=== PATIENT | female | born 1975 | race Caucasian/White ===

== ENCOUNTER 2022-03-27 16:40 | Emergency (ER) | payer OTHER, SELFPAY ==
[2022-03-27 17:02] VITALS: BP 137/86; PULSE 75; RESP 18; TEMP 36.9; O2SAT 98; BMI 32.4
--- NOTE | 2022-03-27 17:23 | ED.GENADULT ---
HPI - General Adult General Time Seen by Provider: 17:23 Date Seen: 03/27/22 Chief complaint: Skin/Abscess/Foreign Body Stated complaint: blister and rash on LT leg Time Seen by Provider: 03/27/22 16:55 Source: patient Mode of arrival: ambulatory Limitations: no limitations History of Present Illness HPI narrative: Patient is a 47 year white female who presents with a rash on the back of her leg for few days started as a couple of dots, now it has been blistery and weepy little bit the distal 3rd of her leg posteriorly, she has been using some doc topical Benadryl ointment, initially was periodic now it does not itch much. No other rashes noted patient has been healthy Related Data Home Medications Medication Instructions Recorded Confirmed aspirin .ROUTE 03/27/22 levothyroxine .ROUTE 03/27/22 sertraline .ROUTE 03/27/22 Allergies Allergy/AdvReac Type Severity Reaction Status Date / Time iodine Allergy Verified 03/27/22 17:00 Review of Systems Narrative: Negative for prior skin rash, or skin condition PFSH PFSH Social History Smoking Status: Unknown if ever smoked Do you use any of these nicotine containing products: None Second hand tobacco smoke exposure: No How often do you have a drink containing alcohol: never AUDIT-C Alcohol total score: 0 Non-prescribed substance use: denies use service: No Exam Narrative: Exam Narrative: Objective: We would be blistering rash on the lower leg on the left posterior leg. A wound culture be obtained by nurses. Const: Vital Signs, click to edit/add: Vital Signs - 24 hr 03/27/22 17:02 Temperature 98.4 F Pulse Rate [Right Pulse Oximeter] 75 Respiratory Rate 18 Blood Pressure [Ri ght Upper Arm] 137/86 Pulse Oximetry 98 Oxygen Delivery Me thod Room Air Course Vital Signs Vital signs: Initial Vital Signs Temperature 98.4 F 03/27/22 17:02 Temperature Source Oral 03/27/22 17:02 Pulse Rate 75 03/27/22 17:02 Respiratory Rate 18 03/27/22 17:02 Blood Pressure 137/86 03/27/22 17:02 Blood Pressure Mean 103 03/27/22 17:02 Blood Pressure Position Sitting 03/27/22 17:02 Pulse Oximetry 98 03/27/22 17:02 Oxygen Delivery Method 03/27/22 17:02 Vital Signs Temperature 98.4 F 03/27/22 17:02 Pulse Rate 75 03/27/22 17:02 Respiratory Rate 18 03/27/22 17:02 Blood Pressure 137/86 03/27/22 17:02 Pulse Oximetry 98 03/27/22 17:02 Oxygen Delivery Method 03/27/22 17:02 Temperature 98.4 F 03/27/22 17:02 Pulse Rate 75 03/27/22 17:02 Respiratory Rate 18 03/27/22 17:02 Blood Pressure 137/86 03/27/22 17:02 Pulse Oximetry 98 03/27/22 17:02 Oxygen Delivery Method 03/27/22 17:02 Medical Decision Making MDM Narrative Medical decision making narrative: Patient has a blistering type rash in the back of her leg that is gotten worse. Peers a could be a contact dermatitis versus mild cellulitis or impetigo type infection. Wound culture obtained. Will have the patient take Benadryl orally, can take prednisone 50 mg now and then 20 b.i.d. for the next couple of days. May take oral Benadryl as well. Topical lotion as needed. Follow up wound culture as indicated. Recheck with Primary Care not improving in next several days Discharge Plan Discharge Clinical Impression: Rash and nonspecific skin eruption Patient Disposition: Home, Self-Care Condition: Stable Additional Instructions: The rash appears to be either mild infection or contact dermatitis, wound culture be obtained. Will call you with results of the wound culture if it is positive. Keflex 500 q.i.d., prednisone now and then prednisone 20-40 b.i.d. over the next 3 days. May use some topical lotion as needed. Oral Benadryl be useful as well for a couple of days. Follow up with primary care not improving in next few days. Medications will be dispensed through [facility] Activity Level: No Restrictions Discharge Diet: Regular Prescriptions: No Action sertraline [Zoloft] .ROUTE aspirin .ROUTE levothyroxine [Synthroid] .ROUTE Stand Alone Forms: Videostrip Info Instructions
--- OUTSIDE RECORDS SUMMARY | 2022-03-27 17:34 | XMS_ITS | Clinical Summary ---
:1975 Author Organization [email or web address] Address [address] [place] [address] Care Team Providers Name Role Phone Minda Barkley MD Primary Care Provider Unavailable Source Comments You are receiving this document as you are listed as the primary care provider,follow-up provider, or the patient has been referred to you for consultation.This is in compliance with the Medicare and Medicaid EHR Incentive Program,which states Providers who transition their patient to another setting of careor provider of care or refers their patient to another provider of care shouldprovide summarycare record for each transition of care or referral. [facility] Allergies Active Allergy Reactions Severity Noted Date Comments Other 04/21/2007 PN: LW Other1: -iodine Swelling Review Food Intolerance 09/12/2004 PN: LW FI1: shellfis Medications Medication Sig Dispensed Refills Start Date End Date Status levothyroxine (AKA Take 1 tablet by 90 tablet 3 09/22/2011 Active SYNTHROID) 50 MCG tablet mouth daily (every 24 hours). 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 Overview: LW Onset: [id number] ; Allergy Food Resolved Problems Problem Noted Date Resolved Date Sinusitis, chronic 09/12/2004 10/13/2004 Overview: LW Onset: [id number] ; Post Nasal Drip Immunizations Name Administration Dates Next Due Influenza IIV4 (Quadrivalent) 0.5mL 05/06/2019, 05/02/2019, 05/02/2017 (89263) Pfizer (Comirnaty) COVID-19, 12+ Yrs 05/31/2021, 08/12/2020, 07/22/2020 Purple Top Family History Medical History Relation Name Comments Heart Disease Father Diabetes Paternal Grandfather Relation Name Status Comments Father Mother Alive Maternal Grandfather Maternal Grandmother Alive Paternal Grandfather Paternal Grandmother Social History Tobacco Use Types Packs/Day Years Used Date Smoking Tobacco: Never Alcohol Use Standard Drinks/Week Comments Yes 0 (1 standard drink = 0.6 oz pure alcoho l) social Alcohol Habits Answer Date Recorded How often do you have a drink containing alcohol? Not asked How many drinks containing alcohol do you have on a typical Not asked day when you are drinking? How often do you have six or more drinks on one occasion? No t asked Comment: social 03/10/2016 Sex Assigned at Date Recorded Not on file Last Filed Vital Signs Vital Sign Reading Time Taken Comments Blood Pressure 114/70 09/22/2011 8:47 AM INSULATION BOARD CALENDER OPERATOR Pulse 76 09/22/2011 8:47 AM INSULATION BOARD CALENDER OPERATOR Temperature 36.7 ??C (98.1 ??F) 02/20/2008 10:08 AM CDT C: 3 6.7 C Respiratory Rate 14 02/20/2008 10:08 AM CDT Oxygen Saturation 99% 04/21/2007 8:39 AM CDT Inhaled Oxygen Concentration - - Weight 75.3 kg (166 lb) 09/22/2011 8:47 AM INSULATION BOARD CALENDER OPERATOR Height - - Body Mass Index - - Plan of Treatment Health Maintenance Due Date Last Done Comments Cervical Cancer Screening 1975 Due Colon Cancer Screening Plan 1975 Due Hep C Screening (Preventive 1975 Services) HepB (1) 1975 HIV Screening (Preventive 1992 Services) Adult Preventive Visit 02/14/1994 Cholesterol 02/14/2021 DTaP/Tdap/Td (3 - Tdap) 02/14/2021 02/14/2011, 07/23/2003 Influenza (#1) 2022 04/12/2021, 04/22/2020, 04/07/2020, Additional history exists Zoster/Shingles (1 of 2) 02/14/2026 COVID-19 Vaccine Completed 05/31/2021, 08/12/2020, 07/22/2020 HepA Aged Out No longer eligib le based on patient 's age to complete this topic Hib Aged Out No longer eligib le based on patient 's age to complete this topic IPV (Polio) Aged Out No longer eligib le based on patient 's age to complete this topic MCV4 Aged Out No longer eligib le based on patient 's age to complete this topic Pneumococcal Aged Out No longer eligib le based on patient 's age to complete this topic Insurance Payer Benefit Plan / Subscriber ID Effective Dates Phone Addre ss Type Group CHRIS PEREZ CROSSNORE [id number] 2017-Present [facility]ALTH [facility] Government [employer] [address] [place] [address] [phone] (Home) [address] [phone] Micahel WELSH [address] 0 (Work) [phone] [address] Manuel Personal/Family Self 1975 [phone] (Home) [facility] [phone] Michael WELSH N 0 (Work) [phone] Sara Manuel Personal/Family Self 1975 [phone] (Home) [place] [address] [employer] 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
--- OUTSIDE RECORDS SUMMARY | 2022-03-27 17:34 | XMS_ITS | Encounter Summary ---
:1975 [facility] Organization [facility] Address [address] [place] [address] Care Team Providers Name Role Phone Minda Barkley MD Primary Care Provider Unavailable Encounter Details Date Type Department Care Team Description 07/22/2020 Immunization [place] [facility]ter for Clinic administration of vaccine Varies by location (Primary Dx) [place] [phone] Social History Tobacco Use Types Packs/Day Years [...] Assigned at Date Recorded Not on file documented as of this encounter Plan of Treatment Not on filedocumented as of this encounter Visit Diagnoses Diagnosis Encounter for administration of vaccine - Primary documented in this encounter Care Teams Test Worker Relationship Specialty Start Date End Date Minda Barkley MD PCP - General 10/24/10 documented as of this encounter
--- OUTSIDE RECORDS SUMMARY | 2022-03-27 17:34 | XMS_ITS | Encounter Summary ---
:1975 Author Organization [facility] Address [address] [place] [address] Care Team Providers Name Role Phone Minda Barkley MD Primary Care Provider Unavailable Encounter Details Date Type Department Care Team Description 06/21/[address] [address] [facility], Drive-Up Encounter [facility] [address] [place] [address] diseases [phone] Social History Tobacco Use Types Packs/Day Years [...] Not on filedocumented as of this encounter Procedures Procedure Name Priority Date/Time Associated Comments Diagnosis 2019 NOVEL Routine 06/21/2020 9:55 AM Encounter for Results for this CORONAVIRUS CREDIT OFFICER screening for other procedur e are in viral diseases the results section. documented in this encounter Results Symptomatic - 2019 Novel Coronavirus (COVID-19) (06/21/2020 9:55 AM CREDIT OFFICER) [facility] Method Time Signature COVID-19 Not Not 06/21/2020 [facility] Interpretation Detected Detected 10:56 PM CENTRAL LAB CREDIT OFFICER Specimen Anatomical Collection Method Collection Time Receive d Time (Source) Location / / Volume Laterality Swab (Source Non-blood 06/21/2020 9:55 AM 0 Required) Collection / CREDIT OFFICER 11:59 AM CREDIT OFFICER Unknown Narrative [facility] CENTRAL LAB - 06/21/2020 10:56 PM CREDIT OFFICER Test performed by Electronic Installer Mediated Amplification. TMA has been shown to be equivalent to commercial real-time PCR t ests. This test has been authorized by the FDA under an Emergency Use Authorization (EUA) for use by authorized laboratories. Minda Barkley MD LAB_1 Performing Organization Address City/State/[facility] Code Phon e Number [facility] [address] [phone] documented in this encounter Visit Diagnoses Diagnosis Encounter for screening for other viral diseases documented in this encounter Additional Health Concerns Infection Onset Date Last Indicated Resolved Time R/O COVID19 06/21/2020 06/21/2020 06/21/2020 10:56 PM CREDIT OFFICER documented as of this encounter Care Teams Continuous Linter Drier Operator Relationship Specialty Start Date End Date Minda Barkley MD PCP - General 10/24/10 documented as of this encounter
--- OUTSIDE RECORDS SUMMARY | 2022-03-27 17:34 | XMS_ITS | Encounter Summary ---
:1975 Author Organization [facility] Address [address] [place] [address] Care Team Providers Name Role Phone Minda Barkley MD Primary Care Provider Unavailable Encounter Details Date Type Department Care Team Description 02/08/2017 Notes/Orders [facility] [address] Benedict [place]rade, [place] reening examination Employee Health MD for pulmonary Clinic [address] [facility] tuberculosis (Primary [address] Dx) [place] [address] [phone] Social History Tobacco Use Types Packs/Day Years [...] Not on filedocumented as of this encounter Results TB Gold, Quantiferon (02/08/2017 3:21 PM CDT) [facility] Method Time Signature Tuberculosis Negative Negative PN SOFT Qualitative Inhouse Comment: The test result is Negative M.tuberculosis infection is unlikely, bu t cannot be excluded, especially when illness is consistent wi th TB. Qiagen QuantiFERON-TB Gold is an indirec t test utilizing Interferon-gamma (IFN-y) DANA for M.tub erculosis infection (including disease) and is intended for use in conjunction with risk assessment, radiography and ot her medical and diagnostic evaluations. ??The performanc of the [facility] format of the test has not been extensively betsy luated with specimens from the followin.Individua ls who have impaired or altered immune function such as those who have HIV infection or AIDS, those who have transp lantation managed with immunosuppressive treatment or othe rs who receive immunosuppressive drugs, and those who h ave other clinical conditions:diabetes, silicosis, chronic renal failure, hematological disorders(e.g.leukemia & l ymphomas), and other specific malignancies (e.g.carcinoma of the head, neck, or lung). 2. Individuals younger than 17 ye ars. Specimen Anatomical Collection Method Collection Time Receive d Time (Source) Location / / Volume Laterality 02/08/2017 3:21 PM 7 3:59 CDT PM CDT Narrative PN SOFT - 02/12/2017 2:57 PM CDT Performed at [facility], [facility] [place] [address] CLIA number [id number] Benedict Andrade MD LAB_1 Performing Organization Address City/State/ZIP Code Phon e Number [address] [address] documented in this encounter Visit Diagnoses Diagnosis Screening examination for pulmonary tube rculosis - Primary Screening examination for pulmonary tube rculosis documented in this encounter Care Teams Metal Tile Lather Relationship Specialty Start Date End Date Minda Barkley MD PCP - General 10/24/10 documented as of this encounter
--- OUTSIDE RECORDS SUMMARY | 2022-03-27 17:34 | XMS_ITS | Encounter Summary ---
:1975 Author Organization [email or web address] Address [address] [place] [address] Care Team Providers Name Role Phone Minda Barkley MD Primary Care Provider Unavailable Encounter Details Date Type Department Care Team Description 02/08/2017 Lab Visit Specialty [facility] 3931 Screen ing examination for Outpatient Laborator y pulmonary tuberculosis [address] [place] [address] Social History Tobacco Use Types Packs/Day Years [...] encounter Procedures Procedure Name Priority Date/Time Associated Diagnosis Comme nts TB GOLD, QUANTIFERON Routine 02/08/2017 3:21 PM Screening exam ination Results for this CDT for pulmonary procedure are in tuberculosis the results section. documented in this encounter Results TB Gold, Quantiferon (02/08/2017 3:21 PM CDT) [facility] Method Time Signature Tuberculosis Negative Negative PN [...] and diagnostic evaluations. ??The performanc of the [facility] format of the test has not been [...] - 02/12/2017 2:57 PM CDT Performed at [facility], [facility] [place] [address] CLIA number [id number] Benedict Andrade MD LAB_1 Performing Organization Address City/State/ZIP Code Phon e Number SOFT [address] [place] [address] [phone] documented in this encounter Visit Diagnoses Diagnosis Screening examination for pulmonary tube rculosis documented in this encounter Care Teams Manager Government Relationship Specialty Start Date End Date Minda Barkley MD PCP - General 10/24/10 documented as of this encounter
--- OUTSIDE RECORDS SUMMARY | 2022-03-27 17:34 | XMS_ITS | Encounter Summary ---
:1975 Author Organization [facility] Address [address] [place] [address] Care Team Providers Name Role Phone Minda Barkley MD Primary Care Provider Unavailable Encounter Details Date Type Department Care Team Description 08/05/2021 Lab Visit [facility] Conta [facility] with and Laboratory (suspected) exposure to [address] covid-19 (Primary Dx) [place] [address] Social History Tobacco Use Types Packs/Day Years [...] Date/Time Associated Comments Diagnosis 2019 NOVEL Routine 08/05/2021 9:52 PM Contact with and Resul ts for this CORONAVIRUS HUMAN RESOURCES VICE PRESIDENT (suspected) procedure are i n exposure to the results covid-19 section. documented in this encounter Results (ABNORMAL) COVID-19 (ROUTINE)-choose patient type (08/05/2021 9:52 PM HUMAN RESOURCES VICE PRESIDENT) [facility] Method Time Signature COVID-19 Detected Not 08/05/2021 [facility] Interpretation (A) Detected 11:54 PM HOSPITAL HUMAN RESOURCES VICE PRESIDENT Source Nares, left 08/05/2021 [facility] and right 11:54 PM HOSPITAL HUMAN RESOURCES VICE PRESIDENT Specimen Anatomical Collection Method Collection Time Receive d Time (Source) Location / / Volume Laterality Swab (Source ENTIRE ANTERIOR Non-blood 08/05/2021 9:52 PM 2021 9:57 Required) NARIS / Unknown Collection / HUMAN RESOURCES VICE PRESIDENT PM HUMAN RESOURCES VICE PRESIDENT Unknown Narrative [facility] - 08/05/2021 11:[address] Test performed by real-time PCR. This test has been authorized by the FDA under an Emergency Use Authorization (EUA) for use by authorized laboratories. Minda Barkley MD LAB_1 Performing Organization Address City/State/ZIP Code Phon e Number [address] [address] documented in this encounter Visit Diagnoses Diagnosis Contact with and (suspected) exposure to covid-19 - Primary documented in this encounter Care Teams Wireless Sales Associate Relationship Specialty Start Date End Date Minda Barkley MD PCP - General 10/24/10 documented as of this encounter
--- OUTSIDE RECORDS SUMMARY | 2022-03-27 17:34 | XMS_ITS | Encounter Summary ---
:1975 [facility] Address [address] [place] [address] Care Team Providers Name Role Phone Minda Barkley MD Primary Care Provider Unavailable Encounter Details Date Type Department Care Team Description 05/31/2021 Immunization [facility] Encounter f or Department administration of vaccine [address] [place] [address] (Primary Dx) [place] [address] Social History Tobacco Use Types Packs/Day Years [...] Primary documented in this encounter Care Teams Chief Customer Officer Relationship Specialty Start Date End Date Minda Barkley MD PCP - General 10/24/10 documented as of this encounter
--- OUTSIDE RECORDS SUMMARY | 2022-03-27 17:34 | XMS_ITS | Encounter Summary ---
:1975 Author Organization [facility] Address [address] [place] [address] Care Team Providers Name Role Phone Minda Barkley MD Primary Care Provider Unavailable Encounter Details Date Type Department Care Team Description [facility] administration of vaccine [address] [facility] (Primary Dx) [place] [address] Social History Tobacco Use Types Packs/Day Years [...] Primary documented in this encounter Care Teams Medical Oncology Physician Relationship Specialty Start Date End Date Minda Barkley MD PCP - General 10/24/10 documented as of this encounter
--- OUTSIDE RECORDS SUMMARY | 2022-03-27 17:34 | XMS_ITS | Encounter Summary ---
:1975 Author Organization [facility] Address [address] [place] [address] Care Team Providers Name Role Phone Minda Barkley MD Primary Care Provider Unavailable Encounter Details Date Type Department Care Team Description 06/08/2017 Immunization [facility] Need f or prophylactic [facility] vaccination [facility] . inoculation against [place], [place] [address] Social History Tobacco Use Types Packs/Day Years [...] as of this encounter Visit Diagnoses Diagnosis Need for prophylactic vaccination and in oculation against influenza documented in this encounter Care Teams Budget Controller Relationship Specialty Start Date End Date Minda Barkley MD PCP - General 10/24/10 documented as of this encounter
--- OUTSIDE RECORDS SUMMARY | 2022-03-27 17:34 | XMS_ITS | Clinical Summary ---
:1975 Author Organization [facility] [place] [address] Care Team Providers Name Role Phone Neil Lomeli RN, Aide Unavailable Xiomara Lawrence MD Primary Care Provider Allergies Active Allergy Reactions Severity Noted Date Comments Iodine Edema High 04/26/2006 Shellfish Containing Products Throat Swelling/Closing High 08/07/2006 Medications Medication Sig Dispensed Refills Start Date End Date Status aspirin (ECOTRIN) 81 mg Take 1 tablet by 30 tablet 0 9 Active enteric coated mouth once daily tabletIndications: with a meal. Acute CVA (cerebrovascular accident) (HC) valACYclovir (VALTREX) Take 2 tablets by 10 tablet 0 0 Active 1 gram mouth 2 times tabletIndications: H/O daily. Start at cold sores onset of symptoms for one day. levothyroxine Take 50 mcg by 0 A ctive (SYNTHROID) 25 mcg mouth once daily. tablet (per patient recall) busPIRone (BUSPAR) 10 TAKE ONE TABLET 0 02/14/2021 Active mg tablet BY MOUTH TWICE A DAY FOR ANXIETY escitalopram oxalate TAKE TWO TABLETS 0 01/06/2021 Active (LEXAPRO) 5 mg tablet BY MOUTH EVERY DAY ondansetron (ZOFRAN 0 03/05/2021 Active ODT) 4 mg disintegrating tablet tiZANidine (ZANAFLEX) 2 0 12/29/2019 Active mg tablet LORazepam (ATIVAN) 1 mg 0 07/05/2020 Active tablet Active Problems Problem Noted Date Depression 03/07/2021 CVA (cerebral vascular accident) 10/10/2020 Vertebral artery dissection 10/10/2020 Right sided weakness 10/10/2020 Headache 01/23/2019 Right hemiplegia 01/23/2019 S/P admn tPA in diff fac w/n last 24 hr bef adm to crn t fac 01/23/2019 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 11/07/19 19 ASCUS of cervix with negative high risk HPV 11/06/2018 Overview: 11/06/2018 ASCUS/HPV negative 03/07/2021 NIL/HPV negative Plan: Routine screening Pap/HPV due 02/21 026 Macromastia 12/03/2017 Overview: Added automatically from request for maritza rodriguez [id number] Abdominal panniculus, symptomatic 12/03/2017 Overview: Added automatically from request for maritza rodriguez [id number] Resolved Problems Problem Noted Date Resolved Date Vulvar lesion 07/25/2012 02/17/2014 Supervision of other normal 05/23/2006 Twin , antepartum 05/23/2006 02/17/2014 Immunizations Name Administration Dates Next Due COVID-19 vaccine ([employer] [place] 08/12/2020, 07/22/2020 30mcg/0.3mL) PF, MDV Hepatitis B (Adult) 04/01/2015 Influenza Virus, Unspecified 04/22/2020, 05/20/2018, 013 Influenza, IIV3 (Age 6-35 mos) 04/07/2020, 04/12/2015 Influenza, IIV3 (Age >=3 years) 03/23/2015, 05/23/2006, 05/23 Influenza, IIV4 05/06/2019, 05/02/2019, 05/02/2017, 04/25/2016, 06/03/2014 Tdap 02/14/2011, 07/23/2003 Tuberculin (PPD) 02/17/2014 Family History Medical History Relation Name Comments Hyperlipidemia Father Hypertension Father Premature CHD (under age 60) Father d [place] [facility] Thyroid Disease Mother Goiter Diabetes Paternal Grandfather Type II Cancer-breast No Family History Cancer-ovarian No Family History Stroke No Family History Relation Name Status Comments Brother 1 Alive Brother 2 Alive Father from [place] Mother Alive Paternal Grandfather Sister Alive Social History Tobacco Use Types Packs/Day Years Used Date Never Smoker Smokeless Tobacco: Never Used Tobacco Cessation: Counseling Given: Yes Alcohol Use Standard Drinks/Week Comments Yes 0 (1 standard drink = 0.6 oz pure Twice a month or less, 1 drinks per alcohol) 24h period at most Alcohol Habits Answer Date Recorded How often do you have a drink 2-4 times a month 11/06/2018 containing alcohol? How many drinks containing alcohol do 1 or 2 you have on a typical day when you are drinking? How often do you have six or more Never 2018 drinks on one occasion? Comment: Twice a month or less, 1 drinks 10/26/19 16 per 24h period at most Sex Assigned at Date Recorded Female 03/04/2021 8:27 AM CDT Obstetrics History Para Term AB IAB SAB Ectopic Multiple Living Live Births 3 3 2 1 0 0 0 0 1 4 4 Date Outcome GA Total Labor/2nd/3rd Weight Sex Delivery Anes PTL Tanisha A 1 A5 Name Clin Labor 11/18 Term 38w 3.29 kg M Vag Meghna Austi S. /1992 0d (7 lb 4 ng n D itma oz) nson Delivery Location: [place], [place] 01/09/2001 Term 38w0d 3.12 kg (6 lb 14 oz) F Vag Li ving Anterra Delivery Location: [place] 08/20/2006 36w0d 2.81 kg (6 lb 3 oz) F Vag [facility] Comments: Baby A 08/20/2006 36w0d 2.41 kg (5 lb 5 oz) F Vag Living [facility] Comments: Baby B Last Filed Vital Signs Vital Sign Reading Time Taken Comments Blood Pressure 130/84 03/07/2021 10:24 AM CDT Pulse 74 10/11/2020 8:30 AM CDT Temperature 36.8 ??C (98.3 ??F) 10/11/2020 12:26 AM CDT Respiratory Rate 16 10/11/2020 8:30 AM CDT Oxygen Saturation 100% 10/11/2020 8:30 AM CDT Inhaled Oxygen Concentration - - Weight 88.1 kg (194 lb 4.8 oz) 03/07/2021 10:24 AM CDT Height 166 cm (5' 5.35) 03/07/2021 10:24 AM CDT Body Mass Index 31.98 03/07/2021 10:24 AM CDT Plan of Treatment Health Maintenance Due Date Last Done Comments Colonoscopy through age 75 02/14/2021 Tetanus booster 02/14/2021 02/14/2011, 02/14/2011 ([facility] 07/23/2003 BMI (ht and wt on same day) for 03/07/2022 03/07/2021, 1211/2018, age 18+ 04/30/2019, Additional history exists Depression screening for age 12+ 03/07/2022 03/07/2021, 06/2020, 08/13/2019, Additional history exists Influenza for age 9-49 03/23/2022 04/22/2020, 05/06/2019, 05/02/2019, Additional history exists Mammogram for age 45-75 12/07/2022 12/07/2021, 10/29/2020, 10/01/2019, Additional history exists Lipids for age 45-75 10/10/2025 10/10/2020, 01/24/2019, 04/18/2017, Additional history exists Pap test for age 21-65 03/07/2026 03/07/2021, 03/07/2021, 11/06/2018, Additional history exists Tdap Completed 02/14/2011, 07/23/2003 Hepatitis C screening for age Completed 03/29/2018 18-79 COVID-19 vaccine series Completed 05/31/2021, 08/12/2020, 07/22/2020 Results Not on filefrom Last 3 Months Insurance Payer Benefit Plan Subscriber ID Effective Dates Phone Address Type / Group [employer] [facility] [id number] 2021-Prese [facility] [employer] nt [address] [place] [address] [place] [id number] 2013-Presen [employer]/ [address] [place] [phone] Advance Directives Latest Code Status on File Code Status Date Activated Date Inactivated Comments Full Code 10/10/2020 2:17 AM 10/11/2020 4:45 PM Code Status Discussion: Discussed Full Code 01/23/2019 11:13 AM 01/25/2019 2:07 PM Full Code 03/29/2018 6:09 AM 03/30/2018 1:14 PM Care Teams Copier Technician Relationship Specialty Start Date End Date Xiomara Lawrence MD PCP - General Internal Medicine 11/28/21 [place] [address] Aide Trejo V, RN Pet Supplies Salesperson Registered Nurse 02/04/19
--- OUTSIDE RECORDS SUMMARY | 2022-03-27 17:34 | XMS_ITS | Encounter Summary ---
:1975 Author Organization [facility] Address [address] [place] [address] Care Team Providers Name Role Phone Minda Barkley MD Primary Care Provider Unavailable Encounter Details Date Type Department Care Team Description 06/21/2020 Notes/Orders [facility] Minda Barkleyuntyaima for Practice MD Kimberly screening for other [facility] [address] viral diseases [place], [place] [address] [address] [place], [place] [phone] Social History Tobacco Use Types Packs/Day Years [...] on filedocumented as of this encounter Results Symptomatic - 2019 Novel Coronavirus (COVID-19) (06/21/2020 9:55 AM HELP DESK MANAGER) [facility] gist Method Time Signature COVID-19 Not Not 06/21/2020 [facility] Interpretation Detected Detected 10:56 PM CENTRAL LAB HELP DESK MANAGER Specimen Anatomical Collection Method Collection Time Receive d Time (Source) Location / / Volume Laterality Swab (Source Non-blood 06/21/2020 9:55 AM 0 Required) Collection / HELP DESK MANAGER 11:59 AM HELP DESK MANAGER Unknown Narrative [facility] CENTRAL LAB - 06/21/2020 10:56 PM HELP DESK MANAGER Test performed by Air Traffic Coordinator Mediated Amplification. TMA has been shown to be equivalent to commercial real-time PCR t ests. This test has been authorized by the FDA under an Emergency Use Authorization (EUA) for use by authorized laboratories. Minda Barkley MD LAB_1 Performing Organization Address City/State/ZIP Code Phon e Number [facility] [address] [address] documented in this encounter Visit Diagnoses Diagnosis Encounter for screening for other viral diseases documented in this encounter Care Teams Fuel Cell Systems Engineer Relationship Specialty Start Date End Date Minda Barkley MD PCP - General 10/24/10 documented as of this encounter
[2022-03-27] MEDS: predniSONE 10 MG TABLET 50 MG PO (17:35)
[2022-03-27] MEDS: cephALEXin 500 MG CAPSULE PO (17:35)
--- OUTSIDE RECORDS SUMMARY | 2022-03-27 17:35 | XMS_ITS | Encounter Summary ---
:1975 Author Organization [facility] Address [address] [place] [address] Care Team Providers Name Role Phone Minda Barkley MD Primary Care Provider Unavailable Encounter Details Date Type Department Care Team Description 02/20/2008 Office Visit [facility] [place] [address] [place] [address] [place], [place] [address] (Wo rk) Social History Tobacco Use Types Packs/Day Years Used Date Smoking Tobacco: Never Assessed Sex Assigned at Date Recorded Not on file documented as of this encounter Progress Notes Alivia Keating MD - 02/20/2008 12:01 AM CDT Progress Notes signed by Alivia Keating MD at 04/02/08 0904 Author: Alivia Keating MD Service: (none) Author Type: Physician Filed: 11/12/10611 Note Time: 02/20/08 0001 Status: Signed Grader Operator: Alivia Keating MD (Physician) NAME: SARA MANUEL MR#: [id number] ACCT: [id number] VISIT: [id number] DICTATING CLINICIAN: ALIVIA KEATING MD CONFIRM #: [id number] LOC: 520 CLINIC PROGRESS NOTE DATE OF VISIT: 02/20/2008 SUBJECTIVE: CHIEF COMPLAINT: Dizziness. HPI: This pleasant 33-year-old comes in today complaining of dizziness. It has been going off and on for the past week. Patient says that she just feels like she has drank a lot. Just does not feel like herself. Denies any fever or chills. Denies any ear pain. Denies any ringing in the ears or hearing loss. Denies any chest pain or shortness of breath. Denies a headache. Denies any abdominal pain, nausea, vomiting, or diarrhea. Does not feel like she has been sick. No joint aches. One thing that she does say is that she was on Zoloft for the past month, and 2 weeks ago, she just stopped it cold turkey. She says that for the first week, she was doing week, but no all of a sudden, she just does not feel quite right. She feels like if she turns her head one way or another, she feels like it takes a while for her brain to catch up. There is not a specific movement that she uses that would make this worse. If she lies down or sits up, it does not seem to matter. If she looks to the right or the left, it does not matter, it is just the fact that whenever she makes any type of head movement. The room is not spinning, but she just feels like she is a little off center. This has never happened to her before. She feels like she is sleeping relatively well. She gave to twins a year ago, so she says that her sleeping schedule is not back to normal, but feels like she is doing well. Does not feel like she is under quite a bit of stress. Does not feel like her depression is bothering her at all. PAST SURGICAL HISTORY: Hernia surgery, 7 years ago. LASIK eye surgery 2003. Tubal ligation. MEDICATIONS: Zoloft 100 mg a day which she stopped completely 2 weeks ago. She did not wean herself off. ADR/ALLERGIES: IODINE. SOCIAL HISTORY: Denies any drug use or alcohol use. FAMILY HISTORY: Significant for diabetes mellitus, hypertension. Her father of a HI at the age of 48. OBJECTIVE: VS: BP: 155/78. T: 98. P: 65. R: 14. GENERAL: Alert and oriented. No apparent distress. Tympanic membranes reveal no sign of infection or fluid. Extraocular muscles are intact. Pupils equal, round, and reactive to light and accommodation. There is no nystagmus. Sinuses are nontender. Oropharynx is pink and moist, no pharyngitis or tonsillar enlargement. HEAD: Normocephalic, atraumatic. NECK: Reveals no thyromegaly, lymphadenopathy, or bruits. LUNGS: Clear to auscultation bilaterally. HEART: Regular without murmurs, rubs, or gallops. ABDOMEN: Soft, nontender. EXTREMITIES: No rashes or cyanosis. NEUROLOGICALLY: Intact. Cranial nerves 2-12 intact. No focal deficits are appreciated. Gdenyj-of-msbd is intact. DIAGNOSTIC STUDIES.: Sodium 138, potassium 4.6, chloride 103, CO2 33. Urinalysis is negative. White blood cell count is 6.1, hemoglobin 13.7, hematocrit 39.9, platelets 322, glucose is 93. EKG is within normal limits. CT scan of the head is also within normal limits. ASSESSMENT: Dizziness, off balance. Certainly she has had a lot of changes within the last year, giving to those twins. My other big concern is her Zoloft. She was on that and then she stopped it cold turkey. I did tell her that we usually like to wean people off and it usually takes a month to build up in their system, so I usually like to take a month to wean people off of that. She says that could certainly be something that is causing this, but she feels like there is something else going on. She is very reassured that these tests that we have done so far are within normal limits. She was quite concerned about several things. PLAN: I did give her some Meclozine 25 mg one p.o. q.4-6 hours as needed, #20 no refills. I did tell her that we could certainly have her go back on the Zoloft to see if her symptoms stopped, although, she is really wanting to get off of the Zoloft and would like to not go back on that. So at this point after speaking with her, we decided to keep her off of it. I did tell her to get adequate rest, adequate hydration. We are going to have her follow up with internal medicine next week for the rest of the laboratory studies. Certainly, if things worsen in the meantime, she needs to follow up and she understands. GEOVANNA:[id number] C: 02/20/08 14:45 CONFIRM #: [id number] documented in this encounter Plan of Treatment Not on filedocumented as of this encounter Procedures Procedure Name Priority Date/Time Associated Diagnosis Comme nts CT HEAD WO IV CONT Routine 02/20/2008 11:06 AM Re sults for this CDT procedure are i n the results section. documented in this encounter Results CT Head WO IV Cont (02/20/2008 11:06 AM CDT) Anatomical Region Laterality Modality Head Other Specimen (Source) Anatomical Location Collection Method / Collectio n Time Received Time / Laterality Volume Narrative 02/20/2008 11:06 AM CDT Findings: ??No evidence of mass, acute hemorrhage, or other abnormality is seen. ??Brain parenchyma, ventricles, sulci, and cisternal areas appear normal. ??Cranium and visualized sinuses appear intact. Impression: Negative. Dictating RADHA SINGH Radiologist Procedure Note Radha Lee MD - 09/21/2016Formattin g of this note might be different from the original. Findings: No evidence of mass, acute hem orrhage, or other abnormality is seen. Brain parenchyma, v entricles, sulci, and cisternal areas appear normal. Cranium a nd visualized sinuses appear intact. Impression: Negative. Dictating RADHA SINGH Radiologist Alivia Keating MD RAD CT documented in this encounter Visit Diagnoses Not on filedocumented in this encounter Care Teams Music Teacher Relationship Specialty Start Date End Date Minda Barkley MD PCP - General 10/24/10 documented as of this encounter
--- OUTSIDE RECORDS SUMMARY | 2022-03-27 17:35 | XMS_ITS | Encounter Summary ---
:1975 Author Organization [facility] Address [address], [place] [address] Care Team Providers Name Role Phone Minda Barkley MD Primary Care Provider Unavailable Encounter Details Date Type Department Care Team Description 11/20/2010 PN Conversion Only CONVERSION CONVERSION Lauren Jimenez MD [facility] [place], [place] [id number] (Wo rk) Social History Tobacco Use Types Packs/Day Years Used Date Smoking Tobacco: Never Assessed Sex Assigned at Date Recorded Not on file documented as of this encounter Plan of Treatment Not on filedocumented as of this encounter Visit Diagnoses Not on filedocumented in this encounter Care Teams Supervisor Education Relationship Specialty Start Date End Date Minda Barkley MD PCP - General 10/24/10 documented as of this encounter
--- OUTSIDE RECORDS SUMMARY | 2022-03-27 17:35 | XMS_ITS | Encounter Summary ---
:1975 Author Organization [facility] [address] [address] Care Team Providers Name Role Phone Unavailable Primary Care Provider Unavailable Encounter Details Date Type Department Care Team Description 05/18/2000 Office Visit [facility] Oumou Gunter MD SUPERVIS OTHER NORMAL Obstetrics and [address] [place] [address] [address] [place] [address] [phone] Social History Tobacco Use Types Packs/Day Years Used Date Smoking Tobacco: Never Assessed Sex Assigned at Date Recorded Not on file documented as of this encounter Plan of Treatment Not on filedocumented as of this encounter Visit Diagnoses Diagnosis Supervision of other normal documented in this encounter
--- OUTSIDE RECORDS SUMMARY | 2022-03-27 17:35 | XMS_ITS | Encounter Summary ---
:1975 Author Organization [employer]Formerly [facility] Address [address] [place] [address] Care Team Providers Name Role Phone Minda Barkley MD Primary Care Provider Unavailable Encounter Details Date Type Department Care Team Description 11/17/2011 Lab Visit [facility] Hypothyroidism [address] [place] [address] Social History Tobacco Use Types Packs/Day Years Used Date Smoking Tobacco: Never Assessed Sex Assigned at Date Recorded Not on file documented as of this encounter Plan of Treatment Not on filedocumented as of this encounter Procedures Procedure Name Priority Date/Time Associated Diagnosis Comme nts GLUCOSE Routine 11/17/2011 9:15 Hypothyroidism Results fo r this AM CDT procedure are i n the results section. THYROID STIMULATING Routine 11/17/2011 9:15 Hypothyroidism Res ults for this HORMONE AM CDT procedure are i n the results section. VITAMIN D 25-HYDROXY, Routine 11/17/2011 9:15 Hypothyroidism R esults for this TOTAL AM CDT procedure are i n the results section. CREATININE / GFR Routine 11/17/2011 9:15 Hypothyroidism Result s for this AM CDT procedure are i n the results section. COMPLETE BLOOD Routine 11/17/2011 9:15 Hypothyroidism Results for this COUNT-W/DIFF AM CDT procedure are i n the results section. DIFFERENTIAL Routine 11/17/2011 9:15 Results for this AM CDT procedure are i n the results section. ELECTROLYTE PANEL Routine 11/17/2011 9:15 Hypothyroidism Resul ts for this AM CDT procedure are i n the results section. FREE T4 Routine 11/17/2011 9:15 Hypothyroidism Results fo r this AM CDT procedure are i n the results section. ALT (SGPT) Routine 11/17/2011 9:15 Hypothyroidism Results fo r this AM CDT procedure are i n the results section. BUN Routine 11/17/2011 9:15 Hypothyroidism Results fo r this AM CDT procedure are i n the results section. documented in this encounter Results Differential (11/17/2011 9:15 AM CDT) athologist Signature Absolute 2.7 1.8 - 8.0 HP CONVERSION Neutrophils k/cmm Absolute 1.6 1.1 - 4.0 HP CONVERSION Lymphocytes k/cmm Absolute 0.5 0.2 - 0.8 HP CONVERSION Monocytes k/cmm Absolute 0.3 0.0 - 0.5 HP CONVERSION Eosinophils k/cmm Absolute 0.0 0.0 - 0.2 HP CONVERSION Basophils k/cmm Specimen Anatomical Collection Method Collection Time Receive d Time (Source) Location / / Volume Laterality 11/17/2011 9:15 AM 2 9:15 CDT AM CDT Narrative HP CONVERSION - 11/17/2011 9:26 AM CDT Performed at [facility], [place], [address] [place] [address] Shefali Almaguer MD LAB_1 Performing Organization Address City/[facility] Code Phon e Number HP CONVERSION Free T4 (11/17/2011 9:15 AM CDT) athologist Signature Thyroxine, Free 1.0 0.8 - 1.8 HP CONVERSION ng/dL Specimen Anatomical Collection Method Collection Time Receive d Time (Source) Location / / Volume Laterality 11/17/2011 9:15 AM 2 1:52 CDT PM CDT Shefali Almaguer MD LAB_1 Performing Organization Address City/[facility] Code Phon e Number HP CONVERSION Vitamin D 25-Hydroxy, Total (11/17/2011 9:15 AM CDT) athologist Signature Vitamin D 25 Oh 37 20 - 80 HP CONVERSION ng/mL Comment: Deficiency = <20 Adequate ??= 20-29 Preferred = 30-50 Uncertain safety = 51-80 High = >80 Specimen Anatomical Collection Method Collection Time Receive d Time (Source) Location / / Volume Laterality 11/17/2011 9:15 AM 2 1:52 CDT PM CDT Shefali Almaguer MD LAB_1 Performing Organization Address City/State/ZIP Code Phon e Number HP CONVERSION ALT (SGPT) (11/17/2011 9:15 AM CDT) [facility] gist Method Time Signature Alanine 14 4 - 55 HP CONVERSION Aminotransferase U/L Specimen Anatomical Collection Method Collection Time Receive d Time (Source) Location / / Volume Laterality 11/17/2011 9:15 AM 2 9:15 CDT AM CDT Narrative HP CONVERSION - 11/17/2011 9:43 AM CDT Performed at [facility], [place], [address] [place] [address] Shefali Almaguer MD LAB_1 Performing Organization Address City/[facility] Code Phon e Number HP CONVERSION THYROID STIMULATING HORMONE (11/17/2011 9:15 AM CDT) athologist Signature Thyroid 3.94 0.20 - HP CONVERSION Stimulating 4.50 mIU/L Hormone Specimen Anatomical Collection Method Collection Time Receive d Time (Source) Location / / Volume Laterality 11/17/2011 9:15 AM 2 1:52 CDT PM CDT Shefali Almaguer MD LAB_1 Performing Organization Address City/[facility] Code Phon e Number HP CONVERSION GLUCOSE (11/17/2011 9:15 AM CDT) athologist Signature Lab Glucose 92 60 - 100 HP CONVERSION mg/dL Specimen Anatomical Collection Method Collection Time Receive d Time (Source) Location / / Volume Laterality 11/17/2011 9:15 AM 2 9:15 CDT AM CDT Narrative HP CONVERSION - 11/17/2011 9:43 AM CDT Performed at [facility], [place], [address] [place] [address] Shefali Almaguer MD LAB_1 Performing Organization Address City/[facility] Code Phon e Number HP CONVERSION Electrolyte Panel (11/17/2011 9:15 AM CDT) athologist Signature Sodium 138 137 - 147 HP CONVERSION mEq/L Potassium 4.2 3.5 - 5.2 HP CONVERSION mEq/L Chloride 103 98 - 110 HP CONVERSION mEq/L Bicarbonate 33 23 - 33 HP CONVERSION mmol/L Specimen Anatomical Collection Method Collection Time Receive d Time (Source) Location / / Volume Laterality 11/17/2011 9:15 AM 2 9:15 CDT AM CDT Narrative HP CONVERSION - 11/17/2011 9:43 AM CDT Performed at [facility], [place], [address] [place] [address] Shefali Almaguer MD LAB_1 Performing Organization Address [facility] Phon e Number HP CONVERSION Creatinine / GFR (11/17/2011 9:15 AM CDT) athologist Signature Creatinine 0.9 0.4 - 1.3 HP CONVERSION Serum mg/dL Est GFR >60 >60 HP CONVERSION Am mL/min/1.7 3m2 Est GFR Non-Afr >60 >60 HP CONVERSION Am mL/min/1.7 3m2 Comment: Normal>60, moderate decrease 30 - 59, se frank decrease 15 - 29, renal failure <15 mL/min/1.73 m2 NOTE: ??Choose the eGFR result above natalie ropriate for the race of the patient. Specimen Anatomical Collection Method Collection Time Receive d Time (Source) Location / / Volume Laterality 11/17/2011 9:15 AM 2 9:15 CDT AM CDT Narrative HP CONVERSION - 11/17/2011 9:43 AM CDT Performed at [facility], [place], [address] [place] [address] Shefali Almaguer MD LAB_1 Performing Organization Address [facility] Phon e Number HP CONVERSION BUN (11/17/2011 9:15 AM CDT) athologist Signature Blood Urea 13 5 - 26 HP CONVERSION Nitrogen mg/dL Specimen Anatomical Collection Method Collection Time Receive d Time (Source) Location / / Volume Laterality 11/17/2011 9:15 AM 2 9:15 CDT AM CDT Narrative HP CONVERSION - 11/17/2011 9:43 AM CDT Performed at [facility], [place], [address] [place] [address] Shefali Almaguer MD LAB_1 Performing Organization Address [facility] Phon e Number HP CONVERSION Hemogram/Plts/Diff (11/17/2011 9:15 AM CDT) P athologist Signature White Blood Cell 5.1 3.8 - 11.0 HP CONVERSIO N Count k/cmm Red Blood Cell 4.24 3.70 - HP CONVERSION Count 5.20 m/cmm Hemoglobin 13.8 11.8 - HP CONVERSION 15.5 g/dL Hematocrit 39.6 35.0 - HP CONVERSION 46.0 % Mean Corpuscular 93.4 80.0 - HP CONVERSION Volume 100.0 fL RDW 12.9 11.0 - HP CONVERSION 15.0 % Platelet Count 250 140 - 450 HP CONVERSION k/cmm Specimen Anatomical Collection Method Collection Time Receive d Time (Source) Location / / Volume Laterality 11/17/2011 9:15 AM 201 2 9:15 CDT AM CDT Narrative HP CONVERSION - 11/17/2011 9:26 AM CDT Performed at [facility], [place], [address] [place] [address] Shefali Almaguer MD LAB_1 Performing Organization Address City/State/ZIP Code Phon e Number HP CONVERSION documented in this encounter Visit Diagnoses Diagnosis Hypothyroidism (HRC) Unspecified hypothyroidism documented in this encounter Care Teams Contract Analyst Relationship Specialty Start Date End Date Minda Barkley MD PCP - General 10/24/10 documented as of this encounter
--- OUTSIDE RECORDS SUMMARY | 2022-03-27 17:35 | XMS_ITS | Encounter Summary ---
:1975 Author Organization [employer] Address [address] [place] [address] Care Team Providers Name Role Phone Minda Barkley MD Primary Care Provider Unavailable Reason for Visit Reason Comments Other Encounter Details Date Type Department Care Team Description 02/21/2008 Telephone [facility] Shefali Almaguer MD Other [address] [place] [address] [facility] [address] [facility] [id number] (Wo rk) Social History Tobacco Use Types Packs/Day Years Used Date Smoking Tobacco: Never Assessed Sex Assigned at Date Recorded Not on file documented as of this encounter Progress Notes Shefali Almaguer MD - 02/21/2008 12:41 PM CDT Phone Note filed by Duarte Almaguer MD at 11/10/10156 Author: Duarte Almaguer MD Service: (none) Author Type: Physician Filed: 11/10/10156 Note Time: 02/21/08 1241 Status: Signed Boiler Welder: Duarte Almaguer MD (Physician) Lisa, could you reschedule for this pt? The persone shoulod not book this apt into my scheudle ; it was only 10min, and was supposed to be blocked for dominick Anderson ( pre-op), They should not use this 10min. oterwise everyone just have 10min apt. Thanks for taking care of this. Created on 21Feb2008 12:41pm by DUARTE ALMAGUER On 21Feb2008 1:54pm LISA ROJO wrote: Pt was notified and rescheduled, Oanh must have booked by accident. Acknowledged by LISA ROJO on 1:54pm Acknowledged by DUARTE ALMAGUER X on 2:01pm T CASHIER documented in this encounter Plan of Treatment Not on filedocumented as of this encounter Visit Diagnoses Not on filedocumented in this encounter Care Teams Warp Starter Relationship Specialty Start Date End Date Minda Barkley MD PCP - General 10/24/10 documented as of this encounter
--- OUTSIDE RECORDS SUMMARY | 2022-03-27 17:35 | XMS_ITS | Encounter Summary ---
:1975 Author Organization [facility] Address [address], [place] [address] Care Team Providers Name Role Phone Minda Barkley MD Primary Care Provider Unavailable Encounter Details Date Type Department Care Team Description 03/17/2010 PN Conversion Only [place] [address] [address] [place] [address] Social History Tobacco Use Types Packs/Day Years Used Date Smoking Tobacco: Never Assessed Sex Assigned at Date Recorded Not on file documented as of this encounter Plan of Treatment Not on filedocumented as of this encounter Visit Diagnoses Not on filedocumented in this encounter Care Teams Farmworker Livestock Relationship Specialty Start Date End Date Minda Barkley MD PCP - General 10/24/10 documented as of this encounter
--- OUTSIDE RECORDS SUMMARY | 2022-03-27 17:35 | XMS_ITS | Encounter Summary ---
:1975 Author Organization [facility] Address [address] [address] Care Team Providers Name Role Phone Minda Barkley MD Primary Care Provider Unavailable Reason for Visit Reason Comments MEDICATION CHECK Encounter Details Date Type Department Care Team Description 09/22/2011 Office Visit [facility] Shefali Almaguer Hypot hyroidism (Primary Dx); Medicine Fatigue [address] [phone] [place] [address] Social History Tobacco Use Types Packs/Day Years Used Date Smoking Tobacco: Never Assessed Sex Assigned at Date Recorded Not on file documented as of this encounter Last Filed Vital Signs Vital Sign Reading Time Taken Comments Blood Pressure 114/70 09/22/2011 8:47 AM LIVE STUDY MANAGER Pulse 76 09/22/2011 8:47 AM LIVE STUDY MANAGER Temperature - - Respiratory Rate - - Oxygen Saturation - - Inhaled Oxygen Concentration - - Weight 75.3 kg (166 lb) 09/22/2011 8:47 AM LIVE STUDY MANAGER Height - - Body Mass Index - - documented in this encounter Patient Instructions Patient InstructionsShefali Almaguer MD - 09/22/2011 9:16 AM CST blood test around 11/02/2011 STUDY MANAGER documented in this encounter Progress Notes Shefali Almaguer MD - 09/23/2011 9:08 PM CST Progress Notes signed by Shefali Almaguer MD at [id number] Author: Shefali Almaguer MD Service: (none) Author Type: Physician Filed: 09/24/11 142 Note Time: 09/23/112107 Status: Signed Financial Data Analyst: Shefali Almaguer MD (Physician) NAME: SARA MANUEL MR#: [id number] CSN: [id number] AUTHENTICATING CLINICIAN: Qamar Almaguer MD CONFIRM #: [id number] LOC: 506 CLINIC PROGRESS NOTE DATE OF VISIT: 09/22/2011 : 1975 The patient is a 36-year-old female who came to the clinic to follow up thyroid medications. The patient has been doing better after started with the thyroid medication, but she said recently she is feeling very tired. she has not been on medication for several weeks. she thinks that her fatigue coulld be related to that. 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 She does not eat right. She admits she eats very unhealth food, and she has no exercising at all. she has twin and keeps her very busy. one is sick lately and she has not been sleeping well through the night, and she has been quite tired, and also she is running out of her medications. She has not been taking her pills at least for one month. She feels some of the fatigue coming back again. Her weight has been stable. She denies any constipation and losing hair. Subject Patient Active Problem List Diagnoses Code ??? Allergy Food 693.1 ??? Hypothyroidism 244.9AP History reviewed. No pertinent past surgical history. Current outpatient prescriptions ordered prior to encounter Medication Sig Dispense Refill ??? levothyroxine (SYNTHROID) 50 mcg tablet Take 1 tablet by mouth daily (every 24 hours). 90 tablet3 History Social History ??? Marital Status: Spouse Name: N/A Number of Children: N/A ??? Years of Education: N/A Occupational History ??? Social History Main Topics ??? Smoking status: Never Smoker ??? Smokeless tobacco: Not on file ??? Alcohol Use: Yes social ??? Drug Use: ??? Sexually Active: Other Topics Concern ??? Not on file Social History Narrative ??? No narrative on file Allergies Allergen Reactions ??? No Known Drug Allergies ??? Food Intolerance LW FI1: shellfis ??? Other LW Other1: -iodine Swelling Family History Problem Relation Age of Onset ??? Heart Disease Father ??? Diabetes Paternal Grandfather ROS All of the systems reviewed, unremarkable, except that mentioned in HPI Physical exam Blood pressure 114/70, pulse 76, weight 75.297 kg (166 lb). Vital signs Head: Normocephalic. Eyes: PERRLA, full EOM. External exams normal. Ears: Normal pinnae, canals, andTM's. Nose: Patent, without deformity. Throat: Moist mucous membranes without lesions, erythema, or exudate. Heart: RR without murmurs, rubs, or gallops. Respiratory: Normal respiratory effort. Lungs are clear with good breath sounds. Abdomen: The abdomen was flat, soft and nontender without guarding rebound or masses. Extremities: Full ROM without limitation, deformity or edema. Neuro: CN 2-12 intact. Strength and sensation intact in all extremities. Motor function intact. Skin: No rash. No lesions. Joint: No abnormalities Muscular: No abnormalities ASSESSMENT: 1. Hypothyroidism. 2. Fatigue. PLAN: The patient recently started on her Levothyroxine. she had question on brand vs generic. I discussedwith her regarding Synthroid versus the Levothyroxine. She feels comfortable continuing with the Levothyroxine right now. I suggest to be on it for 6 weeks. The patient needs a free T4, and TSH recheck in 6 weeks to make sure current dose is adequate for her level. I also discussed with the patient regarding some of the healthy lifestyle, some of the stress release, things she needs to do, and also balanced nutrition, regular exercising to see if she still has profound fatigue. Otherwise, if after the changes the patient still is quite tired then she should return for a further work up. Total time spent with the patient 25 minutes, 20 minutes in counseling regarding patient's lifestyle change, discussed on the thyroid medications, and proper nutrition. ZXL:MEDQ C: CONFIRM #: [id number] STUDY MANAGER documented in this encounter Plan of Treatment Not on filedocumented as of this encounter Visit Diagnoses Diagnosis Hypothyroidism (HRC) - Primary Unspecified hypothyroidism Fatigue Other malaise and fatigue documented in this encounter Care Teams Signal And Communications Maintainer Relationship Specialty Start Date End Date Minda Barkley MD PCP - General 10/24/10 documented as of this encounter
--- OUTSIDE RECORDS SUMMARY | 2022-03-27 17:35 | XMS_ITS | Encounter Summary ---
:1975 Author Organization [facility] Address [address] [address] Care Team Providers Name Role Phone Minda Barkley MD Primary Care Provider Unavailable Encounter Details Date Type Department Care Team Description 04/21/2007 Office Visit [facility] [place] [address] [place] [address] Social History Tobacco Use Types Packs/Day Years Used Date Smoking Tobacco: Never Assessed Sex Assigned at Date Recorded Not on file documented as of this encounter Last Filed Vital Signs Vital Sign Reading Time Taken Comments Blood Pressure 111/69 04/21/2007 8:39 AM CDT Pulse 78 04/21/2007 8:39 AM CDT Temperature 37.2 ??C (99 ??F) 04/21/2007 8:39 AM CDT C: 37.2 C Respiratory Rate 20 04/21/2007 8:39 AM CDT Oxygen Saturation 99% 04/21/2007 8:39 AM CDT Inhaled Oxygen Concentration - - Weight - - Height - - Body Mass Index - - documented in this encounter Progress Notes Carly Ramos MD - 04/21/2007 12:01 AM CDT Progress Notes signed by Carly Ramos MD at 05/02/07 1143 Author: Carly Ramos MD Service: (none) Author Type: Physician Filed: 11/11/10 2219 Note Time: 04/21/07 0001 Status: Signed Hand I Blocker: Carly Ramos MD (Physician) NAME: SARA MANUEL MR#: [id number] ACCT: [id number] VISIT: [id number] DICTATING CLINICIAN: CARLY RAMOS MD JOB: [id number] LOC: 520 CLINIC PROGRESS NOTE DATE OF VISIT: 04/21/2007 SUBJECTIVE: This 32-year-old female comes in with concern for cough which has been going on for the past 3 weeks. She tells me she has cough only when she lies down at night. Also in the morning after getting up, she brings up some phlegm. At noon today, apparently she barely has any cough. Has not had any fevers. No wheezing. No history of asthma. Denies having a runny nose or symptoms of allergies. She feels that there could be some postnasal drainage. Apparently, her has had similar symptoms. Actually, her young child is being seen for a cough that is much shorter duration in urgent care today. She does not smoke. No other related symptoms. No obvious exposure. PAST MEDICAL HISTORY: Healthy. MEDICATIONS: None. ADR/ALLERGIES: NONE TO MEDICATION. OBJECTIVE: VS: BP: 111/69. T: Afebrile. P: 78. R: 20. Oxygen Saturation: 99% on room air. Exam shows patient looking great. Throat looks normal. Ears are normal. NECK: Supple. No lymph nodes palpable. LUNGS: Clear. CARDIOVASCULAR: Regular rhythm and rate. Normal S1, S2. ASSESSMENT: Cough. PLAN: The possibility of postnasal drainage causing this cough is most probable. Symptomatic treatment advised. Will treat empirically with course of Z-Carmine also. Recheck if any acute worsening or fevers. Otherwise follow up primary MD if continues with this problem. [id number] C: 04/22/07 19:04 DOCUMENT: [id number] documented in this encounter Plan of Treatment Not on filedocumented as of this encounter Visit Diagnoses Not on filedocumented in this encounter Care Teams Automation And Controls Manager Relationship Specialty Start Date End Date Minda Barkley MD PCP - General 10/24/10 documented as of this encounter
--- OUTSIDE RECORDS SUMMARY | 2022-03-27 17:35 | XMS_ITS | Encounter Summary ---
:1975 Author Organization [facility] Address [address], [place] [address] Care Team Providers Name Role Phone Minda Barkley MD Primary Care Provider Unavailable Encounter Details Date Type Department Care Team Description 08/25/2004 Office Visit [facility] Jadny Crooks, AUNathaniel [address] [address] [place] [address] [place] [address] [phone] (Wo rk) Social History Tobacco Use Types Packs/Day Years Used Date Smoking Tobacco: Never Assessed Sex Assigned at Date Recorded Not on file documented as of this encounter Plan of Treatment Not on filedocumented as of this encounter Visit Diagnoses Not on filedocumented in this encounter Care Teams Network Support Relationship Specialty Start Date End Date Minda Barkley MD PCP - General 10/24/10 documented as of this encounter
--- OUTSIDE RECORDS SUMMARY | 2022-03-27 17:35 | XMS_ITS | Encounter Summary ---
:1975 Author Organization [facility] Address [address] [place] [address] Care Team Providers Name Role Phone Minda Barkley MD Primary Care Provider Unavailable Encounter Details Date Type Department Care Team Description 03/06/2008 Office Visit [facility] [place] [address] [place] [address] [place] [address] [phone] (Wo rk) Social History Tobacco Use Types Packs/Day Years Used Date Smoking Tobacco: Never Assessed Sex Assigned at Date Recorded Not on file documented as of this encounter Progress Notes Yaneth Miranda PT - 03/06/2008 12:01 AM CDT Progress Notes signed by Yaneth Miranda PT at 04/28/08 0940 Author: Yaneth Miranda PT Service: (none) Author Type: Physical Therapist Filed: 11/12/10 0635 Note Time: 03/06/08 0001 Status: Signed Certified Nurse Practitioner: Yaneth Miranda PT (Physical Therapist) Physical Therapy Discharge Summary Referring Physician: Dr. Almaguer Diagnosis: Vertigo/dizziness Onset Date: 02/04/2008 Date of First Visit: 03/06/2008 Date of Last Visit: 03/06/2008 Total Visits: Total Cancels/Fails: 0/0 Examination/Evaluation: See evaluation in Electronic Medical Record completed on the first visit date (listed above). Treatment and education Received: Refer to progress notes in Electronic Medical Records. Initial Compared to Final Outcomes: Patient did not return after initial visit. Assume symptoms are resolved. Discharge Recommendation: Recommend return to physician as needed. Reason for Discharge: Satisfactory goal achievement. Outcome Measures: Program Group: Balance/Vestibular. Home Program Provided: No. Electronically signed by: Alem Miranda PT, 5375 , 04/28/2008 *SH~REHAB~DISCHARGE~ Shorthand Note completed on: 04/28/2008 9:40 AM Yaneth Miranda PT - 03/06/2008 12:01 AM CDT Progress Notes signed by Yaneth Miranda PT at 03/06/08 1846 Author: Yaneth Miranda PT Service: (none) Author Type: Physical Therapist Filed: 11/12/10 0634 Note Time: 03/06/08 0001 Status: Signed Certified Nurse Practitioner: Yaneth Miranda PT (Physical Therapist) Physical Therapy Positional Vertigo Evaluation Referring Physician: Dr. Almaguer Referring Diagnosis: Vertigo/dizziness. Orders: Evaluate and treat. Vestibular program Onset: Onset of symptoms mid January with no mechanism of injury. SUBJECTIVE: --- Right ear pain and neck tension. Symptoms: Disequilibrium (unsteady). Light-headed. Nausea. Rocking. Spinning. Aggravators: walking and turning especially to the right, laying/positioning in bed, working at her desk like answering phone, looking at computer and during conversation, looking up and over her right shoulder, coming up from bending over. Relievers: Pause until symptoms pass. Past Medical History: Refer to Electronic Medical Records. Medications: Reviewed in Electronic Medical Records. Drug Allergies: Reviewed in Electronic Medical Records. Patient's Therapy Goal: Eliminate dizziness. 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 OBJECTIVE: General: Mood, orientation, and behavior were appropriate. Patient was alert and oriented. Cervical Screen: Adequate range of motion for positional testing. Vertebral artery negative seated active testing bilaterally. Balance Screen: Rhomberg negative eyes open and closed. Sharpened rhomberg eyes open negative but eyes closed caused loss of balance. Visuovestibular Screen: Negative for spontaneous nystagmus, gaze holding nystagmus, eye ROM and vergence normal, smooth pursuit and saccadic eye movements normal, negative VOR cancellation. Special tests: Negative head thrust and head shaking nystagmus Positional Tolerance Test: -Sitting Cervical Extension: Dizziness positive. Nystagmus negative. -Sitting Cervical Flexion: Dizziness positive. Nystagmus negative. -Left Hallpike: With goggles. Dizziness negative. Nystagmus negative. -Right Hallpike: With goggles. Dizziness positive. Nystagmus positive - upbeat right tortional. ASSESSMENT: Therapist Impression: Benign Paroxysmal Positional Vertigo (BPPV): Right Posterior Canal. Practice Pattern: Primary prevention/risk reduction for loss of balance and falling (5A). Barriers to Goal Achievement: None apparent. Rehab Prognosis: Excellent. PLAN Planned Intervention/Education: Education. Manual therapy. Therapeutic exercise. Frequency/Duration: Once a week for 3 weeks Discharge Plan: Satisfactory goals are achieved. Consent: Risks, benefits and alternatives to treatment have been explained. Patient and/or family in agreement with care plan. Functional Limitation: Difficulty with resuming previous activities due to vertigo. -Remove debris from semicircular canals so as to alleviate symptoms of vertigo with laying in bed, looking over right shoulder, walking and turning and work at desk. TREATMENT TODAY -Evaluation. -Manual therapy: -Canalith repositioning maneuver right: [employer] right posterior canalx 1 -Education/Handouts: Educated in positional vertigo. Response to treatment: tolerated session well Plan for next treatment: Reassess canals and treat as appropriate. Procedures: Physical Therapy Evaluation (CPT 80833) Manual Therapy, 1 or more regions (CPT 15543) 10 minutes TOTAL TREATMENT TIME: 55 minutes minutes. Electronically signed by: Alem Miranda PT, 5375 , 03/06/2008 *SH~REHAB~PTVERTIGO~ Shorthand Note Completed on: 03/06/2008 5:22 PM Shefali Almaguer MD - 03/06/2008 12:01 AM CDT Progress Notes signed by Shefali Almaguer MD at 04/05/08 0946 Author: Qamar Almaguer MD Service: (none) Author Type: Physician Filed: 11/12/10 0634 Note Time: 03/06/08 0001 Status: Signed Certified Nurse Practitioner: Qamar Almaguer MD (Physician) Physical Therapy Plan of Care: Certification/[facility] 700. Initial Certification Period: , 03/06/2008 to 06/02/08 Initial Status: Referring Physician: Dr. Almaguer Referring Diagnosis: Vertigo/dizziness. Orders: Evaluate and treat. Vestibular program Onset: Onset of symptoms mid January with no mechanism of injury. ASSESSMENT: Therapist Impression: Benign Paroxysmal Positional Vertigo (BPPV): Right Posterior Canal. Practice Pattern: Primary prevention/risk reduction for loss of balance and falling (5A). Barriers to Goal Achievement: None apparent. Rehab Prognosis: Excellent. PLAN Planned Intervention/Education: Education. Manual therapy. Therapeutic exercise. Frequency/Duration: Once a week for 3 weeks Discharge Plan: Satisfactory goals are achieved. Consent: Risks, benefits and alternatives to treatment have been explained. Patient and/or family in agreement with care plan. Functional Limitation: Difficulty with resuming previous activities due to vertigo. -Remove debris from semicircular canals so as to alleviate symptoms of vertigo with laying in bed, looking over right shoulder, walking and turning and work at desk. . The physician electronic signature certifies the medical necessity for this plan of care while under his/her care. Therapist Signature: Alem Miranda, PT, 5386 , 03/06/2008 *SH~REHAB~POC ~ Shorthand Note completed on: 03/06/2008 5:27 PM documented in this encounter Plan of Treatment Not on filedocumented as of this encounter Visit Diagnoses Not on filedocumented in this encounter Care Teams National Account Manager Relationship Specialty Start Date End Date Minda Barkley MD PCP - General 10/24/10 documented as of this encounter
--- OUTSIDE RECORDS SUMMARY | 2022-03-27 17:35 | XMS_ITS | Encounter Summary ---
:1975 Author Organization [facility] [address], [place] [address] Care Team Providers Name Role Phone Unavailable Primary Care Provider Unavailable Encounter Details Date Type Department Care Team Description 05/24/2000 Office Visit [facility] OTHER NORMAL Obstetrics and Ric Schofield MD [facility]necology [address] [place] [address] Social History Tobacco Use Types Packs/Day Years Used Date Smoking Tobacco: Never Assessed Sex Assigned at Date Recorded Not on file documented as of this encounter Plan of Treatment Not on filedocumented as of this encounter Visit Diagnoses Diagnosis Supervision of other normal documented in this encounter
--- OUTSIDE RECORDS SUMMARY | 2022-03-27 17:35 | XMS_ITS | Encounter Summary ---
:1975 Author Organization [facility] Address [address] [address] Care Team Providers Name Role Phone Minda Barkley MD Primary Care Provider Unavailable Encounter Details Date Type Department Care Team Description 08/25/2004 PN Conversion Only [facility] [address] [address] [place] [address] Social History Tobacco Use Types Packs/Day Years Used Date Smoking Tobacco: Never Assessed Sex Assigned at Date Recorded Not on file documented as of this encounter Plan of Treatment Not on filedocumented as of this encounter Visit Diagnoses Not on filedocumented in this encounter Care Teams Gill Net Stringer Relationship Specialty Start Date End Date Minda Barkley MD PCP - General 10/24/10 documented as of this encounter
--- OUTSIDE RECORDS SUMMARY | 2022-03-27 17:35 | XMS_ITS | Encounter Summary ---
:1975 Author Organization [facility] Address [address] [address] Care Team Providers Name Role Phone Minda Barkley MD Primary Care Provider Unavailable Reason for Visit Reason Comments Other Encounter Details Date Type Department Care Team Description 03/18/2010 Telephone [facility], Message Other [address] [place] [address] Social History Tobacco Use Types Packs/Day Years Used Date Smoking Tobacco: Never Assessed Sex Assigned at Date Recorded Not on file documented as of this encounter Progress Notes Center, Message - 03/18/2010 2:56 PM CDT Phone Note filed by Clifton at 11/12/10 7483 Author: Clifton Service: (none) Author Type: (none) Filed: 11/12/101545 Note Time: 03/18/101455 Status: Signed Agriculture Inspector: Clifton (Resource) PSC Medication Issue/Refill Caller Name/Relationship:- Sara pt Primary Credentialing Manager:- Tripp Patient to contacted pharmacy Yes or No:- yes Comment:- is at the pharmacy, is supposed to go to [facility] Pharmacy Name & Phone #:- [facility] Street or City:[facility] Drug Name:- Levothyroxine Strength:- Dose/Route/Freq:- Supervisor [employer]:Amy Ruiz Best call back number:- [phone] Is it OK to leave a confidential message on this voicemail? y *ECODE~PNRX Created on 18Mar2010 2:56pm by SOY CHERY On 18Mar2010 3:32pm HARIS STRICKLAND wrote: Pt is calling back and she was seen today, she needs to get this today and she can kisha each at [phone]. On 18Mar2010 3:43pm ANIA PETERSON wrote: Called pt. back. Wanted RX to go to [facility] in [place], not [facility]. Re-faxed RX. N SOCIOLOGIST documented in this encounter Plan of Treatment Not on filedocumented as of this encounter Visit Diagnoses Not on filedocumented in this encounter Care Teams General Agent Relationship Specialty Start Date End Date Minda Barkley MD PCP - General 10/24/10 documented as of this encounter
--- OUTSIDE RECORDS SUMMARY | 2022-03-27 17:35 | XMS_ITS | Encounter Summary ---
:1975 Author Organization [facility] Address [address], [place] [address] Care Team Providers Name Role Phone Minda Barkley MD Primary Care Provider Unavailable Encounter Details Date Type Department Care Team Description 02/20/2008 PN Conversion Only [facility] Sheets, [address] [place], [place] [address] [address] [phone] [place] [address] (Wo rk) Social History Tobacco Use Types Packs/Day Years Used Date Smoking Tobacco: Never Assessed Sex Assigned at Date Recorded Not on file documented as of this encounter Last Filed Vital Signs Vital Sign Reading Time Taken Comments Blood Pressure 155/78 02/20/2008 10:08 AM CDT Pulse 65 02/20/2008 10:08 AM CDT Temperature 36.7 ??C (98.1 ??F) 02/20/2008 10:08 AM CDT C: 3 6.7 C Respiratory Rate 14 02/20/2008 10:08 AM CDT Oxygen Saturation - - Inhaled Oxygen Concentration - - Weight - - Height - - Body Mass Index - - documented in this encounter Plan of Treatment Not on filedocumented as of this encounter Procedures Procedure Name Priority Date/Time Associated Diagnosis Comme nts ECG 12 [facility] Routine 02/20/2008 10:48 AM Re sults for this CDT procedure are i n the results section. documented in this encounter Results ECG 12 lead clinic (02/20/2008 10:48 AM CDT) Specimen (Source) Anatomical Collection Method Collection Time Re ceived Time Location / / Volume Laterality 02/20/2008 10:48 AM CDT Narrative HP CONVERSION - 02/20/2008 10:48 AM CDT Normal sinus rhythm Normal ECG No previous ECGs available Imr Conversion PN ECG ORDERABLES Performing Organization Address City/State/ZIP Code Phon e Number HP CONVERSION documented in this encounter Visit Diagnoses Not on filedocumented in this encounter Care Teams Office Secretary Relationship Specialty Start Date End Date Minda Barkley MD PCP - General 10/24/10 documented as of this encounter
--- OUTSIDE RECORDS SUMMARY | 2022-03-27 17:35 | XMS_ITS | Encounter Summary ---
:1975 Author Organization [facility] Address [address], [place] [address] Care Team Providers Name Role Phone Minda Barkley MD Primary Care Provider Unavailable Encounter Details Date Type Department Care Team Description 02/27/2008 Office Visit [facility] Scot Almaguer MD Medicine [address] [facility] [address] [facility] [place] [address] [place] [address] [place], [place] [phone] (Wo rk) Social History Tobacco Use Types Packs/Day Years Used Date Smoking Tobacco: Never Assessed Sex Assigned at Date Recorded Not on file documented as of this encounter Last Filed Vital Signs Vital Sign Reading Time Taken Comments Blood Pressure 102/66 02/27/2008 8:57 AM CDT Pulse 60 02/27/2008 8:57 AM CDT Temperature - - Respiratory Rate - - Oxygen Saturation - - Inhaled Oxygen Concentration - - Weight 79.4 kg (174 lb 15.7 oz) 02/27/2008 8:57 AM CDT C: 79.4kg Height - - Body Mass Index - - documented in this encounter Progress Notes Nabeel Almaguer MD - 02/27/2008 12:01 AM CDT Progress Notes signed by Nabeel Almaguer MD at 03/20/08 0742 Author: Qamar Almaguer MD Service: (none) Author Type: Physician Filed: 11/12/10 0622 Note Time: 02/27/08 0001 Status: Signed Legal Cashier: Qamar Almaguer MD (Physician) NAME: SARA MANUEL MR#: [id number] ACCT: [id number] VISIT: [id number] DICTATING CLINICIAN: NABEEL ALMAGUER MD CONFIRM #: [id number] LOC: 506 CLINIC PROGRESS NOTE DATE OF VISIT: 02/27/2008 SUBJECTIVE: Patient is a 33-year-old female who presents to clinic for followup from Urgent Care. Patient apparently started having dizzy spells on 02/12 and went to Urgent Care. CT scan showed normal limits. She apparently does have some motion imbalance when patient moves her head, more towards the right side, and comparing to 02/19 the symptoms have been getting much better but still not resolved. No other symptoms such as cold, allergies, or sinusitis. She tried some mvmv-foy-kaelygd Claritin as well. She does not have any fever, chills, nausea, no lightheadedness, no fainting spells. She says the room really was not spinning at all. Because of that she also had her thyroid checked, which was borderline high, she is here for followup. Her mother was recently treated for Haritha's thyroiditis. She delivered twins about 18 months ago, she is 45 lb above her weight before she got . She is not feeling tired, she is busy, but she has been losing some hair and her skin dry. No constipation. Denies any depression at all. She is also concerned about swelling of the hands and feet after she delivered her babies. She used some of a friend's water pills and this seemed to help a little bit, but then it came back. She denies any high-salt diet at all. She has no other chest pain, shortness of breath, no nausea, no vomiting. Eating has been fine. She has been exercising regularly. No other symptoms. She denies any joint or muscle aches or pains. No other rash. No anxiety/depression. No problems with urination or bowel movements at all. PAST MEDICAL HISTORY: Allergies. MEDICATIONS: Nasonex. ADR/ALLERGIES: NO DRUG ALLERGIES. SOCIAL HISTORY: Nonsmoker. Denies any alcohol. FAMILY HISTORY: Mother thyroid disease. OBJECTIVE: VS: BP: 102/66. P: 60. Wt: 175. She is very pleasant, in no acute distress appearance. HEENT: Pupils equal, reactive to light. Ears appear to be normal. NECK: Supple. No JVD. Her thyroid is not palpable. LUNGS: Clear. CARDIOVASCULAR: S1, S2. No murmur, no gallops or rubs. ABDOMEN: Soft and nontender. FOUR EXTREMITIES: No tenderness x4. Good pulsations x4. She does have some slight trace edema. NEURO: Pretty grossly intact. ASSESSMENT: 1. Vertigo, dizziness, most likely due to vestibular neuritis. Continue with meclizine and physical therapy for vestibular training. 2. Elevation of the TSH, borderline 5.06. Repeat TSH, free T4, total T3, TPO. 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 She will repeat and if free T4 is on the low side will probably give her a dose of thyroid medication and recheck in 6 weeks to see if it resolves her symptoms. Due to edema, we will check random glucose, sed rate, electrolytes, POORNIMA, CBC. I will be informing patient with above reports. PLAN: See assessment. [id number] C: 02/27/08 15:12 CONFIRM #: [id number] documented in this encounter Plan of Treatment Not on filedocumented as of this encounter Visit Diagnoses Not on filedocumented in this encounter Care Teams Applications Sales Representative Relationship Specialty Start Date End Date Minda Barkley MD PCP - General 10/24/10 documented as of this encounter
--- OUTSIDE RECORDS SUMMARY | 2022-03-27 17:35 | XMS_ITS | Encounter Summary ---
:1975 Author Organization [employer] Address [address], [place] [address] Care Team Providers Name Role Phone Minda Barkley MD Primary Care Provider Unavailable Encounter Details Date Type Department Care Team Description 02/27/2008 PN Conversion Only [facility] [place] [address] [place] [address] [address] [place] [address] (Wo rk) Social History Tobacco Use Types Packs/Day Years Used Date Smoking Tobacco: Never Assessed Sex Assigned at Date Recorded Not on file documented as of this encounter Plan of Treatment Not on filedocumented as of this encounter Procedures Procedure Name Priority Date/Time Associated Comments Diagnosis ELECTROLYTES (NA, K, Routine 02/27/2008 10:05 Res ults for this CL, BICARB) AM CDT procedure are i n the results section. GLUCOSE Routine 02/27/2008 10:05 Results for this AM CDT procedure are i n the results section. THYROID STIMULATING Routine 02/27/2008 10:05 Resu lts for this HORMONE AM CDT procedure are i n the results section. T3, FREE Routine 02/27/2008 10:05 Results for this AM CDT procedure are i n the results section. CREATININE / GFR Routine 02/27/2008 10:05 Results for this AM CDT procedure are i n the results section. COMPLETE BLOOD Routine 02/27/2008 10:05 Results f or this COUNT-W/DIFF AM CDT procedure are i n the results section. FREE T4 Routine 02/27/2008 10:05 Results for this AM CDT procedure are i n the results section. ANTITHYROID Routine 02/27/2008 10:05 Results for this PEROXIDASE AM CDT procedure are i n the results section. POORNIMA SCREEN Routine 02/27/2008 10:05 Results for this AM CDT procedure are i n the results section. ALT (SGPT) Routine 02/27/2008 10:05 Results for this AM CDT procedure are i n the results section. AST Routine 02/27/2008 10:05 Results for this AM CDT procedure are i n the results section. BUN Routine 02/27/2008 10:05 Results for this AM CDT procedure are i n the results section. ESR Routine 02/27/2008 10:05 Results for this AM CDT procedure are i n the results section. documented in this encounter Results Complete Blood Count-W/Diff (02/27/2008 10:05 AM CDT) [facility] Method Time Signature White Blood Cell 5.8 3.8 - 11.0 [facility] CONVERSIO N Count K/cmm Red Blood Cell 4.34 3.70 - HP CONVERSION Count 5.20 m/cmm Hemoglobin 13.6 11.8 - HP CONVERSION 15.5 gm/dL Hematocrit 40.3 35.0 - HP CONVERSION 46.0 % Mean Corpuscular 92.8 80.0 - HP CONVERSION Volume 100.0 fl Mean Corpuscular 31.3 27.0 - HP CONVERSION Hemoglobin 34.0 pg Mean Corpuscular 33.7 32.0 - HP CONVERSION Hemoglobin Conc 36.5 gm/dL [place] RDW 13.4 11.0 - HP CONVERSION 15.0 % Platelet Count 271 140 - 450 HP CONVERSION k/cmm Differential Auto-Dif No normal HP CONVERSION Verify range Neutrophils 3.2 2.0 - 7.5 HP CONVERSION Absolute Count K/cmm Neutrophil 56.3 50.0 - HP CONVERSION 75.0 % Lymphocyte % 28.9 20.0 - HP CONVERSION 40.0 % Monocyte 8.4 5.0 - 14.0 HP CONVERSION % Eosinophil 5.4 0.0 - 6.0 HP CONVERSION % Basophil % 1.0 0.0 - 2.0 HP CONVERSION % Specimen (Source) Anatomical Collection Method Collection Time Re ceived Time Location / / Volume Laterality 02/27/2008 10:05 AM CDT Shefali Almaguer MD LAB_1 Performing Organization Address City/State/ZIP Code Phon e Number HP CONVERSION ALT (SGPT) (02/27/2008 10:05 AM CDT) [facility] gist Method Time Signature Alanine 16 4 - 55 HP CONVERSION Aminotransferase U/L Specimen (Source) Anatomical Collection Method Collection Time Re ceived Time Location / / Volume Laterality 02/27/2008 10:05 AM CDT Shefali Almaguer MD LAB_1 Performing Organization Address City/State/ZIP Code Phon e Number HP CONVERSION AST (02/27/2008 10:05 AM CDT) [facility] gist Method Time Signature Aspartate 28 0 - 45 HP CONVERSION Aminotransferase U/L Specimen (Source) Anatomical Collection Method Collection Time Re ceived Time Location / / Volume Laterality 02/27/2008 10:05 AM CDT Shefali Almaguer MD LAB_1 Performing Organization Address City/State/ZIP Code Phon e Number HP CONVERSION BUN (02/27/2008 10:05 AM CDT) athologist Signature Blood Urea 12 5 - 26 HP CONVERSION Nitrogen mg/dL Specimen (Source) Anatomical Collection Method Collection Time Re ceived Time Location / / Volume Laterality 02/27/2008 10:05 AM CDT Shefali Almaguer MD LAB_1 Performing Organization Address City/State/ZIP Code Phon e Number HP CONVERSION Creatinine / GFR (02/27/2008 10:05 AM CDT) athologist Signature Creatinine 0.9 0.4 - 1.3 HP CONVERSION Serum mg/dL Est GFR >60 >60 HP CONVERSION Am Comment: -Libyan and Qqv-Zcbtwih-Osgmirp n reference range units: mL/min/1.73m2 Normal>60, moderate decrease 30 - 59, se frank decrease 15 - 29, renal failure <15 mL/min/1.73 m2 Est GFR Non-Afr Am >60 >60 HP CONVERSI ON Specimen (Source) Anatomical Collection Method Collection Time Re ceived Time Location / / Volume Laterality 02/27/2008 10:05 AM CDT Shefali Almaguer MD LAB_1 Performing Organization Address City/State/ZIP Code Phon e Number HP CONVERSION Glucose (02/27/2008 10:05 AM CDT) athologist Signature Length Of Fast 12.0 Hours HP CONVERSION Lab Glucose 79 60 - 100 HP CONVERSION mg/dL Specimen (Source) Anatomical Collection Method Collection Time Re ceived Time Location / / Volume Laterality 02/27/2008 10:05 AM CDT Shefali Almaguer MD LAB_1 Performing Organization Address [facility] Code Phon e Number HP CONVERSION Electrolytes (NA, K, CL, Bicarb) (02/27/2008 10:05 AM CDT) athologist Signature Sodium 137 137 - 147 HP CONVERSION mEq/L Potassium 4.2 3.5 - 5.2 HP CONVERSION mEq/L Chloride 98 98 - 110 HP CONVERSION mEq/L Bicarbonate 31 23 - 33 HP CONVERSION mmol/L Specimen (Source) Anatomical Collection Method Collection Time Re ceived Time Location / / Volume Laterality 02/27/2008 10:05 AM CDT Shefali Almaguer MD LAB_1 Performing Organization Address [facility] Code Phon e Number HP CONVERSION ESR (02/27/2008 10:05 AM CDT) [facility] gist Method Time Signature Sedimentation Rate 2 0 - 20 HP CONVERSI ON mm/Hr Specimen (Source) Anatomical Collection Method Collection Time Re ceived Time Location / / Volume Laterality 02/27/2008 10:05 AM CDT Shefali Almaguer MD LAB_1 Performing Organization Address [facility] Code Phon e Number HP CONVERSION T3, Free, Serum (02/27/2008 10:05 AM CDT) athologist Signature Triiodothyronin 2.4 2.3 - 4.2 HP CONVERSION e, Free (Ft3) pg/mL Specimen (Source) Anatomical Collection Method Collection Time Re ceived Time Location / / Volume Laterality 02/27/2008 10:05 AM CDT Shefali Almaguer MD LAB_1 Performing Organization Address [facility] Code Phon e Number HP CONVERSION Free T4 (02/27/2008 10:05 AM CDT) athologist Signature Thyroxine, Free 0.8 0.8 - 1.8 HP CONVERSION ng/dL Specimen (Source) Anatomical Collection Method Collection Time Re ceived Time Location / / Volume Laterality 02/27/2008 10:05 AM CDT Shefali Almaguer MD LAB_1 Performing Organization Address City/[facility]/ZIP Code Phon e Number HP CONVERSION (ABNORMAL) Thyroid Stimulating Hormone (02/27/2008 10:05 AM CDT) [facility] gist Method Time Signature Thyroid 8.98 (H) 0.20 - HP CONVERSION Stimulating 4.50 Hormone uIU/mL Specimen (Source) Anatomical Collection Method Collection Time Re ceived Time Location / / Volume Laterality 02/27/2008 10:05 AM CDT Shefali Almaguer MD LAB_1 Performing Organization Address City/[facility] Phon e Number HP CONVERSION (ABNORMAL) Antithyroid Peroxidase (02/27/2008 10:05 AM CDT) [facility] gist Method Time Signature Thyroid 114.9 (H) 0.0 - 3.9 HP CONVERSION Peroxidase IU/mL (TPO) Antibodies Comment: Performed at [facility] [address] [address] Specimen (Source) Anatomical Collection Method Collection Time Re ceived Time Location / / Volume Laterality 02/27/2008 10:05 AM CDT Shefali Almaguer MD LAB_1 Performing Organization Address City/[facility] Phon e Number HP CONVERSION POORNIMA Screen (02/27/2008 10:05 AM CDT) [facility] Time Signature Anti-Nuclear Negative Negative HP CONVERSION Ab Specimen (Source) Anatomical Collection Method Collection Time Re ceived Time Location / / Volume Laterality 02/27/2008 10:05 AM CDT Shefali Almaguer MD LAB_1 Performing Organization Address City/[facility] Code Phon e Number HP CONVERSION documented in this encounter Visit Diagnoses Not on filedocumented in this encounter Care Teams Animal Nurse Relationship Specialty Start Date End Date Minda Barkley MD PCP - General 10/24/10 documented as of this encounter
--- OUTSIDE RECORDS SUMMARY | 2022-03-27 17:35 | XMS_ITS | Encounter Summary ---
:1975 Author Organization [employer] Address [address] [place] [address] Care Team Providers Name Role Phone Minda Barkley MD Primary Care Provider Unavailable Reason for Visit Reason Comments Other Encounter Details Date Type Department Care Team Description 11/28/2004 Telephone [facility] [address] Ear, Nose, and Efren Rocha RN Other Throat [address] [facility] [place], [place] [address] Social History Tobacco Use Types Packs/Day Years Used Date Smoking Tobacco: Never Assessed Sex Assigned at Date Recorded Not on file documented as of this encounter Progress Notes Efren Rocha RN - 11/28/2004 10:22 AM CDT Phone Note filed by Efren Rocha RN at 11/07/101810 Author: Efren Rocha RN Service: (none) Author Type: (none) Filed: 11/07/101810 Note Time: 11/28/04 1022 Status: Signed Physical Therapy Director: Zane Darlene Patient last seen in [place] 09-22-04. Says she was told if she gets another sinus infection to call and get prescription over the phone. States she had cold symptoms for a week and now sinus pain and pressure and green nasal drainage. NKDA. Uses pharmacy at [facility]. Home phone number is [phone]. Please advise. Created on 28Nov2004 10:22am by EFREN ROCHA On [id number] 2:13pm RHONDA HICKMAN wrote: Augmentin 875 mg BID for 10 days. Call back for f/u appt. if symptoms have not improved in 7-10 days. Acknowledged by RHONDA HICKMAN on 2:13pm On 28Nov2004 2:55pm EFREN ROCHA wrote: Rx as above faxed to Serina oliveira [facility] at [facility]. Patient notified. Acknowledged by EFREN ROCHA on 2:55pm [facility] [employer] documented in this encounter Plan of Treatment Not on filedocumented as of this encounter Visit Diagnoses Not on filedocumented in this encounter Care Teams Retort Or Condenser Press Operator Relationship Specialty Start Date End Date Minda Barkley MD PCP - General 10/24/10 documented as of this encounter
--- OUTSIDE RECORDS SUMMARY | 2022-03-27 17:35 | XMS_ITS | Encounter Summary ---
:1975 Author Organization [facility] Address [address], [place] [address] Care Team Providers Name Role Phone Minda Barkley MD Primary Care Provider Unavailable Encounter Details Date Type Department Care Team Description 03/18/2010 Office Visit [facility] Scot Almaguer MD Medicine [address] [facility] [address] [facility] [address] [place] [address] [place], [place] [phone] (Wo rk) Social History Tobacco Use Types Packs/Day Years Used Date Smoking Tobacco: Never Assessed Sex Assigned at Date Recorded Not on file documented as of this encounter Last Filed Vital Signs Vital Sign Reading Time Taken Comments Blood Pressure 120/72 03/18/2010 1:50 PM CDT Pulse 56 03/18/2010 1:50 PM CDT Temperature - - Respiratory Rate - - Oxygen Saturation - - Inhaled Oxygen Concentration - - Weight 72.6 kg (159 lb 15.8 oz) 03/18/2010 1:50 PM CDT C: 72.6kg Height - - Body Mass Index - - documented in this encounter Progress Notes Shefali Almaguer MD - 03/18/2010 12:01 AM CDT Progress Notes signed by Qamar Almaguer MD at 04/11/10 1314 Author: Qamar Almaguer MD Service: (none) Author Type: Physician Filed: 11/13/10 0054 Note Time: 03/18/10 0001 Status: Signed Engineer [employer]: Qamar Almaguer MD (Physician) NAME: SARA MANUEL MR#: [id number] ACCT: [id number] VISIT: [id number] DICTATING CLINICIAN: Qamar Almaguer MD CONFIRM #: [id number] LOC: 506 CLINIC PROGRESS NOTE DATE OF VISIT: 03/18/2010 : 1975 Patient is a 75-year-old female who presents to clinic complaining about abnormal thyroid testing. Patient had abnormal thyroid testing about 2 years ago. She was given 0.05 mg of levothyroxine, she was taking for some time. She said she did not realize any difference in symptoms at all. She did not think medication made any difference. She eventually stopped the medication. She was seen by order booker for her abnormal menstruating, and she said from November to February there was no period, and she was given some control pills. Her labs came back as abnormal thyroid test. Her order booker thinks her symptoms probably are related to her thyroid. She stopped the control pills, but she said that she was not really feeling well after stopping the control pills. She denies any fever or chills, but she is always feeling freezing cold. She has no energy, and her neck is hurting. She said she has gained about 8 pounds within about a month and a half. She feels puffiness, and her skin just does not feel right. Her order booker recommended for her to restart her thyroid medication. PAST MEDICAL HISTORY: 1. Hypothyroidism. 2. Nasal polyps. MEDICATIONS: None. ALLERGIES: NONE. SOCIAL HISTORY: Nonsmoker. Denies any alcohol. FAMILY HISTORY: Mother, thyroid disease. PHYSICAL EXAM: She is very pleasant, in no acute distress in appearance. Blood pressure: 120/72. Pulse: 56. Weight: 168. HEENT: Pupils equal, reactive to light. Oropharyngeal exam intact. NECK: Supple. No JVP, no bruits, and no thyroid movement. LUNGS: Clear to auscultation. No wheezing, no crackles. CARDIOVASCULAR: S1, S2, no murmur. No gallops or rubs. ABDOMEN: Soft and nontender. EXTREMITIES: No edema. No tenderness x4. Good pulsations x4. She did have delayed reflex of both knees, and her skin pretty much appeared to be normal. NEURO: Exam grossly intact. Her TSH was reviewed 5.72 and free T3 2.6, and a free thyroxin 0.8. ASSESSMENT AND PLAN: 1. Dysmenorrhea. 2. Fatigue. 3. Abnormal thyroid testing. Due to patient's history, symptoms, and family history, I suggest she will go back on 0.05 mg of levothyroxine. She should take with empty stomach. She will continue to watch her symptoms, will repeat a free T4, TSH in 6 weeks. I will see her and discuss with her in about 6 weeks. ZXL:MEDQ C: CONFIRM #: [id number] documented in this encounter Plan of Treatment Not on filedocumented as of this encounter Visit Diagnoses Not on filedocumented in this encounter Care Teams Aircraft Electrician Relationship Specialty Start Date End Date Minda Barkley MD PCP - General 10/24/10 documented as of this encounter
--- OUTSIDE RECORDS SUMMARY | 2022-03-27 17:35 | XMS_ITS | Encounter Summary ---
:1975 Author Organization [facility] Address [address], [place] [address] Care Team Providers Name Role Phone Minda Barkley MD Primary Care Provider Unavailable Encounter Details Date Type Department Care Team Description 11/15/2004 PN Conversion Only [place] [address] [address] [place] [address] Social History Tobacco Use Types Packs/Day Years Used Date Smoking Tobacco: Never Assessed Sex Assigned at Date Recorded Not on file documented as of this encounter Plan of Treatment Not on filedocumented as of this encounter Visit Diagnoses Not on filedocumented in this encounter Care Teams Aerospace Physiological Technician Relationship Specialty Start Date End Date Minda Barkley MD PCP - General 10/24/10 documented as of this encounter
--- OUTSIDE RECORDS SUMMARY | 2022-03-27 17:35 | XMS_ITS | Encounter Summary ---
:1975 Author Organization [facility] Address [address], [place] [address] Care Team Providers Name Role Phone Minda Barkley MD Primary Care Provider Unavailable Encounter Details Date Type Department Care Team Description 08/25/2004 Office Visit [facility] and Radha [place] [address] [place] [address] [place], [place] [address] (Wo rk) Social History Tobacco Use Types Packs/Day Years Used Date Smoking Tobacco: Never Assessed Sex Assigned at Date Recorded Not on file documented as of this encounter Progress Notes Eryn Perry MD - 08/25/2004 12:01 AM CST Progress Notes signed by Eryn Zheng MD at 10/01/04 1035 Author: Eryn Zheng MD Service: (none) Author Type: Physician Filed: 11/11/10 0313 Note Time: 08/25/04 0001 Status: Signed Supervisor Public Health Nursing: Eryn Zheng MD (Physician) NAME: SARA MANUEL MR: [id number] ACCT: [id number] VISIT: [id number] DICTATING CLINICIAN: ERYN HICKMAN MD JOB: [id number] CLINIC PROGRESS NOTE DATE OF VISIT: 08/25/2004 SUBJECTIVE: Chief Complaint: Follow up sinus and ear problems. HISTORY OF PRESENT ILLNESS: The patient is a 29-year-old woman whom I have not seen for sometime regarding sinus and ear problems. I have seen her in the past for chronic rhinitis and recurrent sinusitis. 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 She has ongoing issues with thick postnasal drainage. This has been worse over the last 6 weeks, following an upper respiratory infection. She has also noticed since her duty in [place], a decreased sense of acuity of her smell. She denies any hemoptysis. She also had, over the last year, noticed some swelling anterior to the right ear. When she was seen earlier this summer, this was diagnosed as possible lymph node. This has not resolved, however, since that time. It is somewhat uncomfortable depending if she is lying on the ear or putting pressure in that area. She has also had recent sense of decreased hearing in the right ear more than the left. ADR/ALLERGIES: IODINE. MEDICATIONS: Oral contraceptives. OBJECTIVE: On physical examination, patient alert, healthy-appearing woman. Skin of the head and face normal to visual inspection. Palpation of the right preauricular area does reveal a subcutaneous nodular mass approximately 2 to 3 mm in diameter. It is nontender and nonfluctuate. Overlying skin is normal, with no pit, erythema, or other thickening. Canals are patent. Tympanic membranes have minimal tympanosclerosis, but no middle ear fluid or erythema. Nasal exam shows anterior congestion bilaterally, but no purulence. Oral cavity and oropharynx are normal. Examination of the oropharynx reveals thick mucoid drainage on the posterior wall. Mirror examination of the hypopharynx and larynx is normal. NECK: No palpable lymphadenopathy, thyromegaly, or other masses. Audiogram testing was performed, which shows essentially normal hearing bilaterally. ASSESSMENT: 1. Chronic rhinitis with possible recent chronic sinusitis. 2. Somewhat decreased sense of smell, possibly related to #1. 3. 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 PLAN: 1. Given refill of Nasonex 2 sprays in each nostril daily. 2. Started on amoxicillin 500 mg 3 times a day for 2 weeks. 3. Patient given information and bulb syringe for nasal saline irrigations. 4. Allergy evaluation and follow up with me in 1 month. MMB:[id number] C: 08/25/04 17:40 DOCUMENT: [id number] RVISOR REACTOR FUELING documented in this encounter Plan of Treatment Not on filedocumented as of this encounter Visit Diagnoses Not on filedocumented in this encounter Care Teams Director Organizational Relationship Specialty Start Date End Date Minda Barkley MD PCP - General 10/24/10 documented as of this encounter
--- OUTSIDE RECORDS SUMMARY | 2022-03-27 17:35 | XMS_ITS | Encounter Summary ---
:1975 Author Organization [facility] Address [address] [place] [address] Care Team Providers Name Role Phone Minda Barkley MD Primary Care Provider Unavailable Encounter Details Date Type Department Care Team Description 02/20/2008 PN Conversion Only [place] [address] [employer] [address] [place] [address] [place] [address] (Wo rk) Social History Tobacco Use Types Packs/Day Years Used Date Smoking Tobacco: Never Assessed Sex Assigned at Date Recorded Not on file documented as of this encounter Plan of Treatment Not on filedocumented as of this encounter Procedures Procedure Name Priority Date/Time Associated Comments Diagnosis ELECTROLYTES (NA, K, Routine 02/20/2008 10:42 Res ults for this CL, BICARB) AM CDT procedure are i n the results section. GLUCOSE, WHOLE BLOOD Routine 02/20/2008 10:42 Res ults for this POCT AM CDT procedure are i n the results section. THYROID STIMULATING Routine 02/20/2008 10:42 Resu lts for this HORMONE AM CDT procedure are i n the results section. URINALYSIS Routine 02/20/2008 10:42 Results for this ROUTINE(MICRO IF POS) AM CDT proced ure are in the results section. URINALYSIS Routine 02/20/2008 10:42 Results for this MICROSCOPIC AM CDT procedure are i n the results section. COMPLETE BLOOD Routine 02/20/2008 10:42 Results f or this COUNT-W/DIFF AM CDT procedure are i n the results section. documented in this encounter Results Complete Blood Count-W/Diff (02/20/2008 10:42 AM CDT) Patholo gist Method Time Signature White Blood Cell 6.1 3.8 - 11.0 [facility] CONVERSIO N Count K/cmm Red Blood Cell 4.36 3.70 - HP CONVERSION Count 5.20 m/cmm Hemoglobin 13.7 11.8 - HP CONVERSION 15.5 gm/dL Hematocrit 39.9 35.0 - HP CONVERSION 46.0 % Mean Corpuscular 91.5 80.0 - HP CONVERSION Volume 100.0 fl Mean Corpuscular 31.4 27.0 - HP CONVERSION Hemoglobin 34.0 pg Mean Corpuscular 34.4 32.0 - HP CONVERSION Hemoglobin Conc 36.5 gm/dL [place] RDW 13.3 11.0 - HP CONVERSION 15.0 % Platelet Count 322 140 - 450 HP CONVERSION k/cmm Differential Auto-Dif No normal HP CONVERSION Verify range Neutrophils 3.4 2.0 - 7.5 HP CONVERSION Absolute Count K/cmm Neutrophil 55.3 50.0 - HP CONVERSION 75.0 % Lymphocyte % 30.0 20.0 - HP CONVERSION 40.0 % Monocyte 8.6 5.0 - 14.0 HP CONVERSION % Eosinophil 4.9 0.0 - 6.0 HP CONVERSION % Basophil % 1.2 0.0 - 2.0 HP CONVERSION % Specimen (Source) Anatomical Collection Method Collection Time Re ceived Time Location / / Volume Laterality 02/20/2008 10:42 AM CDT Lauren Jimenez MD LAB_1 Performing Organization Address City/State/ZIP Code Phon e Number HP CONVERSION Electrolytes (NA, K, CL, Bicarb) (02/20/2008 10:42 AM CDT) athologist Signature Sodium 138 137 - 147 HP CONVERSION mEq/L Potassium 4.6 3.5 - 5.2 HP CONVERSION mEq/L Chloride 103 98 - 110 HP CONVERSION mEq/L Bicarbonate 33 23 - 33 HP CONVERSION mmol/L Specimen (Source) Anatomical Collection Method Collection Time Re ceived Time Location / / Volume Laterality 02/20/2008 10:42 AM CDT Lauren Jimenez MD LAB_1 Performing Organization Address City/State/ZIP Code Phon e Number HP CONVERSION [facility] (02/20/2008 10:42 AM CDT) P athologist Signature Bedside Blood 93 mg/dL HP CONVERSION Glucose Test Specimen (Source) Anatomical Collection Method Collection Time Re ceived Time Location / / Volume Laterality 02/20/2008 10:42 AM CDT Lauren Jimenez MD LAB_1 Performing Organization Address City/[facility] Phon e Number HP CONVERSION Urinalysis Microscopic (02/20/2008 10:42 AM CDT) Analysis Performed At Patho logist Time Signature White Blood 0-2/HPF 0 - 3 HP CONVERSION Cells Urine Red Blood Cells 0-2/HPF 0 - 2 HP CONVERSION Urine Epithelial Few Few /HPF HP CONVERSION Cells Crystals Amorph None HP CONVERSION Specimen (Source) Anatomical Collection Method Collection Time Re ceived Time Location / / Volume Laterality 02/20/2008 10:42 AM CDT Lauren Jmienez MD LAB_1 Performing Organization Address [facility] Phon e Number HP CONVERSION Urinalysis Routine(Micro If Pos) (02/20/2008 10:42 AM CDT) Patholo gist Method Time Signature Turbidity Clear No normal HP CONVERSION range pH Urine 6.5 4.5 - 7.5 HP CONVERSION Protein Urine Negative Neg-Trac HP CONVERSION Glucose, Negative Neg-Trac HP CONVERSION Qualitative U Ketones Negative Negative HP CONVERSION U BILI Negative Negative HP CONVERSION Blood Urine Negative Negative HP CONVERSION Nitrite Urine Negative Negative HP CONVERSION Leukocyte Negative Negative HP CONVERSION Esterase Urine Urobilinogen Negative 0.2 - 1.0 HP CONVERSION Urine U Specific 1.020 1.005 - 25 HP CONVERSION Anita Specimen (Source) Anatomical Collection Method Collection Time Re ceived Time Location / / Volume Laterality 02/20/2008 10:42 AM CDT Lauren Jimenez MD LAB_1 Performing Organization Address City/[facility] Phon e Number HP CONVERSION (ABNORMAL) Thyroid Stimulating Hormone (02/20/2008 10:42 AM CDT) Patholo gist Method Time Signature Thyroid 5.02 (H) 0.20 - HP CONVERSION Stimulating 4.50 Hormone uIU/mL Specimen (Source) Anatomical Collection Method Collection Time Re ceived Time Location / / Volume Laterality 02/20/2008 10:42 AM CDT Lauren Jimenez MD LAB_1 Performing Organization Address City/[facility]/ZIP Code Phon e Number HP CONVERSION documented in this encounter Visit Diagnoses Not on filedocumented in this encounter Care Teams [employer] Executive Director Relationship Specialty Start Date End Date Minda Barkley MD PCP - General 10/24/10 documented as of this encounter
--- OUTSIDE RECORDS SUMMARY | 2022-03-27 17:35 | XMS_ITS | Encounter Summary ---
:1975 Author Organization [employer] Address [address] [place] [address] Care Team Providers Name Role Phone Minda Barkley MD Primary Care Provider Unavailable Reason for Visit Reason Comments Refill Patient Calling Back Encounter Details Date Type Department Care Team Description 08/29/2011 Refill [place] Scot Almaguer MD Refill; Patient Calling Medicine [address] [place] [address] [place], [place] [phone] (Wo rk) Social History Tobacco Use Types Packs/Day Years Used Date Smoking Tobacco: Never Assessed Sex Assigned at Date Recorded Not on file documented as of this encounter Nursing Notes Clarisse Iraheta RN - 08/30/2011 9:46 AM CST LM that pt is due for an appoint and labs on answering machine ; Last visit and labs were 06/01 willforward to to address refill ; Fátima Garcia - 08/29/2011 9:55 AM CST Non -Symptom Message from [facility] Primary Care Provider: Minda Barkley MD Message: Pt wanted to know if she has to have an order at the lab for this refill ? She is not having any other different sxs. She if doesn't answer the phone, she would like a detail message letting know if has to come in for a lab appt or not. BURNER documented in this encounter Plan of Treatment Not on filedocumented as of this encounter Visit Diagnoses Not on filedocumented in this encounter Care Teams Bi Data Modeler Relationship Specialty Start Date End Date Minda Barkley MD PCP - General 10/24/10 documented as of this encounter
--- OUTSIDE RECORDS SUMMARY | 2022-03-27 17:35 | XMS_ITS | Encounter Summary ---
:1975 Author Organization [facility] Address [address] [address] Care Team Providers Name Role Phone Minda Barkley MD Primary Care Provider Unavailable Encounter Details Date Type Department Care Team Description 06/07/2010 PN Conversion Only [place] [address] [place] [address] [address] [place] [address] (Wo rk) Social History Tobacco Use Types Packs/Day Years Used Date Smoking Tobacco: Never Assessed Sex Assigned at Date Recorded Not on file documented as of this encounter Plan of Treatment Not on filedocumented as of this encounter Procedures Procedure Name Priority Date/Time Associated Comments Diagnosis THYROID STIMULATING Routine 06/07/2010 10:15 Resu lts for this HORMONE AM CONTRACTING SPECIALIST procedure are i n the results section. T3, FREE Routine 06/07/2010 10:15 Results for this AM CONTRACTING SPECIALIST procedure are i n the results section. FREE T4 Routine 06/07/2010 10:15 Results for this AM CONTRACTING SPECIALIST procedure are i n the results section. documented in this encounter Results T3, Free, Serum (06/07/2010 10:15 AM CONTRACTING SPECIALIST) P athologist Signature Triiodothyronin 2.7 2.3 - 4.2 HP CONVERSION e, Free pg/mL Specimen (Source) Anatomical Collection Method Collection Time Re ceived Time Location / / Volume Laterality 06/07/2010 10:15 AM CONTRACTING SPECIALIST Shefali Almaguer MD LAB_1 Performing Organization Address City/State/ZIP Code Phon e Number HP CONVERSION THYROID STIMULATING HORMONE (06/07/2010 10:15 AM CONTRACTING SPECIALIST) athologist Signature Thyroid 2.93 0.20 - HP CONVERSION Stimulating 4.50 mIU/L Hormone Specimen (Source) Anatomical Collection Method Collection Time Re ceived Time Location / / Volume Laterality 06/07/2010 10:15 AM CONTRACTING SPECIALIST Shefali Almaguer MD LAB_1 Performing Organization Address City/[facility] Code Phon e Number HP CONVERSION Free T4 (06/07/2010 10:15 AM CONTRACTING SPECIALIST) athologist Signature Thyroxine, Free 0.9 0.8 - 1.8 HP CONVERSION ng/dL Specimen (Source) Anatomical Collection Method Collection Time Re ceived Time Location / / Volume Laterality 06/07/2010 10:15 AM CONTRACTING SPECIALIST Shefali Almaguer MD LAB_1 Performing Organization Address City/[facility]/ZIP Code Phon e Number HP CONVERSION documented in this encounter Visit Diagnoses Not on filedocumented in this encounter Care Teams Playground Aide Relationship Specialty Start Date End Date Minda Barkley MD PCP - General 10/24/10 documented as of this encounter
--- OUTSIDE RECORDS SUMMARY | 2022-03-27 17:35 | XMS_ITS | Encounter Summary ---
:1975 Author Organization [facility] Address [address] [place] [address] Care Team Providers Name Role Phone Unavailable Primary Care Provider Unavailable Encounter Details Date Type Department Care Team Description 05/16/2000 Other Services HP OFF-SITE - TOOL DESIGNER APPRENTICE Yolis Taylor MD [address] [place] [address] [place] [address] (Wo rk) Social History Tobacco Use Types Packs/Day Years Used Date Smoking Tobacco: Never Assessed Sex Assigned at Date Recorded Not on file documented as of this encounter Plan of Treatment Not on filedocumented as of this encounter Visit Diagnoses Diagnosis Tubal Tubal without intrauterine pre gnancy Dizziness and giddiness Nausea alone Ectopic Unspecified ectopic documented in this encounter
--- OUTSIDE RECORDS SUMMARY | 2022-03-27 17:35 | XMS_ITS | Encounter Summary ---
:1975 Author Organization [facility] Address [address] [place] [address] Care Team Providers Name Role Phone Minda Barkley MD Primary Care Provider Unavailable Encounter Details Date Type Department Care Team Description 09/12/2004 Office Visit [facility] [place] [address] [place] [address] [place], [place] [phone] [phone] (Wo rk) Social History Tobacco Use Types Packs/Day Years Used Date Smoking Tobacco: Never Assessed Sex Assigned at Date Recorded Not on file documented as of this encounter Progress Notes Angelita Santana MD - 09/12/2004 12:01 AM CST Progress Notes signed by Angelita Santana MD at 09/14/04 1714 Author: Angelita Santana MD Service: (none) Author Type: Physician Filed: 11/11/10 0334 Note Time: 09/12/04 0001 Status: Signed Ticket Attendant: Angelita Santana MD (Physician) NAME: SARA MANUEL MR: [id number] ACCT: [id number] VISIT: [id number] DICTATING CLINICIAN: ANGELITA SANTANA MD JOB: [id number] CLINIC PROGRESS NOTE DATE OF VISIT: 09/12/2004 SUBJECTIVE: CHIEF COMPLAINT: Rhinosinusitis. HISTORY OF PRESENT ILLNESS: A 29-year-old seen at the request of Eryn Hickman presents for evaluation of lifelong history of sinus congestion, postnasal drip, mouth breathing. Symptoms are present everyday, year-round without seasonal flare. Her brother's cat causes itchy, watery eyes, but does not change her sinus congestion. Sudafed helps some. Nasonex for the past couple of years does not seem to help. She is treated for infectious sinusitis about four times each year, and finished 14 days of amoxicillin four days ago. It did not help. She has tried nasal rinse in the past, but found it uncomfortable. No sinus surgeries. Sinus CT scan in 2001 showed some mild mucosal thickening. She has possible shellfish allergy at age 12. Recalls lip and face swelling requiring ER treatment with an injection after her family was cooking some fresh shrimp from [place] in her kitchen. She did not eat any. Crab and lobster have made her lips tingle and she generally avoids all shellfish. Fin fish are well tolerated. Milk seems to increase her mucus, but no other systemic symptoms accompany. No other food allergies. REVIEW OF SYSTEMS: No episodes of coughing, wheezing or dyspnea. No eczema. No bee sting reaction. No acid reflux. Good sense of smell. No snoring. ADR/ALLERGIES: NO DRUG ALLERGIES. CURRENT MEDICATIONS: Oral control. Nasonex, two squirts per nostril daily. Sudafed p.r.n. PAST MEDICAL HISTORY: Chronic rhinitis. OBJECTIVE: VS: BP: 98/78. Ht: 65 in. Wt: 147 lb. Pleasant, interactive, appearing her stated age. SKIN: Free of rashes or dermatographism. Conjunctivae are clear. Tympanic membranes are normal. Nasal mucosa shows a bit of inferior turbinate edema. Otherwise, unremarkable. Oropharynx has visible postnasal drainage. Thyroid is smooth. No nodules or enlargement. LUNGS: Clear and equal. No rales, rhonchi or wheeze. HEART: Regular without murmurs, clicks, or rubs. FAMILY MEDICAL HISTORY: Negative for hay fever, asthma or eczema. SOCIAL AND EXPOSURE HISTORY: She is a former social smoker. 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 She has two children, ages 3 and 11. A cat for the last four years. Allergy skin prick testing shows positive reaction to mold, grass and ragweed. No reaction to dust mite, animal dander, or tree. She has positive reactions to crab and lobster. ASSESSMENT: 1. Mixed allergic and non-allergic rhinosinusitis. 2. Shellfish allergy. PLAN: Allergen avoidance recommended in detail. Possible sources of accidental shellfish exposure were discussed. Recommended EpiPen, its use and indication were reviewed. Recommended liquid or chewable Benadryl 50 mg available at all times. A trial of adding Astelin to her Nasonex. Follow up as needed. CC: ERYN HICKMAN MD BJG:[id number] C: 09/13/04 10:09 DOCUMENT: [id number] E COMMERCE SOLUTION ARCHITECT documented in this encounter Plan of Treatment Not on filedocumented as of this encounter Visit Diagnoses Not on filedocumented in this encounter Care Teams Hand Roller Engraver Relationship Specialty Start Date End Date Minda Barkley MD PCP - General 10/24/10 documented as of this encounter
--- OUTSIDE RECORDS SUMMARY | 2022-03-27 17:35 | XMS_ITS | Encounter Summary ---
:1975 Author Organization [facility] Address [address] [place] [address] Care Team Providers Name Role Phone Minda Barkley MD Primary Care Provider Unavailable Encounter Details Date Type Department Care Team Description 02/08/2004 Office Visit [facility] [place] [address] [place] [address] [place] [address] [phone] Social History Tobacco Use Types Packs/Day Years Used Date Smoking Tobacco: Never Assessed Sex Assigned at Date Recorded Not on file documented as of this encounter Progress Notes Rosina Phillips MD - 02/08/2004 12:01 AM CDT Progress Notes signed by Rosina Phillips MD at 04/02/04 0848 Author: Rosina Phillips MD Service: (none) Author Type: Physician Filed: 11/10/10 2344 Note Time: 02/08/04 0001 Status: Signed Stumper Feller: Rosina Phillips MD (Physician) NAME: SARA MANUEL MR: [id number] ACCT: [id number] VISIT: [id number] DICTATING CLINICIAN: ROSINA PHILLIPS MD JOB: [id number] CLINIC PROGRESS NOTE DATE OF VISIT: 02/08/2004 SUBJECTIVE: : 1975. this 28-year-old woman noticed a painful lump in front of the right ear. She is just back from [place] and is concerned that she has something unusual. She notices increased pressure in the right ear with decreased hearing. She has chronic postnasal drip and uses a cortisone nasal spray three times a week. MEDICATIONS: control, cortisone nasal spray. ADR/ALLERGIES: IODINE. OBJECTIVE: VS: BP: 108/78. T: 98.5. P: 80. R: 12. FACE: There is a 0.5 cm diameter lymph node just anterior to the right tragus which is freely mobile and slightly tender. No redness or swelling. No evident pimple or other skin blemish around the ear or face. There is perhaps a tiny pimple above the lip at the philtrum. TMs are normal in appearance. No pain with traction of the auricle. Hearing to finger friction is 50% less in the right ear than it is the left ear. NECK: No nodes are palpable anywhere in the neck or supraclavicular area. ASSESSMENT: Lymphadenopathy, face; decreased hearing, A.D. PLAN: An appointment is set up for audiometry for hearing loss. She requests that this be done soon to track down whether it is related to her duty. She will apply heat to the lymph node and is reassured about that. She is encouraged to continue with her cortisone nasal spray and to use Sudafed to decrease the postnasal drip and open the eustachian tubes so any fluid in the middle ear can drain. CAM:[id number] C: 02/08/04 19:55 DOCUMENT: [id number] documented in this encounter Plan of Treatment Not on filedocumented as of this encounter Visit Diagnoses Not on filedocumented in this encounter Care Teams Commercial Pest Control Technician Relationship Specialty Start Date End Date Minda Barkley MD PCP - General 10/24/10 documented as of this encounter
--- OUTSIDE RECORDS SUMMARY | 2022-03-27 17:35 | XMS_ITS | Encounter Summary ---
:1975 Author Organization [facility] Address [address] [address] Care Team Providers Name Role Phone Minda Barkley MD Primary Care Provider Unavailable Encounter Details Date Type Department Care Team Description 05/01/2008 PN Conversion Only [place] [address] [place] [address] [address] [place] [address] (Wo rk) Social History Tobacco Use Types Packs/Day Years Used Date Smoking Tobacco: Never Assessed Sex Assigned at Date Recorded Not on file documented as of this encounter Plan of Treatment Not on filedocumented as of this encounter Procedures Procedure Name Priority Date/Time Associated Comments Diagnosis THYROID STIMULATING Routine 05/01/2008 12:20 Resu lts for this HORMONE PM CDT procedure are i n the results section. FREE T4 Routine 05/01/2008 12:20 Results for this PM CDT procedure are i n the results section. documented in this encounter Results Free T4 (05/01/2008 12:20 PM CDT) athologist Signature Thyroxine, Free 1.1 0.8 - 1.8 HP CONVERSION ng/dL Specimen (Source) Anatomical Collection Method Collection Time Re ceived Time Location / / Volume Laterality 05/01/2008 12:20 PM CDT Shefali Almaguer MD LAB_1 Performing Organization Address City/State/ZIP Code Phon e Number HP CONVERSION Thyroid Stimulating Hormone (05/01/2008 12:20 PM CDT) athologist Signature Thyroid 3.57 0.20 - HP CONVERSION Stimulating 4.50 Hormone uIU/mL Specimen (Source) Anatomical Collection Method Collection Time Re ceived Time Location / / Volume Laterality 05/01/2008 12:20 PM CDT Shefali Almaguer MD LAB_1 Performing Organization Address City/State/ZIP Code Phon e Number HP CONVERSION documented in this encounter Visit Diagnoses Not on filedocumented in this encounter Care Teams Shuttle Final Inspector Relationship Specialty Start Date End Date Minda Barkley MD PCP - General 10/24/10 documented as of this encounter
--- OUTSIDE RECORDS SUMMARY | 2022-03-27 17:35 | XMS_ITS | Encounter Summary ---
:1975 Author Organization [facility] Address [address], [place] [address] Care Team Providers Name Role Phone Minda Barkley MD Primary Care Provider Unavailable Encounter Details Date Type Department Care Team Description 12/20/2004 PN Conversion Only CONV [id number] Social History Tobacco Use Types Packs/Day Years Used Date Smoking Tobacco: Never Assessed Sex Assigned at Date Recorded Not on file documented as of this encounter Plan of Treatment Not on filedocumented as of this encounter Visit Diagnoses Not on filedocumented in this encounter Care Teams Ship Runner Relationship Specialty Start Date End Date Minda Barkley MD PCP - General 10/24/10 documented as of this encounter
--- OUTSIDE RECORDS SUMMARY | 2022-03-27 17:35 | XMS_ITS | Encounter Summary ---
:1975 Author Organization [employer] Address [address] [address] Care Team Providers Name Role Phone Minda Barkley MD Primary Care Provider Unavailable Encounter Details Date Type Department Care Team Description 03/18/2010 PN Conversion Only [place] [address] [place] [address] [address] [place] [address] (Wo rk) Social History Tobacco Use Types Packs/Day Years Used Date Smoking Tobacco: Never Assessed Sex Assigned at Date Recorded Not on file documented as of this encounter Plan of Treatment Not on filedocumented as of this encounter Procedures Procedure Name Priority Date/Time Associated Comments Diagnosis THYROID STIMULATING Routine 03/18/2010 2:29 PM Re sults for this HORMONE CDT procedure are i n the results section. T3, FREE Routine 03/18/2010 2:29 PM Results f or this CDT procedure are i n the results section. COMPLETE BLOOD Routine 03/18/2010 2:29 PM Results for this COUNT-W/DIFF CDT procedure are i n the results section. DIFFERENTIAL Routine 03/18/2010 2:29 PM Results f or this CDT procedure are i n the results section. FREE T4 Routine 03/18/2010 2:29 PM Results f or this CDT procedure are i n the results section. documented in this encounter Results Differential (03/18/2010 2:29 PM CDT) P athologist Signature Absolute 3.2 2.0 - 6.8 HP CONVERSION Neutrophils k/cmm Absolute 1.8 1.0 - 4.0 HP CONVERSION Lymphocytes k/cmm Absolute 0.5 0.2 - 1.0 HP CONVERSION Monocytes k/cmm Absolute 0.3 0.0 - 0.5 HP CONVERSION Eosinophils k/cmm Absolute 0.1 0.0 - 0.2 HP CONVERSION Basophils k/cmm Specimen (Source) Anatomical Collection Method Collection Time Re ceived Time Location / / Volume Laterality 03/18/2010 2:29 PM CDT Shefali Almaguer MD LAB_1 Performing Organization Address [facility] Phon e Number HP CONVERSION Hemogram/Plts/Diff (03/18/2010 2:29 PM CDT) P athologist Signature White Blood Cell 5.9 3.8 - 11.0 HP CONVERSIO N Count k/cmm Red Blood Cell 3.99 3.70 - HP CONVERSION Count 5.20 m/cmm Hemoglobin 12.9 11.8 - HP CONVERSION 15.5 g/dL Hematocrit 37.7 35.0 - HP CONVERSION 46.0 % Mean Corpuscular 94.6 80.0 - HP CONVERSION Volume 100.0 fL RDW 13.4 11.0 - HP CONVERSION 15.0 % Platelet Count 235 140 - 450 HP CONVERSION k/cmm Specimen (Source) Anatomical Collection Method Collection Time Re ceived Time Location / / Volume Laterality 03/18/2010 2:29 PM CDT Shefali Almaguer MD LAB_1 Performing Organization Address [facility] Phon e Number HP CONVERSION (ABNORMAL) THYROID STIMULATING HORMONE (03/18/2010 2:29 PM CDT) Patholo gist Method Time Signature Thyroid 5.72 (H) 0.20 - HP CONVERSION Stimulating 4.50 Hormone mIU/L Specimen (Source) Anatomical Collection Method Collection Time Re ceived Time Location / / Volume Laterality 03/18/2010 2:29 PM CDT Shefali Almaguer MD LAB_1 Performing Organization Address [facility] Phon e Number HP CONVERSION T3, Free, Serum (03/18/2010 2:29 PM CDT) P athologist Signature Triiodothyronin 2.6 2.3 - 4.2 HP CONVERSION e, Free pg/mL Specimen (Source) Anatomical Collection Method Collection Time Re ceived Time Location / / Volume Laterality 03/18/2010 2:29 PM CDT Shefali Almaguer MD LAB_1 Performing Organization Address City/State/ZIP Code Phon e Number HP CONVERSION Free T4 (03/18/2010 2:29 PM CDT) P athologist Signature Thyroxine, Free 0.8 0.8 - 1.8 HP CONVERSION ng/dL Specimen (Source) Anatomical Collection Method Collection Time Re ceived Time Location / / Volume Laterality 03/18/2010 2:29 PM CDT Shefali Almaguer MD LAB_1 Performing Organization Address [facility] Phon e Number HP CONVERSION documented in this encounter Visit Diagnoses Not on filedocumented in this encounter Care Teams Manager Msw Relationship Specialty Start Date End Date Minda Barkley MD PCP - General 10/24/10 documented as of this encounter
--- OUTSIDE RECORDS SUMMARY | 2022-03-27 17:35 | XMS_ITS | Encounter Summary ---
:1975 Author Organization [facility] Address [address] [place] [address] Care Team Providers Name Role Phone Minda Barkley MD Primary Care Provider Unavailable Encounter Details Date Type Department Care Team Description 06/01/2015 Hospital Encounter Security Contact - None Nataliia Salazar MD Social History Tobacco Use Types Packs/Day Years Used Date Smoking Tobacco: Never Assessed Sex Assigned at Date Recorded Not on file documented as of this encounter Medications at Time of Discharge Medication Sig Dispensed Refills Start Date End Date levothyroxine (AKA Take 1 tablet by 90 tablet 3 09/22/2011 SYNTHROID) 50 MCG tablet mouth daily (every 24 hours). documented as of this encounter Plan of Treatment Not on filedocumented as of this encounter Procedures Procedure Name Priority Date/Time Associated Diagnosis Comme nts HEPATITIS B SURFACE Routine 06/01/2015 2:00 PM Re sults for this ANTIBODY POWDER COATER procedure are i n the results section. documented in this encounter Results Hepatitis B Surface Antibody (06/01/2015 2:00 PM POWDER COATER) [facility] Method Time Signature Hep B Surf AB 950.0 >11.9 [facility] Result mIU/ml HOSPITAL Hep B Surf AB Positive (Reactive) [facility] Interp Anti-HBs detected. Patient is considered to be immune to the HBV virus HOSPITAL in response to prior exposure or vaccination. Specimen Anatomical Collection Method Collection Time Receive d Time (Source) Location / / Volume Laterality 06/01/2015 2:00 PM 5 2:07 POWDER COATER PM POWDER COATER [facility] - 06/03/2015 10:[address] Performed at [facility], [address] [place] [address] ??[id number] Yamilet Salazar MD LAB_1 Performing Organization Address City/State/ZIP Code Phon e Number [address] [address] documented in this encounter Visit Diagnoses Not on filedocumented in this encounter Care Teams Program Scheduler Relationship Specialty Start Date End Date Minda Barkley MD PCP - General 10/24/10 documented as of this encounter
--- OUTSIDE RECORDS SUMMARY | 2022-03-27 17:35 | XMS_ITS | Encounter Summary ---
:1975 Author Organization [facility] Address [address], [place] [address] Care Team Providers Name Role Phone Minda Barkley MD Primary Care Provider Unavailable Reason for Visit Reason Comments Other Encounter Details Date Type Department Care Team Description 06/09/2010 Telephone [facility] Shefali Almaguer MD Other [address] [place] [address] [facility] [address] [facility] [address] (Wo rk) Social History Tobacco Use Types Packs/Day Years Used Date Smoking Tobacco: Never Assessed Sex Assigned at Date Recorded Not on file documented as of this encounter Progress Notes Minda Rivas - 06/09/2010 8:51 AM CST Phone Note filed by Minda Rivas at 11/12/102234 Author: Minda Rivas Service: (none) Author Type: (none) Filed: 11/12/102234 Note Time: 06/09/10850 Status: Signed Regional Production Manager: Zane Conversion (Physician) Lab/Radiology Results Caller Name/Relationship:pt Primary Adult Education Professional:Tripp What test result is needed? labs When and where was test done? [facility], 06/07 Who ordered the test? Tripp Piano Regulator Inspector:Sara Echeverria call back number:[phone] Is it OK to leave a confidential message on this voicemail? yes *[id number] Created on 09Jun2010 8:51am by MINDA RIVAS On 09Jun2010 9:08am RA FELIPE wrote: Left message that her labs are all normal-call back if more questions. On 09Jun2010 9:11am SHMUEL TELLEZ wrote: pt rtc On 09Jun2010 9:21am SABAS CHOPRA wrote: Pt calling back. Her labs WNL. She will RTC next year for re-check. Call back ONLY if she needs RTC before then. Acknowledged by DUARTE ALMAGUER on 9:27am TERER TENDER documented in this encounter Plan of Treatment Not on filedocumented as of this encounter Visit Diagnoses Not on filedocumented in this encounter Care Teams Workforce Planner Relationship Specialty Start Date End Date Minda Barkley MD PCP - General 10/24/10 documented as of this encounter
--- OUTSIDE RECORDS SUMMARY | 2022-03-27 17:35 | XMS_ITS | Encounter Summary ---
:1975 Author Organization [facility] Address [address], [place] [address] Care Team Providers Name Role Phone Minda Barkley MD Primary Care Provider Unavailable Encounter Details Date Type Department Care Team Description 09/22/2004 Office Visit [facility] [place] [address] [employer] [address] [place] [address] [place], [place] [address] (Wo rk) Social History Tobacco Use Types Packs/Day Years Used Date Smoking Tobacco: Never Assessed Sex Assigned at Date Recorded Not on file documented as of this encounter Progress Notes Eryn Perry MD - 09/22/2004 12:01 AM CST Progress Notes signed by Eryn Zheng MD at 10/01/04 1108 Author: Eryn Zheng MD Service: (none) Author Type: Physician Filed: 11/11/10 0347 Note Time: 09/22/04 0001 Status: Signed Contractor Broomcorn Threshing: Eryn Zheng MD (Physician) NAME: SARA MANUEL MR: [id number] ACCT: [id number] VISIT: [id number] DICTATING CLINICIAN: EYRN HICKMAN MD JOB: [id number] CLINIC PROGRESS NOTE DATE OF VISIT: 09/22/2004 SUBJECTIVE: CHIEF COMPLAINT: Follow up chronic rhinitis, sinusitis and allergy evaluation. HISTORY OF PRESENT ILLNESS: 29-year-old woman here for follow up of chronic rhinitis and possible sinusitis. She has been seen through the allergy clinic. Found to have allergies to grasses, ragweed and mold. Also confirmed shellfish allergy. She was started on Astelin in addition to her Nasonex as well as saline irrigations. She completed a course of Amoxicillin. She feels that the nasal spray and irrigations have been the most helpful in improving her nasal congestion and drainage symptoms. She does not feel that the antibiotics made much of a difference in her symptoms. OBJECTIVE: Nasal cavity shows fairly normal appearing mucosa. ASSESSMENT: Chronic mixed rhinitis. Improved on nasal sprays and irrigations. PLAN: Would continue the current regimen and recheck with me in two months. Should she have worsening of symptoms or return of more infection type symptoms can reconsider further treatment for that. MMB:[id number] C: 09/23/04 15:23 DOCUMENT: [id number] TRUCK DRIVER documented in this encounter Plan of Treatment Not on filedocumented as of this encounter Visit Diagnoses Not on filedocumented in this encounter Care Teams Pouncer Machine Relationship Specialty Start Date End Date Minda Barkley MD PCP - General 10/24/10 documented as of this encounter
--- OUTSIDE RECORDS SUMMARY | 2022-03-27 17:35 | XMS_ITS | Encounter Summary ---
:1975 Author Organization [facility] Address [address] [place] [address] Care Team Providers Name Role Phone Minda Barkley MD Primary Care Provider Unavailable Reason for Visit Reason Comments Other Encounter Details Date Type Department Care Team Description [address] [facility] [address] Ear, Nose, and Efren Rocha RN Other Throat [address] [facility] [place] [address] Social History Tobacco Use Types Packs/Day Years Used Date Smoking Tobacco: Never Assessed Sex Assigned at Date Recorded Not on file documented as of this encounter Progress Notes Efren Rocha RN - 2005 10:04 AM CDT Phone Note filed by Efren Rocha RN at 11/07/101932 Author: Efren Rocha RN Service: (none) Author Type: (none) Filed: 11/07/101932 Note Time: 02/15/05 100 Status: Signed Sas Administrator: Zane Colon Patient usually seen at [facility]. Last appt with you was 09-22-04. States she has had green mucus from nose x 2 weeks that is not going away and sore throat. States you usually call antibiotic,i.e., Augmentin, in for her. Daughter just diagnosed with strep throat. Uses [facility] in [facility] at [phone]. Patient's phone number is at [phone]. Please advise. Created on [id number] 10:04am by EFREN ROCHA On 15Feb2005 11:05am RHONDA PULIDO wrote: Will prescribe Amoxicillin 500 mg TID for 14 days, no refills. Make f/u appt. or hilaria if not resolving. Acknowledged by RHONDA PULIDO on 11:05am On 15Feb2005 11:16am EFREN ROCHA wrote: Faxed Rx for amoxicillin as above to [facility] in [place]. Patient notified. Acknowledged by EFERN ROCHA on 11:16am IER APPRENTICE documented in this encounter Plan of Treatment Not on filedocumented as of this encounter Visit Diagnoses Not on filedocumented in this encounter Care Teams Accounts Officer Relationship Specialty Start Date End Date Minda Barkley MD PCP - General 10/24/10 documented as of this encounter
--- OUTSIDE RECORDS SUMMARY | 2022-03-27 17:35 | XMS_ITS | Encounter Summary ---
:1975 Author Organization [facility] Address [address], [place] [address] Care Team Providers Name Role Phone Minda Barkley MD Primary Care Provider Unavailable Encounter Details Date Type Department Care Team Description 02/26/2015 Hospital Encounter Security Contact - None Nataliia [...] Procedure Name Priority Date/Time Associated Comments Diagnosis HEPATITIS B SURFACE Routine 02/26/2015 10:15 Resu lts for this ANTIBODY AM CDT procedure are i n the results section. TB GOLD, QUANTIFERON Routine 02/26/2015 10:15 Res ults for this AM CDT procedure are i n the results section. MUMPS IMMUNE STATUS, Routine 02/26/2015 10:15 Res ults for this IGG AM CDT procedure are i n the results section. documented in this encounter Results Mumps Immune Status (02/26/2015 10:15 AM CDT) [facility] Method Time Signature Mumps Immune 0.78 Immune >0.49 [facility] Specimen Anatomical Collection Method Collection Time Receive d Time (Source) Location / / Volume Laterality 02/26/2015 10:15 02/26/2015 AM CDT 10:19 AM CDT [facility] - 03/01/2015 10:42 AM C DT Performed at [facility], [address] [place] [address] [place] ??[address] Yamilet Salazar MD LAB_1 Performing Organization Address [facility]/ZIP [facility] Phon e Number [address] [address] (ABNORMAL) Hepatitis B Surface Antibody (02/26/2015 10:15 AM CDT) [facility] gist Method Time Signature Hep B Surf AB 11.1 (L) >11.9 [facility] Result mIU/ml [facility]OSPITAL Hep B Surf AB Indeterminate [facility] Interp Unable to determine if anti-HBs is present at levels consi stent with HOSPITAL immunity. Consider further assessment or retest another spe cimen in 2-4 weeks. Specimen Anatomical Collection Method Collection Time Receive d Time (Source) Location / / Volume Laterality 02/26/2015 10:15 02/26/2015 AM CDT 10:19 AM CDT [facility] - 02/27/2015 11:18 AM C DT Performed at [facility], [address] ??[address] Yamilet Salazar MD LAB_1 Performing Organization Address [facility] Phon e Number [address] [address] TB Gold, Quantiferon (02/26/2015 10:15 AM CDT) Component Value Ref Test Analysis Performed At [facility] [employer] Method Time Signature TB Gold, Negative NEG [facility] Quantiferon [facility] TB NIL Value 0.02 IU/mL [facility] TB Ag-NIL 0.01 IU/mL [facility] Value [facility] Mitogen-NIL 8.03 IU/mL [facility] Value [facility] TB Gold (NOTE) [facility] Interpreta. Nil ? TB-Nil ? Abdirizak-N il ?? Quantiferon-TB ? Interpretation HOSPITAL _ _ _ _ _ _ _ _ _ _ _ _ _ _ _ _ _ _ _ _ _ _ _ _ _ _ _ _ _ _ _ _ _ ?? <=8.0 ?? >=0.35 & ?Any ?Positive ? M .tuberculosis ? >=25% Nil ? infection likely _ _ _ _ _ _ _ _ _ _ _ _ _ _ _ _ _ _ _ _ _ _ _ _ _ _ _ _ _ _ _ _ _ <=8.0 ?? <0.35 ?>=0.5 ?Negative ? M. tuberculosis ? infection NOT likely _ _ _ _ _ _ _ _ _ _ _ _ _ _ _ _ _ _ _ _ _ _ _ _ _ _ _ _ _ _ _ _ _ _ <=8.0 ??>=0.35 & ? >=0.5 ?Negative ? M. tuberculosis ?<25% Nil ?infection NOT likely _ _ _ _ _ _ _ _ _ _ _ _ _ _ _ _ _ _ _ _ _ _ _ _ _ _ _ _ _ _ _ _ _ ?? <=8.0 ?? <0.35 ? <0.5 ? Indeterminate ?Res ults are ? indeterminate ? for antigen ? responsiveness _ _ _ _ _ _ _ _ _ _ _ _ _ _ _ _ _ _ _ _ _ _ _ _ _ _ _ _ _ _ _ _ _ <=8.0 ?? >0.35 & ? <0.5 ? Indeterminate ?Resu lts are ? <25% Nil ?indeterminate ? for antigen ? responsiveness _ _ _ _ _ _ _ _ _ _ _ _ _ _ _ _ _ _ _ _ _ _ _ _ _ _ _ _ _ _ _ _ _ _ ?? >8.0 ?Any ? Any ?Indeterminate ? Results are ? indeterminate ? for antigen ? responsiveness Note: Diagnosis or excluding tuberculosis disease, and asses sing the probability of Latent Tuberculosis Infection (LTBI), req uires a combination of epidemiological, historical, medical, and ? ? diagnostic findings should be taken into account when interpreting QuantiFERON-TB Gold results. ??See general on t he ?? diagnosis and treatment of TB disease and ?? LBTI:(http://www.cdc.gov/nchstp/tb/). The magnitude of the measured IFN-gamma level cannot be avtar elated to stage or degree of infection, level of immune responsiven ess or likelihood for progression to active disease. A positive TB response in persons who are negative to mitoge n is rare, but has been seen in patients with TB disease. This indicates the IFN-g response to TB Antigen is greater t canales that to mitogen, which is possible as the level of mitogen d oes not maximally stimulate IFN-gamma production by lymphocytes. Specimen Anatomical Collection Method Collection Time Receive d Time (Source) Location / / Volume Laterality 02/26/2015 10:15 02/26/2015 AM CDT 10:19 AM CDT Narrative [facility] - 03/01/2015 1:50 PM CD T Performed at [facility] , [address] [place] [address] Yamilet Salazar MD LAB_1 Performing Organization Address City/State/ZIP Code Phon e Number [address] [address] documented in this encounter Visit Diagnoses Not on filedocumented in this encounter Care Teams Metal Door Assembler Relationship Specialty Start Date End Date Minda Barkley MD PCP - General 10/24/10 documented as of this encounter
--- OUTSIDE RECORDS SUMMARY | 2022-03-27 17:36 | XMS_ITS | Encounter Summary ---
:1975 Author Organization Department of [facility] rs Address [address] [place] [id number] Support Name Relationship Address Phone JERRI IRWIN Unavailable [place]IO [place] [address] JERRI IRWIN Unavailable FABRIZIO VANCE [place], [place] Selected Encounter This section includes the information on record at [place] for the Encounter. Date/Time Encounter Type Encounter Description Reason Provider Source Sep 22, 2021 11:00 Outpatient Encounter [facility] Encounter Template Text not used by [place] Plan of Treatment: Future Appointments (+ 6 months) and Future Tests (+/- 45 days) The Plan of Treatment section includes future care activities for the patient from all [place] treatmentfacilities. This section includes future appointments and future orders which are active, pending orscheduled.Future Appointments This section includes appointments that were scheduled to occur 6 months from the date of the Encounter, up to a maximum of 20 appointments. The data comes from all [place] treatment facilities. Appointment Date/Time Appointment Type Appointment Facili ty Name Oct 11, 2021 04:00 PM AMBULATORY - MEDICINE [facility] Oct 14, 2021 09:00 AM AMBULATORY - MEDICINE [facility] Oct 14, 2021 11:00 AM AMBULATORY - MEDICINE [facility] Oct 24, 2021 09:30 AM AMBULATORY - MEDICINE [facility] Oct 24, 2021 10:45 AM AMBULATORY - NONE [facility] Oct 27, 2021 08:20 AM AMBULATORY - NONE [facility] Oct 28, 2021 06:00 PM AMBULATORY - REHAB MEDICINE [facility] Oct 31, 2021 09:00 AM AMBULATORY - MEDICINE [facility] Nov 09, 2021 03:30 PM AMBULATORY - NONE [facility] November 21, 2021 10:30 AM AMBULATORY - MEDICINE [facility] November 28, 2021 10:00 AM AMBULATORY - MEDICINE [facility] December 13, 2021 03:30 PM AMBULATORY - NONE [facility] December 13, 2021 05:00 PM AMBULATORY - REHAB MEDICINE [facility] Dec 23, 2021 09:30 AM AMBULATORY - NONE [facility] Dec 29, 2021 03:00 PM AMBULATORY - MEDICINE [facility] Feb 03, 2022 09:00 AM AMBULATORY - MEDICINE [facility] Feb 07, 2022 12:30 PM AMBULATORY - NONE [facility] Feb 07, 2022 03:30 PM AMBULATORY - NONE [facility] Mar 07, 2022 03:00 PM AMBULATORY - MEDICINE [facility] Mar 22, 2022 05:00 PM AMBULATORY - REHAB [facility] Lab Results: +/- 30 days of the encounter This section includes the Chemistry and Hematology Lab Results on record with [place] for the patient. Radiology Reports and Pathology Reports are provided separately, in subsequent sections.Lab Results This section contains the Chemistry/Hematology Results that were resulted 30 days before or 30 daysafter the date of the Encounter. Date/Time Source Result Type Result - Unit Interpretation Reference Range Comment Aug 26, 2021 02:41 [facility] OCCULT BLOOD FIT X1 Speci men Type: FECES PM SCREEN No comment enter ed. Ordering Provid er: SWATHI MCFARLANE Report Released Date/Time: Aug 19, 2021 11:39 AM Reporting Lab: [facility] [id number] Performing Lab: [facility] [id number] OCCULT BLOOD (FIT) #1 OF 1 Negative Neg ative Social History: Smoking Status (Most current) and Tobacco Use (All prior to encounter date) This section includes the most current, and the historical, smoking and tobacco-related health factors from the [place] facility where the Encounter took place.Current Smoking Status This section includes the most current smoking, or tobacco-related health factor, from the [facility] where the Encounter took place. Date/Time Current Smoking Status Comment Facility Aug 19, 2021 10:30 AM [place]-TOBACCO FORMER USER [facility] Tobacco Use History This section includes a history of the smoking, or tobacco- related health factors, that were collected on or before the date of the Encounter. The data comes from the [place] facility where the Encounter took place. Date/Time Smoking Status/Tobacco Use Comment Mona richardson Aug 19, 2021 10:30 AM VA-TOBACCO QUIT 1 TO < 5 YRS [facility] Apr 15, 2021 01:00 PM LIFETIME NON-SMOKER [facility] Aug 06, 2020 09:00 AM VA-TOBACCO FORMER USER PAULINA SILVERIO [facility] Aug 06, 2020 09:00 AM VA-TOBACCO QUIT 15 YRS OR MORE [facility] Encounter Notes: All associated encounter notes This section contains the clinical notes associated to the Encounter. Date/Time Encounter Note(s) Provider Source Sep 22, 2021 11:00 AM PRIMARY CARE SECURE MESSAGING: ANGELIA SAL [facility] LOCAL TITLE: PRIMARY CARE SECURE MESSAGING STANDARD TITLE: PRIMARY CARE SECURE MESSAGING DATE OF NOTE: SEP 22, 2021@11:00 ENTRY DATE: SEP 22, 2021@10:00 AUTHOR: ARLEEN SAL EXP COSIGNER: URGENCY: STATUS: COMPLETED ------Original Message Sent: 09/21/2021 08:44 PM From: KRISSY IRWIN To: [facility] Mental Health Team Z % Subject: Wellbutrin Please forward to a Tessa my pharmacist. I don't feel like this medication is the right choice. I am havin g a pulsing feeling in my head, heart, and abdomen, sweating a lot and not sleeping as good as I was . Is there a way to wean off all the meds to get it out of my system and try again in a few months with a different approach. I feel so medicated and not myself. /kaylene/ ARLEEN SAL ADV CHANNEL ROUGHER Signed: 09/22/2021 10:00 Receipt Acknowledged By: * AWAITING SIGNATURE * TESSA TALBERT
--- OUTSIDE RECORDS SUMMARY | 2022-03-27 17:36 | XMS_ITS | Encounter Summary ---
:1975 Author Organization Department [facility] Address [address] [place] [id number] Support Name Relationship Address Phone JERRI IRWIN Unavailable [place] [address] JERRI IRWIN Unavailable FABRIZIO VANCE [place], [place] Selected Encounter This section includes the information on record at [place] for the Encounter. Date/Time Encounter Type Encounter Reason Provider Source Description Sep 05, 2021 02:03 Outpatient PRIMARY AGUS STRICKLAND Encounter CARE/MEDICINE [facility] Encounter Template Text not used by [place] Plan of Treatment: Future Appointments (+ 6 months) and Future Tests (+/- 45 days) The Plan of Treatment section includes future care activities for the patient from all [place] treatmentfacilities. This section includes future appointments and future orders which are active, pending orscheduled.Future Appointments This section includes appointments that were scheduled to occur 6 months from the date of the Encounter, up to a maximum of 20 appointments. The data comes from all [place] treatment facilities. Appointment Date/Time Appointment Type Appointment Facili ty Name Sep 14, 2021 03:00 PM AMBULATORY - NONE [facility] Sep 21, 2021 03:00 PM AMBULATORY - MEDICINE [facility] Oct 11, 2021 04:00 PM AMBULATORY - MEDICINE [facility] Oct 14, 2021 09:00 AM AMBULATORY - MEDICINE [facility] Oct 14, 2021 11:00 AM AMBULATORY - MEDICINE [facility] Oct 24, 2021 09:30 AM AMBULATORY - MEDICINE [facility] Oct 24, 2021 10:45 AM AMBULATORY - NONE [facility] Oct 27, 2021 08:20 AM AMBULATORY - NONE [facility] Oct 28, 2021 06:00 PM AMBULATORY - RE[facility]AB [facility]ICINE [facility] Oct 31, 2021 09:00 AM AMBULATORY - MEDICINE [facility] Nov 09, 2021 03:30 PM AMBULATORY - NONE [facility] November 21, 2021 10:30 AM AMBULATORY - MEDICINE [facility] November 28, 2021 10:00 AM AMBULATORY - MEDICINE [facility] December 13, 2021 03:30 PM AMBULATORY - NONE [facility] December 13, 2021 05:00 PM AMBULATORY - REHAB MEDICINE [facility] Dec 23, 2021 09:30 AM AMBULATORY - NONE [facility] Dec 29, 2021 03:00 PM AMBULATORY - MEDICINE [facility] Feb 03, 2022 09:00 AM AMBULATORY - MEDICINE [facility] Feb 07, 2022 12:30 PM AMBULATORY - NONE [facility] Feb 07, 2022 03:30 PM AMBULATORY - NONE [facility] Lab Results: +/- 30 days of the encounter This section includes the Chemistry and Hematology Lab Results on record with [place] for the patient. Radiology Reports and Pathology Reports are provided separately, in subsequent sections.Lab Results This section contains the Chemistry/Hematology Results that were resulted 30 days before or 30 daysafter the date of the Encounter. Date/Time Source Result Type Result - Unit Interpretation Reference Range Comment Aug 26, 2021 02:41 [facility] OCCULT BLOOD FIT X1 Speci men Type: FECES PM SCREEN No comment enter ed. Ordering Provid er: XIOMARA MCFARLANE Report Released Date/Time: Aug 19, 2021 11:39 AM Reporting Lab: [facility] [address] [facility] [id number] Performing Lab: [facility] [id number] OCCULT BLOOD (FIT) #1 OF 1 Negative Neg ative Aug 19, 2021 12:26 [facility] TSH W/REFLEX TO FREE Spec imen Type: PLASMA PM T4 No comment enter ed. Ordering Provid er: XIOMARA MCFARLANE Report Released Date/Time: Aug 19, 2021 11:39 AM Reporting Lab: [facility] [address] [facility] [id number] Performing Lab: [facility] [id number] TSH 2.97 0.35-4.94 Social History: Smoking Status (Most current) and Tobacco Use (All prior to encounter date) This section includes the most current, and the historical, smoking and tobacco-related health factors from the [facility] facility where [facility] took place.Current Smoking Status This section includes the most current smoking, or tobacco-related health factor, from the [facility] where the Encounter took place. Date/Time Current Smoking Status Comment Facility Aug 19, 2021 10:30 AM VA-TOBACCO FORMER USER [facility] Tobacco Use History This section includes a history of the smoking, or tobacco- related health factors, that were collected on or before the date of the Encounter. The data comes from the [facility] where the Encounter took place. Date/Time Smoking Status/Tobacco Use Comment [facility] it Aug 19, 2021 10:30 AM VA-TOBACCO QUIT 1 TO < 5 YRS [facility] Apr 15, 2021 01:00 PM LIFETIME NON-SMOKER [facility] Aug 06, 2020 09:00 AM VA-TOBACCO FORMER USER [facility] Aug 06, 2020 09:00 AM [place]-TO[place]AC[place] QUIT 15 YRS OR MORE [facility] Radiology Reports: +/- 30 days of the encounter Radiology Reports For cases when an order for radiology services may have been completed prior to the date of the Encounter, the report list includes the Radiology Reports that were completed up to 30 days before date of the Encounter. For cases when an order for radiology services may have been completed after the date of the Encounter, the report list also includes the Radiology Reports that were completed up to 30days after date of the Encounter. The data comes from all [place] treatment facilities. Date/Time Radiology Report Provider Source Aug 19, 2021 12:07 PM FOOT LEFT 3 VIEWS OR MORE: RAYRAY LAWRENCE [facility] SARA IRWIN [phone] -[birth year] F Exm Date: AUG 19, 2021@12:07 Req Phys: XIOMARA MCFARLANE Pat Loc: [facility] PACT MELISSA N 4F (Req'g Loc) Img Loc: MAIN X-RAY Service: Unknown Screen: Patient answered no (Case [id number] COMPLETE) FOOT LEFT 3 VIEWS OR MORE ( RAD Detailed) CPT:22543 Proc Modifiers : LEFT Reason for Study: bony lump, left fifth metaras al, painful Clinical History: [place] IS NOT under investigation for COVID-19 or is COVID-19 negative bony lump, left fifth metarasal, painful Respon sible provider name and phone number to notify for critical fi ndings if other than user placing the order and pager listed be low: User placing orders pager: [phone] LAST CREATININE____ Report Status: Verified Date Reported: AUG 19, 2021 Date Verified: AUG 19, 2021 Plan Examiner E-Sig:/ES/RAYRAY LAWRENCE MD Report: 3 views left foot August 19, 2021 Comparisons: None available. Impression: 1. No acute fracture or dislocation. 2. No features of erosive or inflammatory arthr opathy. No significant degenerative joint spurring. The la teral margin of the distal fifth metatarsal head may be palpabl e superficially. 3. Joint spaces and bone mineralization well-pr eserved. 4. Calcaneal pitch 20. Primary Interpreting Staff: RAYRAY LAWRENCE MD, RADIOLOGIST (Plan Examiner) /[facility] Encounter Notes: All associated encounter notes This section contains the clinical notes associated to the Encounter. Date/Time Encounter Note(s) Provider Source Sep 05, 2021 02:03 PM PRIMARY CARE SECURE MESSAGING: TYRONE STRICKLAND [facility] LOCAL TITLE: PRIMARY CARE SECURE MESSAGING STANDARD TITLE: PRIMARY CARE SECURE MESSAGING DATE OF NOTE: SEP 05, 2021@14:03:30 ENTRY DATE: SEP 05, 2021@13:03:32 AUTHOR: AGUS STRICKLAND EXP COSIGNER: URGENCY: STATUS: COMPLETED PRIMARY CARE SECURE MESSAGING Has ADDENDA * ------Original Message Sent: 09/02/2021 05:26 PM From: SARA IRWIN To: [facility] Primary CareHoward S. 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 This satellite PT clinic is located in my gym near my house and easy to driv e to and from. ------Original Message Sent: 09/05/2021 02:03 PM From: AGUS STRICKLAND To: SARA IRWIN Subject: Referral will forward this message to your provider Agus Strickland LPN /es/ AGUS STRICKLAND LPN LICENSED PRACTICAL NURSE Signed: 09/05/2021 13:03 Receipt Acknowledged By: 09/05/2021 15:08 /es/ Xiomara Mcfarlane MD Physician 09/05/2021 ADDENDUM STATUS: COMPLETED As far as I can tell, does not qualify or community care. Sara may self-refer to our physical therapy for an assess ment Please let Sara know. Thank you. /es/ Xiomara Mcfarlane MD Physician Signed: 09/05/2021 15:10 Receipt Acknowledged By: 09/05/2021 16:19 /es/ ANNY HARRY RN RN 09/05/2021 ADDENDUM STATUS: COMPLETED pt informed via secure messaging, PT# given. /kaylene/ ANNY HARRY RN RN Signed: 09/05/2021 16:24
--- OUTSIDE RECORDS SUMMARY | 2022-03-27 17:36 | XMS_ITS | Encounter Summary ---
:[address] [facility] Address [address] [place] [id number] Support Name Relationship Address Phone JERRI IRWIN Unavailable [employer] [place] [address] JERRI IRWIN Unavailable [employer] [place], [place] Selected Encounter This section includes the information on record at [place] for the Encounter. Date/Time Encounter Type Encounter Reason Provider Source Description Sep 14, 2021 PRO PHONE TELEPHONE PRIMARY ICD-10-CM F33.9 AKIKO JIMENEZ 03:00 PM CALL 11-20 MIN CARE Major depressive IN R disorder, recurrent, unspecified with Provider Comments: Depression ([facility] [id number]) IHE Encounter Template Text not used by [place] Assessments - Encounter Diagnoses This section includes the primary and secondary diagnoses documented for the Encounter. Date/Time Primary/Secondary Diagnosis Name Provider Source Diagnosis Sep 14, 2021 PRIMARY Major depressive AKIKO TALBERT [place] 03:[place] PM disorder, IN R HCS recurrent, unspecified Plan of Treatment: Future Appointments (+ 6 months) and Future Tests (+/- 45 days) The Plan of Treatment section includes future care activities for the patient from all [place] treatmentfacilities. This section includes future appointments and future orders which are active, pending orscheduled.Future Appointments This section includes appointments that were scheduled to occur 6 months from the date of the Encounter, up to a maximum of 20 appointments. The data comes from all [place] treatment facilities. Appointment Date/Time Appointment Type Appointment Facili ty Name Sep 21, 2021 03:00 PM AMBULATORY - MEDICINE [facility] Oct 11, 2021 04:00 PM AMBULATORY - MEDICINE [facility] Oct 14, 2021 09:00 AM AMBULATORY - MEDICINE [facility] Oct 14, 2021 11:00 AM [facility]ORY - [facility]INE [facility] Oct 24, 2021 09:30 AM [facility]ORY [facility] MEDICINE [facility] Oct 24, 2021 10:45 AM AMBULATORY - NONE [facility] Oct 27, 2021 08:20 AM AMBULATORY - NONE [facility] Oct 28, 2021 06:00 PM AMBULATORY - REHAB [facility]IC[facility] Oct 31, 2021 09:00 AM AM[facility]ORY [facility] MEDICINE [facility] Nov 09, 2021 03:30 PM AMBULATORY - NONE [facility] November 21, 2021 10:30 AM [facility]UL[facility]ORY - MEDICINE [facility] November 28, 2021 10:00 AM AM[facility]ORY - MEDICINE [facility] December 13, 2021 03:30 PM AMBULATORY - NONE [facility] December 13, 2021 05:00 PM AMBULATORY - REHAB MEDICINE [facility] Dec 23, 2021 09:30 AM AMBULATORY - NONE [facility] Dec 29, 2021 03:00 PM AMBUL[facility]ORY - MEDICINE [facility] Feb 03, 2022 09:00 AM AMBULATORY - MEDICINE [facility] Feb 07, 2022 12:30 PM AMBULATORY - NONE [facility] Feb 07, 2022 03:30 PM AMBULATORY - NONE [facility] Mar 07, 2022 03:00 PM AMBULATORY - MEDICINE [facility] Lab Results: +/- 30 days of the encounter This section includes the Chemistry and Hematology Lab Results on record with [place] for the patient. Radiology Reports and Pathology Reports are provided separately, in subsequent sections.Lab Results This section contains the Chemistry/Hematology Results that were resulted 30 days before or 30 daysafter the date of the Encounter. Date/Time Source Result Type Result - Unit Interpretation Reference Range Comment Aug 26, 2021 02:41 [facility] OCCULT BLOOD FIT X1 Speci men Type: FECES PM SCREEN No comment enter ed. Ordering Provid er: SWATHI MCFARLANE Report Released Date/Time: Aug 19, 2021 11:39 AM Reporting Lab: [facility] [address] [facility] [id number] Performing Lab: [facility] [address] [facility] [address] OCCULT BLOOD (FIT) #1 OF 1 Negative Neg ative Aug 19, 2021 12:26 [facility] TSH W/REFLEX TO FREE Spec imen Type: PLASMA PM T4 No comment enter ed. Ordering Provid er: SWATHI MCFARLANE Report Released Date/Time: Aug 19, 2021 11:39 AM Reporting Lab: [facility] [address] [facility] [address] Performing Lab: [facility] [address] [facility] [id number] TSH 2.97 0.35-4.94 Social History: Smoking Status (Most current) and Tobacco Use (All prior to encounter date) This section includes the most current, and the historical, smoking and tobacco-related health factors from the [place] facility where the Encounter took place.Current Smoking Status This section includes the most current smoking, or tobacco-related health factor, from the [facility] where the Encounter took place. Date/Time Current Smoking Status Comment Facility Aug 19, 2021 10:30 AM [place]-TOBAC[place] FORMER USER [facility] Tobacco Use History This section includes a history of the smoking, or tobacco- related health factors, that were collected on or before the date of the Encounter. The data comes from the [facility] where the Encounter took place. Date/Time Smoking Status/Tobacco Use Comment [facility] it Aug 19, 2021 10:30 AM [place]-TOBACCO QUIT 1 TO < 5 YRS [facility] Apr 15, 2021 01:00 PM [facility] Aug 06, 2020 09:00 AM [place]TO[place]AC[place] FORMER USER [facility] Aug 06, 2020 09:00 AM [place]-TOBACCO QUIT 15 YRS OR MORE [facility] Radiology Reports: +/- 30 days of the [...] the Encounter. The data comes from all [place] treatment facilities. Date/Time Radiology Report Provider Source Aug 19, 2021 12:07 PM FOOT LEFT 3 VIEWS OR MORE: RAYRAY LAWRENCE [facility] SARA IRWIN [id number] -[birth year]B [birth year] F Exm Date: AUG 19, 2021@12:07 Req Phys: SWATHI MCFARLANE Loc: [facility] PACT MELISSA N 4F (Req'g Loc) Img Loc: MAIN X-RAY Service: Unknown Screen: Patient answered no (Case [id number] COMPLETE) FOOT LEFT 3 VIEWS OR MORE ( RAD Detailed) CPT:58134 Proc Modifiers : LEFT Reason for Study: bony lump, left fifth metaras al, painful Clinical History: Warren IS NOT under investigation for COVID-19 or is COVID-19 negative bony lump, left fifth metarasal, painful Respon sible provider name and phone number to notify for critical fi ndings if other than user placing the order and pager listed be low: User placing orders pager: [phone] LAST CREATININE____ Report Status: Verified Date Reported: AUG 19, 2021 Date Verified: AUG 19, 2021 Crating And Moving Estimator E-Sig:/ES/RAYRAY LAWRENCE MD Report: 3 views left [...] Primary Interpreting Staff: RAYRAY LAWRENCE MD, RADIOLOGIST (Crating And Moving Estimator) /[facility] Encounter Notes: All associated encounter notes This section contains the clinical notes associated to the Encounter. Date/Time Encounter Note(s) Provider Source Sep 14, 2021 03:02 PHARMACY NOTE: TESSA TALBERT [facility] PM LOCAL TITLE: PHARMACOTHERAPY-CLINICAL PHARMACY NOTE STANDARD TITLE: PHARMACY NOTE DATE OF NOTE: SEP 14, 2021@15:02 ENTRY DATE: SEP 14, 2021@15:02:45 AUTHOR: TESSA TALBERT EXP COSIGNER: URGENCY: STATUS: COMPLETED visit Type: Phone SARA IRWIN is a 46 year-old se en today for pharmacy case management regarding depression. 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 Has non-VA neurology care. Dis cussed cross-titration to bupropion at last visit. DSM-5 Diagnostic Assessment: (per [facility] notes) - Adjustment Disorder with mixed Anxiety and de pressed mood Current Medications for Depression: - Buspirone 20mg BID - Bupropion XL 300mg Qday Previous Medication Trials: - Sertraline (took for a brief period and stopp ed) SUBJECTIVE: Sara states she is feeling alright this after noon. Was able to transition from escitalopram to bupropi on with no issues. Has lost about 5 lbs in the last month since stopping escitalopram (had t hought antidepressant was contributing to weight gain). Work has be en stressful with short staffing. Hasn't noticed any significant change in muscle clenching or teeth grinding symptoms since last visit. States mood and anxiety symptoms are abou t the same as when she was taking escitalopram (still s ignificantly improved from baseline). Reviewed labs from PCP visit, notably asaf al TSH. Asked about getting valacyclovir Rx renewed with more than 1 course supply (takes too long t o arrive after a breakout occurs). 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) - Housing: [place] OBJECTIVE: ALLERGIES/ADR: Patient has answered NKA MEDICATION RECONCILIATION: Active and Recently Outpatient Medicatio ns (excluding Supplies): Active Outpatient Medications Status 1) BUPROPION HCL 150MG 24HR SA TAB TAKE ONE TABL ET BY ACTIVE MOUTH EVERY DAY FOR 7 DAYS, THEN TAKE TWO TABLE TS EVERY DAY 2) BUSPIRONE HCL 10MG TAB TAKE TWO TABLETS BY MO UTH ACTIVE TWICE A DAY FOR ANXIETY 3) LEVOTHYROXINE NA (SYNTHROID) 75MCG TAB TAKE O NE ACTIVE TABLET BY MOUTH EVERY DAY Inactive Outpatient Medications Status 1) VALACYCLOVIR HCL 1GM TAB TAKE TWO TABLETS BY MOUTH TWICE A DAY --> Requests refill Active Non-VA Medications Status 1) Non-VA ASPIRIN 81MG EC TAB 81MG MOUTH EVERY D AY ACTIVE Vitals: Temperature: 97.6 F [36.4 C] (08/19/2021 10:34) Blood Pressure: 134/82 (08/19/2021 10:41) Pulse: 70 (08/19/2021 10:34) Respiration: 16 (08/19/2021 10:34) Pain: 3 (08/19/2021 10:34) Height: 65 in [165.1 cm] (08/19/2021 10:34) Weight: 204 lb [92.7 kg] (08/19/2021 10:34) BMI: 34.0 LABS: Collection DT Specimen Test Name Result Units Re f Range 08/06/2020 11:00 PLASMA CREATININE 0.8 mg/dL 0.5 - 1.0 08/06/2020 11:00 PLASMA ESTIMATED GFR(eGF >60 Re f: >=60 Mental Status Exam: (adapted for phone) - Attitude toward interviewer: Cooperative, fri endly - Speech: Normal rate, rhythm, and tone; conver ses spontaneously - Thought process: Linear, logical - Thought content: No SI/HI or psychotic conten t verbalized or suspected; provides interim updates - Mood: Alright - Insight/Judgement: good/good; intact for safe ty ASSESSMENT: #Mood/Anxiety Symptoms: Warren responded well to escitalopram though ex perienced adverse effects prompting change to bupropio n (primarily weight gain). States mood symptoms are about the same following antidepressant change. Has lost some weight following antidepressant change sugges ting SSRI may have been contributing to weight gain. No change in muscle tension/bruxism symp toms (anticipate may not be related to antidepressant therapy). Will plan to continue c urrent bupropion dosing as prescribed, may see additional benefit over the next month or so given relatively new start. No safety concerns noted t burke and anticipate risk of self-harm/suicide is low based on risk/protectiv e factors. PLAN: ----- - Continue bupropion XL 300mg QAM - Continue buspirone 20mg BID for anxiety - Renewing valacyclovir course Rx PRN for cold sore breakouts #Disease-Specific Med Rec: Completed today #Labs: None needed at this time - Educated vet on indication/risks/benefits of n ew/changed medication. - Education provided on therapeutic nonpharmacol ogic management to achieve goals. - Vet advised of recent labs. - Warren verbalized underst anding to all plans discussed today. Questions were answered to vet's satisfaction. Time Spent: 15 minutes RTC: 8 weeks in phone clinic /kaylene/ TESSA TALBERT PharmD, [facility] Clinical Merchandise Stocker Signed: 09/15/2021 08:47
--- OUTSIDE RECORDS SUMMARY | 2022-03-27 17:36 | XMS_ITS | Encounter Summary ---
:1975 Author Organization [facility] rs Address [address] [place] [id number] Support Name Relationship Address Phone JERRI IRWIN Unavailable FABRIZIO VANCE [phone] [place] [address] JERRI IRWIN Unavailable F[employer]RIZIO [employer]ANCE [phone] [place] [address] Selected Encounter This section includes the information on record at [place] for the Encounter. Date/Time Encounter Type Encounter Description Reason Provider Source Oct 04, 2021 03:01 Outpatient Encounter WEIGHT MGMT & MOVE! PM PROG - GRP IHE Encounter Template Text not used by [place] Plan of Treatment: Future Appointments (+ 6 months) and Future Tests (+/- 45 days) The Plan of Treatment section includes future care activities for the patient from all [place] treatmentfacilities. This section includes future appointments and future orders which are active, pending orscheduled.Future Appointments This section includes appointments that were scheduled to occur 6 months from the date of the Encounter, up to a maximum of 20 appointments. The data comes from all [place] treatment facilities. Appointment Date/Time Appointment Type Appointment Facili ty Name Oct 11, 2021 04:00 PM AMBULATORY - MEDICINE [facility] Oct 14, 2021 09:00 AM AMBULATORY - MEDICINE [facility] Oct 14, 2021 11:00 AM AMBULATORY - MEDICINE [facility] Oct 24, 2021 09:30 AM AMBULATORY - MEDICINE [facility] Oct 24, 2021 10:45 AM AMBULATORY - NONE [facility] Oct 27, 2021 08:20 AM AMBULATORY - NONE [facility] Oct 28, 2021 06:00 PM AMBULATORY - REHAB MEDICINE [facility] Oct 31, 2021 09:00 AM AMBULATORY - MEDICINE [facility] Nov 09, 2021 03:30 PM AMBULATORY - NONE [facility] November 21, 2021 10:30 AM AMBULATORY - MEDICINE [facility] November 28, 2021 10:00 AM AMBULATORY - MEDICINE [facility] December 13, 2021 03:30 PM AMBULATORY - NONE [facility] December 13, 2021 05:00 PM AMBULATORY - REHAB MEDICINE [facility] Dec 23, 2021 09:30 AM AMBULATORY - NONE [facility] Dec 29, 2021 03:00 PM AMBULATORY - MEDICINE [facility] Feb 03, 2022 09:00 AM AMBULATORY - MEDICINE [facility] Feb 07, 2022 12:30 PM AMBULATORY - NONE [facility] Feb 07, 2022 03:30 PM AMBULATORY - NONE [facility] Mar 07, 2022 03:00 PM AMBULATORY - MEDICINE [facility] Mar 22, 2022 05:00 PM AMBULATORY - REHAB [facility]IC[facility] Lab Results: +/- 30 days of the encounter This section includes the Chemistry and Hematology Lab Results on record with [place] for the patient. Radiology Reports and Pathology Reports are provided separately, in subsequent sections.Lab Results This section contains the Chemistry/Hematology Results that were resulted 30 days before or 30 daysafter the date of the Encounter. Date/Time Source Result Type Result - Unit Interpretation Reference Range Comment Oct 24, 2021 10:35 AM [facility] CBC Specim en Type: BLOOD No comment enter ed. Ordering Provid er: SWATHI MCFARLANE Report Released Date/Time: Oct 24, 2021 10:10 AM Reporting Lab: [facility] [address] [facility] [address] Performing Lab: [facility] [address] WBC 7.66 4.0-11.0 RBC 4.45 4.0-5.4 HGB 13.5 11.5-16 HCT 40.9 34.5-48 MCV 91.9 80-100 MCH 30.3 27-33 MCHC 33.0 32.0-37.5 PLT 280 150-400 MPV 9.8 7.4-10.4 RDW 14.6 H 11.5-14.5 Oct 24, 2021 10:35 [facility] BASIC METABOLIC Specimen Type: PLASMA AM PANEL+MG No comment enter ed. Ordering Provid er: SWATHI MCFARLANE Report Released Date/Time: Oct 24, 2021 10:10 AM Reporting Lab: [facility] [address] [facility] [address] Performing Lab: [facility] [address] CREATININE 0.8 0.5-1.0 UREA NITROGEN 14 7-20 GLUCOSE 97 74-100 SODIUM 136 136-145 POTASSIUM 4.3 3.5-5.1 CHLORIDE 105 98-107 CO2 25 22-29 CALCIUM 8.9 8.4-10.2 MAGNESIUM 2.0 1.6-2.6 ANION GAP 6 5-15 CREAT EGFR(CKD-EPI) >90 >60 Oct 24, 2021 10:35 [facility] TSH W/REFLEX TO FREE Spec imen Type: PLASMA AM T4 No comment enter ed. Ordering Provid er: SWATHI MCFARLANE Report Released Date/Time: Oct 24, 2021 10:10 AM Reporting Lab: [facility] [address] Performing Lab: [facility] [address] TSH 4.12 0.35-4.94 Oct 24, 2021 10:35 AM [facility] MAGNESIUM Specim en Type: PLASMA No comment enter ed. Ordering Provid er: SWATHI CMFARLANE Report Released Date/Time: Oct 24, 2021 10:10 AM Reporting Lab: [facility] [address] Performing Lab: [facility] [address] MAGNESIUM 2.0 1.6-2.6 Social History: Smoking Status (Most current) and Tobacco Use (All prior to encounter date) This section includes the most current, and the historical, smoking and tobacco-related health factors from the [facility] where the Encounter took place.Current Smoking Status This section includes the most current smoking, or tobacco-related health factor, from the [place] facility where the Encounter took place. Date/Time Current Smoking Status Comment Facility Aug 19, 2021 10:30 AM [place]AC[place] FORMER USER [facility] Tobacco Use History This section includes a history of the smoking, or tobacco- related health factors, that were collected on or before the date of the Encounter. The data comes from the [place] facility where the Encounter took place. Date/Time Smoking Status/Tobacco Use Comment Mona gaxiola Aug 19, 2021 10:30 AM [place]-TOBACCO QUIT 1 TO < 5 YRS [facility] Apr 15, 2021 01:00 PM LIFETIME NON-SMOKER [facility] Aug 06, 2020 09:00 AM [place]-TOBACCO FORMER USER PAULINA SILVERIO [facility] Aug 06, 2020 09:00 AM [place]-TOBACCO QUIT 15 YRS OR MORE [facility] Radiology Reports: +/- 30 days of the [...] the Encounter. The data comes from all [place] treatment facilities. Date/Time Radiology Report Provider Source Oct 24, 2021 10:49 AM CHEST 2 VIEWS PA AND LAT: TONY KERNS [facility] KRISSY IRWIN [id number] -[birth year]B [birth year] F Exm Date: OCT 24, 2021@10:49 Req Phys: SWATHI MCFARLANE Pat Loc: [facility] PACT MELISSA N 4F (Req'g Loc) Img Loc: MAIN X-RAY Service: Unknown Screen: Patient answered no (Case [id number] COMPLETE) CHEST 2 VIEWS PA AND LAT (RA D Detailed) CPT:52120 Reason for Study: shortness of breath Clinical History: Mccaulley IS NOT under investigation for COVID-19 or is COVID-19 negative shortness of breath Responsible provider name a nd phone number to notify for critical findings if other than u ser placing the order and pager listed below: User placing orde rs pager: [phone] LAST CREATININE____ Report Status: Verified Date Reported: OCT 24, 2021 Date Verified: OCT 24, 2021 Samples And Repairs Preparer E-Sig:/ES/TONY KERNS MD Report: EXAMINATION: CHEST 2 VIEWS PA AND LAT 10/24/2021 10:49 AM INDICATION: shortness of breath Impression: Negative chest. No pulmonary infiltrate or pleu ral effusion. Heart size and pulmonary vascularity within nor mal limits. No comparison chest x-ray. Primary Interpreting Staff: TONY KERNS MD, RADIOLOGIST (Samples And Repairs Preparer) /RTS Encounter Notes: All associated encounter notes This section contains the clinical notes associated to the Encounter. Date/Time Encounter Note(s) Provider Source Oct 04, 2021 03:01 PM REPORT OF CONTACT: [facility]ANDOVAL [place] [facility] LOCAL TITLE: PATIENT CONTACT NOTE H STANDARD TITLE: REPORT OF CONTACT DATE OF NOTE: OCT 04, 2021@15:01 ENTRY DATE: OCT 04, 2021@15:01:42 AUTHOR: VERA SANDOVAL COSIGNER: URGENCY: STATUS: COMPLETED SUBJECT: MOVE Patient contact Name of Mccaulley: KRISSY IRWIN Name/Relationship of Contact if other than Veter an: Date & Time of Contact: Sep@15:01 Type of Contact: Telephone Reason for Contact: Received [facility] request from anthony wu for the MOVE Weight Management Program. Attempted to call patient, n o answer, left voice mail and sent letter asking her to call freelance copywriter at [phone]. To enroll in MOVE, patient will need to attend a Start SMART class. /kaylene/ NIKOLAS SANDOVAL MOVE! Oyster Harvester Signed: 10/04/2021 15:03
--- OUTSIDE RECORDS SUMMARY | 2022-03-27 17:36 | XMS_ITS | Encounter Summary ---
:1975 Author Organization [facility] Address [address] [place] [address] Support Name Relationship Address Phone JERRI IRWIN Unavailable FABRIZIO VANCE [phone] [place] [address] JERRI IRWIN Unavailable FABRIZIO [employer] [phone] [place] [address] Selected Encounter This section includes the information on record at [place] for the Encounter. Date/Time Encounter Type Encounter Reason Provider Source Description Oct 14, 2021 PSYTX W PT 45 PM&RS PHYSICIAN ICD-10-CM F33.9 [facility] SE 09:00 AM MINUTES Major depressive disorder, recurrent, unspecified with Provider Comments: Depression ([facility] [id number]) IHE Encounter Template Text not used by [facility] Assessments - Encounter Diagnoses This section includes the primary and secondary diagnoses documented for the Encounter. Date/Time Primary/Secondary Diagnosis Name Provider Source Diagnosis Oct 17, 2021 PRIMARY Major depressive JEREMY POWER [facility] 11:07 PM disorder, HCS recurrent, unspecified Oct 17, 2021 SECONDARY Cerebral JEREMY POWER V A 11:07 PM infarction, HCS unspecified Plan of Treatment: Future Appointments (+ 6 months) and Future Tests (+/- 45 days) The Plan of Treatment section includes future care activities for the patient from all [place] treatmentfacilities. This section includes future appointments and future orders which are active, pending orscheduled.Future Appointments This section includes appointments that were scheduled to occur 6 months from the date of the Encounter, up to a maximum of 20 appointments. The data comes from all [place] treatment facilities. Appointment Date/Time Appointment Type Appointment Facili ty Name Oct 24, 2021 09:30 AM AMBULATORY - MEDICINE [facility] Oct 24, 2021 10:45 AM AMBULATORY - NONE [facility] Oct 27, 2021 08:20 AM AMBULATORY - NONE [facility] Oct 28, 2021 06:00 PM AMBULATORY - REHAB MEDICINE [facility] Oct 31, 2021 09:00 AM AMBULATORY - MEDICINE [facility] Nov 09, 2021 03:30 PM AMBULATORY - NONE [facility] November 21, 2021 10:30 AM AMBULATORY - MEDICINE [facility] November 28, 2021 10:00 AM AMBULATORY - MEDICINE [facility] December 13, 2021 03:30 PM AMBULATORY - NONE [facility] December 13, 2021 05:00 PM AMBULATORY - REHAB MEDICINE [facility] Dec 23, 2021 09:30 AM AMBULATORY - NONE [facility] Dec 29, 2021 03:00 PM AMBULATORY - MEDICINE [facility] Feb 03, 2022 09:00 AM AMBULATORY - MEDICINE [facility] Feb 07, 2022 12:30 PM AMBULATORY - NONE [facility] Feb 07, 2022 03:30 PM AMBULATORY - NONE [facility] Mar 07, 2022 03:00 PM AMBULATORY - MEDICINE [facility] Mar 22, 2022 05:00 PM AMBULATORY - REHAB MEDICINE [facility] Apr 12, 2022 03:00 PM AMBULATORY - MEDICINE [facility] Lab Results: +/- 30 days of the encounter This section includes the Chemistry and Hematology Lab Results on record with [place] for the patient. Radiology Reports and Pathology Reports are provided separately, in subsequent sections.Lab Results This section contains the Chemistry/Hematology Results that were resulted 30 days before or 30 daysafter the date of the Encounter. Date/Time Source Result Type Result - Unit Interpretation Reference Range Comment Oct 24, 2021 10:35 [facility] BASIC METABOLIC Specimen Type: PLASMA AM PANEL+MG No comment enter ed. Ordering Provid er: SWATHI MCFARLANE Report Released Date/Time: Oct 24, 2021 10:10 AM Reporting Lab: [facility] [address] [facility] [address] [facility] [address] Performing Lab: [facility] [address] [facility] [address] CREATININE 0.8 0.5-1.0 UREA NITROGEN 14 7-20 GLUCOSE 97 74-100 SODIUM 136 136-145 POTASSIUM 4.3 3.5-5.1 CHLORIDE 105 98-107 CO2 25 22-29 CALCIUM 8.9 8.4-10.2 MAGNESIUM 2.0 1.6-2.6 ANION GAP 6 5-15 CREAT EGFR(CKD-EPI) >90 >60 Oct 24, 2021 10:35 [facility] TSH W/REFLEX TO FREE Spec imen Type: PLASMA AM T4 No comment enter ed. Ordering Provid er: SWATHI MCFARLANE Report Released Date/Time: Oct 24, 2021 10:10 AM Reporting Lab: [facility] [address] [facility] [address] Performing Lab: [facility] [address] [facility] [address] TSH 4.12 0.35-4.94 Oct 24, 2021 10:35 AM [facility] CBC Specim en Type: BLOOD No comment enter ed. Ordering Provid er: SWATHI MCFARLANE Report Released Date/Time: Oct 24, 2021 10:10 AM Reporting Lab: [facility] [address] [facility] [address] Performing Lab: [facility] [address] [facility] [address] WBC 7.66 4.0-11.0 RBC 4.45 4.0-5.4 HGB 13.5 11.5-16 HCT 40.9 34.5-48 MCV 91.9 80-100 MCH 30.3 27-33 MCHC 33.0 32.0-37.5 PLT 280 150-400 MPV 9.8 7.4-10.4 RDW 14.6 H 11.5-14.5 Oct 24, 2021 10:35 AM [facility] MAGNESIUM Specim en Type: PLASMA No comment enter ed. Ordering Provid er: SWATHI MCFARLANE Report Released Date/Time: Oct 24, 2021 10:10 AM Reporting Lab: [facility] [address] [facility] [address] Performing Lab: [facility] [address] [facility] [address] MAGNESIUM 2.0 1.6-2.6 Vital Signs: All taken on the encounter date This section contains inpatient and outpatient Vital Signs collected on the date of the Encounter. Date/Time Temperature Pulse Blood Respiratory SP02 Pain Height Weight Blayne dy Source Pressure Rate Mass Index Sep 25, 200 lb 33 [place] 2021 11:00 [facility] Social History: Smoking Status (Most current) and Tobacco Use (All prior to encounter date) This section includes the most current, and the historical, smoking and tobacco-related health factors from the [facility] facility where the Encounter took place.Current Smoking Status This section includes the most current smoking, or tobacco-related health factor, from the [facility] where the Encounter took place. Date/Time Current Smoking Status Comment Facility Aug 19, 2021 10:30 AM VA-TOBACCO FORMER USER [place] [facility] Tobacco Use History This section includes a history of the smoking, or tobacco- related health factors, that were collected on or before the date of the Encounter. The data comes from the [facility] where the Encounter took place. Date/Time Smoking Status/Tobacco Use Comment Mona it Aug 19, 2021 10:30 AM VA-TOBACCO QUIT 1 TO < 5 YRS [facility] Apr 15, 2021 01:00 PM LIFETIME NON-SMOKER [facility] Aug 06, 2020 09:00 AM VA-TOBACCO FORMER USER [place] [facility] Aug 06, 2020 09:00 AM [place]-TO[place] QU[place] 15 YRS OR MORE [facility] Radiology Reports: +/- 30 days of the [...] the Encounter. The data comes from all [place] treatment facilities. Date/Time Radiology Report Provider Source Oct 24, 2021 10:49 AM CHEST 2 VIEWS PA AND LAT: TONY KERNS [facility] KRISSY IRWIN [id number] -[birth year] F Exm Date: OCT 24, 2021@10:49 Req Phys: SWATHI MCFARLANE Pat Loc: [facility] PACT MELISSA N 4F (Req'g Loc) Img Loc: MAIN X-RAY Service: Unknown Screen: Patient answered no (Case [id number] COMPLETE) CHEST 2 VIEWS PA AND LAT (RA Farideh Detailed) CPT:22165 Reason for Study: shortness of breath Clinical History: IS NOT under investigation for COVID-19 or is COVID-19 negative shortness of breath Responsible provider name a nd phone number to notify for critical findings if other than u ser placing the order and pager listed below: User placing orde rs pager: [phone] LAST CREATININE____ Report Status: Verified Date Reported: OCT 24, 2021 Date Verified: OCT 24, 2021 Reimbursement Counselor E-Sig:/ES/TONY KERNS MD Report: EXAMINATION: CHEST 2 VIEWS PA AND LAT 10/24/2021 10:49 AM INDICATION: shortness of breath Impression: Negative chest. No pulmonary infiltrate or pleu ral effusion. Heart size and pulmonary vascularity within nor mal limits. No comparison chest x-ray. Primary Interpreting Staff: TONY KERNS MD, RADIOLOGIST (Reimbursement Counselor) /RTS Encounter Notes: All associated encounter notes This section contains the clinical notes associated to the Encounter. Date/Time Encounter Note(s) Provider Source Oct 18, 2021 02:46 PM REPORT OF CONTACT: PEPE CORRALES [facility] LOCAL TITLE: APPOINTMENT SCHEDULING NOTE STANDARD TITLE: REPORT OF CONTACT DATE OF NOTE: OCT 18, 2021@14:46 ENTRY DATE: OCT 18, 2021@14:46:05 AUTHOR: PEPE CORRALES EXP COSIGNER: URGENCY: STATUS: COMPLETED APPOINTMENT SCHEDULING NOTE Has ADDENDA Attempt to schedule return to clinic 1st Contact: Called [place] at: m wants to call back to schedule. 2nd Contact: Sent letter by regular [place] mail [place] address on [address], [place] [address] Contact: Called [place] at: Sep If [place] calls back, schedule appointment for : Return to [facility] on or arou nd ( Nov 14, 2021 ) for a total of 1 appointment(s) Prerequisites: Notify ordering provider if minim um scheduling efforts fail 60 min Is the RTC marked as no later than? No /kaylene/ PEPE CORRALES [employer] ONLINE ADVERTISING DIRECTOR Signed: 10/18/2021 14:48 10/19/2021 ADDENDUM STATUS: COMPLETED Attempt to schedule return to clinic 2nd Contact: Contact: Called at: Sep Left message on voice mail. Phone number left for to call back: [phone] If [place] calls back, schedule appointment for : Return to [facility] on or arou nd ( Nov 14, 2021 ) for a total of 1 appointment(s) Prerequisites: Notify ordering provider if minim um scheduling efforts fail 60 min Is the RTC marked as no later than? No /kaylene/ NICOLAS SAHNI ADVANCED ONLINE ADVERTISING DIRECTOR Signed: 10/19/2021 13:21 11/03/2021 ADDENDUM STATUS: COMPLETED Attempt to schedule return to clinic Additional information/contact attempts: Patient has not responded to scheduling contact attempts for below RTC Order - has failed mandated scheduling effort ( no response to attempts to schedule). RTC Order has been dispositioned. Or dering provider notified via additional signer to this note. [facility] on or keyla und ( Nov 14, 2021 ) for a total of 1 appointment(s) Prerequisites: Notify ordering provider if mini mum scheduling efforts fail 60 min /kaylene/ MANJINDER CALZADA MSA Structural Biologist Signed: 11/03/2021 09:12 Receipt Acknowledged By: * AWAITING SIGNATURE * JEREMY POWER Oct 14, 2021 09:00 AM PHYSICAL MEDICINE REHAB NOTE: JEREMY POWER [facility] LOCAL TITLE: REHAB PSYCHOLOGY PROGRESS NOTE STANDARD TITLE: PHYSICAL MEDICINE REHAB NOTE DATE OF NOTE: OCT 14, 2021@09:00 ENTRY DATE: OCT 17, 2021@22:06:24 AUTHOR: JEREMY POWER EXP COSIGNER: URGENCY: STATUS: COMPLETED [place] seen 55 min indiv psychotherapy via [facility]. C: has provided informed consent for video A: [id number] [place] [address] P: [phone] S: at home in private room; no one else [facility] [place] [facility] Reports that she is now off of all meds for mood . States that physically she feels the same--dizzy episodes, pulsing feeling, puffy/fluid retention, intermittent difficulty swallowing with some cho mili episodes, lots of pain (shoulder, neck and recent o rthodontic work) and just overall doesn't feel well physically. In terms of mood she is feeling more irritable, more emotionally reactive, and more impatient , with lower frustration tolerance. States she feels like her comments are mean at times. When she first started taking escitalopram her mood was po sitive, calmer and less reactive, but she also felt she had a laissez-faire atti tude or was perhaps too passive. Buspirone was added in January 2021 for jaw clenchi ng/anxiety. In May, buspirone dose was increased. In Jul 2021 she began taper of escitalopram and initiated bupropion due to concerns about weight gain/difficulty losing weight. In early September, in consultation with pharmacist, she weaned off a ll psych meds because of physical symptoms (pulsing sensation in head, heart, abdomen; sweating, poo r sleep, tension/agitation). She is scheduled 10/24 with her PCP. Encouraged he r to discuss her physical sx with her MD. She notes that she plans to report her sx and to let MD address as she notes that given her medical training she tr ies to figure it out and also that providers sometimes loo k to her to dev tx plan. She is very frustrated with her ongoing sx and very frustrated with her weig ht gain. This decreases her mood, her self-efficacy (eating healthy, exercising but not losing weight) and has consumed my being. States she is feeling d efeated and starting to feel that she's done. She is clear that she is not suicidal (denies SI, plan and intent) but feels defeated. She yadi by staying busy. She has a very stressful job but states that despite the stress, work is one place where she feels good and has a sense of mastery. She and family are g oing on vacation next week. Discussed strategies for coping and self-care. Objective: ready for video call. Good eye contac t, engaged. Mood has been depressed, irritable and reactive. Affec t is frustrated, anxious and restless. Thought process is linear/organized. Tho ught content is appropriate to therapy context and without indicati on of hallucinations or delusions. Future oriented. Risk Assessment Risk Factors: status, depression, agitat ion, decreased self-efficacy, feels defeated. Potential Protective Factors: expressly denies c urrent SI, plan and intent, positive social support, mar ried, responsibility to children/family, engaged in mental health care, help seeking, intact reality testing, presence of positive coping skills, expressed wally jennifer to live, no weapons at home (her weapons are at her grandfather's house), future oriented, stabl e housing, stable employment Acute risk: low Chronic risk: low A: MDD unspecified; hx cva P: rtc 4 weeks. She is aware she can call sooner as needed. Co-signing 's PCP for informational purposes. /kaylene/ Jeremy Power, PhD, LP Psychologist Signed: 10/17/2021 23:07 Receipt Acknowledged By: * AWAITING SIGNATURE * SWATHI MCFARLANE
--- OUTSIDE RECORDS SUMMARY | 2022-03-27 17:36 | XMS_ITS | Continuity of Care Document ---
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 Outpatient [id number] 10/10 [place] Encounter [id number] /2020 [facility] Outpatient 39970-461 10/11 [place] Encounter [id number] /2020 [facility] Outpatient 00675-610/12 [place] Encounter [id number] /2020 [facility] Outpatient 71751-3 CHRISTLE,T 10/12 [place] En[place] [id number] ERRY /2020 [facility] Outpatient 26689-210/13 [place] Encounter [id number] /2020 [facility] Outpatient Diagnos SANDRA, 10/15 [place] Encounter [id number] is: [facility] ICD-10- [facility] CM I63.9 Cerebra l infarct ion, unspeci fied
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 ICD-10- [facility] CM I63.9 Cerebra l infarct ion, unspeci fied
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 (SCT [id number] [id number] 4) Outpatient 11938-361 12/07 [place] Encounter [id number] /2020 [facility] Outpatient 66467-961 12/07 [place] Encounter [id number] /2020 [facility] OFFICE O/P 67435-3 Diagnos ANNA SIN 12/22 [place] [id number] is: YASMEEN R /2020 [facility] 60-74 MIN ICD-10- HCS CM I77.74 Dissect ion of vertebr al artery< br/>wit h Provide r Comment s: Dissect ion of vertebr al artery Outpatient 25786-4.61 01/07 [place] En[place] [id number] [facility] [address]-161 Diagnos KERRY FRIED 01/17 [place] 30 MINUTES [id number] is: M /2020 [facility] ICD-10- H[facility] CM F43.23 Adjustm ent disorde r with mixed anxiety and depress ed mood
with Provide r Comment s: Adjustm ent Disorde r with mixed Anxiety and depress ed mood Outpatient 43082-961 01/20 [place] En[place] [id number] [facility] ALVA POWER 01/20 [place] En[place] [id number] [place] [address]-461 Diagnos POWER,RO 02/07 [place] 45 MINUTES [id number] is: SE [facility] ICD-10- [facility] CM F33.9 Major depress ricardo disorde r, recurre nt, unspeci fied
with Provide r Comment s: Depress ion ([facility] [id number] 7) Outpatient 25643-3.61 02/08 [place] Encounter [id number] [facility] HC PRO 03245-3 Diagnos RONALDOK 02/14 [place] PHONE CALL [id number] is: ,TESSA R /2020 [facility] 21-30 MIN ICD-10- HCS CM F33.9 Major depress ricardo disorde r, recurre nt, unspeci fied
with Provide r Comment s: Depress ion (SCT [id number] 7) PSYCL/NRPS 52847-5.61 Diagnos KYM,G 02/15 [place] YC TST [id number] is: REGORY J /2020 [facility] PHY/QHP EA ICD-10- HCS CM R41.89 Oth symptom s and signs w cogniti ve functio ns and awarene ss
with Provide r Comment s: Other Symptom s and Signs involvi ng Cogniti ve Functio [place] [address]-8 Diagnos ALVA POWER 02/24 [place] 45 MINUTES [id number] is: SE C /2020 [place] ICD-10- H[facility] CM F43.23 Adjustm ent disorde r with mixed anxiety and depress ed mood
with Provide r Comment s: Adjustm ent disorde r with mixed anxiety and depress ed mood PSYTX W PT Diagnos KYMG 03/03 [place] 30 MINUTES [id number] is: NENITA J [place] ICD-10- HCS CM F33.9 Major depress ricardo disorde r, recurre nt, unspeci fied
with Provide r Comment s: Depress ion (SCT [id number] 7) Outpatient Diagnos SANDRA, 03/04 [place] Encounter [id number] is: NIKOLAS [place] ICD-10- [facility] CM I63.9 Cerebra l infarct ion, unspeci fied
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
with Provide r Comment s: Depress ion (SCT [id number] 7) Outpatient 03/14 [place] En[place] [id number] [facility] Outpatient 27089-403/23 [place] En[place] [id number] [facility] PSY[facility] PT Diagnos ALVA POWER 03/30 [place] 45 MINUTES [id number] is: SE C [facility] ICD-10- [facility] CM F33.9 Major depress ricardo disorde r, recurre nt, unspeci fied
with Provide r Comment s: Depress ion (SCT [id number] 7) ORAL 61994-4.61 Diagnos ONEAL KABA 04/01 [place] FUNCTION [id number] is: N P [facility] ICD-10- HCS CM Z71.1 Person w feared hlth complai nt in whom no diagnos is is made
with Provide r Comment s: Person with Feared Health Complai nt in whom no Diagnos is is Made Outpatient Diagnos RADAMES MUNOZ 04/15 [place] Encounter [id number] is: E J [facility] ICD-10- [facility] CM Z77.110 Contact with and (suspec lamberto) exposur e to air polluti on
with Provide r Comment s: Contact with and (Suspec lamberto) Exposur e to Air Polluti on HC PRO Diagnos GALI 04/18 [place] PHONE CALL [phone] is: TESSA R [facility] 21-30 [facility] ICD-10- HCS CM F33.9 Major depress ricardo disorde r, recurre nt, unspeci fied
with Provide r Comment s: Depress ion (SCT [id number] 7) [place] [address]-2.61 Diagnos ALVA POWER 04/28 [place] 45 MINUTES [id number] is: SE [facility] ICD-10- [facility] CM F33.9 Major depress ricardo disorde r, recurre nt, unspeci fied
with Provide r Comment s: Depress ion (SCT [id number] 7) [place] [address]-1 Diagnos TONO,RO 05/25 [place] 45 MINUTES [id number] is: SE [facility] ICD-10- [facility] CM F33.9 Major depress ricardo disorde r, recurre nt, unspeci fied
with Provide r Comment s: Depress ion (SCT [id number] 7) Outpatient 82812-005/26 [place] En[place] [id number] [facility] 90411-105/31 [place] En[place] [id number] [facility] HC PRO Diagnos [facility] 06/13 [place] PHONE CALL [id number] is: ,TESSA R [facility] 11-20 MIN ICD-10- HCS CM F33.9 Major depress ricardo disorde r, recurre nt, unspeci fied
with Provide r Comment s: Depress ion (SCT [id number] 7) [place] [address]-4.61 Diagnos POWERALVA 06/24 [place] 45 MINUTES [id number] is: [facility] C [facility] ICD-10- [facility] CM F33.9 Major depress ricardo disorde r, recurre nt, unspeci fied
with Provide r Comment s: Depress ion (SCT [id number] 7) PRO Diagnos [facility] 07/11 [place] PHONE CALL [id number] is: ,TESSA R [facility] 11-20 [facility] ICD-10- HCS CM F33.9 Major depress ricardo disorde r, recurre nt, unspeci fied
with Provide r Comment s: Depress ion (SCT [id number] 7) [place] [address]-5.61 Diagnos ALVA POWER 08/02 [place] 45 MINUTES [id number] is: SE C [facility] ICD-10- H[facility] CM F33.9 Major depress ricardo disorde r, recurre nt, unspeci fied
with Provide r Comment s: Depress ion (SCT [id number] 7) Outpatient 40028-808/03 [place] Encounter [id number] [facility] HC PRO Diagnos [facility] 08/15 [place] PHONE CALL [id number] is: ,TESSA R [facility] 21-30 MIN ICD-10- HCS CM F33.9 Major depress ricardo disorde r, recurre nt, unspeci fied
with Provide r Comment s: Depress ion (SCT [id number] 7) OFFICE O/P 94177-0 Diagnos Citlaly MCFARLANE 08/19 [place] EST MOD [id number] is: TANA [facility] 30-39 MIN ICD-10- HCS CM M79.672 Pain in left foot
with Provide r Comment s: Pain in left Foot OFFICE 05018-4 Diagnos RAMPETSREI 08/25 [place] CONSULTATI [id number] is: LÁZARO YOUNG [facility] ICD-10- W C HCS CM M76.72 Peronea l tendini tis, left leg<br/ >with Provide r Comment s: Peronea l tendini [place]is, [place] [address]-8 Diagnos ALVA POWER 08/30 [place] 45 MINUTES [id number] is: [facility] ICD-10- [facility] CM F33.9 Major depress ricardo disorde r, recurre nt, unspeci fied
with Provide r Comment s: Depress ion (SCT [id number] 7) Outpatient 86108-3.61 YRN STRICKLAND 09/05 [place] Encounter [id number] [facility] 97773-5 Diagnos GALI 09/14 M [facility] PHONE CALL [id number] is: ,TESSA R [facility] 11-20 MIN ICD-10- HCS CM F33.9 Major depress ricardo disorde r, recurre nt, unspeci fied
with Provide r Comment s: Depress ion (SCT [id number] 7) [place] [address]-0 Diagnos ALVA POWER 09/21 [place] 45 MINUTES [id number] is: [facility] ICD-10- [facility] CM F33.9 Major depress ricardo disorde r, recurre nt, unspeci fied
with Provide r Comment s: Depress ion (SCT [id number] 7) Outpatient 33030-461 09/22 [place] En[facility] [id number] [facility] 29843-0.61 10/04 [place] En[place] [id number] /[facility] 86214-6.61 10/10 [place] En[place] [id number] /20[facility] Out[facility] 10379-7.61 Diagnos DENYS,S 10/11 [place] Encounter [id number] is: [facility] ICD-10- HCS CM M54.2 Cervica lgia
with Provide r Comment s: Cervica lgia Outpatient 11590-9.61 DENYS,S 10/11 [place] Encounter [id number] [facility] Outpatient 61971-9.61 DENYS,S 10/11 [place] Encounter [id number] [facility] [place] [address]-2.61 Diagnos TONORO 10/14 [place] 45 MINUTES [id number] is: SE C [facility] ICD-10- HCS CM F33.9 Major depress ricardo disorde r, recurre nt, unspeci fied
with Provide r Comment s: Depress ion (SCT [id number] 7) Outpatient 97366-9.61 10/14 [place] Encounter [id number] [facility] HCS Outpatient 63854-3.61 DENYS,S 10/24 [place] Encounter [id number] [facility] HCS OFFICE O/P 14396-7.61 Diagnos DENYS,S 10/24 [place] [id number] is: ALL [facility] 40-54 MIN ICD-10- HCS CM I49.9 Cardiac arrhyth fletcher, unspeci fied
with Provide r Comment s: Cardiac Arrhyth fletcher, unspeci fied Outpatient 12765-9.61 10/27 [place] Encounter [id number] [facility] HCS REMOTE 30 05423-0.61 Diagnos TABBY CASTILLO 10/31 [place] DAY ECG [id number] is: REL [facility] REV/REPORT ICD-10- HCS CM Z13.6 Encount er for screeni ng for cardiov ascular disorde rs
with Provide r Comment s: Encount er for Screeni ng for Cardiov ascular Disorde rs Outpatient 16734-0 04/18 [place] Encounter [id number] /2022 [facility] 12340-911/07 [place] En[place] [id number] /2022 [facility] HC PRO 22710-1.61 Diagnos RAUWERDANETTEK 11/09 [place] PHONE CALL [id number] is: ,TESSA R /2021 [facility] 21-30 [facility] ICD-10- HCS CM F33.9 Major depress ricardo disorde r, recurre nt, unspeci fied
with Provide r Comment s: Depress ion ([facility] [id number] 7) Outpatient 11/16 [place] [id number] [facility] 82201-4.61 Diagnos DENYS,Citlaly 11/21 [place] [id number] is: ALLY H [facility] 40-54 MIN ICD-10- HCS CM R06.02 Shortne ss of breath< br/>wit h Provide r Comment s: Shortne ss of Breath Outpatient 73698-8 Citlaly MCFARLANE 11/21 [place] Encounter [id number] [facility] [place] [place] [address]-5 Diagnos ALVA POWER 11/28 [place] 45 MINUTES [id number] is: SE C /2021 [place] ICD-10- HCS CM F33.9 Major depress ricardo disorde r, recurre nt, unspeci fied
with Provide r Comment s: Depress ion ([facility] [id number] 7) Outpatient 05/ [place] En[place] [id number] [facility] PRO Diagnos RAUWGLENDY 12/13 [place] PHONE CALL [id number] is: ,TESSA R /2021 [facility] 11-20 [facility] ICD-10- HCS CM F33.9 Major depress ricardo disorde r, recurre nt, unspeci fied
with Provide r Comment s: Depress ion ([facility] [id number] 7) [place] [address]-6 Diagnos POWER,RO 12/29 [place] 45 MINUTES [id number] is: SE C [facility] ICD-10- [facility] CM F33.9 Major depress ricardo disorde r, recurre nt, unspeci fied
with Provide r Comment s: Depress ion ([facility] [id number] 7) [place] [address]-2 Diagnos POWER,RO 02/03 [place] 45 MINUTES [id number] is: [facility] ICD-10- [facility] CM F33.9 Major depress ricardo disorde r, recurre nt, unspeci fied
with Provide r Comment s: Depress ion ([facility] [id number] 7) HC PRO 28531-2.61 Diagnos GALI 02/07 [place] PHONE CALL [id number] is: ,TESSA R /2021 [facility] 11-20 MIN ICD-10- HCS CM F33.9 Major depress ricardo disorde r, recurre nt, unspeci fied
with Provide r Comment s: Depress ion ([facility] [id number] 7) Outpatient 81789-461 02/14 [place] En[place] [id number] [facility] Outpatient 91447-403/06 [place] En[place] [id number] [facility] [place] [address]-3 Diagnos POWER,RO 03/07 [place] 45 MINUTES [id number] is: SE C [facility] ICD-10- [facility] CM F33.9 Major depress ricardo disorde r, recurre nt, unspeci fied
with Provide r Comment s: Depress ion ([facility] [id number] 7) Outpatient 75793-861 03/08 [place] Encounter [id number] [facility] 14090-903/23 [place] Encounter [id number] [facility] Procedures Combined list of: 1) Procedures from Department of Veterans Affairs facilities going back up to the last 18 months, not all [place] non-surgical procedures are included; 2) All procedures from the Department of Defense facilities. Procedure Procedure Type Code Date Perfomer Comments Sourc e UNLISTED VACCINE/TOXOID 03/11/2003 [facility] SKIN TEST; 03/11/2003 [facility] TUBERCULOSIS, INTRADERMAL SKIN TEST; 03/09/2003 [facility] TUBERCULOSIS, INTRADERMAL COLONOSCOPY, FLEXIBLE; 03/04/2003 [facility] DIAGNOSTIC, INCLUDING COLLECTION OF SPECIMEN(S) BY BRUSHING OR WASHING, WHEN PERFORMED (SEPARATE PROCEDURE) COLLECTION OF VENOUS 03/02/2003 [facility] BLOOD BY VENIPUNCTURE Social History Combined list of available smoking, tobacco, and other social history [facility]. Social History Type Response Date Comment Source Tobacco smoking status VA-TOBACCO FORMER USER 08/19/2021 [facility] History of tobacco use NH-TOBACCO QUIT 1 TO < 08/19/2021 [facility] 5 YRS History of tobacco use LIFETIME NON-SMOKER 04/15/2021 [facility] History of tobacco use NH-TOBACCO FORMER USER 08/06/2020 [facility] This section is an [facility] empty social history section. Plan of Care List of future care activities from Department of Veterans Affairs facilities. Additional future care activities may be listed in the Assessment and Plan section. Date/Time Care Activity Care Activity Detail Facility 04/12/2022 [facility] - MEDICINE [facility] - [facility]ICINE [facility]
--- OUTSIDE RECORDS SUMMARY | 2022-03-27 17:36 | XMS_ITS | Encounter Summary ---
:1975 Author Organization Department of [facility] rs Address [address] [place] [address] Support Name Relationship Address Phone JERRI IRWIN Unavailable FABRIZIO VANCE [phone] [place] [place] [address] JERRI IRWIN Unavailable FABRIZIO VANCE [phone] [place] [address] Selected Encounter This section includes the information on record at [place] for the Encounter. Date/Time Encounter Type Encounter Reason Provider Source Description Oct 24, 2021 OFFICE O/P EST PRIMARY ICD-10-CM I49.9 XIOMARA MCFARLANE 09:30 AM HI 40-54 MIN CARE/MEDICINE Cardiac H arrhythmia, unspecified with Provider Comments: Cardiac Arrhythmia, unspecified IHE Encounter Template Text not used by AL Assessments - Encounter Diagnoses This section includes the primary and secondary diagnoses documented for the Encounter. Date/Time Primary/Secondary Diagnosis Name Provider Source Diagnosis Oct 24, 2021 PRIMARY Cardiac XIOMARA MCFARLANE V A 12:54 PM arrhythmia, H HCS unspecified Oct 24, 2021 SECONDARY Shortness of XIOMARA MCFARLANE V A 12:54 PM breath H [facility] Plan of Treatment: Future Appointments (+ 6 months) and Future Tests (+/- 45 days) The Plan of Treatment section includes future care activities for the patient from all [place] treatmentfacilities. This section includes future appointments and future orders which are active, pending orscheduled.Future Appointments This section includes appointments that were scheduled to occur 6 months from the date of the Encounter, up to a maximum of 20 appointments. The data comes from all [place] treatment facilities. Appointment Date/Time Appointment Type Appointment Facili ty Name Oct 27, 2021 08:20 AM AMBULATORY - NONE [facility] Oct 28, 2021 06:00 PM AMBULATORY - REHAB [facility] Oct 31, 2021 09:00 AM AMBULATORY - MEDICINE [facility] Nov 09, 2021 03:30 PM AMBULATORY - NONE [facility] November 21, 2021 10:30 AM AMBULATORY - MEDICINE [facility] November 28, 2021 10:00 AM AMBULATORY - MEDICINE [facility] December 13, 2021 03:30 PM AMBULATORY - NONE [facility] December 13, 2021 05:00 PM AMBULATORY - REHAB MEDICINE [facility] Dec 23, 2021 09:30 AM AMBULATORY - NONE [facility] Dec 29, 2021 03:00 PM AMBULATORY - MEDICINE [facility] Feb 03, 2022 09:00 AM AMBULATORY - MEDICINE [facility] Feb 07, 2022 12:30 PM AMBULATORY - NONE [facility] Feb 07, 2022 03:30 PM AMBULATORY - NONE [facility] Mar 07, 2022 03:00 PM AMBULATORY - MEDICINE [facility] Mar 22, 2022 05:00 PM AMBULATORY - REHAB MEDICINE [facility] Apr 12, 2022 03:00 PM AMBULATORY - MEDICINE [facility] Apr 18, 2022 12:30 PM AMBULATORY - MEDICINE [facility] Lab Results: +/- 30 days of the encounter This section includes the Chemistry and Hematology Lab Results on record with AL for the patient. Radiology Reports and Pathology Reports are provided separately, in subsequent sections.Lab Results This section contains the Chemistry/Hematology Results that were resulted 30 days before or 30 daysafter the date of the Encounter. Date/Time Source Result Type Result - Unit Interpretation Reference Range Comment Oct 24, 2021 10:[address] [facility] CBC Specim en Type: BLOOD No comment enter ed. Ordering Provid er: XIOMARA MCFARLANE Report Released Date/Time: Oct 24, 2021 10:10 AM Reporting Lab: [facility] [address] [facility] [id number] Performing Lab: [facility] [id number] WBC 7.66 4.0-11.0 RBC 4.45 4.0-5.4 HGB 13.5 11.5-16 HCT 40.9 34.5-48 MCV 91.9 80-100 MCH 30.3 27-33 MCHC 33.0 32.0-37.5 PLT 280 150-400 MPV 9.8 7.4-10.4 RDW 14.6 H 11.5-14.5 Oct 24, 2021 10:35 [facility] BASIC METABOLIC Specimen Type: PLASMA AM PANEL+MG No comment enter ed. Ordering Provid er: XIOMARA MCFARLANE Report Released Date/Time: Oct 24, 2021 10:10 AM Reporting Lab: [facility] [address] [facility] [address] Performing Lab: [facility] [address] [facility] [address] CREATININE 0.8 0.5-1.0 UREA NITROGEN 14 7-20 GLUCOSE 97 74-100 SODIUM 136 136-145 POTASSIUM 4.3 3.5-5.1 CHLORIDE 105 98-107 CO2 25 22-29 CALCIUM 8.9 8.4-10.2 MAGNESIUM 2.0 1.6-2.6 ANION GAP 6 5-15 CREAT EGFR(CKD-EPI) >90 >60 Oct 24, 2021 10:35 [facility] TSH W/REFLEX TO FREE Spec imen Type: PLASMA AM T4 No comment enter ed. Ordering Provid er: XIOMARA MCFARLANE Report Released Date/Time: Oct 24, 2021 10:10 AM Reporting Lab: [facility] [address] [facility] [address] Performing Lab: [facility] [address] [facility] [address] TSH 4.12 0.35-4.94 Oct 24, 2021 10:[address] [facility] MAGNESIUM Specim en Type: PLASMA No comment enter ed. Ordering Provid er: XIOMARA MCFARLANE Report Released Date/Time: Oct 24, 2021 10:10 AM Reporting Lab: [facility] [address] [facility] [address] Performing Lab: [facility] [address] MAGNESIUM 2.0 1.6-2.6 Vital Signs: All taken on the encounter date This section contains inpatient and outpatient Vital Signs collected on the date of the Encounter. Date/Time Temperature Pulse Blood Respiratory SP02 Pain Height Weight Blayne dy Source Pressure Rate Mass Index Oct 24 F 82 117/79 18 /min 99 % 7 65 in 204.2 34 [place] 2021 09:25 /min mm[Hg] lb OLIS [place] AM [facility] Social History: Smoking Status (Most current) and Tobacco Use (All prior to encounter date) This section includes the most current, and the historical, smoking and tobacco-related health factors from the [facility] where the Encounter took place.Current Smoking Status This section includes the most current smoking, or tobacco-related health factor, from the [facility] where the Encounter took place. Date/Time Current Smoking Status Comment Facility Aug 19, 2021 10:30 AM VA-TOBACCO FORMER USER [facility] Tobacco Use History This section includes a history of the smoking, or tobacco- related health factors, that were collected on or before the date of the Encounter. The data comes from the [facility] where the Encounter took place. Date/Time Smoking Status/Tobacco Use Comment [facility] Aug 19, 2021 10:30 AM AL-TOBACCO QUIT 1 TO < [address] [facility] Apr 15, 2021 01:00 PM LIFETIME NON-SMOKER [facility] Aug 06, 2020 09:00 AM VA-TOBACCO FORMER USER [facility] Aug 06, 2020 09:00 AM AL-TOBACCO QUIT [address] [facility] Radiology Reports: +/- 30 days [...] the Encounter. The data comes from all [place] treatment facilities. Date/Time Radiology Report Provider Source Oct 24, 2021 10:49 AM CHEST 2 VIEWS PA AND LAT: TONY KERNS [facility] KRISSY IRWIN [id number] -[birth year] F Exm Date: OCT 24, 2021@10:49 Req Phys: XIOMARA MCFARLANE Pat Loc: [facility] PACT MELISSA N 4F (Req'g Loc) Img Loc: MAIN X-RAY Service: Unknown Screen: Patient answered no (Case [id number] COMPLETE) CHEST 2 VIEWS PA AND LAT (RA D Detailed) CPT:78868 Reason for Study: shortness of breath Clinical History: Harrison IS NOT under investigation for COVID-19 or is COVID-19 negative shortness of breath Responsible provider name a nd phone number to notify for critical findings if other than u ser placing the order and pager listed below: User placing orde rs pager: [phone] LAST CREATININE____ Report Status: Verified Date Reported: OCT 24, 2021 Date Verified: OCT 24, 2021 Deputy Fire Marshal E-Sig:/ES/TONY KERNS MD Report: EXAMINATION: CHEST 2 VIEWS PA AND LAT 10/24/2021 10:49 AM INDICATION: shortness of breath Impression: Negative chest. No pulmonary infiltrate or pleu ral effusion. Heart size and pulmonary vascularity within nor mal limits. No comparison chest x-ray. Primary Interpreting Staff: TONY KERNS MD, RADIOLOGIST (Deputy Fire Marshal) /RTS Encounter Notes: All associated encounter notes This section contains the clinical notes associated to the Encounter. Date/Time Encounter Note(s) Provider Source Oct 24, 2021 01:23 LETTERS: XIOMARA MCFARLANE [facility] PM LOCAL TITLE: FOLLOW UP RESULTS LETTER STANDARD TITLE: LETTERS DATE OF NOTE: OCT 24, 2021@13:23 ENTRY DATE: OCT 24, 2021@13:23:55 AUTHOR: XIOMARA MCFARLANE EXP COSIGNER: URGENCY: STATUS: COMPLETED [facility] [address] [place] [address] Oct KRISSY IRWIN [id number] [address] [facility] [address] Dear Harrison: I am writing to inform you of the results of sergio milesg that you had done recently at the [facility]. Your blood work and chest x ray results are norm al/negative. Collection time: Oct 24, 2021@10:35 Test Name Result Units Range --------- ------ ----- ----- TSH 4.12 uIU/mL 0.35 - 4.94 SODIUM 136 mmol/L 136 - 145 POTASSIUM 4.3 mmol/L 3.5 - 5.1 CHLORIDE 105 mmol/L 98 - 107 CO2 25 mmol/L 22 - 29 ANION GAP 6 mmol/L 5 - 15 GLUCOSE 97 mg/dL 74 - 100 UREA NITROGEN 14 mg/dL 7 - 20 CREATININE 0.8 mg/dL 0.5 - 1.0 CALCIUM 8.9 mg/dL 8.4 - 10.2 MAGNESIUM 2.0 mg/dL 1.6 - 2.6 CREAT EGFR(CKD-EPI) >90 Ref: >=60 WBC 7.66 K/cmm 4.0 - 11.0 RBC 4.45 M/cmm 4.0 - 5.4 HGB 13.5 g/dL 11.5 - 16 HCT 40.9 % 34.5 - 48 MCV 91.9 fL 80 - 100 MCH 30.3 pg 27 - 33 MCHC 33.0 g/dL 32.0 - 37.5 RDW 14.6H % 11.5 - 14.5 PLT 280 K/cmm 150 - 400 CHEST 2 VIEWS PA AND LAT Exm Date: OCT 24, 2021@10:49 Impression: Negative chest. No pulmonary infiltrate or pleu ral effusion. Heart size and pulmonary vascularity within nor mal limits. No comparison chest x-ray. If you have any further questions or problems, anthony santana contact our nursing staff or provider at the following number: . Sincerely, Xiomara Mcfarlane MD Physician Oct 24, 2021 09:27 INTERNAL MEDICINE OUTPATIENT NOTE: YRN STRICKLAND [facility] LOCAL TITLE: MEDICINE CLINIC NURSING NOTE STANDARD TITLE: INTERNAL MEDICINE OUTPATIENT NOT E DATE OF NOTE: OCT 24, 2021@09:27 ENTRY DATE: OCT 24, 2021@09:28:02 AUTHOR: AGUS STRICKLAND EXP COSIGNER: URGENCY: STATUS: COMPLETED TYPE OF VISIT: Appointment Check In Type of appointment: In-person appointment REASON FOR VISIT: annual check up ALLERGIES: Patient has answered NKA VITAL SIGNS: Blood Pressure: 117/79 (10/24/2021 09:25) Pulse: 82 (10/24/2021 09:25) Respiration: 18 (10/24/2021 09:25) Temperature: 98 F [36.7 C] (10/24/2021 09:25) Weight: 204.2 lb [92.62 kg] (10/24/2021 09:25) Height: 65 in [165.1 cm] (10/24/2021 09:25) BMI: 34.1 O2 Sat: 99% (10/24/2021 09:25) Pain: 7 (10/24/2021 09:25) PAIN SCREEN: Patient is not having significant pain that the y wish to discuss with their provider today. MEDICATION Over the Counter/Herbal Medications: The patient states that they take some outside medications and/or herbals. FEMALE Last menstrual period (LMP): Sep Contraception: tubal : 4 Para: 4,2,0,4 Last Pap Smear: 10/2020 [facility] Last Mamogram: 09/2020 Where: [place] PTSD Screening: PC-PTSD-5 A PTSD screening test (PC-PTSD-5) was positive (score=4). Have you ever had any experience that was so fr ightening, horrible or upsetting that, IN THE PAST MONTH, you: Have you ever experienced this kind of event? YES 1. Had nightmares about the event(s) or thought about the event(s) when you did not want to? YES 2. Tried hard not to think about the event(s) o r went out of your way to avoid situations that reminded you of the ev ent(s)? YES 3. Been constantly on guard, watchful, or easil y startled? YES 4. [place] numb or detached from people, activitie s, or your surroundings? YES 5. [place] guilty or unable to stop blaming yourse lf or others for the event(s) or any problems the event(s) may have caused? NO Licensed Independent Provider notified of posit lilliana screen and need for follow-up. Name of provider notified: Dr. Mcfarlane EKG completed and give to pcp for review. /kaylene/ AGUS STRICKLAND LPN LICENSED PRACTICAL NURSE Signed: 10/24/2021 10:22 Oct 24, 2021 08:54 INTERNAL MEDICINE NOTE: XIOMARA MCFARLANE [facility] TITLE: MEDICINE CLINIC NOTE STANDARD TITLE: INTERNAL MEDICINE NOTE DATE OF NOTE: OCT 24, 2021@08:54 ENTRY DATE: OCT 24, 2021@08:54:55 AUTHOR: XIOMARA MCFARLANE EXP COSIGNER: URGENCY: STATUS: COMPLETED SUBJECT: CLINIC VISIT GENERAL INTERNAL MEDICINE CLINIC PROGRESS NOTE KRISSY IRWIN is a 46 year old FEMALE wit h the following CHIEF COMPLAINT: PHYSICAL THIS AN ESTABLISHED PATIENT IN THE PRIMARY CARE CLINIC HPI: Krissy has a medical history notable for 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 Today, Krissy reports fluctuations in blood press ure, heat aching, heart fluttering w/walking, SOB wi th walking short distances and bending over e.g. to tie her shoes, escalating ov er the last approx. 3 weeks. Heart fluttering lasts seconds, intermittent.Whole body swelling includ ing face/hands/feet x months, worse in last 3 weeks. State s originally thought to be related to SSRI, swiched to bupropion which was discontinued after she fe lt a wooshing sound if she turned her head. States if s he gets up, she feels dizzy, and her hands and feet go numb when she moves. Worried that she may have an esophageal hernia because if she drinks coffee, she'll cough and spew her coffee all over. Has gained about 9 pounds since december/2020 per our records. Wt same as Jul of this year. ROS is otherwise negative. HCM: Immunizations up to date BMI 33 lipids normal 07/2021 Pap 03/07/21 negative Mammogram 10/29/20 negative Fit 08/2021 NEGATIVE Today's nurse's notes were reviewed. Active problems - Computerized Problem List is t he source for the followin. History of ischaemic cerebrovascular acciden t with residual deficit 2. Depression 3. OIF EXPOSURE TO BURN PIT/OIL WELL FIRE SMOKE 4. OIF EXPOSURE SAND/DUST STORMS 5. OIF EXPOSURE TO EXHAUST FUMES SURGICAL HISTORY: Bilateral tubal ligation 2006 Varicocele of right round ligament removal/repai r 2000 Bilateral breast reduction 2018 FAMILY HISTORY Mother: goiter Father: HLD, HTN, at 48 from [place]. 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 smoker Alcohol 2x/mo or less, 1 per 24hr Illicits: no Active and Recently Outpatient Medicatio ns (including Supplies): Active Outpatient Medications Status 1) BUPROPION HCL 150MG 24HR SA TAB TAKE ONE TABL ET BY ACTIVE MOUTH EVERY DAY FOR 7 DAYS, THEN TAKE TWO TABLE TS EVERY DAY 2) BUSPIRONE HCL 10MG TAB TAKE TWO TABLETS BY MO UTH ACTIVE TWICE A DAY FOR ANXIETY 3) LEVOTHYROXINE NA (SYNTHROID) 75MCG TAB TAKE O NE ACTIVE TABLET BY MOUTH EVERY DAY 4) VALACYCLOVIR HCL 1GM TAB TAKE TWO TABLETS BY MOUTH ACTIVE TWICE A DAY MEDICATION RECONCILIATION: completed ALLERGIES: Patient has answered NKA EXAM: VITAL SIGNS: Blood Pressure: 117/79 (10/24/2021 09:25) Pulse: 82 (10/24/2021 09:25) Respiration: 18 (10/24/2021 09:25) Temperature: 98 F [36.7 C] (10/24/2021 09:25) Weight: 204.2 lb [92.62 kg] (10/24/2021 09:25) Height: 65 in [165.1 cm] (10/24/2021 09:25) BMI: 34.1 O2 Sat: 99% (10/24/2021 09:25) Pain: 7 (10/24/2021 09:25) Wt 195 /09/12 Wt 204 07/2021 GEN: Alert, no acute distress EENT: Pupils equal, round, r eactive to light. No icterus. Ear canals patent w/o significant cerumen, TM's normal,nasal passages clear w/normal appearing turbinates, oral mucosa moist,pharynx without erythema or exudate Neck: Full active ROM, no significant ce rvical lymphadenopathy,thyroid smooth, symmetric, no nodules Lungs: Clear to auscultation throughout Cardiac: Regular rate and rhythm, no murmurs, ru bs or gallops, no carotid bruits, JVP normal/not elevated Abdomen: Normal bowel sounds , soft, non tender, no hepatosplenomegaly or masses, no CVA tenderness or masses Extremities: No peripheral edema, DP pulses 2+, no cyanosis Skin: No jaundice, rashes or suspicious lesions on exposed surfaces MSK: No significant joint deformities noted on h ands, no kyphosis Neuro: CN's 2-12 intact, able to get on/off exam table without assistance. Strength grossly intact. Psych: anxious appearing, actively engaged in co nversation, full range of affect, no psychomotor slowing, no signs of agit ation TEST RESULTS: EKG today: SR w/sinus arrhythmia rate rock griffith--one pause, o/w upper 60's-85 , normal axis, normal UT, QRS, QT intervals. No ST-T changes, no Q waves. Normal p wave morphology. Comparison:none Collection time: Oct 24, 2021@10:35 Test Name Result Units Range --------- ------ ----- ----- TSH 4.12 uIU/mL 0.35 - 4.94 SODIUM 136 mmol/L 136 - 145 POTASSIUM 4.3 mmol/L 3.5 - 5.1 CHLORIDE 105 mmol/L 98 - 107 CO2 25 mmol/L 22 - 29 ANION GAP 6 mmol/L 5 - 15 GLUCOSE 97 mg/dL 74 - 100 UREA NITROGEN 14 mg/dL 7 - 20 CREATININE 0.8 mg/dL 0.5 - 1.0 CALCIUM 8.9 mg/dL 8.4 - 10.2 MAGNESIUM 2.0 mg/dL 1.6 - 2.6 WBC 7.66 K/cmm 4.0 - 11.0 RBC 4.45 M/cmm 4.0 - 5.4 HGB 13.5 g/dL 11.5 - 16 HCT 40.9 % 34.5 - 48 MCV 91.9 fL 80 - 100 MCH 30.3 pg 27 - 33 MCHC 33.0 g/dL 32.0 - 37.5 RDW 14.6H % 11.5 - 14.5 PLT 280 K/cmm 150 - 400 CHEST 2 VIEWS PA AND LAT Exm Date: OCT 24, 2021@10:49 Impression: Negative chest. No pulmonary infiltrate or pleu ral effusion. Heart size and pulmonary vascularity within nor mal limits. No comparison chest x-ray. Patient was informed of available lab, imaging, and other study results associated with today's visit. ASSESSMENT AND PLAN: Diagnoses: Cardiac Arrhythmia, unspecified (ICD-10-CM I49.9 ) (Primary) Shortness of Breath (ICD-10-CM R06.02) Plan: EKG (done, SR w/sinus arrhythmia) CXR (done, negative) Labs (unremarkable) Ziopatch Consider stress testing, echo RTC one month Patient/Surrogate indicates readiness to learn, verbalizes understanding,agreement and satisfaction with th e treatment plan. Time spent today, including reviewing prior note s, prior test results, and separately obtained history, performining a medi steve appropriate exam and/or evaluation, conselling a nd education of patient/surrogate, documentation of clinical inf ormation in the EHR, independently interpreting results, communicatin g results to patient/surrogate and care coordination: 50 min Xiomara Mcfarlane MD General Internal Medicine [facility] PACT KIRA 4F /es/ Xiomara Mcfarlane MD Physician Signed: 10/24/2021 12:57 Oct 21, 2021 03:53 [facility]INE CLINIC NOTE STANDARD TITLE: INTERNAL MEDICINE NOTE DATE OF NOTE: OCT 21, 2021@15:53 ENTRY DATE: OCT 21, 2021@15:53:25 AUTHOR: XIOMARA MCFARLANE EXP COSIGNER: URGENCY: STATUS: COMPLETED SUBJECT: CHART REVIEW/PRECHARTING GENERAL INTERNAL MEDICINE CLINIC PROGRESS NOTE KRISSY IRWIN is a 46 year old FEMALE wit h the following CHIEF COMPLAINT: PHYSICAL THIS AN ESTABLISHED PATIENT IN THE PRIMARY CARE CLINIC HPI: Krissy has a medical history notable for 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 HCM: Immunizations up to date BMI 33 LDL 69, also normal CMP and A1C 08/06/20 Pap 03/07/21 negative Mammogram 10/29/20 negative FIT due this year. Today's nurse's notes were reviewed. Active problems - Computerized Problem List is t he source for the followin. History of ischaemic cerebrovascular acciden t with residual deficit 2. Depression 3. OIF EXPOSURE TO BURN PIT/OIL WELL FIRE SMOKE 4. OIF EXPOSURE SAND/DUST STORMS 5. OIF EXPOSURE TO EXHAUST FUMES SURGICAL HISTORY: Bilateral tubal ligation 2007 Varicocele of right round ligament removal/repai r 2001 Bilateral breast reduction 2018 FAMILY HISTORY Mother: luciusiter Father: HLD, HTNDied at 48 from [place]. 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 smoker Alcohol 2x/mo or less, 1 per 24hr Illicits: no Active and Recently Outpatient Medicatio ns (including Supplies): Active Outpatient Medications Status 1) BUPROPION HCL 150MG 24HR SA TAB TAKE ONE TABL ET BY ACTIVE MOUTH EVERY DAY FOR 7 DAYS, THEN TAKE TWO TABLE TS EVERY DAY 2) BUSPIRONE HCL 10MG TAB TAKE TWO TABLETS BY MO UTH ACTIVE TWICE A DAY FOR ANXIETY 3) LEVOTHYROXINE NA (SYNTHROID) 75MCG TAB TAKE O NE ACTIVE TABLET BY MOUTH EVERY DAY 4) VALACYCLOVIR HCL 1GM TAB TAKE TWO TABLETS BY MOUTH ACTIVE TWICE A DAY MEDICATION RECONCILIATION: completed ALLERGIES: Patient has answered NKA EXAM: TEST RESULTS: Collection time: Aug 26, 2021@14:41 Test Name Result Units Range --------- ------ ----- ----- FIT1/1 Negative Ref: Negative Collection time: Aug 19, 2021@12:26 Test Name Result Units Range --------- ------ ----- ----- TSH 2.97 uIU/mL 0.35 - 4.94 CHOLESTEROL 139 mg/dL Ref: <=199 TRIGLYCERIDE 51 mg/dL Ref: <=149 .HDL 60 mg/dL Ref: >=50 LDL CALCULATION 69 mg/dL Ref: <=99 Patient was informed of available lab, imaging, and other study results associated with today's visit. ASSESSMENT AND PLAN: Patient/Surrogate indicates readiness to learn, verbalizes understanding,agreement and satisfaction with th e treatment plan. Time spent today, including reviewing prior note s, prior test results, and separately obtained history, performining a medi steve appropriate exam and/or evaluation, conselling a nd education of patient/surrogate, documentation of clinical inf ormation in the EHR, independently interpreting results, communicatin g results to patient/surrogate and care coordination: Xiomara Mcfarlane MD General Internal Medicine [facility] PACT KIRA 4F /es/ Xiomara Mcfarlane MD Physician Signed: 10/21/2021 15:57
--- OUTSIDE RECORDS SUMMARY | 2022-03-27 17:36 | XMS_ITS | Encounter Summary ---
:1975 Author Organization Department of [facility] Address [address] [place] [address] Support Name Relationship Address Phone JERRI IRWIN Unavailable FABRIZIO VANCE [phone] [address] JERRI IRWIN [place]available [place] [address] Selected Encounter This section includes the information on record at [place] for the Encounter. Date/Time Encounter Type Encounter Reason Provider Source Description Aug 25, 2021 OFFICE PODIATRY ICD-10-CM RAMPETSREITER, 11:00 AM CONSULTATION M76.72 GHANSHYAM C Peroneal tendinitis, left leg with Provider Comments: Peroneal tendinitis, left leg IHE Encounter Template Text not used by [place] Assessments - Encounter Diagnoses This section includes the primary and secondary diagnoses documented for the Encounter. Date/Time Primary/Secondary Diagnosis Name Provider Source Diagnosis Aug 25, 2021 PRIMARY Peroneal [facility], [facility] 12:56 PM tendinitis, left GHANSHYAM C [facility] leg Aug 25, 2021 SECONDARY Cerebral [facility], [facility] [facility] 12:56 PM infarction, GHANSHYAM C [facility] unspecified Aug 25, 2021 SECONDARY Ganglion, right [facility], [place] [facility] 12:56 PM ankle and foot GHANSHYAM C [facility] Aug 25, 2021 SECONDARY Metatarsalgia, RAMPETSREITER, [facility] 12:56 PM left foot GHANSHYAM C [facility] Aug 25, 2021 SECONDARY Short Achilles RAMPETSREITER, [facility]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 This section includes future appointments and future orders which are active, pending orscheduled.Future Appointments This section includes appointments that were scheduled to occur 6 months from the date of the Encounter, up to a maximum of 20 appointments. The data comes from all [place] treatment facilities. Appointment Date/Time Appointment Type Appointment Facili ty Name Aug 30, 2021 03:00 PM AMBULATORY - MEDICINE [facility] H CS Sep 14, 2021 03:00 PM AMBULATORY - NONE [facility] Sep 21, 2021 03:00 PM [facility] Oct 11, 2021 04:00 PM [facility] Oct 14, 2021 09:00 AM AMBULATORY - MEDICINE [facility] H CS Oct 14, 2021 11:00 AM AMBULATORY - MEDICINE [facility] H CS Oct 24, 2021 09:30 AM AMBULATORY - MEDICINE [facility] H CS Oct 24, 2021 10:45 AM AMBULATORY - NONE [facility] Oct 27, 2021 08:20 AM AMBULATORY - NONE [facility] Oct 28, 2021 06:00 PM AMBULATORY - REHAB MEDICINE [facility] Oct 31, 2021 09:00 AM AMBULATORY - MEDICINE [facility] CS Nov 09, 2021 03:30 PM AMBULATORY - NONE [facility] November 21, 2021 10:30 AM AMBULATORY - MEDICINE [facility] H CS November 28, 2021 10:00 AM AMBULATORY - MEDICINE [facility] H CS December 13, 2021 03:30 PM AMBULATORY - NONE [facility] December 13, 2021 05:00 PM AMBULATORY - REHAB MEDICINE [facility] Dec 23, 2021 09:30 AM AMBULATORY - NONE [facility] Dec 29, 2021 03:00 PM AMBULATORY - MEDICINE [facility] H CS Feb 03, 2022 09:00 AM AMBULATORY - MEDICINE [facility] H CS Feb 07, 2022 12:30 PM AMBULATORY - NONE [facility] Lab Results: +/- 30 days of the encounter This section includes the Chemistry and Hematology Lab Results on record with [place] for the patient. Radiology Reports and Pathology Reports are provided separately, in subsequent sections.Lab Results This section contains the Chemistry/Hematology Results that were resulted 30 days before or 30 daysafter the date of the Encounter. Date/Time Source Result Type Result - Unit Interpretation Reference Range Comment Aug 26, 2021 02:41 [facility] OCCULT BLOOD FIT X1 Speci men Type: FECES PM SCREEN No comment enter ed. Ordering Provid er: XIOMARA MCFARLANE Report Released Date/Time: Aug 19, 2021 11:39 AM Reporting Lab: [facility] [address] [facility] [id number] Performing Lab: [facility] [address] [facility] [address] OCCULT BLOOD (FIT) #1 OF 1 Negative Neg ative Aug 19, 2021 12:26 [facility] TSH W/REFLEX TO FREE Spec imen Type: PLASMA PM T4 No comment enter ed. Ordering Provid er: XIOMARA MCFARLANE Report Released Date/Time: Aug 19, 2021 11:39 AM Reporting Lab: [facility] [address] [facility] [address] Performing Lab: [facility] [address] [facility] [address] TSH 2.97 0.35-4.94 Social History: Smoking Status (Most current) and Tobacco Use (All prior to encounter date) This section includes the most current, and the historical, smoking and tobacco-related health factors from the PR facility where the Encounter took place.Current Smoking Status This section includes the most current smoking, or tobacco-related health factor, from the PR facility where the Encounter took place. Date/Time Current Smoking Status Comment Facility Aug 19, 2021 10:30 AM PR-TOBACCO FORMER USER MIN [facility] Tobacco Use History This section includes a history of the smoking, or tobacco- related health factors, that were collected on or before the date of the Encounter. The data comes from the PR facility where the Encounter took place. Date/Time Smoking Status/Tobacco Use Comment Mona richardson Aug 19, 2021 10:30 AM PR-TOBACCO QUIT 1 TO < 5 YRS [facility] Apr 15, 2021 01:00 PM LIFETIME NON-SMOKER NAVIN [facility] Aug 06, 2020 09:00 AM PR-TOBACCO FORMER USER MIN [facility] Aug 06, 2020 09:00 AM PR-TOBACCO QUIT 15 YRS OR MORE [facility] Radiology Reports: +/- 30 days [...] the Encounter. The data comes from all [place] treatment facilities. Date/Time Radiology Report Provider Source Aug 19, 2021 12:07 PM FOOT LEFT 3 VIEWS OR MORE: RAYRAY LAWRENCE [facility] KRISSY IRWIN [id number] -[birth year] 7 F Exm Date: AUG 19, 2021@12:07 Req Phys: XIOMARA MCFARLANE Pat Loc: [facility]SP PACT MELISSA N 4F (Req'g Loc) Img Loc: MAIN X-RAY Service: Unknown Screen: Patient answered no (Case [id number] COMPLETE) FOOT LEFT 3 VIEWS OR MORE ( RAD Detailed) CPT:59566 Proc Modifiers : LEFT Reason for Study: bony lump, left fifth metaras al, painful Clinical History: [place] IS NOT under investigation for COVID-19 or is COVID-19 negative bony lump, left fifth metarasal, painful Respon sible provider name and phone number to notify for critical fi ndings if other than user placing the order and pager listed be low: User placing orders pager: [phone] LAST CREATININE____ Report Status: Verified Date Reported: AUG 19, 2021 Date Verified: AUG 19, 2021 Egg Setter E-Sig:/ES/RAYRAY LAWRENCE MD Report: 3 views left [...] Primary Interpreting Staff: RAYRAY LAWRENCE MD, RADIOLOGIST (Egg Setter) /[facility] Encounter Notes: All associated encounter notes This section contains the clinical notes associated to the Encounter. Date/Time Encounter Note(s) Provider Source Aug 29, 2021 11:49 AM LETTERS: XIOMARA MCFARLANE IS [facility] LOCAL TITLE: FOLLOW UP RESULTS LETTER STANDARD TITLE: LETTERS DATE OF NOTE: AUG 29, 2021@11:49 ENTRY DATE: AUG 29, 2021@11:49:36 AUTHOR: XIOMARA MCFARLANE EXP COSIGNER: URGENCY: STATUS: COMPLETED [facility] [address] [place] [address] Aug KRISSY IRWIN [address] [facility] [address] Dear : I am writing to inform you o f the results of testing that you had done recently at the [facility]. Your stool test to screen for colon cancer is ne damaris. Collection time: Aug 26, 2021@14:41 Test Name Result Units Range --------- ------ ----- ----- FIT1/1 Negative Ref: Negative If you have any further ques tions or problems, please contact our nursing staff or provider at the following number: [phone]. Sincerely, Xiomara Mcfarlane MD Physician Aug 25, 2021 12:46 PM PODIATRY CONSULT: [facility] LOCAL TITLE: PODIATRY CONSULT [facility] STANDARD TITLE: PODIATRY CONSULT DATE OF NOTE: AUG 25, 2021@12:46 ENTRY DATE: AUG 25, 2021@12:46:25 AUTHOR: LÁZARO EDMONDS EXP COSIGNER: URGENCY: STATUS: COMPLETED ASSESSMENT: Insertional peroneal brevis tendinitis, left librado t; digital mucoid cyst right second toe, history of cerebrovascular accident, equinus PLAN: 1. Chart reviewed. Reviewed the patient's x-rays which were unremarkable with no significant findings. 2. Examined the patient. 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 She still has some minor discomfort. Discussed the possibility of some in sertional peroneal brevis tendinitis. She has a tight heel cord with limit ed ankle dorsiflexion contributing to the problem. Additionally the st roke did cause right-sided weakness and she does overload the left foot. I discussed the possibility of custom molded orthotics however she declined. Si nce there is no lump or mass today, we decided to defer t he MRI. However she was instructed to contact us in the future if she feels this needs to be done. I did recommend more vigorous stretching. Additionally we discussed her digita l mucoid cyst on the dorsal lateral right second toe, di stal interphalangeal joint but it is deflated today. We discussed options in the future such as aspir ation, gel silicone padding, excision, arthroplasty of th e distal interphalangeal joint. I gave her some gel silicone toe sleeves. No further plans with podiatry at this point. CHIEF COMPLAINT: Lump on the dorsal lateral left foot. HISTORY OF PRESENT ILLNESS: KRISSY IRWIN is a 46 year old FEMALE pre sents to the [facility]. Odin chalo has no history of any foot surgery, foot trauma, ulcers or infections. 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 Patient had a stroke in the past which did leave her with some residual right leg weakness. Uses her left leg more. She began to notice a lump on the outside of her left foot about 2 months ago for the first time. However she has been off of work for the past 7 days and it has slowly gone away. She still has some residual tenderness. Past Medical History: History of ischaemic cerebrovascular accDepressi on (SCT [id number]) OIF EXPOSURE TO BURN PIT/OIL WELL FIRE SOIF EXPO SURE SAND/DUST STORMS (ICD-10-CM R69.) OIF EXPOSURE TO EXHAUST FUMES (ICD-10-CM Allergies: Patient has answered NKA Current Medications: Active Outpatient Medicatio ns (including Supplies): BUPROPION HCL 150MG 24HR SA TAB TAKE ONE TABLET BY MOUTH ACTIVE EVERY DAY FOR 7 DAYS, THEN TAKE TWO TABLETS MONISHA DAY BUSPIRONE HCL 10MG TAB TAKE TWO TABLETS BY MOUTH TWICE A ACTIVE DAY FOR ANXIETY LEVOTHYROXINE NA (SYNTHROID) 75MCG TAB TAKE ONE TABLET BY ACTIVE MOUTH EVERY DAY VALACYCLOVIR HCL 1GM TAB TAKE TWO TABLETS BY SHAW TH TWICE A ACTIVE DAY Non-VA ASPIRIN 81MG EC TAB 81MG MOUTH EVERY DAY ACTIVE Patient states he is taking all the above medic ations except Herbals/Over the Counter Medications: OBJECTIVE: VITALS: BP: 134/82 (08/19/2021 10:41) P: 70 (08/19/2021 10:34) R: 16 (08/19/2021 10:34) T: 97.6 F [36.4 C] (08/19/2021 10:34) WT: 204 lb [92.7 kg] (08/19/2021 10:34) BMI: 34.0 Pain: 3 (08/19/2021 10:34) O2 Sat: 98% (08/19/2021 10:34) CREATININE____ INR____ HGB A1C: LAB TESTS SELECTED Collection DT Specimen Test Name Result Units Re f Range 08/06/2020 11:00 BLOOD HEMOGLOBIN A1C 5.5 % 4.0 - 6.0 LFTs: SGOT____ SGPT____ ALLERGIES: Patient has answered NKA ROS:Unremarkable except for HPI EXAMINATION: Neurovascular status is inta ct with no signs of any acute ischemia, cyanosis or gangrene. There are palpable pulses with no lyric a, no bruising, normal temperature and color. Sensation is intact with no signs of rigidity, spasticity, tremors, paralys is. 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 She has normal sensation on the left foot. There is no sign of Paige's neuroma nor any tar payton tunnel syndrome. Skin is intact with no rashes, blisters, lacerations, ul cers or corns or calluses. Musculoskeletal exam reveals no ganglion cysts, masses, bone spurs or lumps in the area where she was tender which is a t the fifth metatarsal tuberosity. She has normal muscle strength but did have some fat igue and pain with eversion testing. There is no signs of any peroneal tendo n rupture or tear. No tendinosis. Did not have any arthritis a t the fourth and fifth tarsometatarsal joint or any irregularities on the x-ray in that area. Has a noninfected deflated digital mucoid cyst o n the dorsal lateral right second toe, distal interphalangeal joint. /kaylene/ GHANSHYAM EDMONDS DPM FOREIGN BANKNOTE TELLER TRADER Signed: 08/25/2021 12:56
--- OUTSIDE RECORDS SUMMARY | 2022-03-27 17:36 | XMS_ITS | Encounter Summary ---
:1975 Author Organization Department of [facility] rs Address [address] [place] [address] Support Name Relationship Address Phone JERRI IRWIN Unavailable FABRIZIO VANCE [place] [address] JERRI IRWIN [place] [address] Selected Encounter This section includes the information on record at [place] for the Encounter. Date/Time Encounter Type Encounter Reason Provider Source Description Oct 11, 2021 04:24 Outpatient EVENT (HISTORICAL) SWATHI MCFARLANE H PM Encounter IHE Encounter Template Text not used by [facility] Plan of Treatment: Future Appointments (+ 6 months) and Future Tests (+/- 45 days) The Plan of Treatment section includes future care activities for the patient from all [place] treatmentfacilities. This section includes future appointments and future orders which are active, pending orscheduled.Future Appointments This section includes appointments that were scheduled to occur 6 months from the date of the Encounter, up to a maximum of 20 appointments. The data comes from all [place] treatment facilities. Appointment Date/Time Appointment Type Appointment Facili ty Name Oct 14, 2021 09:00 AM AMBULATORY - MEDICINE [facility] Oct 14, 2021 11:00 AM AMBULATORY - MEDICINE [facility] Oct 24, 2021 09:30 AM AMBULATORY - MEDICINE [facility] Oct 24, 2021 10:45 AM AMBULATORY - NONE [facility] Oct 27, 2021 08:20 AM AMBULATORY - NONE [facility] Oct 28, 2021 06:00 PM AMBULATORY - REHAB MEDICINE [facility] Oct 31, 2021 09:00 AM AMBULATORY - MEDICINE [facility] Nov 09, 2021 03:30 PM AMBULATORY - NONE [facility] November 21, 2021 10:30 AM AMBULATORY - MEDICINE [facility] November 28, 2021 10:00 AM AMBULATORY - MEDICINE [facility] CS December 13, 2021 03:30 PM AMBULATORY - NONE [facility] December 13, 2021 05:00 PM AMBULATORY - REHAB MEDICINE [facility] Dec 23, 2021 09:30 AM AMBULATORY - NONE [facility] Dec 29, 2021 03:00 PM AMBULATORY - MEDICINE [facility] CS Feb 03, 2022 09:00 AM AMBULATORY - MEDICINE [facility] CS Feb 07, 2022 12:30 PM AMBULATORY - NONE [facility] Feb 07, 2022 03:30 PM AMBULATORY - NONE [facility] Mar 07, 2022 03:00 PM AMBULATORY - MEDICINE [facility] CS Mar 22, 2022 05:00 PM AMBULATORY - REHAB MEDICINE [facility] Apr 12, 2022 03:00 PM AMBULATORY - MEDICINE [facility] CS Lab Results: +/- 30 days of [...] Range Comment Oct 24, 2021 10:35 AM [facility] CBC Specim en Type: BLOOD No comment enter ed. Ordering Provid er: SWATHI MCFARLANE Report Released Date/Time: Oct 24, 2021 10:10 AM Reporting Lab: [facility] [address] [facility] [address] Performing Lab: [facility] [address] WBC 7.66 4.0-11.0 RBC 4.45 4.0-5.4 HGB 13.5 11.5-16 HCT 40.9 34.5-48 MCV 91.9 80-100 MCH 30.3 27-33 MCHC 33.0 32.0-37.5 PLT 280 150-400 MPV 9.8 7.4-10.4 RDW 14.6 H 11.5-14.5 Oct 24, 2021 10:35 [facility] BASIC METABOLIC Specimen Type: PLASMA AM PANEL+MG No comment enter ed. Ordering Provid er: SWATHI MCFARLANE Report Released Date/Time: Oct 24, 2021 10:10 AM Reporting Lab: [facility] [address] [facility] [address] Performing Lab: [facility] [address] CREATININE 0.8 0.5-1.0 UREA NITROGEN 14 7-20 GLUCOSE 97 74-100 SODIUM 136 136-145 POTASSIUM 4.3 3.5-5.1 CHLORIDE 105 98-107 CO2 25 22-29 CALCIUM 8.9 8.4-10.2 MAGNESIUM 2.0 1.6-2.6 ANION GAP 6 5-15 CREAT EGFR(CKD-EPI) >90 >60 Oct 24, 2021 10:35 [facility] TSH W/REFLEX TO FREE Spec imen Type: PLASMA AM T4 No comment enter ed. Ordering Provid er: SWATHI MCFARLANE Report Released Date/Time: Oct 24, 2021 10:10 AM Reporting Lab: [facility] [address] Performing Lab: [facility] [address] TSH 4.12 0.35-4.94 Oct 24, 2021 10:35 AM [facility] MAGNESIUM Specim en Type: PLASMA No comment enter ed. Ordering Provid er: SWATHI MCFARLANE Report Released Date/Time: Oct 24, 2021 10:10 AM Reporting Lab: [facility] [address] Performing Lab: [facility] [address] MAGNESIUM 2.0 1.6-2.6 Social History: Smoking Status (Most current) and Tobacco Use (All prior to encounter date) This section includes the most current, and the historical, smoking and tobacco-related health factors from the [facility] where the Encounter took place.Current Smoking Status This section includes the most current smoking, or tobacco-related health factor, from the [place] facility where the Encounter took place. Date/Time Current Smoking Status Comment Facility Aug 19, 2021 10:30 AM [place]-TOBACCO [facility]ER [facility] Tobacco Use History This section includes a history of the smoking, or tobacco- related health factors, that were collected on or before the date of the Encounter. The data comes from the [place] facility where the Encounter took place. Date/Time Smoking Status/Tobacco Use Comment Mona gaxiola Aug 19, 2021 10:30 AM [place]-TOBACCO QUIT 1 TO < 5 YRS [facility] Apr 15, 2021 01:00 PM LIFETIME NON-SMOKER NAVIN [facility] Aug 06, 2020 09:00 AM VA-TOBACCO FORMER USER [facility] Aug 06, 2020 09:00 AM [place]-TOBACCO QUIT 15 YRS OR MORE [facility] Radiology Reports: +/- 30 days of [...] the Encounter. The data comes from all [place] treatment facilities. Date/Time Radiology Report Provider Source Oct 24, 2021 10:49 AM CHEST 2 VIEWS PA AND LAT: TONY KERNS [facility] KRISSY IRWIN [id number] -[birth year]B [birth year] F Exm Date: OCT 24, 2021@10:49 Req Phys: SWATHI MCFARLANE Pat Loc: [facility]SP PACT MELISSA N 4F (Req'g Loc) Img Loc: MAIN X-RAY Service: Unknown Screen: Patient answered no (Case [id number] COMPLETE) CHEST 2 VIEWS PA AND LAT (RA D Detailed) CPT:83994 Reason for Study: shortness of breath Clinical History: [place] IS NOT under investigation for COVID-19 or is COVID-19 negative shortness of breath Responsible provider name a nd phone number to notify for critical findings if other than u ser placing the order and pager listed below: User placing orde rs pager: [phone] LAST CREATININE____ Report Status: Verified Date Reported: OCT 24, 2021 Date Verified: OCT 24, 2021 Regulatory Affairs Assistant E-Sig:/ES/TONY KERNS MD Report: EXAMINATION: CHEST 2 VIEWS PA AND LAT 10/24/2021 10:49 AM INDICATION: shortness of breath Impression: Negative chest. No pulmonary infiltrate or pleu ral effusion. Heart size and pulmonary vascularity within nor mal limits. No comparison chest x-ray. Primary Interpreting Staff: TONY KERNS MD, RADIOLOGIST (Regulatory Affairs Assistant) /[facility]
--- OUTSIDE RECORDS SUMMARY | 2022-03-27 17:36 | XMS_ITS | Encounter Summary ---
:1975 Author Organization [facility] rs Address [address] [place] [address] Support Name Relationship Address Phone JERRI IRWIN Unavailable FABRIZIO VANCE [phone] [address] JERRI IRWIN Unavailable [place] [address] Selected Encounter This section includes the information on record at [place] for the Encounter. Date/Time Encounter Type Encounter Reason Provider Source Description Aug 19, 2021 OFFICE O/P EST PRIMARY ICD-10-CM XIOMARA MCFARLANE 10:30 AM MOD 30-39 MIN CARE/MEDICINE M79.672 Pain H in left foot with Provider Comments: Pain in left Foot IHE Encounter Template Text not used by CO Assessments - Encounter Diagnoses This section includes the primary and secondary diagnoses documented for the Encounter. Date/Time Primary/Secondary Diagnosis Name Provider Source Diagnosis Aug 19, 2021 PRIMARY Pain in left foot BENEDICT MCFARLANE [facility] 01:50 PM Y [facility] Aug 19, 2021 SECONDARY Encounter for NICK RIVERO [place] [facility] 01:50 PM immunization A M [facility] Aug 19, 2021 SECONDARY Hypothyroidism, BENEDICT MCFARLANE [facility] 01:50 PM unspecified Y H [facility] Plan of Treatment: Future Appointments (+ 6 months) and Future Tests (+/- 45 days) The Plan of Treatment section includes future care activities for the patient from all CO treatmentfacilities. This section includes future appointments and future orders which are active, pending orscheduled.Future Appointments This section includes appointments that were scheduled to occur 6 months from the date of the Encounter, up to a maximum of 20 appointments. The data comes from all [place] treatment facilities. Appointment Date/Time Appointment Type Appointment Facili ty Name Aug 25, 2021 11:00 AM AMBULATORY - SURGERY [facility] Aug 30, 2021 03:00 PM AMBULATORY - MEDICINE [facility] Sep 14, 2021 03:00 PM AMBULATORY - NONE [facility] Sep 21, 2021 03:00 PM AMBULATORY - MEDICINE [facility] Oct 11, 2021 04:00 PM AMBULATORY - MEDICINE [facility] Oct 14, 2021 09:00 AM AMBULATORY - MEDICINE [facility] Oct 14, 2021 11:00 AM AMBULATORY - MEDICINE [facility] Oct 24, 2021 09:30 AM AMBULATORY - MEDICINE [facility] Oct 24, 2021 10:45 AM AMBULATORY - NONE [facility] Oct 27, 2021 08:20 AM AMBULATORY - NONE [facility] Oct 28, 2021 06:00 PM AMBULATORY - REHAB MEDICINE [facility] Oct 31, 2021 09:00 AM AMBULATORY - MEDICINE [facility] Nov 09, 2021 03:30 PM AMBULATORY - NONE [facility] November 21, 2021 10:30 AM AMBULATORY - MEDICINE [facility] November 28, 2021 10:00 AM AMBULATORY - MEDICINE [facility] December 13, 2021 03:30 PM AMBULATORY - NONE [facility] December 13, 2021 05:00 PM AMBULATORY - REHAB MEDICINE [facility] Dec 23, 2021 09:30 AM AMBULATORY - NONE [facility] Dec 29, 2021 03:00 PM AMBULATORY - MEDICINE [facility] Feb 03, 2022 09:00 AM AMBULATORY - MEDICINE [facility] Lab Results: +/- 30 days of the encounter This section includes the Chemistry and Hematology Lab Results on record with CO for the patient. Radiology Reports and Pathology Reports are provided separately, in subsequent sections.Lab Results This section contains the Chemistry/Hematology Results that were resulted 30 days before or 30 daysafter the date of the Encounter. Date/Time Source Result Type Result - Unit Interpretation Reference Range Comment Aug 26, 2021 02:41 [facility] OCCULT BLOOD FIT X1 Speci men Type: FECES PM SCREEN No comment enter ed. Ordering Provid er: XIOMARA MCFARLANE Report Released Date/Time: Aug 19, 2021 11:39 AM Reporting Lab: [facility] [facility] [id number] Performing Lab: [facility] [address] [facility] [id number] OCCULT BLOOD (FIT) #1 OF 1 Negative Neg ative Aug 19, 2021 12:26 [facility] TSH W/REFLEX TO FREE Spec imen Type: PLASMA PM T4 No comment enter ed. Ordering Provid er: XIOMARA MCFARLANE Report Released Date/Time: Aug 19, 2021 11:39 AM Reporting Lab: [facility] [address] [facility] [id number] Performing Lab: [facility] [address] [facility] [id number] TSH 2.97 0.35-4.94 Vital Signs: All taken on the encounter date This section contains inpatient and outpatient Vital Signs collected on the date of the Encounter. Date/Time Temperature Pulse Blood Respiratory SP02 Pain Height Weight Blayne dy Source Pressure Rate Mass Index Aug 19, 134/82 [facility] 2021 10:41 mm[Hg] [facility] Aug 19, 97.6 F 70 143/86 16 /min 98 % 3 65 in 204 lb 34 [facility] 2021 10:34 /min mm[Hg] [facility] Immunizations: All administered on the encounter date This section contains immunizations associated to the Encounter. Immunization Series Date Issued Reaction Comments TDAP Aug 19, 2021 Social History: Smoking Status (Most current) and Tobacco Use (All prior to encounter date) This section includes the most current, and the historical, smoking and tobacco-related health factors from the CO facility where the Encounter took place.Current Smoking Status This section includes the most current smoking, or tobacco-related health factor, from the CO facility where the Encounter took place. Date/Time Current Smoking Status Comment Facility Aug 19, 2021 10:30 AM CO-TOBACCO FORMER USER [facility] Tobacco Use History This section includes a history of the smoking, or tobacco- related health factors, that were collected on or before the date of the Encounter. The data comes from the CO facility where the Encounter took place. Date/Time Smoking Status/Tobacco Use Comment Facil ity Aug 19, 2021 10:30 AM CO-TOBACCO QUIT 1 TO < 5 YRS [facility] Apr 15, 2021 01:00 PM [facility] Aug 06, 2020 09:00 AM CO-TOBACCO FORMER USER [facility] Aug 06, 2020 09:00 AM CO-TOBACCO QUIT 15 YRS OR MORE [facility] Radiology Reports: +/- 30 days of the [...] the Encounter. The data comes from all [place] treatment facilities. Date/Time Radiology Report Provider Source Aug 19, 2021 12:07 PM FOOT LEFT 3 VIEWS OR MORE: RAYRAY LAWRENCE [facility] KRISSY IRWIN [id number] -[birth year] F Exm Date: AUG 19, 2021@12:07 Req Phys: XIOMARA MCFARLANE Pat Loc: [facility] PACT MELISSA N 4F (Req'g Loc) Img Loc: MAIN X-RAY Service: Unknown Screen: Patient answered no (Case [id number] COMPLETE) FOOT LEFT 3 VIEWS OR MORE ( RAD Detailed) CPT:30802 Proc Modifiers : LEFT Reason for Study: bony lump, left fifth metaras al, painful Clinical History: [facility] IS NOT under investigation for COVID-19 or is COVID-19 negative bony lump, left fifth metarasal, painful Respon sible provider name and phone number to notify for critical fi ndings if other than user placing the order and pager listed be low: User placing orders pager: [phone] LAST CREATININE____ Report Status: Verified Date Reported: AUG 19, 2021 Date Verified: AUG 19, 2021 Manager Scientific E-Sig:/ES/RAYRAY LAWRENCE MD Report: 3 views left [...] Primary Interpreting Staff: RAYRAY LAWRENCE MD, RADIOLOGIST (Manager Scientific) /[facility] Encounter Notes: All associated encounter notes This section contains the clinical notes associated to the Encounter. Date/Time Encounter Note(s) Provider Source Aug 19, 2021 02:25 PM LETTERS: XIOMARA MCFARLANE IS [facility] LOCAL TITLE: FOLLOW UP RESULTS LETTER STANDARD TITLE: LETTERS DATE OF NOTE: AUG 19, 2021@14:25 ENTRY DATE: AUG 19, 2021@14:25:56 AUTHOR: XIOMARA MCFARLANE EXP COSIGNER: URGENCY: STATUS: [place] [address] Jul KRISSY IRWIN [address] [facility] [address] Dear : I am writing to inform you o f the results of testing that you had done recently at the [facility]. Your thyroid test result is in the normal range now. Collection time: Aug 19, 2021@12:26 Test Name Result Units Range --------- ------ ----- ----- TSH 2.97 uIU/mL 0.35 - 4.94 If you have any further ques tions or problems, please contact our nursing staff or provider at the following number: [phone]. Sincerely, Xiomara Mcfarlane MD Physician Aug 19, 2021 02:21 PM LETTERS: XIOMARA MCFARLANEELPIDIO IS [facility] LOCAL TITLE: FOLLOW UP RESULTS LETTER STANDARD TITLE: LETTERS DATE OF NOTE: AUG 19, 2021@14:21 ENTRY DATE: AUG 19, 2021@14:21:12 AUTHOR: XIOMARA MCFARLANE EXP COSIGNER: URGENCY: STATUS: [place] [address] Jul KRISSY IRWIN [id number] [facility] [id number] Dear : I am writing to inform you of the results of sergio ting that you had done recently at the [facility]. Here is a copy of your x ray report. Perhaps the lump is soft tissue (e.g. a cyst), as opposed to bony in nature??? Please re view x ray with podiatry for additional interpretation. Impression: 1. No acute fracture or dislocation. 2. No features of erosive or inflammatory arthr opathy. No significant degenerative joint spurring. The la teral margin of the distal fifth metatarsal head may be palpabl e superficially. 3. Joint spaces and bone mineralization well-pr eserved. 4. Calcaneal pitch 20. If you have any further questions or problems, anthony santana contact our nursing staff or provider at the following number: . Sincerely, Xiomara Mcfarlane MD Physician Aug 19, 2021 01:01 PM INTERNAL MEDICINE NOTE: XIOMARA MCFARLANE [facility] LOCAL TITLE: MEDICINE CLINIC NOTE STANDARD TITLE: INTERNAL MEDICINE NOTE DATE OF NOTE: AUG 19, 2021@13:01 ENTRY DATE: AUG 19, 2021@13:01:24 AUTHOR: XIOMARA MCFARLANE EXP COSIGNER: URGENCY: STATUS: COMPLETED SUBJECT: CLINIC VISIT GENERAL INTERNAL MEDICINE CLINIC PROGRESS NOTE KRISYS IRWIN is a 46 year old FEMALE wit h the following CHIEF COMPLAINT: establish care with a new physi pablo, left foot pain/lump THIS AN ESTABLISHED PATIENT IN THE PRIMARY CARE CLINIC HPI: Krissy has a medical history notable for 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 Today Krissy reports that she has spontaneously developed a painful bony lump on her lateral left foot. No in jury/trauma, no open wound, redness, drainage, etc. Hurts to walk, shoes irritat ing, etc. 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 No paresthesias or swelli ng around the lump. No other acute concerns. Due for TSH. We reviewed her HCM . HCM: Due for tetanus vacc, thinks likely grea ter than 10 years since her last shot, which was likely given to her in the [employer] BMI 33 LDL 69, also normal CMP [...] 2018 FAMILY HISTORY Mother: goiter Father: HLD, HTNDied at 48 from [place]. 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 TEST RESULTS: see HPI Patient was informed of available lab, imaging, and other study results associated with today's visit. ASSESSMENT AND PLAN: Foot lump, foot pain Hypothyroidism need for vaccination colon ca screening Plan: Xray foot, podiatry referral TSH Tdap FIT Due for routine physical in September Patient/Surrogate indicates readiness to learn, verbalizes understanding,agreement and satisfaction with th e treatment plan. Time spent today, including reviewing prior note s, prior test results, and separately obtained history, performining a medi steve appropriate exam and/or evaluation, conselling a nd education of patient/surrogate, documentation of clinical inf ormation in the EHR, independently interpreting results, comm unicating results to patient/surrogate and care coordination: Total Time: 30 min Xiomara Mcfarlane MD General Internal Medicine [facility] PACT KIRA 4F /es/ Xiomara Mcfarlane MD Physician Signed: 08/19/2021 13:50 Aug 19, 2021 10:35 AM INTERNAL MEDICINE OUTPATIENT NOTE: EFREN MARADIAGA [facility] LOCAL TITLE: MEDICINE CLINIC NURSING NOTE STANDARD TITLE: INTERNAL MEDICINE OUTPATIENT NOT E DATE OF NOTE: AUG 19, 2021@10:35 ENTRY DATE: AUG 19, 2021@10:35:45 AUTHOR: EFREN MARADIAGA EXP COSIGNER: URGENCY: STATUS: COMPLETED MEDICINE CLINIC NURSING NOTE Has ADDENDA * TYPE OF VISIT: Appointment Check In Type of appointment: In-person appointment REASON FOR VISIT: left foot lump ALLERGIES: Patient has answered NKA VITAL SIGNS: Blood Pressure: 143/86 (08/19/2021 10:34) reche cked 134/82 Pulse: 70 (08/19/2021 10:34) Respiration: 16 (08/19/2021 10:34) Temperature: 97.6 F [36.4 C] (08/19/2021 10:34) Weight: 204 lb [92.7 kg] (08/19/2021 10:34) Height: 65 in [165.1 cm] (08/19/2021 10:34) BMI: 34.0 O2 Sat: 98% (08/19/2021 10:34) Pain: 3 (08/19/2021 10:34) PAIN SCREEN: Patient is having significant pain that they wo uld like to talk to their provider about today. Old (Chronic) (began more than 6 months ago) Patient states their average pain this past wee k is 3 Patient states the average number on how the ch ronic pain affects their enjoyment of life the past week is 2 Patient states during the past week the average number on how the pain has interfered with their general activity is 2 MEDICATION Over the Counter/Herbal Medications: The patient denies taking any outside medicatio ns or herbals. Tobacco Use Screening: The patient is a former tobacco user. The patient quit one to less than 5 years ago. Alcohol Use Screen (AUDIT-C): Alcohol Screen: SCREEN FOR ALCOHOL (AUDIT-C) An alcohol screening test (AUDIT-C) was negativ e (score=1). 1. How often did you have a drink containing al cohol in the past year? Monthly or less 2. How many drinks containing alcohol did you h ave on a typical day when you were drinking in the past year? One or two drinks 3. How often did you have 4 or more drinks on o ne occasion in the past year? Never PTSD Screening: PC-PTSD-5 A PTSD screening test (PC-PTSD-5) was positive (score=5). Have you ever had any experience that [...] watchful, or easil y startled? YES 4. [place] numb or detached from people, activitie s, or your surroundings? YES 5. [place] guilty or unable to stop blaming yourse lf or others for the event(s) or any problems the event(s) may have caused? YES Influenza Immunization: The patient has received the seasonal influenza vaccine for the current season at another location. Date: March, Exact date is unknown Location: [place] Homelessness/Food Insecurity Screen: In the past 2 months, have you been living in s table housing that you own, rent, or stay in as part of a household? Y es - Living in stable housing. Are you worried or concerned that in the next 2 months you may NOT have stable housing that you own, rent, or stay in a s part of a household? No - Not worried about housing near future The [facility] reports the following: Within the past 12 months, you worried whether your food would run out before you got money to buy more. Never true Within the past 12 months, the food you bought just didn't last and you didn't have money to get more. Never true Suicide Screen: C-SSRS Screening [place] Suicide Severity Rating Scale (C-SSRS) screener 1. Over the past month, have you wished you wer e or wished you could go to sleep and not wake up? No 2. Over the past month, have you had any actual thoughts of killing yourself? No 3. Over the past month, have you been thinking about how you might do this? Response not required due to responses to other questions. 4. Over the past month, have you had these thou ghts and had some intention of acting on them? Response not required due to responses to other questions. 5. Over the past month, have you started to wor k out or worked out the details of how to kill yourself? Response not required due to responses to other questions. 6. If yes, at any time in the past month did yo u intend to carry out this plan? Response not required due to responses to other questions. 7. In your lifetime, have you ever done anythin g, started to do anything, or prepared to do anything to end you r life (for example, collected pills, obtained a gun, gave away valu vielka, went to the roof but didn't jump)? No 8. If YES, was this within the past 3 months? Response not required due to responses to other questions. Pneumococcal PPSV23 (Pneumovax): The patient declines to receive the recommended dose of pneumococcal polysaccharide vaccine PPSV23 (Pneumovax). Tdap Immunization: The patient declines to receive the recommended dose of Tetanus, Diphtheria, Pertussis vaccine (Tdap). COVID-19 Immunization: Pfizer COVID-19 Vaccine given previously Patient received a prior dose of the Pfizer COV ID-19 Vaccine. Date: May 31, 2021 Series: Series 3 Location: [facility] Annual Screening: Fall History Screen During the past 12 months, have you had any fal ls? Patient does not report any falls in the past 1 2 months. MEDICATIONS: Patient is on one of the following medication c lasses: Antihypertensives, Antidepressants, Antipsychot ics, Diuretics, or Controlled substance medication used for pain. FALL RISK ADVICE: Fall Risk Advice provided. Handout entitled Fa ll Prevention At Home reviewed and given to patient and/or janellean reece other. Script Talk Screen Are you able to read your prescription bottles with your glasses, magnifiers or other aids? Yes or patient not taking any prescriptions. Skin Screen Patient reports any current pressure ulcers, a history of pressure ulcers, or a wound from a senior medical transcriptionist or Patient is bed-confined or a wheelchair-user or Patient requires assistance to transfer/change position No, Skin Screen is Negative Home Abuse/Violence Screen Is your home free of abuse and violence? Yes Outpatient Nutrition Screen Body Mass Index (BMI)= 34.0 [place]: Collection DT Specimen Test Name Result Units R ef Range 08/06/2020 11:00 BLOOD HEMOGLOBIN A1C 5.5 % 4.0 - 6.0 [place] Hgb A1C: No data available [place] Hgb A1C: No data available Point of Care Hgb A1C: POC HGB A1C____ [employer] brochure given to Veter an and discussed. The counseling includes discussion of the health ef fects of being overweight/obese, description of the [facility] Nicki ht Management treatment program and contact number for [facility] ag[facility] Program. No Is patient's BMI less than 18.5? No Does patient have swallowing, coughing, or chew ing problems affecting oral intake? No Has patient experienced unplanned weight loss o r gain greater than 10 pounds over the last 2 months? No Is patient's Hgb A1C (Glycosylated Hemoglobin) greater than 9.5? No Is patient receiving Total Parenteral Nutrition (TPN) or Tube Feedings? No Patient Health Education Screen BARRIERS/SPECIAL NEEDS: Visual limitations PREFERRED STYLE OF LEARNING: Listening Client Assistive Service (YOU) Screen Does the patient require assistance with outpat ient visit? No /kaylene/ EFREN MARADIAGA LPN Signed: 08/19/2021 10:40 08/19/2021 ADDENDUM STATUS: COMPLETED EDUCATION: PARTICIPANT(s): Patient Hemoccult card provided Printed instructions provided and patient/famil y able to repeat these instructions accurately. Tdap Immunization: The patient received Tetanus/Diphtheria/Pertuss is (Tdap) 0.5ml IM today in Left Deltoid. Ship Self [employer] System Mk1 Operator: Make Meaning Lot # and Expiration Date: [id number], 03/10/22 Administered by protocol/policy Complications: None The Tetanus, Diphtheria/Pertussis Vaccine (Tdap ) Immunization Sheet (VIS) was given to the patient today. VIS version date Feb. /kaylene/ MARICRUZ RIVERO LPN LICENSED PRACTICAL NURSE Signed: 08/19/2021 12:24 Aug 17, 2021 02:51 PM INTERNAL MEDICINE NOTE: XIOMARA MCFARLANE [facility] LOCAL TITLE: MEDICINE CLINIC NOTE STANDARD TITLE: INTERNAL MEDICINE NOTE DATE OF NOTE: AUG 17, 2021@14:51 ENTRY DATE: AUG 17, 2021@14:51:11 AUTHOR: XIOMARA MCFARLANE EXP COSIGNER: URGENCY: STATUS: COMPLETED SUBJECT: CHART REVIEW/PRECHARTING GENERAL INTERNAL MEDICINE CLINIC PROGRESS NOTE KRISSY IRWIN is a 46 year old FEMALE wit the following CHIEF COMPLAINT: establish care with a new physi pablo THIS AN ESTABLISHED PATIENT IN THE PRIMARY CARE CLINIC HPI: Krissy has a medical history notable for 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 HCM: Due for COVID #3, flu, Tdap or Td? BMI 33 LDL 69, also normal CMP [...] 2018 FAMILY HISTORY Mother: goiter Father: HLD, HTNDied at 48 from [place]. 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 Ear canals patent w/o significant cerumen, TM's normal,nasal passages clear w/norm al appearing turbinates, oral mucosa moist,pharynx without erythema or exudate Neck: Full active ROM, no ce rvical lymphadenopathy,thyroid smooth, symmetric, no nodules Lungs: Clear to auscultation throughout Cardiac: Regular rate and rh ythm, no murmurs, rubs or gallops,no carotid bruits JVP: normal/not elevated Abdomen: Not distended, normal bowel neida nds, soft, non tender,no hepatospegaly or masses, no CVA tenderness or masses Extremities: No peripheral edema, DP/PT pulses 2 +, no cyanosis Skin: No rashes or suspicious lesions on exposed surfaces MSK: No joint deformities noted on hands, no kyp hosis Neuro: CN's 2-12 intact, able to get on/off exam table without assistance. Strength grossly intact. TEST RESULTS: see HPI Patient was informed of available lab, imaging, and other study results associated with today's visit. ASSESSMENT AND PLAN: Patient/Surrogate indicates readiness to learn, verbalizes understanding,agreement and satisfaction with e treatment plan. Time spent today, including reviewing prior note s, prior test results, and separately obtained history, performining a medi steve appropriate exam and/or evaluation, conselling a nd education of patient/surrogate, documentation of clinical inf ormation in the EHR, independently interpreting results, comm unicating results to patient/surrogate and care coordination: Precharting: Encounter: Post Encounter: Total Time: Xiomara Mcfarlane MD General Internal Medicine Primary Care [facility]IRA 4F /es/ Xiomara Mcfarlane MD Physician Signed: 08/17/2021 15:32
--- OUTSIDE RECORDS SUMMARY | 2022-03-27 17:36 | XMS_ITS | Encounter Summary ---
:1975 Author Organization Department [facility] Address [address] [place] [address] Support Name Relationship Address Phone JERRI IRWIN Unavailable FABRIZIO VANCE [phone] [place] [id number] JERRI IRWIN Unavailable FABRIZIO [employer] [phone] [place] [address] Selected Encounter This section includes the information on record at [place] for the Encounter. Date/Time Encounter Type Encounter Description Reason Provider Source Oct 10, 2021 02:00 Outpatient Encounter TELEPHONE PRIMARY CARE IHE Encounter Template Text not used by [place] Plan of Treatment: Future Appointments (+ 6 months) and Future Tests (+/- 45 days) The Plan of Treatment section includes future care activities for the patient from all [place] treatmentfacilities. This section includes future appointments and future orders which are active, pending orscheduled.Future Appointments This section includes appointments that were scheduled to occur 6 months from the date of the Encounter, up to a maximum of 20 appointments. The data comes from all [place] treatment facilities. Appointment Date/Time Appointment Type Appointment Facili ty Name Oct 11, 2021 04:00 PM AMBULATORY - MEDICINE [facility] Oct 14, 2021 09:00 AM AMBULATORY - MEDICINE [facility] Oct 14, 2021 11:00 AM AMBULATORY - MEDICINE [facility] Oct 24, 2021 09:30 AM AMBULATORY - MEDICINE [facility] Oct 24, 2021 10:45 AM AMBULATORY - NONE [facility] Oct 27, 2021 08:20 AM AMBULATORY - NONE [facility] Oct 28, 2021 06:00 PM AMBULATORY - REHAB MEDICINE [facility] Oct 31, 2021 09:00 AM AMBULATORY - MEDICINE [facility] Nov 09, 2021 03:30 PM AMBULATORY - NONE [facility] November 21, 2021 10:30 AM AMBULATORY - MEDICINE [facility] November 28, 2021 10:00 AM AMBULATORY - MEDICINE [facility] December 13, 2021 03:30 PM AMBULATORY - NONE [facility] December 13, 2021 05:00 PM AMBULATORY - REHAB MEDICINE [facility] Dec 23, 2021 09:30 AM AMBULATORY - NONE [facility] Dec 29, 2021 03:00 PM AMBULATORY - MEDICINE [facility] Feb 03, 2022 09:00 AM AMBULATORY - MEDICINE [facility] Feb 07, 2022 12:30 PM AMBULATORY - NONE [facility] Feb 07, 2022 03:30 PM AMBULATORY - NONE [facility] Mar 07, 2022 03:00 PM AMBULATORY - MEDICINE [facility] Mar 22, 2022 05:00 PM AMBULATORY - REHAB MEDICINE [facility] Lab Results: +/- 30 days [...] Reference Range Comment Oct 24, 2021 10:35 [facility] BASIC METABOLIC Specimen Type: PLASMA AM PANEL+MG No comment enter ed. Ordering Provid er: SWATHI MCFARLANE Report Released Date/Time: Oct 24, 2021 10:10 AM Reporting Lab: [facility] [address] [facility] [address] Performing Lab: [facility] [address] CREATININE 0.8 0.5-1.0 UREA NITROGEN 14 7-20 GLUCOSE 97 74-100 SODIUM 136 136-145 POTASSIUM 4.3 3.5-5.1 CHLORIDE 105 98-107 CO2 25 22-29 CALCIUM 8.9 8.4-10.2 MAGNESIUM 2.0 1.6-2.6 ANION GAP 6 5-15 CREAT EGFR(CKD-EPI) >90 >60 Oct 24, 2021 10:35 AM [facility] CBC Specim en Type: BLOOD No comment enter ed. Ordering Provid er: SWATHI MCFARLANE Report Released Date/Time: Oct 24, 2021 10:10 AM Reporting Lab: [facility] [address] [facility] [address] Performing Lab: [facility] [address] [address] WBC 7.66 4.0-11.0 RBC 4.45 4.0-5.4 HGB 13.5 11.5-16 HCT 40.9 34.5-48 MCV 91.9 80-100 MCH 30.3 27-33 MCHC 33.0 32.0-37.5 PLT 280 150-400 MPV 9.8 7.4-10.4 RDW 14.6 H 11.5-14.5 Oct 24, 2021 10:35 [facility] TSH W/REFLEX TO FREE Spec imen Type: PLASMA AM T4 No comment enter ed. Ordering Provid er: SWATHI MCFARLANE Report Released Date/Time: Oct 24, 2021 10:10 AM Reporting Lab: [facility] [address] Performing Lab: [facility] [address] TSH 4.12 0.35-4.94 Oct 24, 2021 10:35 AM [facility] MAGNESIUM Specim en Type: PLASMA No comment enter ed. Ordering Provid er: SWATHI MCFARLANE Report Released Date/Time: Oct 24, 2021 10:10 AM Reporting Lab: [facility] [address] Performing Lab: [facility] [address] MAGNESIUM 2.0 1.6-2.6 Social History: Smoking Status (Most current) and Tobacco Use (All prior to encounter date) This section includes the most current, and the historical, smoking and tobacco-related health factors from the [place] facility where the Encounter took place.Current Smoking Status This section includes the most current smoking, or tobacco-related health factor, from the [place] facility where the Encounter took place. Date/Time Current Smoking Status Comment Facility Aug 19, 2021 10:30 AM [place]-TOBACCO FORMER USER [place] [facility] [facility] Tobacco Use History This section includes a history of the smoking, or tobacco- related health factors, that were collected on or before the date of the Encounter. The data comes from the [place] facility where the Encounter took place. Date/Time Smoking Status/Tobacco Use Comment [facility] khalida Aug 19, 2021 10:30 AM [place]-TOBACCO QUIT 1 TO < 5 YRS [facility] Apr 15, 2021 01:00 PM LIFETIME NON-SMOKER [facility] [facility] Aug 06, 2020 09:00 AM [place]-TOBACCO FORMER USER PAULINA SILVERIO [facility] Aug 06, 2020 09:00 AM [place]-TOBACCO QUIT 15 YRS OR MORE [facility] Radiology Reports: +/- 30 days of [...] the Encounter. The data comes from all [place] treatment facilities. Date/Time Radiology Report Provider Source Oct 24, 2021 10:49 AM CHEST 2 VIEWS PA AND LAT: TONY KERNS [facility] KRISSY IRWIN [id number] -[birth year]B [birth year] 7 F Exm Date: OCT 24, 2021@10:49 Req Phys: SWATHI MCFARLANE Pat Loc: [facility] PACT MELISSA N 4F (Req'g Loc) Img Loc: MAIN X-RAY Service: Unknown Screen: Patient answered no (Case [id number] COMPLETE) CHEST 2 VIEWS PA AND LAT (RA D Detailed) CPT:40645 Reason for Study: shortness of breath Clinical History: IS NOT under investigation for COVID-19 or is COVID-19 negative shortness of breath Responsible provider name a nd phone number to notify for critical findings if other than u ser placing the order and pager listed below: User placing orde rs pager: [phone] LAST CREATININE____ Report Status: Verified Date Reported: OCT 24, 2021 Date Verified: OCT 24, 2021 Ep Specialist E-Sig:/ES/TONY KERNS MD Report: EXAMINATION: CHEST 2 VIEWS PA AND LAT 10/24/2021 10:49 AM INDICATION: shortness of breath Impression: Negative chest. No pulmonary infiltrate or pleu ral effusion. Heart size and pulmonary vascularity within nor mal limits. No comparison chest x-ray. Primary Interpreting Staff: TONY KERNS MD, RADIOLOGIST (Ep Specialist) /RTS Encounter Notes: All associated encounter notes This section contains the clinical notes associated to the Encounter. Date/Time Encounter Note(s) Provider Source Oct 10, 2021 02:00 PM REPORT OF CONTACT: KRISTY GALE [facility] LOCAL TITLE: APPOINTMENT SCHEDULING NOTE STANDARD TITLE: REPORT OF CONTACT DATE OF NOTE: OCT 10, 2021@14:00 ENTRY DATE: OCT 10, 2021@14:00:08 AUTHOR: KRISTY GALE EXP COSIGNER: URGENCY: STATUS: COMPLETED Attempt to schedule return to clinic 1st Contact: Called at: m sd Left message Voicemail Phone number left for to call back: 2nd Contact: Sent letter by regular [place] mail [place] [address] [address] [place], [place] [address] Additional information/contact attempts: [facility] Request: I was asked to schedule a visit to discuss the referral I need. Telephone is fine. If [place] calls back, schedule appointment for : has appointment with PCP on 10/24, if ve carl would like to discuss referral sooner than that please schedule phone appointment as well Is the RTC marked as no later than? No /es/ KRISTY GALE ADVANCED MSA Signed: 10/10/2021 14:01
--- OUTSIDE RECORDS SUMMARY | 2022-03-27 17:36 | XMS_ITS | Encounter Summary ---
:1975 Author Organization Department [facility] Address [address] [place] [address] Support Name Relationship Address Phone JERRI IRWIN Unavailable FABRIZIO VANCE [place] [address] JERRI IRWIN Unavailable FABRIZIO VANCE [phone] [place], [place] Selected Encounter This section includes the information on record at [place] for the Encounter. Date/Time Encounter Type Encounter Reason Provider Source Description Oct 24, 2021 09:22 Outpatient PRIMARY SWATHI MCFARLANE AM Encounter CARE/MEDICINE IHE Encounter Template Text not used by [place] Plan of Treatment: Future Appointments (+ 6 months) and Future Tests (+/- 45 days) The Plan of Treatment section includes future care activities for the patient from all [place] treatmentfacilities. This section includes future appointments and future orders which are active, pending orscheduled.Future Appointments This section includes appointments that were scheduled to occur 6 months from the date of the Encounter, up to a maximum of 20 appointments. The data comes from all [place] treatment facilities. Appointment Date/Time Appointment Type Appointment Facili ty Name Oct 27, 2021 08:20 AM AMBULATORY - NONE [facility] Oct 28, 2021 06:00 PM AMBULATORY - REHAB MEDICINE [facility] Oct 31, 2021 09:00 AM AMBULATORY - MEDICINE [facility] Nov 09, 2021 03:30 PM AMBULATORY - NONE [facility] November 21, 2021 10:30 AM AMBULATORY - MEDICINE [facility] November 28, 2021 10:00 AM AMBULATORY - MEDICINE [facility] December 13, 2021 03:30 PM AMBULATORY - NONE [facility] December 13, 2021 05:00 PM AMBULATORY - REHAB MEDICINE [facility] Dec 23, 2021 09:30 AM AMBULATORY - NONE [facility] Dec 29, 2021 03:00 PM AMBULATORY - MEDICINE [facility] Feb 03, 2022 09:00 AM AMBULATORY - MEDICINE [facility] Feb 07, 2022 12:30 PM AMBULATORY - NONE [facility] Feb 07, 2022 03:30 PM AMBULATORY - NONE [facility] Mar 07, 2022 03:00 PM AMBULATORY - MEDICINE [facility] Mar 22, 2022 05:00 PM AMBULATORY - REHAB MEDICINE [facility] Apr 12, 2022 03:00 PM AMBULATORY - MEDICINE [facility] Apr 18, 2022 12:30 PM AMBULATORY - MEDICINE [facility] Lab Results: +/- 30 days of the encounter This section includes the Chemistry and Hematology Lab Results on record with [place] for the patient. Radiology Reports and Pathology Reports are provided separately, in subsequent sections.Lab Results This section contains the Chemistry/Hematology Results that were resulted 30 days before or 30 daysafter the date of the Encounter. Date/Time Source Result Type Result - Unit Interpretation Reference Range Comment Oct 24, 2021 10:35 [facility] BASIC METABOLIC Specimen Type: PLASMA AM PANEL+MG No comment enter ed. Ordering Provid er: SWATHI MCFARLANE Report Released Date/Time: Oct 24, 2021 10:10 AM Reporting Lab: [facility] [address] Performing Lab: [facility] [address] CREATININE 0.8 0.5-1.0 UREA NITROGEN 14 7-20 GLUCOSE 97 74-100 SODIUM 136 136-145 POTASSIUM 4.3 3.5-5.1 CHLORIDE 105 98-107 CO2 25 22-29 CALCIUM 8.9 8.4-10.2 MAGNESIUM 2.0 1.6-2.6 ANION GAP 6 5-15 CREAT EGFR(CKD-EPI) >90 >60 Oct 24, 2021 10:35 AM [facility] CBC Specim en Type: BLOOD No comment enter ed. Ordering Provid er: WSATHI MCFARLANE Report Released Date/Time: Oct 24, 2021 10:10 AM Reporting Lab: [facility] [address] [facility] [address] Performing Lab: [facility] [address] WBC 7.66 4.0-11.0 RBC 4.45 4.0-5.4 HGB 13.5 11.5-16 HCT 40.9 34.5-48 MCV 91.9 80-100 MCH 30.3 27-33 MCHC 33.0 32.0-37.5 PLT 280 150-400 MPV 9.8 7.4-10.4 RDW 14.6 H 11.5-14.5 Oct 24, 2021 10:35 [facility] TSH W/REFLEX TO FREE Spec imen Type: PLASMA AM T4 No comment enter ed. Ordering Provid er: SWATHI MCFARLANE Report Released Date/Time: Oct 24, 2021 10:10 AM Reporting Lab: [facility] [address] [facility] [address] Performing Lab: [facility] [address] [facility] [address] TSH 4.12 0.35-4.94 Oct 24, 2021 10:35 AM [facility] MAGNESIUM Specim en Type: PLASMA No comment enter ed. Ordering Provid er: SWATHI MCFARLANE Report Released Date/Time: Oct 24, 2021 10:10 AM Reporting Lab: [facility] [address] [facility] [address] Performing Lab: [facility] [address] [facility] [address] MAGNESIUM 2.0 1.6-2.6 Vital Signs: All taken on the encounter date This section contains inpatient and outpatient Vital Signs collected on the date of the Encounter. Date/Time Temperature Pulse Blood Respiratory SP02 Pain Height Weight Blayne dy Source Pressure Rate Mass Index Oct 24 F 82 117/79 18 /min 99 % 7 65 in 204.2 34 [place] 2021 09:25 /min mm[Hg] lb [facility] Social History: Smoking Status (Most current) and Tobacco Use (All prior to encounter date) This section includes the most current, and the historical, smoking and tobacco-related health factors from the [facility] where the Encounter took place.Current Smoking Status This section includes the most current smoking, or tobacco-related health factor, from the [place] facility where the Encounter took place. Date/Time Current Smoking Status Comment Facility Aug 19, 2021 10:30 AM [place]-TOBACCO QUIT 1 TO < 5 YRS [facility] Tobacco Use History This section includes a history of the smoking, or tobacco- related health factors, that were collected on or before the date of the Encounter. The data comes from the [place] facility where the Encounter took place. Date/Time Smoking Status/Tobacco Use Comment Mona richardson Aug 19, 2021 10:30 AM [place]-TOBACCO QUIT 1 TO < 5 YRS [facility] Apr 15, 2021 01:00 PM LIFETIME NON-SMOKER NAVIN [facility] Aug 06, 2020 09:00 AM VA-TOBACCO FORMER USER PAULINA SILVERIO [facility] Aug 06, 2020 09:00 AM VA-TOBACCO QUIT 15 YRS OR MORE [facility] Radiology Reports: +/- 30 days of [...] the Encounter. The data comes from all [place] treatment facilities. Date/Time Radiology Report Provider Source Oct 24, 2021 10:49 AM CHEST 2 VIEWS PA AND LAT: TONY KERNS [facility] KRISSY IRWIN [id number] -[birth year]B [birth year] 6 F Exm Date: OCT 24, 2021@10:49 Req Phys: SWATHI MCFARLANE Pat Loc: [facility] PACT MELISSA N 4F (Req'g Loc) Img Loc: MAIN X-RAY Service: Unknown Screen: Patient answered no (Case [id number] COMPLETE) CHEST 2 VIEWS PA AND LAT (RA D Detailed) CPT:23499 Reason for Study: shortness of breath Clinical History: [place] IS NOT under investigation for COVID-19 or is COVID-19 negative shortness of breath Responsible provider name a nd phone number to notify for critical findings if other than u ser placing the order and pager listed below: User placing orde rs pager: [phone] LAST CREATININE____ Report Status: Verified Date Reported: OCT 24, 2021 Date Verified: OCT 24, 2021 Environmental Analyst E-Sig:/ES/TONY KERNS MD Report: EXAMINATION: CHEST 2 VIEWS PA AND LAT 10/24/2021 10:49 AM INDICATION: shortness of breath Impression: Negative chest. No pulmonary infiltrate or pleu ral effusion. Heart size and pulmonary vascularity within nor mal limits. No comparison chest x-ray. Primary Interpreting Staff: TONY KERNS MD, RADIOLOGIST (Environmental Analyst) /RTS Encounter Notes: All associated encounter notes This section contains the clinical notes associated to the Encounter. Date/Time Encounter Note(s) Provider Source Oct 24, 2021 09:22 AM [facility]: AD NOTIFICATION AND SCREENING STANDARD TITLE: ADVANCE DIRECTIVE DATE OF NOTE: OCT 24, 2021@09:22 ENTRY DATE: OCT 24, 2021@09:22:29 AUTHOR: JAVAD AMANDA EXP COSIGNER: URGENCY: STATUS: COMPLETED ADVANCE DIRECTIVE NOTIFICATION: Patient was given written notification of the f [facility] rights: 1. Accept or refuse any medical treatment. 2. Complete a durable power of concrete pointer for [facility] care. 3. Complete a living will. ADVANCE DIRECTIVE SCREENING: Does patient have an Advance Directive? The patient does not have an Advance Directive. The patient does not wish to create an Advance Directive for health care. Comment: REFUSED /es/ JAVAD AMANDA Advance Data Mining Analyst Signed: 10/24/2021 09:22
--- OUTSIDE RECORDS SUMMARY | 2022-03-27 17:36 | XMS_ITS | Encounter Summary ---
:1975 Author Organization Department of [facility] rs Address [address] [place] [id number] Support Name Relationship Address Phone JERRI IRWIN Unavailable FABRIZIO VANCE [place] [address] JERRI IRWIN Unavailable FABRIZIO VANCE [phone] [place], [place] Selected Encounter This section includes the information on record at [place] for the Encounter. Date/Time Encounter Type Encounter Reason Provider Source Description Sep 21, 2021 PSYTX W PT 45 PM&RS PHYSICIAN ICD-10-CM F33.9 [facility] POWER SE 03:00 PM MINUTES Major depressive disorder, recurrent, unspecified with Provider Comments: Depression ([facility] [id number]) IHE Encounter Template Text not used by [place] Assessments - Encounter Diagnoses This section includes the primary and secondary diagnoses documented for the Encounter. Date/Time Primary/Secondary Diagnosis Name Provider Source Diagnosis Sep 24, 2021 PRIMARY Major depressive [facility] 07:56 PM disorder, HCS recurrent, unspecified Sep 24, 2021 SECONDARY Cerebral JEREMY POWER V A 07:56 PM infarction, HCS unspecified Plan of Treatment: Future Appointments (+ 6 months) and Future Tests (+/- 45 days) The Plan of Treatment section includes future care activities for the patient from all [place] treatmentfacilities. This section includes future appointments and future orders which are active, pending orscheduled.Future Appointments This section includes appointments that were scheduled to occur 6 months from the date of the Encounter, up to a maximum of 20 appointments. The data comes from all [place] treatment facilities. Appointment Date/Time Appointment Type Appointment Facili ty Name Oct 11, 2021 04:00 PM AMBULATORY - MEDICINE [facility] Oct 14, 2021 09:00 AM AMBULATORY - MEDICINE [facility] Oct 14, 2021 11:00 AM AMBULATORY - MEDICINE [facility] Oct 24, 2021 09:30 AM AMBULATORY - MEDICINE [facility] Oct 24, 2021 10:45 AM AMBULATORY - NONE [facility] Oct 27, 2021 08:20 AM AMBULATORY - NONE [facility] Oct 28, 2021 06:00 PM AMBULATORY - REHAB MEDICINE [facility] Oct 31, 2021 09:00 AM AMBULATORY - MEDICINE [facility] Nov 09, 2021 03:30 PM AMBULATORY - NONE [facility] November 21, 2021 10:30 AM AMBULATORY - MEDICINE [facility] November 28, 2021 10:00 AM AMBULATORY - MEDICINE [facility] December 13, 2021 03:30 PM AMBULATORY - NONE [facility] December 13, 2021 05:00 PM AMBULATORY - REHAB [facility] Dec 23, 2021 09:30 AM AMBULATORY - NONE [facility] Dec 29, 2021 03:00 PM AMBULATORY - MEDICINE [facility] Feb 03, 2022 09:00 AM AMBULATORY - MEDICINE [facility] Feb 07, 2022 12:30 PM AMBULATORY - NONE [facility] Feb 07, 2022 03:30 PM AMBULATORY - NONE [facility] Mar 07, 2022 03:00 PM AMBULATORY - MEDICINE [facility] Mar 22, 2022 05:00 PM AMBULATORY - REHAB MEDICINE [facility] Lab Results: +/- 30 days [...] Reference Range Comment Aug 26, 2021 02:41 [facility] OCCULT BLOOD FIT X1 Speci men Type: FECES PM SCREEN No comment enter ed. Ordering Provid er: SWATHI MCFARLANE Report Released Date/Time: Aug 19, 2021 11:39 AM Reporting Lab: [facility] [id number] Performing Lab: [facility] [id number] OCCULT BLOOD (FIT) #1 OF 1 Negative Neg ative Social History: Smoking Status (Most current) and Tobacco Use (All prior to encounter date) This section includes the most current, and the historical, smoking and tobacco-related health factors from the [facility] where the Encounter took place.Current Smoking Status This section includes the most current smoking, or tobacco-related health factor, from the [facility] where the Encounter took place. Date/Time Current Smoking Status Comment Facility Aug 19, 2021 10:30 AM [place]-TOBACCO FORMER USER [facility] Tobacco Use History This section includes a history of the smoking, or tobacco- related health factors, that were collected on or before the date of the Encounter. The data comes from the [facility] where the Encounter took place. Date/Time Smoking Status/Tobacco Use Comment [facility] Aug 19, 2021 10:30 AM [place]-TOBAC[place] QUIT 1 TO < 5 YRS [facility] Apr 15, 2021 01:00 PM LIFETIME NON-SMOKER [facility] Aug 06, 2020 09:00 AM VA-TOBACCO FORMER USER [facility] Aug 06, 2020 09:00 AM [place]-TOBACCO QUIT 15 YRS OR MORE [facility] Encounter Notes: All associated encounter notes This section contains the clinical notes associated to the Encounter. Date/Time Encounter Note(s) Provider Source Sep 21, 2021 03:00 PM PHYSICAL MEDICINE REHAB NOTE: JEREMY POWER [facility] LOCAL TITLE: REHAB PSYCHOLOGY PROGRESS NOTE STANDARD TITLE: PHYSICAL MEDICINE REHAB NOTE DATE OF NOTE: SEP 21, 2021@15:00 ENTRY DATE: SEP 24, 2021@19:27:35 AUTHOR: JEREMY POWER EXP COSIGNER: URGENCY: STATUS: COMPLETED Jadwin seen 55 min indiv psychotherapy via VVC. C: has provided informed consent for video A: [id number], [place] [address] P: [phone] S: at home in private room; no one else in [facility] Reports that her mood is a l ittle better, but she doesn't feel right physically on the medication. Feels pulsing in her head and stomach. Feels a sense of pressure. This concerns her given her stroke hx. Directed her to contact the pharmacist who prescribed and she will send secu re message. She reflected how her mood was better when she first went on Lexapro; things didn't bother her as much. Now doesn't feel like herself on the meds physically. She is feeling more agitated and irritated; can't let things go. Sta sergio leg is bouncing now and frequently. She would also like to reduce amount of medications. Discussed CI. She tried mindfulness and feels she can't do it. Feels too restless. Discussed adding m ovement (i.e. mindful yoga). She notes that she does yoga regularly at home in addition to wo rking out at gym. She also notes daily pain--headache and neck pain . Discussed potential referral to pain program. She is interested in doing dry n eedling in the community. She has but needs referral. Discussed acupuncture through [facility] or pain program. She has considerable work stress. Processed issues relat ed to this. Objective: ready for video call. Good eye contac t. Mood has been stressed, somewhat irritable. Affect i s broad and congruent. Thought process is linear and goal-directed. Content is wi thout delusions and hallucinations. Future oriented. Educ: appeared open to learning and expressed un derstanding of educ provided. Risk Assessment Risk Factors: depression, status, Protective Factors: expressly denies current SI, plan and intent, positive social support, responsibility to children/famil y, engaged in mental health care, help seeking, intact r eality testing, presence of positive coping skills, Future oriented Acute risk: low Chronic risk: low A: MDD unspecified; hx cva P: rtc 4 weeks; she is aware she can call sooner as needed. /kaylene/ Jeremy Power, PhD, LP Psychologist Signed: 09/24/2021 19:56
--- OUTSIDE RECORDS SUMMARY | 2022-03-27 17:36 | XMS_ITS | Encounter Summary ---
:1975 Author Organization [facility] rs Address [address] [place] [address] Support Name Relationship Address Phone JERRI IRWIN Unavailable FABRIZIO VANCE [phone] [place] [address] JERRI IRWIN Unavailable FABRIZIO VANCE [phone] [place], [place] Selected Encounter This section includes the information on record at [place] for the Encounter. Date/Time Encounter Type Encounter Reason Provider Source Description Aug 30, 2021 PSYTX W PT 45 PM&RS PHYSICIAN ICD-10-CM F33.9 [facility] P[facility] SE 03:00 PM MINUTES Major depressive disorder, recurrent, unspecified with Provider Comments: Depression ([facility] [id number]) IHE Encounter Template Text not used by [place] Assessments - Encounter Diagnoses This section includes the primary and secondary diagnoses documented for the Encounter. Date/Time Primary/Secondary Diagnosis Name Provider Source Diagnosis Sep 02, 2021 PRIMARY Major depressive JEREMY POWER [facility] [place] 11:03 PM disorder, HCS recurrent, unspecified Sep 02, 2021 SECONDARY Cerebral JEREMY POWER V A 11:03 PM infarction, HCS unspecified Plan of Treatment: Future Appointments (+ 6 months) and Future Tests (+/- 45 days) The Plan of Treatment section includes future care activities for the patient from all [place] treatmentfacilities. This section includes future appointments and future orders which are active, pending orscheduled.Future Appointments This section includes appointments that were scheduled to occur 6 months from the date of the Encounter, up to a maximum of 20 appointments. The data comes from all [place] treatment facilities. Appointment Date/Time Appointment Type Appointment Facili ty Name Sep 14, 2021 03:00 PM AMBULATORY - NONE [facility] Sep 21, 2021 03:00 PM AMBULATORY - MEDICINE [facility] Oct 11, 2021 04:00 PM AMBULATORY - MEDICINE [facility] Oct 14, 2021 09:00 AM AMBULATORY - MEDICINE [facility] Oct 14, 2021 11:00 AM AMBULATORY - MEDICINE [facility] Oct 24, 2021 09:30 AM AMBULATORY - MEDICINE [facility] Oct 24, 2021 10:45 AM AMBULATORY - NONE [facility] Oct 27, 2021 08:20 AM AMBULATORY - NONE [facility] Oct 28, 2021 06:00 PM AMBULATORY - REHAB [facility]IC[facility] Oct 31, 2021 09:00 AM AMBULATORY - MEDICINE [facility] Nov 09, 2021 03:30 PM AMBULATORY - NONE [facility] November 21, 2021 10:30 AM AMBULATORY - MEDICINE [facility] November 28, 2021 10:00 AM AMBULATORY - MEDICINE [facility] December 13, 2021 03:30 PM AMBULATORY - NONE [facility] December 13, 2021 05:00 PM AMBULATORY - REHAB [facility] Dec 23, 2021 09:30 AM AMBULATORY - NONE [facility] Dec 29, 2021 03:00 PM AMBULATORY - MEDICINE [facility] Feb 03, 2022 09:00 AM AMBULATORY - MEDICINE [facility] Feb 07, 2022 12:30 PM AMBULATORY - NONE [facility] Feb 07, 2022 03:30 PM AMBULATORY - NONE [facility] Lab Results: +/- 30 days of the encounter This section includes the Chemistry and Hematology Lab Results on record with CT for the patient. Radiology Reports and Pathology Reports are provided separately, in subsequent sections.Lab Results This section contains the Chemistry/Hematology Results that were resulted 30 days before or 30 daysafter the date of the Encounter. Date/Time Source Result Type Result - Unit Interpretation Reference Range Comment Aug 26, 2021 02:41 [facility] OCCULT BLOOD FIT X1 Speci men Type: FECES PM SCREEN No comment enter ed. Ordering Provid er: SWATHI MCFARLANE Report Released Date/Time: Aug 19, 2021 11:39 AM Reporting Lab: [facility] [address] [facility] [id number] Performing Lab: [facility] [address] [facility] [id number] OCCULT BLOOD (FIT) #1 OF 1 Negative Neg ative Aug 19, 2021 12:26 [facility] TSH W/REFLEX TO FREE Spec imen Type: PLASMA PM T4 No comment enter ed. Ordering Provid er: SWATHI MCFARLANE Report Released Date/Time: Aug 19, 2021 11:39 AM Reporting Lab: [facility] [address] [facility] [id number] Performing Lab: [facility] [address] [facility] [id number] TSH 2.97 0.35-4.94 Social History: Smoking Status (Most current) and Tobacco Use (All prior to encounter date) This section includes the most current, and the historical, smoking and tobacco-related health factors from the [facility] where the Encounter took place.Current Smoking Status This section includes the most current smoking, or tobacco-related health factor, from the [facility] where the Encounter took place. Date/Time Current Smoking Status Comment Facility Aug 19, 2021 10:[address]-TOBACCO FORMER USER [facility] Tobacco Use History This section includes a history of the smoking, or tobacco- related health factors, that were collected on or before the date of the Encounter. The data comes from the [facility] where the Encounter took place. Date/Time Smoking Status/Tobacco Use Comment [facility] Aug 19, 2021 10:[address]-TOBACCO QUIT 1 TO < 5 YRS [facility] Apr 15, 2021 01:00 PM LIFETIME NON-SMOKER [facility] Aug 06, 2020 09:00 AM VA-TOBACCO FORMER USER [facility] Aug 06, 2020 09:00 AM VA-TOBACCO QUIT 15 YRS OR MORE [facility] Radiology Reports: +/- 30 days of [...] the Encounter. The data comes from all [place] treatment facilities. Date/Time Radiology Report Provider Source Aug 19, 2021 12:07 PM FOOT LEFT 3 VIEWS OR MORE: RAYRAY LAWRENCE [facility] KRISSY IRWIN [id number] -[birth year] F Exm Date: AUG 19, 2021@12:07 Req Phys: SWATHI MCFARLANE Pat Loc: [facility] PACT MELISSA N 4F (Req'g Loc) Img Loc: MAIN X-RAY Service: Unknown Screen: Patient answered no (Case [id number] COMPLETE) FOOT LEFT 3 VIEWS OR MORE ( RAD Detailed) CPT:18282 Proc Modifiers : LEFT Reason for Study: bony lump, left fifth metaras al, painful Clinical History: [place] IS NOT under investigation for COVID-19 or is COVID-19 negative bony lump, left fifth metarasal, painful Respon sible provider name and phone number to notify for critical fi ndings if other than user placing the order and pager listed be low: User placing orders pager: [phone] LAST CREATININE____ Report Status: Verified Date Reported: AUG 19, 2021 Date Verified: AUG 19, 2021 Ichthyologist E-Sig:/ES/RAYRAY LAWRENCE MD Report: 3 views left [...] Primary Interpreting Staff: RAYRAY LAWRENCE MD, RADIOLOGIST (Ichthyologist) /[facility] Encounter Notes: All associated encounter notes This section contains the clinical notes associated to the Encounter. Date/Time Encounter Note(s) Provider Source Aug 30, 2021 03:00 PM PHYSICAL MEDICINE REHAB NOTE: JEREMY POWER [facility] LOCAL TITLE: REHAB PSYCHOLOGY PROGRESS NOTE STANDARD TITLE: PHYSICAL MEDICINE REHAB NOTE DATE OF NOTE: AUG 30, 2021@15:00 ENTRY DATE: SEP 02, 2021@22:40:45 AUTHOR: JEREMY POWER EXP COSIGNER: URGENCY: STATUS: COMPLETED [place] seen 50 min indiv psychotherapy via vvc. C: has provided informed consent for video A: [id number], [place] [address] P: [phone] S: at home in private room; no one else in [facility] express I was late to the appointment and she was patien t and accepting of my delay. 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 One of her biggest stressors is her weight gain. She continues to work out with medical management trainer 2x/week, other indiv exercises, and is eating healthier. Desp ite this she has not been able to lose weight and has instead gained. 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 She notes that the weight gain has negatively impacted her mood. She has felt tense and stressed. Sleep has been good. She is looking forw russ to a spring break trip with family to [facility]. Problem-solved some stra tegies for increased physical activity thought she states it's difficult in the cold we ather. Objective: engaged, good eye contact. We ight gain visibly noticeable. Mood has been stressed and mood impac lamberto by weight gain. Affect is positive, some humor. Thought process linear; content appropriate. Fut ure oriented Risk Assessment Risk Factors: depression, status, Protective Factors: expressly denies current SI, plan and intent, positive social support, responsibility to children/famil y, engaged in mental health care, help seeking, intact r eality testing, presence of positive coping skills, Future oriented Acute risk: low Chronic risk: low A: MDD unspecified; cva P: rtc 4 weeks; she is aware she can call sooner as needed. /kaylene/ Jeremy Power, PhD, Psychologist Signed: 09/02/2021 23:03
--- OUTSIDE RECORDS SUMMARY | 2022-03-27 17:36 | XMS_ITS | Encounter Summary ---
:1975 Author Organization Department [facility] Address [address] [place] [id number] Support Name Relationship Address Phone JERRI IRWIN Unavailable FABRIZIO VANCE [place] [address] JERRI IRWIN Unavailable FABRIZIO VANCE [place], [place] Selected Encounter This section includes the information on record at [place] for the Encounter. Date/Time Encounter Type Encounter Reason Provider Source Description Oct 11, 2021 Outpatient TELEPHONE PRIMARY ICD-10-CM M54.2 DENYSSA 04:00 PM Encounter CARE Cervicalgia with Y H Provider Comments: Cervicalgia IHE Encounter Template Text not used by [place] Assessments - Encounter Diagnoses This section includes the primary and secondary diagnoses documented for the Encounter. Date/Time Primary/Secondary Diagnosis Name Provider Source Diagnosis Oct 11, 2021 PRIMARY Cervicalgia [facility] V A 04:[address] [facility] Oct 11, 2021 SECONDARY Low back pain, [facility] 04:[address] [facility] Oct 11, 2021 SECONDARY Pain in [facility] V A 04:[address] [facility] shoulder Plan of Treatment: Future Appointments (+ 6 [...] 14, 2021 09:00 AM AMBULATORY - MEDICINE [facility] Oct 14, 2021 11:00 AM AMBULATORY - MEDICINE [facility] Oct 24, 2021 09:30 AM AMBULATORY - MEDICINE [facility] Oct 24, 2021 10:45 AM AMBULATORY - NONE [facility] Oct 27, 2021 08:20 AM AMBULATORY - NONE [facility] Oct 28, 2021 06:00 PM AMBULATORY - REHAB MEDICINE [facility] Oct 31, 2021 09:00 AM AMBULATORY - MEDICINE [facility] Nov 09, 2021 03:30 PM AMBULATORY - NONE [facility] November 21, 2021 10:30 AM AMBULATORY - MEDICINE [facility] November 28, 2021 10:00 AM AMBULATORY - MEDICINE [facility] December 13, 2021 03:30 PM AMBULATORY - NONE [facility] December 13, 2021 05:00 PM AMBULATORY - REHAB MEDICINE [facility] Dec 23, 2021 09:30 AM AMBULATORY - NONE [facility] Dec 29, 2021 03:00 PM AMBULATORY - MEDICINE [facility] Feb 03, 2022 09:00 AM [facility]BUL[facility]ORY - MEDICINE [facility] Feb 07, 2022 12:30 PM AMBULATORY - NONE [facility] Feb 07, 2022 03:30 PM AMBULATORY - NONE [facility] Mar 07, 2022 03:00 PM AMBULATORY - MEDICINE [facility] Mar 22, 2022 05:00 PM AMBULATORY - REHAB MEDICINE [facility] Apr 12, 2022 03:00 PM AMBULATORY - MEDICINE [facility] Lab Results: +/- 30 days of the [...] Reference Range Comment Oct 24, 2021 10:35 [facility] BASIC METABOLIC Specimen Type: PLASMA AM PANEL+MG No comment enter ed. Ordering Provid er: XIOMARA MCFARLANE Report Released Date/Time: Oct 24, 2021 10:10 AM Reporting Lab: [facility] [address] Performing Lab: [facility] [address] CREATININE 0.8 0.5-1.0 UREA NITROGEN 14 7-20 GLUCOSE 97 74-100 SODIUM 136 136-145 POTASSIUM 4.3 3.5-5.1 CHLORIDE 105 98-107 CO2 25 22-29 CALCIUM 8.9 8.4-10.2 MAGNESIUM 2.0 1.6-2.6 ANION GAP 6 5-15 CREAT EGFR(CKD-EPI) >90 >60 Oct 24, 2021 10:35 [facility] TSH W/REFLEX TO FREE Spec imen Type: PLASMA AM T4 No comment enter ed. Ordering Provid er: XIOMARA MCFARLANE Report Released Date/Time: Oct 24, 2021 10:10 AM Reporting [facility] [id number] Performing Lab: [facility] [address] TSH 4.12 0.35-4.94 Oct 24, 2021 10:35 AM [facility] CBC Specim en Type: BLOOD No comment enter ed. Ordering Provid er: XIOMARA MCFARLANE Report Released Date/Time: Oct 24, 2021 10:10 AM Reporting Lab: [facility] [id number] Performing Lab: [facility] [id number] WBC 7.66 4.0-11.0 RBC 4.45 4.0-5.4 HGB 13.5 11.5-16 HCT 40.9 34.5-48 MCV 91.9 80-100 MCH 30.3 27-33 MCHC 33.0 32.0-37.5 PLT 280 150-400 MPV 9.8 7.4-10.4 RDW 14.6 H 11.5-14.5 Oct 24, 2021 10:35 AM [facility] MAGNESIUM Specim en Type: PLASMA No comment enter ed. Ordering Provid er: XIOMARA MCFARLANE Report Released Date/Time: Oct 24, 2021 10:10 AM Reporting Lab: [facility] [address] [facility] [address] Performing Lab: [facility] [address] MAGNESIUM 2.0 1.6-2.6 Social History: Smoking Status (Most current) and Tobacco Use (All prior to encounter date) This section includes the most current, and the historical, smoking and tobacco-related health factors from the [facility] where the Encounter took place.Current Smoking Status This section includes the most current smoking, or tobacco-related health factor, from the [facility] facility where the [facility]counter took place. Date/Time Current Smoking Status Comment Facility Aug 19, 2021 10:30 AM [place]-TOBACCO FORMER USER [facility] Tobacco Use History This section includes a history of the smoking, or tobacco- related health factors, that were collected on or before the date of the Encounter. The data comes from the [facility] where the Encounter took place. Date/Time Smoking Status/Tobacco Use Comment [facility] Aug 19, 2021 10:30 AM [place]-TOBACCO QUIT 1 TO < 5 YRS [facility] Apr 15, 2021 01:00 PM LIFETIME NON-SMOKER [facility] Aug 06, 2020 09:00 AM [place]-TOBAC[place] FORMER USER [facility] Aug 06, 2020 09:00 AM [place]-TOBACCO QUIT 15 YRS OR MORE [facility] Radiology Reports: +/- 30 days of [...] 2 VIEWS PA AND LAT: TONY KERNS [facility] SARA IRWIN [id number] -[birth year]B [birth year] F Exm Date: OCT 24, 2021@10:49 Req Phys: XIOMARA MCFARLANE Pat Loc: [facility] PACT MELISSA N 4F (Req'g Loc) Img Loc: MAIN X-RAY Service: Unknown Screen: Patient answered no (Case [id number] COMPLETE) CHEST 2 VIEWS PA AND LAT (RA D Detailed) CPT:34684 Reason for Study: shortness of breath Clinical History: [place] IS NOT under investigation for COVID-19 or is COVID-19 negative shortness of breath Responsible provider name a nd phone number to notify for critical findings if other than u ser placing the order and pager listed below: User placing orde rs pager: [phone] LAST CREATININE____ Report Status: Verified Date Reported: OCT 24, 2021 Date Verified: OCT 24, 2021 [employer] E-Sig:/ES/TONY KERNS MD Report: EXAMINATION: CHEST 2 VIEWS PA AND LAT 10/24/2021 10:49 AM INDICATION: shortness of breath Impression: Negative chest. No pulmonary infiltrate or pleu ral effusion. Heart size and pulmonary vascularity within nor mal limits. No comparison chest x-ray. Primary Interpreting Staff: TONY KERNS MD, RADIOLOGIST ([employer]) /RTS Encounter Notes: All associated encounter notes This section contains the clinical notes associated to the Encounter. Date/Time Encounter Note(s) Provider Source Oct 11, 2021 11:57 AM INTERNAL MEDICINE NOTE: XIOMARA MCFARLANE [facility] LOCAL TITLE: MEDICINE CLINIC NOTE STANDARD TITLE: INTERNAL MEDICINE NOTE DATE OF NOTE: OCT 11, 2021@11:57 ENTRY DATE: OCT 11, 2021@11:57:46 AUTHOR: XIOMARA MCFARLANE EXP COSIGNER: URGENCY: STATUS: COMPLETED SUBJECT: VIRTUAL VISIT VIRTUAL TELEMEDICINE VISIT verbally consented to receive ca re through [employer] for this visit. Virtual visit is conducted by telephone conferen ce. Location/emergency number confirmed. 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 Sara would like to seek PT-acupuncture/dry need ling evaluation and treatment for chronic neck, shoulder and back pain. We com pleted a community referral order together today, and I also prepared a sepa rate letter as there is some confusion as to which type o f order is appropriate. Service is not available at the [place].Prior evaluations have included: Neck MRI, neck pain is service connected, back i njured in active duty [employer] Party Liability: No Active problems - Computerized Problem List is [...] goiter Father: HLD, HTNDied at 48 from [place]. 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 CAN EXTEND TAPER TO 14 DAY S IF NEEDED. 2) BUSPIRONE HCL 10MG TAB TAKE TWO TABLETS BY MO UTH ACTIVE TWICE A DAY FOR ANXIETY 3) LEVOTHYROXINE NA (SYNTHROID) 75MCG TAB TAKE O NE ACTIVE TABLET BY MOUTH EVERY DAY 4) VALACYCLOVIR HCL 1GM TAB TAKE TWO TABLETS BY MOUTH ACTIVE TWICE A DAY FOR COLD SORES Active Non-VA Medications Status 1) Non-VA ASPIRIN 81MG EC TAB 81MG MOUTH EVERY D AY ACTIVE MEDICATION RECONCILIATION: completed ALLERGIES: Patient has answered NKA EXAM: Previous VS: BP: 134/82 (08/19/2021 10:41) Weight: WEIGHTS IN LAST 6 MONTHS: 204 (AUG 19, 2021@10:34:25) Alert, oriented to name/place, no acute distress , actively engaged in conversation Breathing comfortably, able to give coherent his tory and respond to questions appropriately TEST RESULTS: Patient was informed of available lab, imaging, and other study results associated with today's visit. ASSESSMENT AND PLAN: Diagnoses: Cervicalgia (ICD-10-CM M54.2) (Primary) Pain in unspecified Shoulder (ICD-10-CM M25.519) Low back pain, unspecified (ICD-10-CM M54.50) Referral order(s) completed. Has routine physical scheduled for the near futu re. Patient/Surrogate indicates readiness to learn, verbalizes understanding,agreement and satisfaction with th e treatment plan. Total time spent today, incl uding reviewing prior notes, prior test results, and separately obtained history, performining a medi steve appropriate exam and/or evaluation, conselling a nd education of patient/surrogate, documentation of clinical inf ormation in the EHR, independently interpreting results, comm unicating results to patient/surrogate and care coordination: 28 min Xiomara Mcfarlane MD General Internal Medicine [facility] PACT KIRA Ramirez /es/ Xiomara Mcfarlane MD Physician Signed: 10/11/2021 16:30
--- OUTSIDE RECORDS SUMMARY | 2022-03-27 17:36 | XMS_ITS | Encounter Summary ---
:[address] [facility] Address [address] [place] [address] Support Name Relationship Address Phone JERRI IRWIN Unavailable [place]RIZIO [place] [address] JERRI IRWIN [place] [address] Selected Encounter This section includes the information on [place] at [place] for the Encounter. Date/Time Encounter Type Encounter Description Reason Provider Source Oct 14, 2021 10:48 Outpatient Encounter COMMUNITY CARE AM CONSULT IHE Encounter Template Text not used by [place] Plan of Treatment: Future Appointments (+ 6 [...] AM AMBULATORY - MEDICINE [facility] Oct 24, 2021 10:45 AM AMBULATORY - NONE [facility] Oct 27, 2021 08:20 AM AMBULATORY - NONE [facility] Oct 28, 2021 06:00 PM AMBULATORY - REHAB MEDICINE [facility] Oct 31, 2021 09:00 AM AMBULATORY - MEDICINE [facility] Nov 09, 2021 03:30 PM AMBULATORY - NONE [facility] November 21, 2021 10:30 AM AMBULATORY - MEDICINE [facility] November 28, 2021 10:00 AM AMBULATORY - MEDICINE [facility] December 13, 2021 03:30 PM AMBULATORY - NONE [facility] December 13, 2021 05:00 PM AMBULATORY - REHAB MEDICINE [facility] Dec 23, 2021 09:30 AM AMBULATORY - NONE [facility] Dec 29, 2021 03:00 PM AMBULATORY - MEDICINE [facility] Feb 03, 2022 09:00 AM AMBULATORY - MEDICINE [facility] Feb 07, 2022 12:30 PM AMBULATORY - NONE [facility] Feb 07, 2022 03:30 PM AMBULATORY - NONE [facility] Mar 07, 2022 03:00 PM AMBULATORY - MEDICINE [facility] Mar 22, 2022 05:00 PM AMBULATORY - REHAB MEDICINE [facility] Apr 12, 2022 03:00 PM AMBULATORY - MEDICINE [facility] Lab Results: +/- 30 [...] Reference Range Comment Oct 24, 2021 10:35 [facility] BASIC METABOLIC Specimen Type: PLASMA AM PANEL+MG No comment enter ed. Ordering Provid er: SWATHI MCFARLANE Report Released Date/Time: Oct 24, 2021 10:10 AM Reporting Lab: [facility] [id number] Performing Lab: [facility] [address] CREATININE 0.8 0.5-1.0 UREA NITROGEN 14 7-20 GLUCOSE 97 74-100 SODIUM 136 136-145 POTASSIUM 4.3 3.5-5.1 CHLORIDE 105 98-107 CO2 25 22-29 CALCIUM 8.9 8.4-10.2 MAGNESIUM 2.0 1.6-2.6 ANION GAP 6 5-15 CREAT EGFR(CKD-EPI) >90 >60 Oct 24, 2021 10:[address] [facility] CBC Specim en Type: BLOOD No comment enter ed. Ordering Provid er: SWATHI MCFARLANE Report Released Date/Time: Oct 24, 2021 10:10 AM Reporting Lab: [facility] [address] [facility] [address] Performing Lab: [facility] [address] WBC 7.66 4.0-11.0 RBC 4.45 4.0-5.4 HGB 13.5 11.5-16 HCT 40.9 34.5-48 MCV 91.9 80-100 MCH 30.3 27-33 MCHC 33.0 32.0-37.5 PLT 280 150-400 MPV 9.8 7.4-10.4 RDW 14.6 H 11.5-14.5 Oct 24, 2021 10:35 [facility] TSH W/REFLEX TO FREE Spec imen Type: PLASMA AM T4 No comment enter ed. Ordering Provid er: SWATHI MCFARLANE Report Released Date/Time: Oct 24, 2021 10:10 AM Reporting Lab: [facility] [address] [facility] [address] Performing Lab: [facility] [address] [facility] [address] TSH 4.12 0.35-4.94 Oct 24, 2021 10:[address] [facility] MAGNESIUM Specim en Type: PLASMA No comment enter ed. Ordering Provid er: SWATHI MCFARLANE Report Released Date/Time: Oct 24, 2021 10:10 AM Reporting Lab: [facility] [address] [facility] [address] Performing Lab: [facility] [address] [facility] [address] MAGNESIUM 2.0 1.6-2.6 Vital Signs: All taken on the encounter date This section contains inpatient and outpatient Vital Signs collected on the date of the Encounter. Date/Time Temperature Pulse Blood Respiratory SP02 Pain Height Weight Blayne dy Source Pressure Rate Mass Index Mar 25, 200 lb 33 [place] 2021 11:00 [facility] Social History: Smoking Status (Most current) and Tobacco Use (All prior to encounter date) This section includes the most current, and the historical, smoking and tobacco-related health factors from the [facility] where the Encounter took place.Current Smoking Status This section includes the most current smoking, or tobacco-related health factor, from the [place] facility where the Encounter took place. Date/Time Current Smoking Status Comment Facility Aug 19, 2021 10:30 AM [place]-TOBAC[place] FORMER USER [facility] Tobacco Use History This section includes a history of the smoking, or tobacco- related health factors, that were collected on or before the date of the Encounter. The data comes from the [place] facility where the Encounter took place. Date/Time Smoking Status/Tobacco Use Comment [facility] Aug 19, 2021 10:30 AM [place] QUIT 1 TO < [address] [facility] Apr 15, 2021 01:00 PM LIFETIME NON-SMOKER [facility] Aug 06, 2020 09:00 AM [place]-TOBACCO FORMER USER [facility] Aug 06, 2020 09:00 AM [place] [address] [facility] Radiology Reports: +/- 30 days [...] VIEWS PA AND LAT: TONY KERNS [facility] KRISSY IRWIN [id number] -[birth year]B [birth year] F Exm Date: OCT 24, 2021@10:49 Req Phys: SWATHI MCFARLANE Pat Loc: [facility] PACT MELISSA N 4F (Req'g Loc) Img Loc: MAIN X-RAY Service: Unknown Screen: Patient answered no (Case [id number] COMPLETE) CHEST 2 VIEWS PA AND LAT (RA D Detailed) CPT:00196 Reason for Study: shortness of breath Clinical History: [place] IS NOT under investigation for COVID-19 or is COVID-19 negative shortness of breath Responsible provider name a nd phone number to notify for critical findings if other than u ser placing the order and pager listed below: User placing orde rs pager: [phone] LAST CREATININE____ Report Status: Verified Date Reported: OCT 24, 2021 Date Verified: OCT 24, 2021 Talent Acquisition Coordinator E-Sig:/ES/TONY KERNS MD Report: EXAMINATION: CHEST 2 VIEWS PA AND LAT 10/24/2021 10:49 AM INDICATION: shortness of breath Impression: Negative chest. No pulmonary infiltrate or pleu ral effusion. Heart size and pulmonary vascularity within nor mal limits. No comparison chest x-ray. Primary Interpreting Staff: TONY KERNS MD, RADIOLOGIST (Talent Acquisition Coordinator) /RTS Encounter Notes: All associated encounter notes This section contains the clinical notes associated to the Encounter. Date/Time Encounter Note(s) Provider Source Oct 14, 2021 10:48 AM NONVA NOTE: YESENIA PARISH [facility] LOCAL TITLE: COMMUNITY CARE-CARE COORDINATION P REINIER NOTE STANDARD TITLE: NONVA NOTE DATE OF NOTE: OCT 14, 2021@10:48 ENTRY DATE: OCT 14, 2021@10:48:43 AUTHOR: YESENIA PARISH EXP COSIGNER: URGENCY: STATUS: COMPLETED COMMUNITY CARE-ACUPUNCTURE #[id number] Proced Tech spoke to and informed her that the preferred provider, [facility], does not offer acupuncture and massage. [place] explained that she is wanting more dry needling in conjuction with therapy and states they have physical therapists that offer those services. Proced Tech inf ormed her that under this current auhtorization that d ry needling would need to be performed by a licensed practical nurse clinic nurse. Proced Tech informed her that the [place] Physical Therapy dept does have physical therapists that also offer dry needling services if deemed appropraite for 's treatment. If she would like t o try physical thereapy then she would need to call PT Triage line at [phone] to e stablish care. Otherwise 's third option if she wants to stay with [facility], she would need to go through private insurance. At this time was sent a letter in regard s to acupuncture consult and would need to call [facility] with decision. understood and agreed with plan. /kaylene/ YESENIA PARISH Advanced MSA Signed: 10/14/2021 11:03
--- OUTSIDE RECORDS SUMMARY | 2022-03-27 17:36 | XMS_ITS | Encounter Summary ---
:1975 Author Organization Department of [facility] rs Address [address] [place] [id number] Support Name Relationship Address Phone JERRI MANUEL Unavailable FABRIZIO VANCE [phone] [address] JERRI MANUEL Unavailable [place] [address] Selected Encounter This section includes the information on record at [place] for the Encounter. Date/Time Encounter Type Encounter Reason Provider Source Description Oct 11, 2021 04:24 Outpatient EVENT (HISTORICAL) XIOMARA MCFARLANE H PM Encounter IHE Encounter Template [...] 14, 2021 09:00 AM AMBULATORY - MEDICINE [facility] Oct 14, 2021 11:00 AM AMBULATORY - MEDICINE [facility] Oct 24, 2021 09:30 AM AMBULATORY - MEDICINE [facility] Oct 24, 2021 10:45 AM AMBULATORY - NONE [facility] Oct 27, 2021 08:20 AM AMBULATORY - NONE [facility] Oct 28, 2021 06:00 PM AMBULATORY - REHAB MEDICINE [facility] Oct 31, 2021 09:00 AM AMBULATORY - MEDICINE [facility] Nov 09, 2021 03:30 PM AMBULATORY - NONE [facility] November 21, 2021 10:30 AM AMBULATORY - MEDICINE [facility] November 28, 2021 10:00 AM AMBULATORY - MEDICINE [facility] December 13, 2021 03:30 PM AMBULATORY - NONE [facility] December 13, 2021 05:00 PM AMBULATORY - REHAB MEDICINE [facility] Dec 23, 2021 09:30 AM AMBULATORY - NONE [facility] Dec 29, 2021 03:00 PM AMBULATORY - MEDICINE [facility] Feb 03, 2022 09:00 AM AMBULATORY - MEDICINE [facility] Feb 07, 2022 12:30 PM AMBULATORY - NONE [facility] Feb 07, 2022 03:30 PM AMBULATORY - NONE [facility] Mar 07, 2022 03:00 PM AMBULATORY - MEDICINE [facility] Mar 22, 2022 05:00 PM AMBULATORY - REHAB MEDICINE [facility] Apr 12, 2022 03:00 PM AMBULATORY - MEDICINE [facility] Lab Results: +/- 30 days of [...] Range Comment Oct 24, 2021 10:35 AM [facility] CBC Specim en Type: BLOOD No comment enter ed. Ordering Provid er: XIOMARA MCFARLANE Report Released Date/Time: Oct 24, 2021 10:10 AM Reporting Lab: [facility] [address] [facility] [id number] Performing Lab: [facility] [id number] WBC 7.66 4.0-11.0 RBC 4.45 4.0-5.4 HGB 13.5 11.5-16 HCT 40.9 34.5-48 MCV 91.9 80-100 MCH 30.3 27-33 MCHC 33.0 32.0-37.5 PLT 280 150-400 MPV 9.8 7.4-10.4 RDW 14.6 H 11.5-14.5 Oct 24, 2021 10:35 [facility] BASIC METABOLIC Specimen Type: PLASMA AM PANEL+MG No comment enter ed. Ordering Provid er: XIOMARA MCFARLANE Report Released Date/Time: Oct 24, 2021 10:10 AM Reporting Lab: [facility] [address] [facility] [id number] Performing Lab: [facility] [id number] CREATININE 0.8 0.5-1.0 UREA NITROGEN 14 7-20 GLUCOSE 97 74-100 SODIUM 136 136-145 POTASSIUM 4.3 3.5-5.1 CHLORIDE 105 98-107 CO2 25 22-29 CALCIUM 8.9 8.4-10.2 MAGNESIUM 2.0 1.6-2.6 ANION GAP 6 5-15 CREAT EGFR(CKD-EPI) >90 >60 Oct 24, 2021 10:35 [facility] TSH W/REFLEX TO FREE Spec imen Type: PLASMA AM T4 No comment enter ed. Ordering Provid er: XIOMARA MCFARLANE Report Released Date/Time: Oct 24, 2021 10:10 AM Reporting Lab: [facility] [id number] Performing Lab: [facility] [address] TSH 4.12 0.35-4.94 Oct 24, 2021 10:35 AM [facility] MAGNESIUM Specim en Type: PLASMA No comment enter ed. Ordering Provid er: XIOMARA MCFARLANE Report Released Date/Time: Oct 24, 2021 10:10 AM Reporting Lab: [facility] [id number] Performing Lab: [facility] [address] MAGNESIUM 2.0 1.6-2.6 Social History: Smoking Status (Most current) and Tobacco Use (All prior to encounter date) This section includes the most current, and the historical, smoking and tobacco-related health factors from the [facility] where the Encounter took place.Current Smoking Status This section includes the most current smoking, or tobacco-related health factor, from the [place] facility where the Encounter took place. Date/Time Current Smoking Status Comment Facility Aug 19, 2021 10:30 AM [place]-TOBACCO FORMER [facility]ER [facility] Tobacco Use History This section includes a history of the smoking, or tobacco- related health factors, that were collected on or before the date of the Encounter. The data comes from the [place] facility where the Encounter took place. Date/Time Smoking Status/Tobacco Use Comment Mona gaxiola Aug 19, 2021 10:30 AM DE-TOBACCO QUIT 1 TO < 5 YRS [facility] Apr 15, 2021 01:00 PM LIFETIME NON-SMOKER [facility] Aug 06, 2020 09:00 AM [place]-TOBACCO FORMER USER PAULINA [facility]IL[facility] Aug 06, 2020 09:00 AM [place]-TOBACCO QUIT 15 YRS OR MORE [facility] Radiology Reports: +/- 30 days of the [...] the Encounter. The data comes from all [place] treatment facilities. Date/Time Radiology Report Provider Source Oct 24, 2021 10:49 AM CHEST 2 VIEWS PA AND LAT: TONY KERNS [facility] KRISSY MANUEL [id number] -[birth year] F Exm Date: OCT 24, 2021@10:49 Req Phys: XIOMARA MCFARLANE Pat Loc: MSP PACT MELISSA N 4F (Req'g Loc) Img Loc: MAIN X-RAY Service: Unknown Screen: Patient answered no (Case [id number] COMPLETE) CHEST 2 VIEWS PA AND LAT (RA D Detailed) CPT:02249 Reason for Study: shortness of breath Clinical History: Aldie IS NOT under investigation for COVID-19 or is COVID-19 negative shortness of breath Responsible provider name a nd phone number to notify for critical findings if other than u ser placing the order and pager listed below: User placing orde rs pager: [phone] LAST CREATININE____ Report Status: Verified Date Reported: OCT 24, 2021 Date Verified: OCT 24, 2021 Plush Brusher E-Sig:/ES/TONY KERNS MD Report: EXAMINATION: CHEST 2 VIEWS PA AND LAT 10/24/2021 10:49 AM INDICATION: shortness of breath Impression: Negative chest. No pulmonary infiltrate or pleu ral effusion. Heart size and pulmonary vascularity within nor mal limits. No comparison chest x-ray. Primary Interpreting Staff: TONY KERNS MD, RADIOLOGIST (Plush Brusher) /RTS Encounter Notes: All associated encounter notes This section contains the clinical notes associated to the Encounter. Date/Time Encounter Note(s) Provider Source Oct 11, 2021 04:24 PM PRIMARY CARE SECURE MESSAGING: SA SARAH MCFARLANE H [facility] LOCAL TITLE: PRIMARY CARE SECURE MESSAGING STANDARD TITLE: PRIMARY CARE SECURE MESSAGING DATE OF NOTE: OCT 11, 2021@16:24 ENTRY DATE: OCT 11, 2021@16:24:52 AUTHOR: XIOMARA MCFARLANE EXP COSIGNER: URGENCY: STATUS: COMPLETED ------Original Message Sent: 10/11/2021 05:24 PM ET From: XIOMARA MCFARLANE To: KRISSY MANUEL Subject: General:General Inquiry Attachments: Ca Manuel [id number] (13.00 KB) Bigg Ruiz, garth is a referral letter. Hope th is helps! Dr. Mcfarlane Internal Medicine /es/ Xiomara Mcfarlane MD Physician Signed: 10/11/2021 16:24
--- OUTSIDE RECORDS SUMMARY | 2022-03-27 17:37 | XMS_ITS | Encounter Summary ---
:[address] [facility] Address [address] [place] [id number] Support Name Relationship Address Phone JERRI IRWIN Unavailable FABRIZIO VANCE [place] [address] JERRI IRWIN Unavailable FABRIZIO [employer] [place], [place] Selected Encounter This section includes the information on record at ID for the Encounter. Date/Time Encounter Type Encounter Reason Provider Source Description Jun 13, 2021 HC PRO PHONE TELEPHONE PRIMARY ICD-10-CM F33.9 AKIKO JIMENEZ 04:00 PM CALL 11-20 MIN CARE Major depressive IN R disorder, recurrent, unspecified with Provider Comments: Depression ([facility] [id number]) IHE Encounter Template Text not used by ID Assessments - Encounter Diagnoses This section includes the primary and secondary diagnoses documented for the Encounter. Date/Time Primary/Secondary Diagnosis Name Provider Source Diagnosis Jun 13, 2021 PRIMARY Major depressive AKIKO TALBERT [place] [facility] 04:00 PM disorder, IN R HCS recurrent, unspecified Plan of Treatment: Future Appointments (+ 6 months) and Future Tests (+/- 45 days) The Plan of Treatment section includes future care activities for the patient from all ID treatmentfacilities. This section includes future appointments and future orders which are active, pending orscheduled.Future Appointments This section includes appointments that were scheduled to occur 6 months from the date of the Encounter, up to a maximum of 20 appointments. The data comes from all ID treatment facilities. Appointment Date/Time Appointment Type Appointment Facili ty Name Jun 24, 2021 01:00 PM AMBULATORY - MEDICINE [facility] Jul 11, 2021 04:00 PM AMBULATORY - NONE [facility] Aug 02, 2021 03:00 PM AMBULATORY - MEDICINE [facility] Aug 15, 2021 04:00 PM AMBULATORY - NONE [facility] Aug 19, 2021 10:30 AM AMBULATORY - MEDICINE [facility] Aug 19, 2021 12:15 PM AMBULATORY - NONE [facility] Aug 19, 2021 12:30 PM AMBULATORY - NONE [facility] Aug 25, 2021 11:00 AM AMBULATORY - SURGERY [facility] Aug 30, 2021 03:00 PM AMBULATORY - MEDICINE [facility] Sep 14, 2021 03:00 PM AMBULATORY - NONE [facility] Sep 21, 2021 03:00 PM AMBULATORY - MEDICINE [facility] Oct 11, 2021 04:00 PM AMBULATORY - MEDICINE [facility] Oct 14, 2021 09:00 AM AMBULATORY - MEDICINE [facility] Oct 14, 2021 11:00 AM AMBULATORY - MEDICINE [facility] Oct 24, 2021 09:30 AM AMBULATORY - MEDICINE [facility] Oct 24, 2021 10:45 AM AMBULATORY - NONE [facility] Oct 27, 2021 08:20 AM AMBULATORY - NONE [facility] Oct 28, 2021 06:00 PM AMBULATORY - REHAB MEDICINE [facility] Oct 31, 2021 09:00 AM AMBULATORY - MEDICINE [facility] Nov 09, 2021 03:30 PM AMBULATORY - NONE [facility] Social History: Smoking Status (Most current) and Tobacco Use (All prior to encounter date) This section includes the most current, and the historical, smoking and tobacco-related health factors from the ID facility where the Encounter took place.Current Smoking Status This section includes the most current smoking, or tobacco-related health factor, from the ID facility where the Encounter took place. Date/Time Current Smoking Status Comment Facility Apr 15, 2021 01:00 PM LIFETIME NON-SMOKER [facility] Tobacco Use History This section includes a history of the smoking, or tobacco- related health factors, that were collected on or before the date of the Encounter. The data comes from the ID facility where the Encounter took place. Date/Time Smoking Status/Tobacco Use Comment Mona richardson Aug 06, 2020 09:00 AM VA-TOBACCO FORMER USER [facility] Aug 06, 2020 09:00 AM VA-TOBACCO QUIT 15 YRS OR MORE [facility] Encounter Notes: All associated encounter notes This section contains the clinical notes associated to the Encounter. Date/Time Encounter Note(s) Provider Source Jun 13, 2021 03:52 PHARMACY NOTE: TESSA TALBERT S [facility] PM LOCAL TITLE: PHARMACOTHERAPY-CLINICAL PHARMACY NOTE STANDARD TITLE: PHARMACY NOTE DATE OF NOTE: JUN 13, 2021@15:52 ENTRY DATE: JUN 13, 2021@15:52:38 AUTHOR: TESSA TALBERT EXP COSIGNER: URGENCY: STATUS: COMPLETED PHARMACOTHERAPY-CLINICAL PHARMACY NOTE Has ADDENDA visit Type: Phone KRISSY IRWIN is a 46 year-old [place] se en today for pharmacy case management regarding depression. 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 Has non-VA neurology care. No medication changes made at last visit. DSM-5 Diagnostic Assessment: (per [facility] notes) - Adjustment Disorder with mixed Anxiety and de pressed mood Current Medications for Depression: - Buspirone 10mg BID - Escitalopram 15mg Qday Previous Medication Trials: - Sertraline (took for a brief period and stopp ed) SUBJECTIVE: Cowan states she is feeling well this afternoo n. Notes work has been very stressful lately. Mood sympt oms have been more up and down. Has periods of good days and periods of bad days . During bad days feels clustered describing less motivation/focus and feels more scramble d at work. During these days, tends to spend more time in bed. More good days than bad days and largely impacted by work stressors. Notes her te eth grinding has been up a bit since we last spoke. Plans to meet with dentistry then orthoandrade michaud (interested in getting braces). Feels buspirone has been helpful for anx iety symptoms and reducing grinding -- can tell a difference in teeth grinding when she misses a dose. Missing the PM dose a 1-2 times per week, e specially with night work schedule. Is interested in trying a higher buspirone dose as she has found it helpful. 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) - Housing: [place] OBJECTIVE: ALLERGIES/ADR: Patient has answered NKA MEDICATION RECONCILIATION: Active and Recently Outpatient Medicatio ns (excluding Supplies): Active Outpatient Medications Status 1) BUSPIRONE HCL 10MG TAB TAKE ONE TABLET BY SHAW TH TWICE ACTIVE A DAY FOR ANXIETY 2) ESCITALOPRAM OXALATE 5MG TAB TAKE THREE TABLE TS BY ACTIVE MOUTH EVERY DAY 3) LEVOTHYROXINE NA (SYNTHROID) 75MCG TAB TAKE O NE ACTIVE TABLET BY MOUTH EVERY DAY 4) VALACYCLOVIR HCL 1GM TAB TAKE TWO TABLETS BY MOUTH ACTIVE TWICE A DAY Active Non-VA Medications Status 1) Non-VA ASPIRIN 81MG EC TAB 81MG MOUTH EVERY D AY ACTIVE 5 Total Medications Vitals: Temperature: 98.4 F [36.9 C] (12/22/2020 08:08) Blood Pressure: 132/84 (12/22/2020 08:08) Pulse: 63 (12/22/2020 08:08) Respiration: 18 (12/22/2020 08:08) Pain: 3 (12/22/2020 08:08) Height: 65 in [165.1 cm] (08/06/2020 08:52) Weight: 195 lb [88.6 kg] (12/22/2020 08:08) BMI: 32.5 LABS: Basic Metabolic Panel SODIUM 138 (08/06/20) POTASSIUM 4.0 (08/06/20) CREATININE 0.8 (08/06/20) UREA NITROGEN 12 (08/06/20) GLUCOSE 100 (08/06/20) CO2 26 (08/06/20) CHLORIDE 105 (08/06/20) ESTIMATED GFR(eGFR) >60 (08/06/20) MAGNESIUM 2.0 (08/06/20) Collection DT Specimen Test Name Result Units Re f Range 08/06/2020 11:00 PLASMA CREATININE 0.8 mg/dL 0.5 - 1.0 08/06/2020 11:00 PLASMA ESTIMATED GFR(eGF >60 Re f: >=60 CHOLESTEROL 139 (08/06/20) MEASURED LDL____ LDL CALCULATION 69 (08/06/20) HDL 60 (08/06/20) TRIGLYCERIDE 51 (08/06/20) Collection DT Spec HGBA1C 08/06/2020 11:00 BLOOD 5.5 SGOT 20 (08/06/20) SGPT 13 (08/06/20) Mental Status Exam: (adapted for phone) - Attitude toward interviewer: Cooperative, fri endly - Speech: Normal rate, rhythm, and tone; conver ses spontaneously - Thought process: Linear, logical - Thought content: No SI/HI or psychotic conten t verbalized or suspected; provides interim updates - Mood: Pretty good, more up and down lately - Insight/Judgement: good/good; intact for safe ty ASSESSMENT: #Mood/Anxiety Symptoms: Reports improvement in mood/anxiety symptoms sin ce starting escitalopram and buspirone. 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 Higher dose of buspirone for anxiety symptoms and teeth grinding seems kobi sonable given favorable response thus far (off-label evidence for SSRI-induced bruxism). Consider rep eat PHQ-9 at follow-up. No safety concerns noted today and anticipate risk of self-harm/suicide is low based on risk/protective factors. PLAN: ----- - Continue escitalopram 15mg Qday - Increase buspirone to 20mg BID for anxiety #Disease-Specific Med Rec: Completed today #Labs: None needed at this time; repeat PHQ-9 at follow-up - Educated vet on indication/risks/benefits of n ew/changed medication. - Education provided on therapeutic nonpharmacol ogic management to achieve goals. - Vet advised of recent labs. - verbalized underst anding to all plans discussed today. Questions were answered to vet's satisfaction. Time Spent: 15 minutes RTC: 4 weeks in phone clinic /kaylene/ TESSA TALBERT, PharmD, [facility] Clinical Patient Access Registrar Signed: 06/13/2021 16:27 06/27/2021 ADDENDUM STATUS: COMPLETED Patient called to check on t he status of increased BUSPIRONE. Paralegal Supervisor did not see new order placed. Please place new order to mail out from [facility] [place] or overnight. Patient says she will be out of medication this week. Thank you /kaylene/ YADI SANON [address] [employer] C[employer] MAJOR GIFTS OFFICER Signed: 06/27/2021 14:00 Receipt Acknowledged By: * AWAITING SIGNATURE * TESSA TALBERT
--- OUTSIDE RECORDS SUMMARY | 2022-03-27 17:37 | XMS_ITS | Encounter Summary ---
:1975 Author Organization Department [facility] rs Address [address] [place] [id number] Support Name Relationship Address Phone JERRI IRWIN Unavailable FABRIZIO VANCE [place] [address] JERRI IRWIN Unavailable FABRIZIO VANCE [place], [place] Selected Encounter This section includes the information on record at [place] for the Encounter. Date/Time Encounter Type Encounter Reason Provider Source Description Apr 01, 2021 ORAL FUNCTION SPEECH-LANGUAGE ICD-10-CM Z71.1 ONEAL KABA 01:30 PM THERAPY PATHOLOGY Person w feared hlth complaint in whom no diagnosis is made with Provider Comments: Person with Feared Health Complaint in whom no Diagnosis is Made IHE Encounter Template Text not used by [facility] Assessments - Encounter Diagnoses This section includes the primary and secondary diagnoses documented for the Encounter. Date/Time Primary/Secondary Diagnosis Name Provider Source Diagnosis Apr 01, 2021 PRIMARY Person w feared [facility] 04:46 PM hlth complaint [facility] in whom no diagnosis is made Plan of Treatment: Future Appointments (+ 6 months) and Future Tests (+/- 45 days) The Plan of Treatment section includes future care activities for the patient from all [facility] treatmentfacilities. This section includes future appointments and future orders which are active, pending orscheduled.Future Appointments This section includes appointments that were scheduled to occur 6 months from the date of the Encounter, up to a maximum of 20 appointments. The data comes from all [facility] treatment facilities. Appointment Date/Time Appointment Type Appointment Facili ty Name Apr 15, 2021 01:00 PM AMBULATORY - MEDICINE [facility] Apr 18, 2021 04:00 PM AMBULATORY - NONE [facility] Apr 28, 2021 03:00 PM AMBULATORY - MEDICINE [facility] May 25, 2021 03:00 PM AMBULATORY - MEDICINE [facility] Jun 13, 2021 04:00 PM AMBULATORY - NONE [facility] Jun 24, 2021 01:00 PM AMBULATORY - MEDICINE [facility] Jul 11, 2021 04:00 PM AMBULATORY - NONE [facility] Aug 02, 2021 03:00 PM AMBULATORY - MEDICINE [facility] Aug 15, 2021 04:00 PM AMBULATORY - NONE [facility] Aug 19, 2021 10:30 AM AMBULATORY - MEDICINE [facility] Aug 19, 2021 12:15 PM AMBULATORY - NONE [facility] Aug 19, 2021 12:30 PM AMBULATORY - NONE [facility] Aug 25, 2021 11:00 AM AMBULATORY - SURGERY [facility] Aug 30, 2021 03:00 PM AMBULATORY - MEDICINE [facility] Sep 14, 2021 03:00 PM AMBULATORY - NONE [facility] Sep 21, 2021 03:00 PM AMBULATORY - MEDICINE [facility] Active, Pending, and Scheduled Orders This section includes a listing of several types of active, pending, and scheduled orders, including clinic medications orders, diagnostic test orders, procedure orders and consult orders; where the start date of the order is 45 days before the date of the Encounter or 45 days after the date of the Encounter. The data comes from all [facility] treatment facilities. Test Date/Time Test Type Test Details Facility Name Apr 17, 2021 12:00 AM Laboratory - Chemistry TSH W/REFLEX TO ST[facility]LEY E [facility] Order T4 PLASMA SP ONCE Social History: Smoking Status (Most current) and Tobacco Use (All prior to encounter date) This section includes the most current, and the historical, smoking and tobacco-related health factors from the [facility] facility where the Encounter took place.Current Smoking Status This section includes the most current smoking, or tobacco-related health factor, from the [facility] facility where the Encounter took place. Date/Time Current Smoking Status Comment Facility Aug 06, 2020 09:00 AM [facility]-TOBACCO FORMER USER [facility] Tobacco Use History This section includes a history of the smoking, or tobacco- related health factors, that were collected on or before the date of the Encounter. The data comes from the [facility] facility where the Encounter took place. Date/Time Smoking Status/Tobacco Use Comment [facility] it Aug 06, 2020 09:00 AM [facility]-TOBACCO QUIT 15 YRS OR MORE [facility] Radiology Reports: +/- 30 days [...] the Encounter. The data comes from all [facility] treatment facilities. Date/Time Radiology Report Provider Source Apr 01, 2021 12:55 PM ESOPHAGRAM VIDEO SWALLOW: DILIP MATA [facility] KRISSY IRWIN [phone] -[birth year] F Exm Date: APR 01, 2021@12:55 Req Phys: NIKOLAS FLORES Loc: [facility] PHONE (Req'g Loc Img Loc: MAIN X-RAY Service: Unknown Screen: Patient answered no (Case [id number] COMPLETE) ESOPHAGRAM VIDEO SWALLOW (R AD Detailed) CPT:41358 Contrast Media : Barium Reason for Study: difficulty swallowing solids upper throat Clinical History: IS NOT under investigation for COVID-19 or is COVID-19 negative difficulty swallowing solids upper throat Respo nsible provider name and phone number to notify for critical fi ndings if other than user placing the order and pager listed be low: User placing orders pager: LAST CREATININE [phone] (08/06/20) Report Status: Verified Date Reported: APR 01, 2021 Date Verified: APR 01, 2021 Crusher Supervisor E-Sig:/ES/DILIP MATA MD Report: EXAMINATION: ESOPHAGRAM VIDEO SWALLOW 04/01/2021 1:57 PM Clinical Indication: difficulty swallowing eunice ds upper throat COMPARISON: None available. FINDINGS/TECHNIQUE: Patient ingested various co nsistencies of barium (thin liquid, pudding, cracker and a tab let) in the presence of a speech pathologist during observa tion with fluoroscopy in the lateral and AP position. Oral transit was normal. No evidence of nasopha ryngeal reflux. Delayed pharyngeal swallowing with initiation a t the piriforms. Thin liquid (1 mL, 3 mL, cup sip, consecutive c up sips by straw): -1 mL and 3 mL: No laryngeal penetration or asp iration. -Cup sip and consecutive cup sips by straw: Shallow flas h laryngeal penetration with ejection. No aspiration. Pudding: -No laryngeal penetration or aspiratio n. Cracker: -No laryngeal penetration or aspiratio n. -Thin rinse: Shallow flash penetration with ejection. No asp iration. A 12.7 mm barium tablet was administered and pa ssed freely. No significant residue within the vallecula or piriform sinus after trial of solid bolus. Symmetrical transit of the bolus through the hy popharynx on AP examination. . AP evaluation of the vocal folds demonstrates symmetric movement. Mild degenerative disc disease C5-C6. Fluoroscopy time: 1.6 minutes Dose area product: 56.32 microGray meters squar ed Skin dose: 4.5 mGy Impression: 1. No aspiration with any consistency. 2. Shallow flash laryngeal penetration with eje ction of large volume thin liquids. No aspiration. Please refer to the speech pathologist report f or additional findings and recommendations. I, Dilip Mata, have reviewed the images and r eport. Primary Interpreting Staff: DILIP MATA MD, RADIOLOGIST (Crusher Supervisor) Primary Interpreting Resident: Michael RAMIREZ, REMOTE SENSING TECHNICIAN /[facility] Encounter Notes: All associated encounter notes This section contains the clinical notes associated to the Encounter. Date/Time Encounter Note(s) Provider Source Apr 01, 2021 02:56 PM SPEECH PATHOLOGY CONSULT: QUINCY KABA [facility] LOCAL TITLE: SPEECH PATHOLOGY CONSULT STANDARD TITLE: SPEECH PATHOLOGY CONSULT DATE OF NOTE: APR 01, 2021@14:56 ENTRY DATE: APR 01, 2021@14:56:47 AUTHOR: MARK BENITEZ COSIGNER: ONEAL KABA URGENCY: STATUS: COMPLETED Speech-Language Pathology Consult Modified Barium Swallow Evaluation -- 30 minutes Machine Maintenance Technician: Dr. Worthy Droplet precautions utilized for this evaluation . IMPRESSIONS: Patient presents with normal swallow fun ction. No oral or pharyngeal dysphagia affecting swallow safety or swallow efficiency w as observed. Patient demonstrated consistent flash laryngeal penetrat ion of thin liquids with cup sips and consecutive swallows. However, penetrat ion was very shallow and was cleared with the force of th e swallow on all accounts. This is considered within normal limits for adults and is not related to t he patient's symptoms. The patient's initiation of swallow was consistently delayed to the level of the pyriforms, but despite this abnormality in swall ow function, the patient was able to maintain swallow safety; no aspiration w as observed in today's study. The patient did report feeli ng the cracker being stuck in her throat. However, there was no significant pha ryngeal residue occurring at this time that would be contributing to these symptoms. On one occasion, the patient did have a very small volume of cracker along her posterior phar yngeal wall, but this residue was cleared with a second sw allow and presents no concern for swallow safety or efficiency. Patient may continue eating and drinking regular solids (IDDSI 7) and thin liquids (IDDSI 0). Recommend the patient implement use of aspiration precautions (listed below) to help facil itate swallowing from a general perspective. Further treatment with SPLICING MACHINE OPERATOR AUTOMATIC is not indicated or planned. RECOMMENDATIONS: 1. Diet: Solids: Regular (IDDSI 7) Liquids: Thin (IDDSI 0) 2. Aspiration precautions for all PO intake: - Position upright (90 degrees), in a chair for all eating/drinking - Eat with maximal levels of awareness and aler tness - Eat and drink at a slow rate - Take small bites and sips - Alternate bites and sips when eating dry, socrates gh, textured solids - Use condiments, sauces, or gravies to moisten dry foods to promote swallow ease 3. Oral hygiene: Clean your mouth well (brush teeth, tongue, roof of mouth, and inside of cheeks) at least 2-3x/day. PLAN: SPLICING MACHINE OPERATOR AUTOMATIC follow-up is not required at this time . 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 The patient has several residuals effects of her stroke including persistent right sided UE/LE we aknesses, decreased coordination, reduced peripheral vision, hearing loss/tinnitus, and cognitive deficits. At a recent neuropsychological consult ation (02/15/21), the patient endorsed she has also experienced changes in tas te and difficulty swallowing solids since her stroke. The patient was referre d for today's MBS to evaluate swallow function, determine safest diet, and donovan ntify potential treatment options. The patient has previous experience wit non-[facility] speech pathology services for cognitive-commu nication treatment. She is not familiar to the [facility] Speech Pathology department and has not received previous swallow evaluation or treatment. SUBJECTIVE: Patient arrived on time to reece turk's evaluation. She was cooperative and pleasant to work with throughout. The patient reports that her difficulty with swallowing occurs mostly with solids that are textured or d ry in nature (e.g., carrots, hamburger, rice). Patient no sergio that she prefers to drink liquids via straws as she finds she experiences less difficulty via th is modality. The only other strategy that the patient reported using is cutt ing up small meat into very small pieces. OBJECTIVE: SWALLOW FUNCTION: Positioning: Standing Views: Lateral, AP Consistencies: Thin liquid ( IDDSI 0), Pudding (IDDSI 4), Solid (IDDSI 7, barium tablet Presentation: Spoon, Cup ORAL PHASE: - Mastication: WFL. Patient appears to have slow mastication. Potential for behavioral compensatory strategy to be consider ed. Regardless, patient was able to adequately prepare solids for safe swal lowing. - Bolus control and transit: WNL, adequate oral control of liquids and solids. - Oral clearance: WNL, no considerable oral resi due. PHARYNGEAL PHASE: - Velar movement: Complete - Pharyngeal response: Delayed. Swallow consiste ntly triggers at the level of the pyriform sinuses. - Hyolaryngeal elevation: Adequate - Hyolaryngeal excursion: Adequate - Epiglottic inversion: Complete - Penetration: Present - Timing: During the swallow - Consistency: Thin Liquids - Volume: Cup sip, consecutive swallows - Ejection: Yes, with the force of the swallow - Aspiration: None observed - Residue: No considerable oral or pharyngeal re sidue observed. On the 8-item Penetration-Aspiration Scale, milagros ent scored 1: Contrast does not enter the airway 2: Contrast enters the airway, remains above voc al folds, no residue 3: Contrast remains above vocal folds, visible r esidue remains 4: Contrast contacts vocal folds, no residue 5: Contrast contacts vocal folds, visual residue remains 6: Contrast passes glottis, no sub-glottic resid ue visible 7: Contrast passes glottis, visible sub-glottic residue despite pt response 8: Contrast passes glottis, visible sub-glottic residue, absent pt response Lateral View: Thin Liquids: 1cc via spoon: PAS 1 3cc via spoon: PAS 1 Cup sip (hold): PAS 2 Cup sip (no hold): PAS 2 Consecutive swallows via straw: PAS 2 Pudding: PAS 1 Cracker: PAS 1, 1 Thin rinse: PAS 2-1 Barium tablet: Clears efficiently. AP view: - Symmetrical swallowing thr ough pharynx observed with cracker and thin liquids - Symmetrical vocal fold movement with phonation EDUCATION: Patient participated in thorough educ ation of MBS results. Visual aids were utilized to promote understanding. She was relieved to hear that today's evaluation revealed normal swallow funct ion with no concerns for safety. Patient demonstrated great understanding and asked appropriate questions throughout. FUNCTIONAL ORAL INTAKE SCALE (FOIS): The FOIS is a measure of swallow function that identifies a patient's current met hod and/or modifications for intake of daily nutrition. Tube Dependent (Level s 1-3) -No oral intake (1) -Tube dependent with minimal/inconsistent oral intake (2) -Tube supplements with consistent oral intake ( 3) Total Oral Intake (Levels 4-7) -Total oral intake of a single consistency (4) -Total oral intake of multiple consistencies re quiring special preparation (5) -Total oral intake with no special preparation, but must avoid specific foods or liquid items (6) -Total oral intake with no restrictions (7) Patient score: 7 Thank you for this referral. Please contact me ( [phone]) with any questions or concerns. /kaylene/ Quincy Kaba CCC-SPLICING MACHINE OPERATOR AUTOMATIC SPEECH-LANGUAGE PATHOLOGIST Signed: 04/01/2021 16:46 for MARK SWANN CLINICAL FELLOW /kaylene/ Quincy Kaba CCC-SHREE SPEECH-LANGUAGE PATHOLOGIST Cosigned: 04/01/2021 16:46
--- OUTSIDE RECORDS SUMMARY | 2022-03-27 17:37 | XMS_ITS | Encounter Summary ---
:1975 Author Organization Department of [facility] rs Address [address] [place] [address] Support Name Relationship Address Phone JERRI IRWIN Unavailable FABRIZIO VANCE [place] [address] JERRI IRWIN Unavailable FABRIZIO [employer] [phone] [place], [place] Selected Encounter This section includes the information on record at [place] for the Encounter. Date/Time Encounter Type Encounter Reason Provider Source Description Aug 02, 2021 PSYTX W PT 45 PM&RS PHYSICIAN ICD-10-CM F33.9 ALVA POWER SE 03:00 PM MINUTES Major depressive disorder, recurrent, unspecified with Provider Comments: Depression ([facility] [id number]) IHE Encounter Template Text not used by [facility] Assessments - Encounter Diagnoses This section includes the primary and secondary diagnoses documented for the Encounter. Date/Time Primary/Secondary Diagnosis Name Provider Source Diagnosis Aug 05, 2021 PRIMARY Major depressive [facility] 09:54 PM disorder, HCS recurrent, unspecified Plan of Treatment: Future Appointments (+ 6 months) and Future Tests (+/- 45 days) The Plan of Treatment section includes future care activities for the patient from all [place] treatmentfacilities. This section includes future appointments and future orders which are active, pending orscheduled.Future Appointments This section includes appointments that were scheduled to occur 6 months from the date of the Encounter, up to a maximum of 20 appointments. The data comes from all [place] treatment facilities. Appointment Date/Time Appointment Type Appointment Facili ty Name Aug 15, 2021 04:00 PM AMBULATORY - NONE [facility] Aug 19, 2021 10:30 AM AMBULATORY - MEDICINE [facility] CS Aug 19, 2021 12:15 PM AMBULATORY - NONE [facility] Aug 19, 2021 12:30 PM AMBULATORY - NONE [facility] Aug 25, 2021 11:00 AM AMBULATORY - SURGERY [facility] S Aug 30, 2021 03:00 PM AMBULATORY - MEDICINE [facility] CS Sep 14, 2021 03:00 PM AMBULATORY - NONE [facility] Sep 21, 2021 03:00 PM AMBULATORY - MEDICINE [facility] CS Oct 11, 2021 04:00 PM AMBULATORY - MEDICINE [facility] CS Oct 14, 2021 09:00 AM AMBULATORY - MEDICINE [facility] CS Oct 14, 2021 11:00 AM AMBULATORY - MEDICINE [facility] CS Oct 24, 2021 09:30 AM AMBULATORY - MEDICINE [facility] CS Oct 24, 2021 10:45 AM AMBULATORY - NONE [facility] Oct 27, 2021 08:20 AM AMBULATORY - NONE [facility] Oct 28, 2021 06:00 PM AMBULATORY - REHAB MEDICINE [facility] Oct 31, 2021 09:00 AM AMBULATORY - MEDICINE [facility] CS Nov 09, 2021 03:30 PM AMBULATORY - NONE [facility] November 21, 2021 10:30 AM AMBULATORY - MEDICINE [facility] CS November 28, 2021 10:00 AM AMBULATORY - MEDICINE [facility] December 13, 2021 03:30 PM AMBULATORY - NONE [facility] Lab Results: +/- 30 days of the encounter This section includes the Chemistry and Hematology Lab Results on record with [place] for the patient. Radiology Reports and Pathology Reports are provided separately, in subsequent sections.Lab Results This section contains the Chemistry/Hematology Results that were resulted 30 days before or 30 daysafter the date of the Encounter. Date/Time Source Result Type Result - Unit Interpretation Reference Range Comment Aug 26, 2021 02:41 [facility] OCCULT BLOOD FIT X1 Speci men Type: FECES PM SCREEN No comment enter ed. Ordering Provid er: SWATHI MCFARLANE Report Released Date/Time: Aug 19, 2021 11:39 AM Reporting Lab: [facility] [address] [place] [facility] [id number] Performing Lab: [facility] [address] [place] [facility] [id number] OCCULT BLOOD (FIT) #1 OF 1 Negative Neg ative Aug 19, 2021 12:26 [facility] TSH W/REFLEX TO FREE Spec imen Type: PLASMA PM T4 No comment enter ed. Ordering Provid er: SWATHI MCFARLANE Report Released Date/Time: Aug 19, 2021 11:39 AM Reporting Lab: [facility] [address] [facility] [id number] Performing Lab: [facility] [address] [facility] [id number] TSH 2.97 0.35-4.94 Social History: Smoking Status (Most current) and Tobacco Use (All prior to encounter date) This section includes the most current, and the historical, smoking and tobacco-related health factors from the [place] facility where the Encounter took place.Current Smoking Status This section includes the most current smoking, or tobacco-related health factor, from the [place] facility where the Encounter took place. Date/Time Current Smoking Status Comment Facility Apr 15, 2021 01:00 PM LIFETIME NON-SMOKER [facility] Tobacco Use History This section includes a history of the smoking, or tobacco- related health factors, that were collected on or before the date of the Encounter. The data comes from the [place] facility where the Encounter took place. Date/Time Smoking Status/Tobacco Use Comment [facility] Aug 06, 2020 09:00 AM VA-TOBACCO FORMER USER MIN [facility] Aug 06, 2020 09:00 AM VA-TOBACCO QUIT 15 YRS OR MORE [facility] Radiology Reports: +/- 30 days of [...] the Encounter. The data comes from all [place] treatment facilities. Date/Time Radiology Report Provider Source Aug 19, 2021 12:07 PM FOOT LEFT 3 VIEWS OR MORE: RAYRAY LAWRENCE [facility] KRISSY IRWIN [id number] -[birth year] F Exm Date: AUG 19, 2021@12:07 Req Phys: SWATHI MCFARLANE Loc: [facility] PACT MELISSA N 4F (Req'g Loc) Img Loc: MAIN X-RAY Service: Unknown Screen: Patient answered no (Case [id number] COMPLETE) FOOT LEFT 3 VIEWS OR MORE ( RAD Detailed) CPT:36285 Proc Modifiers : LEFT Reason for Study: bony lump, left fifth metaras al, painful Clinical History: IS NOT under investigation for COVID-19 or is COVID-19 negative bony lump, left fifth metarasal, painful Respon sible provider name and phone number to notify for critical fi ndings if other than user placing the order and pager listed be low: User placing orders pager: [phone] LAST CREATININE____ Report Status: Verified Date Reported: AUG 19, 2021 Date Verified: AUG 19, 2021 Drying Oven Tender E-Sig:/ES/RAYRAY LAWRENCE MD Report: 3 views left [...] Primary Interpreting Staff: RAYRAY LAWRENCE MD, RADIOLOGIST (Drying Oven Tender) /RA Encounter Notes: All associated encounter notes This section contains the clinical notes associated to the Encounter. Date/Time Encounter Note(s) Provider Source Aug 02, 2021 03:00 PM PHYSICAL MEDICINE REHAB NOTE: JEREMY POWER [facility] LOCAL TITLE: REHAB PSYCHOLOGY PROGRESS NOTE STANDARD TITLE: PHYSICAL MEDICINE REHAB NOTE DATE OF NOTE: AUG 02, 2021@15:00 ENTRY DATE: AUG 05, 2021@21:30:25 AUTHOR: JEREMY POWER EXP COSIGNER: URGENCY: STATUS: COMPLETED [place] seen 55 min indiv psychotherapy via vvc. C: has provided informed consent for video A: [id number], [place] [address] P: [phone] S: at home in private room; no one else in [facility] Krissy states she is doing ok. Daughter (15y.o) h ad covid, just finishing quarantine. Twin sister with sx but still testin g negative. They are already on flexible learning program since school is sukumar rt-staffed due to covid. Followed up on issues regarding daughter discuss ed last session. Krissy states they talked directly with her about it, set limi ts on spending time with her male friend, which she understood rationale for and accepted, and has improved. She is hanging out with her girlfriend s again, playing lacrosse etc. Had some challenges with her 20 y/o daughter winston n she was home from college at [employer]. Daughter feels she is treated diff erently than the twins. Describes daughter as lacking empathy, externali zing. She is seeing therapist. Krissy is setting limits on her own be havior, trying not to fix everything. Mood has been a little down, which she attribute s to winter and the pandemic. She is very social person and missing being with friends. Feels lonely. Misses routines and predictability. Work has bee n very stressful. Started new sched (.75 FTE) which is helpful. Denies problem atic etoh intake. Denies SI. Concerns about weight gain due to medication. Soto s been working out and eating differently and continues to gain. She will disc uss with pharmacist in next phone appt. Objective: ready for video call. good eye contac t. engaged. Mood has been mildly down. Affect is broad, positive. Thought process logical; content appropriate. Expressly denies SI. Future oriente d. Educ: appeared open to learning and expressed un derstanding of educ provided Risk Assessment Risk Factors: depression sx, chronic pain, race Protective Factors: absence of current and past SI, plan and intent, strong social support, responsibility to children/famil y, engaged in mental health care, demonstrated ability to reach out for help , intact reality testing, presence of positive coping skills, Future orien lamberto Acute risk: low Chronic risk: low A: MDD unspecified; cva P: rtc 4 weeks; she is aware she can call sooner as needed. /kaylene/ Jeremy Power, PhD, LP Psychologist Signed: 08/05/2021 21:54
--- OUTSIDE RECORDS SUMMARY | 2022-03-27 17:37 | XMS_ITS | Encounter Summary ---
:1975 Author Organization Department of [facility] rs Address [address] [place] [address] Support Name Relationship Address Phone JERRI IRWIN Unavailable FABRIZIO VANCE [place] [address] JERRI IRWIN Unavailable FABRIZIO [employer] [phone] [place], [place] Selected Encounter This section includes the information on record at [place] for the Encounter. Date/Time Encounter Type Encounter Reason Provider Source Description May 25, 2021 PSYTX W PT 45 PM&RS PHYSICIAN ICD-10-CM F33.9 ALVA POWER SE 03:00 PM MINUTES Major depressive disorder, recurrent, unspecified with Provider Comments: Depression ([facility] [id number]) IHE Encounter Template Text not used by [facility] Assessments - Encounter Diagnoses This section includes the primary and secondary diagnoses documented for the Encounter. Date/Time Primary/Secondary Diagnosis Name Provider Source Diagnosis May 26, 2021 PRIMARY Major depressive JEREMY POWER [facility] 12:52 PM disorder, HCS recurrent, unspecified May 26, 2021 SECONDARY Cerebral JEREMY POWER V A 12:52 PM infarction, HCS unspecified Plan of Treatment: Future Appointments (+ 6 months) and Future Tests (+/- 45 days) The Plan of Treatment section includes future care activities for the patient from all [place] treatmentfacilities. This section includes future appointments and future orders which are active, pending orscheduled.Future Appointments This section includes appointments that were scheduled to occur 6 months from the date of the Encounter, up to a maximum of 20 appointments. The data comes from all [place] treatment facilities. Appointment Date/Time Appointment Type Appointment Facili ty Name Jun 13, 2021 04:00 PM AMBULATORY - NONE [facility] Jun 24, 2021 01:00 PM AMBULATORY - MEDICINE [facility] Jul 11, 2021 04:00 PM AMBULATORY - NONE [facility] Aug 02, 2021 03:00 PM AMBULATORY - MEDICINE [facility] CS Aug 15, 2021 04:00 PM AMBULATORY - NONE [facility] Aug 19, 2021 10:30 AM AMBULATORY - MEDICINE [facility] CS Aug 19, 2021 12:15 PM AMBULATORY - NONE [facility] Aug 19, 2021 12:30 PM AMBULATORY - NONE [facility] Aug 25, 2021 11:00 AM AMBULATORY - SURGERY [facility] S Aug 30, 2021 03:00 PM AMBULATORY - MEDICINE [facility] CS Sep 14, 2021 03:00 PM AMBULATORY - NONE [facility] Sep 21, 2021 03:00 PM AMBULATORY - MEDICINE [facility] CS Oct 11, 2021 04:00 PM AMBULATORY - MEDICINE [facility] Oct 14, 2021 09:00 AM AMBULATORY - MEDICINE [facility] Oct 14, 2021 11:00 AM AMBULATORY - MEDICINE [facility] Oct 24, 2021 09:30 AM AMBULATORY - MEDICINE [facility] Oct 24, 2021 10:45 AM AMBULATORY - NONE [facility] Oct 27, 2021 08:20 AM AMBULATORY - NONE [facility] Oct 28, 2021 06:00 PM AMBULATORY - REHAB MEDICINE [facility] Oct 31, 2021 09:00 AM AMBULATORY - MEDICINE [facility] Active, Pending, and Scheduled Orders This section includes a listing of several types of active, pending, and scheduled orders, including clinic medications orders, diagnostic test orders, procedure orders and consult orders; where the start date of the order is 45 days before the date of the Encounter or 45 days after the date of the Encounter. The data comes from all [place] treatment facilities. Test Date/Time Test Type Test Details Facility Name Apr 17, 2021 12:00 AM Laboratory - Chemistry TSH W/REFLEX TO [facility] Order T4 PLASMA SP ONCE Social History: Smoking Status (Most current) and Tobacco Use (All prior to encounter date) This section includes the most current, and the historical, smoking and tobacco-related health factors from the [place] facility where the Encounter took place.Current Smoking Status This section includes the most current smoking, or tobacco-related health factor, from the [place] facility where the Encounter took place. Date/Time Current Smoking Status Comment Facility Apr 15, 2021 01:00 PM LIFETIME NON-SMOKER [facility] Tobacco Use History This section includes a history of the smoking, or tobacco- related health factors, that were collected on or before the date of the Encounter. The data comes from the [place] facility where the Encounter took place. Date/Time Smoking Status/Tobacco Use Comment Mona rich[facility]son Aug 06, 2020 09:00 AM VA-TOBACCO FORMER USER [facility] Aug 06, 2020 09:00 AM VA-TOBACCO QUIT 15 YRS OR MORE [facility] Encounter Notes: All associated encounter notes This section contains the clinical notes associated to the Encounter. Date/Time Encounter Note(s) Provider Source May 25, 2021 03:00 PM PHYSICAL MEDICINE REHAB NOTE: JEREMY POWER [facility] LOCAL TITLE: REHAB PSYCHOLOGY PROGRESS NOTE STANDARD TITLE: PHYSICAL MEDICINE REHAB NOTE DATE OF NOTE: MAY 25, 2021@15:00 ENTRY DATE: MAY 26, 2021@12:37:23 AUTHOR: JEREMY POWER EXP COSIGNER: URGENCY: STATUS: COMPLETED seen 55 min indiv psychotherapy via vvc. C: has provided informed consent for video A: [id number], [place] [address] P: [phone] S: at home in private room; no one else in [facility] -it's been a long month...just life, derailing routine. -having headaches and teeth grinding aga in. more memory issues--feeling in fog -regular life stressors coming at once--busy juanjo ool/extracurricular sched for daughters, seasonal yardwork, picking up furnitu re of grandfather's who moved into [place] -Officially retiring from [employer] on 06/04. Rating complete (70% from [employer]) and service-connection for [facility] (100%). she was surpri sed it was completed so fast. Expected date was Aug. Has one last drill weeken d; others aren't going, she notes it's her tendency to follow the rules. 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 She will reduce to .75 time after the holidays. Feels thi s will help with stress. Also realizes that she has to stay busy and that marco a layne incremental change is probably best approach. -started with personal train ing. goes with her . it has been really good. he makes individualized adaptations for her. Thi s is slowly helping her build confidence and reduce anxiet y regarding future stroke; still worries, but feels it will improve with help of adjunct trainer. Fe el it has been good for MH; would like the physical improvements to go more quickly but rationally understands Objective: ready for video call. Mood green s been stressed, but overall positive. Affect broadens across the session, with increas ing smiles/laughter. She had just woken up shortly before session. Thought pr ocess is linear; content appropriate. future oriented Educ: appeared open to learning and expressed un derstanding of educ provided A: MDD unspecified; cva P: rtc 3 weeks /es/ Jeremy Power, PhD, LP Psychologist Signed: 05/26/2021 12:52
--- OUTSIDE RECORDS SUMMARY | 2022-03-27 17:37 | XMS_ITS | Encounter Summary ---
:1975 Author Organization Department of [facility] rs Address [address] [place] [address] Support Name Relationship Address Phone JERRI IRWIN Unavailable FABRIZIO [place] [address] JERRI IRWIN Unavailable [place]RIZ[place] [address] Selected Encounter This section includes the information on record at [place] for the Encounter. Date/Time Encounter Type Encounter Description Reason Provider Source May 26, 2021 12:18 Outpatient Encounter PM&RS PHYSICIAN PM IHE Encounter Template Text not used by [place] Plan of Treatment: Future Appointments (+ 6 months) and Future Tests (+/- 45 days) The Plan of Treatment section includes future care activities for the patient from all [place] treatmentfacilities. This section includes future appointments and future orders which are active, pending orscheduled.Future Appointments This section includes appointments that were scheduled to occur 6 months from the date of the Encounter, up to a maximum of 20 appointments. The data comes from all [place] treatment facilities. Appointment Date/Time Appointment Type Appointment Facili ty Name Jun 13, 2021 04:00 PM AMBULATORY - NONE [facility] Jun 24, 2021 01:00 PM AMBULATORY - MEDICINE [facility] CS Jul 11, 2021 04:00 PM AMBULATORY - NONE [facility] Aug 02, 2021 03:00 PM AMBULATORY - MEDICINE [facility] CS Aug 15, 2021 04:00 PM AMBULATORY - NONE [facility] Aug 19, 2021 10:30 AM AMBULATORY - MEDICINE [facility] CS Aug 19, 2021 12:15 PM AMBULATORY - NONE [facility] Aug 19, 2021 12:30 PM AMBULATORY - NONE [facility] Aug 25, 2021 11:00 AM AMBULATORY - SURGERY [facility] S Aug 30, 2021 03:00 PM AMBULATORY - MEDICINE [facility] CS Sep 14, 2021 03:00 PM AMBULATORY - NONE [facility] Sep 21, 2021 03:00 PM AMBULATORY - MEDICINE [facility] Oct 11, 2021 04:00 PM AMBULATORY - MEDICINE [facility] Oct 14, 2021 09:00 AM AMBULATORY - MEDICINE [facility] CS Oct 14, 2021 11:00 AM AMBULATORY - MEDICINE [facility] CS Oct 24, 2021 09:30 AM AMBULATORY - MEDICINE [facility] Oct 24, 2021 10:45 AM AMBULATORY - NONE [facility] Oct 27, 2021 08:20 AM AMBULATORY - NONE [facility] Oct 28, 2021 06:00 PM AMBULATORY - REHAB MEDICINE [facility] Oct 31, 2021 09:00 AM AMBULATORY - MEDICINE [facility] Active, Pending, and Scheduled Orders This section includes a listing of several types of active, pending, and scheduled orders, including clinic medications orders, diagnostic test orders, procedure orders and consult orders; where the start date of the order is 45 days before the date of the Encounter or 45 days after the date of the Encounter. The data comes from all [place] treatment facilities. Test Date/Time Test Type Test Details Facility Name Apr 17, 2021 12:00 AM Laboratory - Chemistry TSH W/REFLEX TO [facility] Order T4 PLASMA SP ONCE Social History: Smoking Status (Most current) and Tobacco Use (All prior to encounter date) This section includes the most current, and the historical, smoking and tobacco-related health factors from the [place] facility where the Encounter took place.Current Smoking Status This section includes the most current smoking, or tobacco-related health factor, from the [place] facility where the Encounter took place. Date/Time Current Smoking Status Comment Facility Apr 15, 2021 01:00 PM LIFETIME [facility]-SMOKER [facility] Tobacco Use History This section includes a history of the smoking, or tobacco- related health factors, that were collected on or before the date of the Encounter. The data comes from the [place] facility where the Encounter took place. Date/Time Smoking Status/Tobacco Use Comment Mona richardson Aug 06, 2020 09:00 AM VA-TOBACCO FORMER USER [facility] Aug 06, 2020 09:00 AM VA-TOBACCO QUIT 15 YRS OR MORE [facility] Encounter Notes: All associated encounter notes This section contains the clinical notes associated to the Encounter. Date/Time Encounter Note(s) Provider Source May 26, 2021 12:19 PM [facility]: APPOINTMENT SCHEDULING NOTE STANDARD TITLE: REPORT OF CONTACT DATE OF NOTE: MAY 26, 2021@12:19 ENTRY DATE: MAY 26, 2021@12:19:13 AUTHOR: LEAH NOGUERA EXP COSIGNER: URGENCY: STATUS: COMPLETED APPOINTMENT SCHEDULING NOTE Has ADDENDA Attempt to schedule return to clinic 1st Contact: Called [place] at: No Left message on voicemail Phone number left for to call back: If calls back, schedule appointment for: [facility] on or arou nd ( Jun 20, 2021 ) for a total of 1 appointment(s) Prerequisites: Notify ordering provider if minim um scheduling efforts fail 60 min Is the RTC marked as no later than? Stephany /kaylene/ LEAH NOGUERA Advanced MSA Signed: 05/26/2021 12:21 05/27/2021 ADDENDUM STATUS: COMPLETED Attempt to schedule return to clinic 2nd Contact: Contact: Called [place] at: May 27, 2021 Second phone number called: [phone] Left message on voice mail. Phone number left for to call back: [phone] If calls back, schedule appointment for: Return to [facility] REHAB PSYCH POWER on or arou nd ( Jun 20, 2021 ) for a total of 1 appointment(s) Prerequisites: Notify ordering provider if minim um scheduling efforts fail 60 min Is the RTC marked as no later than? No /kaylene/ LEAH NOGUERA Advanced MSA Signed: 05/27/2021 09:25
--- OUTSIDE RECORDS SUMMARY | 2022-03-27 17:37 | XMS_ITS ---
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 runny nose, and post-nasal drip on and off for the past 3 years. Uses Claritin and Nasonex as needed. 3. Neuro. 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 4. GI. Diagnosed with IBS, constipation dominant , uses stool softeners (Senna or Colace) and fiber. 5. Derm. History of squamous cell carcinoma on n ose, removed. 6. Psych. Depression from prior stroke, on medic ations and is in therapy. This patient has the following abnormalities Ear, nose, throat Respiratory Gastrointestinal Dermatologic Neurologic Psychiatric/psychologic The following were ordered Chest x-ray Total time spent on visit was 45 minutes. /kaylene/ JENNIFER MUNOZ APRN, CNP CERTIFIED NURSE PRACTITIONER Signed: 04/15/2021 14:49 Receipt Acknowledged By: * AWAITING SIGNATURE * NIKOLAS FLORES
--- OUTSIDE RECORDS SUMMARY | 2022-03-27 17:37 | XMS_ITS | Encounter Summary ---
:1975 Author Organization Department [facility] Address [address] [place] [address] Support Name Relationship Address Phone JERRI IRWIN Unavailable FABRIZIO VANCE [phone] [address] JERRI IRWIN Unavailable FABRIZIO [employer] [place], [place] Selected Encounter This section includes the information on record at [place] for the Encounter. Date/Time Encounter Type Encounter Reason Provider Source Description Aug 15, 2021 PRO PHONE TELEPHONE PRIMARY ICD-10-CM F33.9 AKIKO JIMENEZ 04:00 PM CALL 21-30 MIN CARE Major depressive IN R disorder, recurrent, unspecified with Provider Comments: Depression ([facility] [id number]) IHE Encounter Template Text not used by [place] Assessments - Encounter Diagnoses This section includes the primary and secondary diagnoses documented for the Encounter. Date/Time Primary/Secondary Diagnosis Name Provider Source Diagnosis Aug 15, 2021 PRIMARY Major depressive AKIKO TALBERT [place] 04:00 PM disorder, IN R HCS recurrent, unspecified Plan of Treatment: Future Appointments (+ 6 months) and Future Tests (+/- 45 days) The Plan of Treatment section includes future care activities for the patient from all [place] treatmentfacilities. This section includes future appointments and future orders which are active, pending orscheduled.Future Appointments This section includes appointments that were scheduled to occur 6 months from the date of the Encounter, up to a maximum of 20 appointments. The data comes from all [place] treatment facilities. Appointment Date/Time Appointment Type Appointment Facili ty Name Aug 19, 2021 10:30 AM AMBULATORY - MEDICINE [facility] Aug 19, 2021 12:15 PM AMBULATORY - NONE [facility] Aug 19, 2021 12:30 PM AMBULATORY - NONE [facility] Aug 25, 2021 11:00 AM AMBULATORY - SURGERY [facility] Aug 30, 2021 03:00 PM AMBULATORY - MEDICINE [facility] Sep 14, 2021 03:00 PM AMBULATORY - NONE [facility] Sep 21, 2021 03:00 PM AMBULATORY - MEDICINE [facility] Oct 11, 2021 04:00 PM AMBULATORY - MEDICINE [facility] Oct 14, 2021 09:00 AM AMBULATORY - MEDICINE [facility] Oct 14, 2021 11:00 AM AMBULATORY - MEDICINE [facility] Oct 24, 2021 09:30 AM AMBULATORY - MEDICINE [facility] Oct 24, 2021 10:45 AM AMBULATORY - NONE [facility] Oct 27, 2021 08:20 AM AMBULATORY - NONE [facility] Oct 28, 2021 06:00 PM AMBULATORY - REHAB MEDICINE [facility] Oct 31, 2021 09:00 AM AMBULATORY - MEDICINE [facility] Nov 09, 2021 03:30 PM AMBULATORY - NONE [facility] November 21, 2021 10:30 AM AMBULATORY - MEDICINE [facility] November 28, 2021 10:00 AM AMBULATORY - MEDICINE [facility] December 13, 2021 03:30 PM AMBULATORY - NONE [facility] December 13, 2021 05:00 PM AMBULATORY - REHAB MEDICINE [facility] Lab Results: +/- 30 days of the encounter This section includes the Chemistry and Hematology Lab Results on record with [place] for the patient. Radiology Reports and Pathology Reports are provided separately, in subsequent sections.Lab Results This section contains the Chemistry/Hematology Results that were resulted 30 days before or 30 daysafter the date of the Encounter. Date/Time Source Result Type Result - Unit Interpretation Reference Range Comment Aug 26, 2021 02:41 [facility] OCCULT BLOOD FIT X1 Speci men Type: FECES PM SCREEN No comment enter ed. Ordering Provid er: SWATHI MCFARLANE Report Released Date/Time: Aug 19, 2021 11:39 AM Reporting Lab: [facility] [address] [place] [facility] [id number] Performing Lab: [facility] [address] [facility] [address] [facility] [id number] OCCULT BLOOD (FIT) #1 OF 1 Negative Neg ative Aug 19, 2021 12:26 [facility] TSH W/REFLEX TO FREE Spec imen Type: PLASMA PM T4 No comment enter ed. Ordering Provid er: SWATHI MCFARLANE Report Released Date/Time: Aug 19, 2021 11:39 AM Reporting Lab: [facility] [address] [facility] [id number] Performing Lab: [facility] [address] [facility] [id number] TSH 2.97 0.35-4.94 Social History: Smoking Status (Most current) and Tobacco Use (All prior to encounter date) This section includes the most current, and the historical, smoking and tobacco-related health factors from the [place] facility where the Encounter took place.Current Smoking Status This section includes the most current smoking, or tobacco-related health factor, from the [place] facility where the Encounter took place. Date/Time Current Smoking Status Comment Facility Apr 15, 2021 01:00 PM LIFETIME NON-SMOKER [facility] Tobacco Use History This section includes a history of the smoking, or tobacco- related health factors, that were collected on or before the date of the Encounter. The data comes from the [place] facility where the Encounter took place. Date/Time Smoking Status/Tobacco Use Comment [facility] Aug 06, 2020 09:00 AM [place]-TO[facility]ACCO FORMER USER [facility] Aug 06, 2020 09:00 AM [place]-TOBACCO QUIT 15 YRS OR MORE [facility] Radiology Reports: +/- 30 days of the [...] the Encounter. The data comes from all [place] treatment facilities. Date/Time Radiology Report Provider Source Aug 19, 2021 12:07 PM FOOT LEFT 3 VIEWS OR MORE: RAYRAY LAWRENCE [facility] SARA IRWIN [id number] -[birth year] F Exm Date: AUG 19, 2021@12:07 Req Phys: SWATHI MCFARLANE Pat Loc: [facility] PACT MELISSA N 4F (Req'g Loc) Img Loc: MAIN X-RAY Service: Unknown Screen: Patient answered no (Case [id number] COMPLETE) FOOT LEFT 3 VIEWS OR MORE ( RAD Detailed) CPT:79468 Proc Modifiers : LEFT Reason for Study: bony lump, left fifth metaras al, painful Clinical History: IS NOT under investigation for COVID-19 or is COVID-19 negative bony lump, left fifth metarasal, painful Respon sible provider name and phone number to notify for critical fi ndings if other than user placing the order and pager listed be low: User placing orders pager: [phone] LAST CREATININE____ Report Status: Verified Date Reported: AUG 19, 2021 Date Verified: AUG 19, 2021 Columnist E-Sig:/ES/RAYRAY LAWRENCE MD Report: 3 views left [...] Primary Interpreting Staff: RAYRAY LAWRENCE MD, RADIOLOGIST (Columnist) /[facility] Encounter Notes: All associated encounter notes This section contains the clinical notes associated to the Encounter. Date/Time Encounter Note(s) Provider Source Aug 15, 2021 03:49 PHARMACY NOTE: TESSA TALBERT [facility] LOCAL TITLE: PHARMACOTHERAPY-CLINICAL PHARMACY NOTE STANDARD TITLE: PHARMACY NOTE DATE OF NOTE: AUG 15, 2021@15:49 ENTRY DATE: AUG 15, 2021@15:49:15 AUTHOR: TESSA TALBERT EXP COSIGNER: URGENCY: STATUS: COMPLETED visit Type: Phone SARA IRWIN is a 46 year-old se en today for pharmacy case management regarding depression. 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 Has non-VA neurology care. No medication changes made at last visit (had just received the higher buspirone do sing from the visit prior). DSM-5 Diagnostic Assessment: (per [facility] notes) - Adjustment Disorder with mixed Anxiety and de pressed mood Current Medications for Depression: - Buspirone 20mg BID - Escitalopram 15mg Qday Previous Medication Trials: - Sertraline (took for a brief period and stopp ed) SUBJECTIVE: Sara states she is feeling well this afternoon. Primary concern today is weight gain/difficulty losing weigh t after starting escitalopram and she would like to try a different medication. Notes she has been e ating healthier, exercising daily, and can't seem to lose weight (actually s eeing weight gain). Notes difficulty with weight contributes to low mood s ymptoms and poor self-image. Hasn't noticed any change in teeth grinding sinc e last visit. Discussed potential alternatives to current therap y and would be open to cross-titration to bupropion given lower risk of weight impact. Is connecting with PCP later this week and plans to recheck TSH. Discussed hy pothyroidism may also be contributing to weight concerns, low viet rgy, and lower mood. Last TSH elevated and levothyroxine dose was increased -- appears lab recheck was missed and is overdue. Has had a stressful couple of weeks following te sting positive for COVID. Her kids are home from school (r emote learning) due to exposure. 's last day of quarantine is today and returns to work [employer]. Notes her symptoms were fairly mild. 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) - Housing: [place] usband [place] OBJECTIVE: ALLERGIES/ADR: Patient has answered NKA MEDICATION RECONCILIATION: Active and Recently Outpatient Medicatio ns (excluding Supplies): Active Outpatient Medications Status 1) BUSPIRONE HCL 10MG TAB TAKE TWO TABLETS BY MO UTH ACTIVE TWICE A DAY FOR ANXIETY 2) ESCITALOPRAM OXALATE [...] [88.6 kg] (12/22/2020 08:08) BMI: 32.5 LABS: Collection DT Specimen Test Name Result Units Re f Range 08/06/2020 11:00 PLASMA CREATININE 0.8 mg/dL 0.5 - 1.0 08/06/2020 11:00 PLASMA ESTIMATED GFR(eGF >60 Re f: >=60 Collection DT Spec HGBA1C 08/06/2020 11:00 BLOOD 5.5 Mental Status Exam: (adapted for phone) - Attitude toward interviewer: Cooperative, fri endly - Speech: Normal rate, rhythm, and tone; conver ses spontaneously - Thought process: Linear, logical - Thought content: No SI/HI or psychotic conten t verbalized or suspected; provides interim updates - Mood: I'm okay -- I think we should change u p the medications - Insight/Judgement: good/good; intact for safe ty ASSESSMENT: #Mood/Anxiety Symptoms: Good mood/anxiety response to escitalopr am; however, reporting difficulty with weight gain and would like t o trial a different antidepressant. Open to trial of bupropion given lowest weight gain poten tial of antidepressants. No history of seizures or epilepsy. Encour aged to monitor for any increase in anxiety symptoms with more stimulating/activating antidepressant. Will cross taper given non- serotonergic mechanism to pr event withdrawal symptoms with SSRI discontinuation. Encouraged to monitor for any change in bruxism symptoms with SSRI discontinuation (if now change, likely not medic ation related). No safety concerns noted today and anticipate risk of self -harm/suicide is low based on risk/protective factors. PLAN: ----- - Initiate bupropion XL 150mg QAM x7 days, then 300mg Qday - Taper escitalopram: o Reduce to 10mg Qday x7 days when starting bup ropion o Reduce to 5mg Qday x7 days, then stop - Continue buspirone 20mg BID for anxiety #Disease-Specific Med Rec: Completed today #Labs: Repeat TSH with PCP a ppointment later this week; repeat PHQ-9 at follow- up - Educated vet on indication/risks/benefits of n ew/changed medication. - Education provided on therapeutic nonpharmacol ogic management to achieve goals. - Vet advised of recent labs. - verbalized underst anding to all plans discussed today. Questions were answered to vet's satisfaction. Time Spent: 25 minutes RTC: 4 weeks in phone clinic /kaylene/ TESSA TALBERT, PharmD, BCPP [employer] Signed: 08/16/2021 10:22
--- OUTSIDE RECORDS SUMMARY | 2022-03-27 17:37 | XMS_ITS | Encounter Summary ---
:1975 Author Organization Department of [facility] Address [address] [place] [id number] Support Name Relationship Address Phone JERRI IRWIN Unavailable FABRIZIO VANCE [place] [address] JERRI IRWIN Unavailable FABRIZIO VANCE [place], [place] Selected Encounter This section includes the information on record at [place] for the Encounter. Date/Time Encounter Type Encounter Reason Provider Source Description Jun 24, 2021 PSYTX W PT 45 PM&RS PHYSICIAN ICD-10-CM F33.9 ALVA POWER SE 01:00 PM MINUTES Major depressive disorder, recurrent, unspecified with Provider Comments: Depression ([facility] [id number]) IHE Encounter Template Text not used by [place] Assessments - Encounter Diagnoses This section includes the primary and secondary diagnoses documented for the Encounter. Date/Time Primary/Secondary Diagnosis Name Provider Source Diagnosis Jun 26, 2021 PRIMARY [facility] [place] [facility] disorder, HCS recurrent, unspecified Plan of Treatment: Future Appointments (+ 6 months) and Future Tests (+/- 45 days) The Plan of Treatment section includes future care activities for the patient from all [place] treatmentfacilities. This section includes future appointments and future orders which are active, pending orscheduled.Future Appointments This section includes appointments that were scheduled to occur 6 months from the date of the Encounter, up to a maximum of 20 appointments. The data comes from all [place] treatment facilities. Appointment Date/Time Appointment Type Appointment Facili ty Name Jul 11, 2021 04:00 PM AMBULATORY - NONE [facility] Aug 02, 2021 03:00 PM AMBULATORY - MEDICINE [facility] Aug 15, 2021 04:00 PM AMBULATORY - NONE [facility] Aug 19, 2021 10:30 AM AMBULATORY - MEDICINE [facility] Aug 19, 2021 12:15 PM AMBULATORY - NONE [facility] Aug 19, 2021 12:30 PM AMBULATORY - NONE [facility] Aug 25, 2021 11:00 AM AMBULATORY - SURGERY [facility] Aug 30, 2021 03:00 PM AMBULATORY - MEDICINE [facility] Sep 14, 2021 03:00 PM AMBULATORY - NONE [facility] Sep 21, 2021 03:00 PM AMBULATORY - MEDICINE [facility] Oct 11, 2021 04:00 PM AMBULATORY - MEDICINE [facility] Oct 14, 2021 09:00 AM AMBULATORY - MEDICINE [facility] Oct 14, 2021 11:00 AM AMBULATORY - MEDICINE [facility] Oct 24, 2021 09:30 AM AMBULATORY - MEDICINE [facility] Oct 24, 2021 10:45 AM AMBULATORY - NONE [facility] Oct 27, 2021 08:20 AM AMBULATORY - NONE [facility] Oct 28, 2021 06:00 PM AMBULATORY - REHAB [facility]IC[facility] Oct 31, 2021 09:00 AM AMBULATORY - MEDICINE [facility] Nov 09, 2021 03:30 PM AMBULATORY - NONE [facility] November 21, 2021 10:30 AM AMBULATORY - MEDICINE [facility] Social History: Smoking Status (Most current) and Tobacco Use (All prior to encounter date) This section includes the most current, and the historical, smoking and tobacco-related health factors from the [place] facility where the Encounter took place.Current Smoking Status This section includes the most current smoking, or tobacco-related health factor, from the [place] facility where the Encounter took place. Date/Time Current Smoking Status Comment Facility Apr 15, 2021 01:00 PM LIFETIME [facility]MOK[facility] Tobacco Use History This section includes a history of the smoking, or tobacco- related health factors, that were collected on or before the date of the Encounter. The data comes from the [place] facility where the Encounter took place. Date/Time Smoking Status/Tobacco Use Comment Mona richardson Aug 06, 2020 09:00 AM VA-TOBACCO FORMER USER [facility] Aug 06, 2020 09:00 AM VA-TOBACCO QUIT 15 YRS OR MORE [facility] Encounter Notes: All associated encounter notes This section contains the clinical notes associated to the Encounter. Date/Time Encounter Note(s) Provider Source Jun 24, 2021 01:00 PM PHYSICAL MEDICINE REHAB NOTE: JEREMY POWER [facility] LOCAL TITLE: REHAB PSYCHOLOGY PROGRESS NOTE STANDARD TITLE: PHYSICAL MEDICINE REHAB NOTE DATE OF NOTE: JUN 24, 2021@13:00 ENTRY DATE: JUN 26, 2021@16:33:30 AUTHOR: JEREMY POWER EXP COSIGNER: URGENCY: STATUS: COMPLETED Seymour seen 55 min indiv psychotherapy via vvc. C: has provided informed consent for video A: [id number], [place] [address] P: [phone] S: at home in private room; no one else in [facility] was on video initial ly to let me know that Sara was just finishing up a call regarding her daughter and would be right o n. Sara came on video moment later. She reports that she just learned concern ing information regarding her daughter from the mom of shilpi osborne's friend. Daughter (and the family) have been helping one of daughter's male friends who is go ing through tough time due to parents' divorce etc. Sara had texted boy's mom regarding some concerns. Boy's mom called to say that she f ound a text from Sara's daughter that said ~if you stop hurting yourself, I'll stop hurting myself too. This was very surprising to Sara. She states she spends lots of time tog ether with her daughter and there has never been any ind ication. Daughter's twin sister has also never said anything about this. Session focused on these concerns, her reactions, ways of talking with her daughter et c. She plans to talk to her daughter this afternoon. She states her daughter has seen a counselor through the school so she is aware how to go about this. She also has insur ance for the family. 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 She green s been working on trying to just be and not racing arou nd. Trying to be present. Continues to work out at gym with [employer] which has been helpful. Despite this she states that her mood has been pretty good. She had increased teeth gr inding and medications were recently adjusted. She has formally retired from . Objective: engaged in session. Good eye contact. Mood has been pretty good. Affect is broad and congruent. Thought process l ogical; content appropriate. Future oriented Educ: appeared open to learning and expressed un derstanding of educ provided A: MDD unspecified; cva P: rtc 4 weeks; she is aware she can call sooner as needed. /kaylene/ Jeremy Power, PhD, Psychologist Signed: 06/26/2021 16:52
--- OUTSIDE RECORDS SUMMARY | 2022-03-27 17:37 | XMS_ITS | Encounter Summary ---
:1975 Author Organization Department of [facility] rs Address [address] [place] [address] Support Name Relationship Address Phone JERRI IRWIN Unavailable FABRIZIO VANCE [place] [phone] JERRI IRWIN [place] [address] Selected Encounter This section includes the information on record at [place] for the Encounter. Date/Time Encounter Type Encounter Description Reason Provider Source Aug 03, 2021 12:36 Outpatient Encounter PM&RS PHYSICIAN PM IHE Encounter Template Text not used by CT Plan of Treatment: Future Appointments (+ 6 [...] 15, 2021 04:00 PM AMBULATORY - NONE [facility] Aug 19, 2021 10:30 AM AMBULATORY - MEDICINE [facility] Aug 19, 2021 12:15 PM AMBULATORY - NONE [facility] Aug 19, 2021 12:30 PM AMBULATORY - NONE [facility] Aug 25, 2021 11:00 AM AMBULATORY - SURGERY [facility] S Aug 30, 2021 03:00 PM AMBULATORY - MEDICINE [facility] Sep 14, 2021 03:00 PM AMBULATORY - NONE [facility] Sep 21, 2021 03:00 PM AMBULATORY - MEDICINE [facility] CS Oct 11, 2021 04:00 PM AMBULATORY - MEDICINE [facility] Oct 14, 2021 09:00 AM AMBULATORY - MEDICINE [facility] Oct 14, 2021 11:00 AM AMBULATORY - MEDICINE [facility] Oct 24, 2021 09:30 AM AMBULATORY - MEDICINE [facility] Oct 24, 2021 10:45 AM AMBULATORY - NONE [facility] Oct 27, 2021 08:20 AM AMBULATORY - NONE [facility] Oct 28, 2021 06:00 PM [facility] Oct 31, 2021 09:00 AM AMBULATORY - MEDICINE [facility] Nov 09, 2021 03:30 PM AMBULATORY - NONE [facility] November 21, 2021 10:30 AM AMBULATORY - MEDICINE [facility] November 28, 2021 10:00 AM AMBULATORY - MEDICINE [facility] December 13, 2021 03:30 PM AMBULATORY - NONE [facility] Lab Results: +/- 30 days [...] Reference Range Comment Aug 26, 2021 02:41 [facility] OCCULT BLOOD FIT X1 Speci men Type: FECES PM SCREEN No comment enter ed. Ordering Provid er: SWATHI MCFARLANE Report Released Date/Time: Aug 19, 2021 11:39 AM Reporting Lab: [facility] [address] [facility] [id number] Performing Lab: [facility] [id number] OCCULT BLOOD (FIT) #1 OF 1 Negative Neg ative Aug 19, 2021 12:26 [facility] TSH W/REFLEX TO FREE Spec imen Type: PLASMA PM T4 No comment enter ed. Ordering Provid er: SWATHI MCFARLANE Report Released Date/Time: Aug 19, 2021 11:39 AM Reporting Lab: [facility] [address] [facility] [id number] Performing Lab: [facility] [id number] TSH 2.97 0.35-4.94 Social History: Smoking Status (Most current) and Tobacco Use (All prior to encounter date) This section includes the most current, and the historical, smoking and tobacco-related health factors from the [place] facility where the Encounter took place.Current Smoking Status This section includes the most current smoking, or tobacco-related health factor, from the [place] facility where the Encounter took place. Date/Time Current Smoking Status Comment Facility Apr 15, 2021 01:00 PM LIFETIME NON-SMOKER [facility] Tobacco Use History This section includes a history of the smoking, or tobacco- related health factors, that were collected on or before the date of the Encounter. The data comes from the [place] facility where the Encounter took place. Date/Time Smoking Status/Tobacco Use Comment [facility] Aug 06, 2020 09:00 AM [place]-TO[facility]ACCO [facility]ER [facility] Aug 06, 2020 09:00 AM VA-TOBACCO QUIT 15 YRS OR MORE [facility] Radiology Reports: +/- 30 days [...] LEFT 3 VIEWS OR MORE: RAYRAY LAWRENCE [facility] KRISSY IRWIN [id number] -[birth year] F Exm Date: AUG 19, 2021@12:07 Req Phys: SWATHI MCFARLANE Pat Loc: [facility] PACT MELISSA N 4F (Req'g Loc) Img Loc: MAIN X-RAY Service: Unknown Screen: Patient answered no (Case [id number] COMPLETE) FOOT LEFT 3 VIEWS OR MORE ( RAD Detailed) CPT:62529 Proc Modifiers : LEFT Reason for Study: bony lump, left fifth metaras al, painful Clinical History: IS NOT under investigation for COVID-19 or is COVID-19 negative bony lump, left fifth metarasal, painful Respon sible provider name and phone number to notify for critical fi ndings if other than user placing the order and pager listed be low: User placing orders pager: [phone] LAST CREATININE____ Report Status: Verified Date Reported: AUG 19, 2021 Date Verified: AUG 19, 2021 Jeweler Apprentice E-Sig:/ES/RAYRAY LAWRENCE MD Report: 3 views left [...] Primary Interpreting Staff: RAYRAY LAWRENCE MD, RADIOLOGIST (Jeweler Apprentice) /[facility] Encounter Notes: All associated encounter notes This section contains the clinical notes associated to the Encounter. Date/Time Encounter Note(s) Provider Source Aug 03, 2021 12:36 PM REPORT OF CONTACT: DOC CHO [facility] LOCAL TITLE: APPOINTMENT SCHEDULING NOTE STANDARD TITLE: REPORT OF CONTACT DATE OF NOTE: AUG 03, 2021@12:36 ENTRY DATE: AUG 03, 2021@12:36:48 AUTHOR: DOC CHO EXP COSIGNER: URGENCY: STATUS: COMPLETED Attempt to schedule return to clinic 1st Contact: Called at: J an Left message on [employer] Phone number left for to call back: [phone] If [place] calls back, schedule appointment for: Return to [facility] PSY[facility] POWER on or arou nd ( Aug 23, 2021 ) for a total of 1 appointment(s) Prerequisites: Notify ordering provider if minim um scheduling efforts fail 60 min Is the RTC marked as no later than? No /kaylene/ DOC CHO AMSA Signed: 08/03/2021 12:37
--- OUTSIDE RECORDS SUMMARY | 2022-03-27 17:37 | XMS_ITS | Encounter Summary ---
:1975 Author Organization Department of [facility] rs Address [address] [place] [address] Support Name Relationship Address Phone JERRI IRWIN Unavailable FABRIZIO VANCE [phone] [place] [address] JERRI IRWIN Unavailable FABRIZIO VANCE [place], [place] Selected Encounter This section includes the information on record at [place] for the Encounter. Date/Time Encounter Type Encounter Reason Provider Source Description Apr 28, 2021 PSYTX W PT 45 PM&RS PHYSICIAN ICD-10-CM F33.9 [facility] 03:00 PM MINUTES Major depressive disorder, recurrent, unspecified with Provider Comments: Depression ([facility] [id number]) IHE Encounter Template Text not used by [facility] Assessments - Encounter Diagnoses This section includes the primary and secondary diagnoses documented for the Encounter. Date/Time Primary/Secondary Diagnosis Name Provider Source Diagnosis Apr 30, 2021 PRIMARY Major depressive [facility] [place] 11:03 PM disorder, HCS recurrent, unspecified Apr 30, 2021 SECONDARY Cerebral JEREMY POWER V A [...] Date/Time Appointment Type Appointment Facili ty Name May 25, 2021 03:00 PM AMBULATORY - MEDICINE [facility] Jun 13, 2021 04:00 PM AMBULATORY - NONE [facility] Jun 24, 2021 01:00 PM AMBULATORY - MEDICINE [facility] CS Jul 11, 2021 04:00 PM AMBULATORY - NONE [facility] Aug 02, 2021 03:00 PM AMBULATORY - MEDICINE [facility] Aug 15, 2021 04:00 PM AMBULATORY - NONE [facility] Aug 19, 2021 10:30 AM AMBULATORY - MEDICINE [facility] Aug 19, 2021 12:15 PM AMBULATORY - NONE [facility] Aug 19, 2021 12:30 PM AMBULATORY - NONE [facility] Aug 25, 2021 11:00 AM AMBULATORY - SURGERY [facility] S Aug 30, 2021 03:00 PM AMBULATORY - MEDICINE [facility] CS Sep 14, 2021 03:00 PM AMBULATORY - NONE [facility] Sep 21, 2021 03:00 PM AMBULATORY - MEDICINE [facility] Oct 11, 2021 04:00 PM AMBULATORY - MEDICINE [facility] Oct 14, 2021 09:00 AM AMBULATORY - MEDICINE [facility] Oct 14, 2021 11:00 AM AMBULATORY - MEDICINE [facility] Oct 24, 2021 09:30 AM AMBULATORY - MEDICINE [facility] Oct 24, 2021 10:45 AM AMBULATORY - NONE [facility] Oct 27, 2021 08:20 AM [facility] Active, Pending, and Scheduled Orders [...] AM Laboratory - Chemistry TSH W/REFLEX TO [facility] Order T4 PLASMA SP ONCE Social History: [...] 2021 01:00 PM LIFETIME NON-SMOKER [facility] Tobacco Use History This section includes a history of the smoking, or tobacco- related health factors, that were collected on or before the date of the Encounter. The data comes from the [place] facility where the Encounter took place. Date/Time Smoking Status/Tobacco Use Comment Mona richardson Aug 06, 2020 09:00 AM [place]-TOBAC[place] FORMER USER [facility] Aug 06, 2020 09:00 AM [place]-TOBACCO QUIT 15 YRS OR MORE [facility] [...] data comes from all [place] treatment facilities. Date/Time Radiology Report Provider Source Apr 01, 2021 12:55 PM ESOPHAGRAM VIDEO SWALLOW: DILIP MATA [facility] KRISSY IRWIN [id number] -[birth year]B [birth year] F Exm Date: APR 01, 2021@12:55 Req Phys: NIKOLAS FLORES Loc: [facility] PAC T FERN PHONE (Req'g Loc Img Loc: MAIN X-RAY Service: Unknown Screen: Patient answered no (Case [id number] COMPLETE) ESOPHAGRAM VIDEO SWALLOW (R AD Detailed) CPT:28739 Contrast Media : Barium Reason for Study: difficulty swallowing solids upper throat Clinical History: [place] IS NOT under investigation for COVID-19 or is COVID-19 negative difficulty swallowing solids upper throat Respo nsible provider name and phone number to notify for critical fi ndings if other than user placing the order and pager listed be low: User placing orders pager: LAST CREATININE [phone] (08/06/20) Report Status: Verified Date Reported: APR 01, 2021 Date Verified: APR 01, 2021 Ve Teacher E-Sig:/ES/DILIP MATA MD Report: EXAMINATION: ESOPHAGRAM VIDEO [...] Primary Interpreting Staff: DILIP MATA MD, RADIOLOGIST (Ve Teacher) Primary Interpreting Resident: Michael RAMIREZ, QUIRK SANDER /[facility] Encounter Notes: All associated encounter notes This section contains the clinical notes associated to the Encounter. Date/Time Encounter Note(s) Provider Source Apr 29, 2021 02:56 PM REPORT OF CONTACT: PEPE CORRALES [facility] LOCAL TITLE: APPOINTMENT SCHEDULING NOTE STANDARD TITLE: REPORT OF CONTACT DATE OF NOTE: APR 29, 2021@14:56 ENTRY DATE: APR 29, 2021@14:56:14 AUTHOR: PEPE CORRALES EXP COSIGNER: URGENCY: STATUS: COMPLETED Attempt to schedule return to clinic 1st Contact: Called at: O ct Left message ON Phone number left for to call back: [phone] If calls back, schedule appointment for : Return to [facility] on or latanya nd ( May 19, 2021 ) for a total of 1 appointment(s) Prerequisites: Notify ordering provider if minim um scheduling efforts fail 60 min Is the RTC marked as no later than? No /kaylene/ PEPE CORRALES [facility] OB Signed: 04/29/2021 14:58 Apr 28, 2021 03:00 PM PHYSICAL MEDICINE REHAB NOTE: JEREMY POWER [facility] LOCAL TITLE: REHAB PSYCHOLOGY PROGRESS NOTE STANDARD TITLE: PHYSICAL MEDICINE REHAB NOTE DATE OF NOTE: APR 28, 2021@15:00 ENTRY DATE: APR 30, 2021@22:46:10 AUTHOR: JEREMY POWER EXP COSIGNER: URGENCY: STATUS: COMPLETED seen 55 min indiv psychotherapy via vvc. C: has provided informed consent for video A: [id number] [place] [address] P: [phone] S: at home in private room; no one else in [facility] Reports overall managing ok. Overall moo d improved with medications, but still has some variability. 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 Sometimes forgets to take evening dose of antidepressa nt; this also tends to happen when she is exhausted. Problem-solved strategies to improve adh erence. She has perfectionistic traits and is self-critical when falls short of high ex pectation to be able to do it all. Did not pass height/weight requirem ents for [employer], for first time ever and this was difficult for her, leading to low mood, discouragement, decreased motivation. She has been discussing with her hus band ways to decrease her schedule to have more time for her healt h and parenting. She has a very active mind and has difficulty bein g still; feels anxious and like not doing enough if she isn't moving/doing. Feels humiliated if she can't do everything.Discussed concepts of setting limits, saying no, self-comp assion and mindfulness. Downloaded [place] [facility] natalie. She will tr ial at least one practice per week before next session. Objective: ready for video c all. Good eye contact. Talkative, engaged. Mood has been variable, though overall positive. Affect i s broad. Thought process is logical; content appropriate. Future oriented. Educ: appeared open to learning and expressed un derstanding. A: MDD unspecified; cva P: rtc 2 weeks /kaylene/ Jeremy Power, PhD, Psychologist Signed: 04/30/2021 23:03
--- OUTSIDE RECORDS SUMMARY | 2022-03-27 17:37 | XMS_ITS | Encounter Summary ---
:1975 Author Organization Department [facility] Address [address] [place] [address] Support Name Relationship Address Phone JERRI IRWIN Unavailable FABRIZIO VANCE [place] [address] JERRI IRWIN Unavailable FABRIZIO [employer] [place], [place] Selected Encounter This section includes the information on record at [place] for the Encounter. Date/Time Encounter Type Encounter Reason Provider Source Description Jul 11, 2021 HC PRO PHONE TELEPHONE PRIMARY ICD-10-CM F33.9 AKIKO JIMENEZ 04:00 PM CALL 11-20 MIN CARE Major depressive [place] R disorder, recurrent, unspecified with Provider Comments: Depression ([facility] [id number]) IHE Encounter Template Text not used by [place] Assessments - Encounter Diagnoses This section includes the primary and secondary diagnoses documented for the Encounter. Date/Time Primary/Secondary Diagnosis Name Provider Source Diagnosis Jul 11, 2021 PRIMARY Major depressive AKIKO TALBERT [place] [...] Appointment Type Appointment Facili ty Name Aug 02, 2021 03:00 PM AMBULATORY - MEDICINE [facility] Aug 15, 2021 04:00 PM AMBULATORY - NONE [facility] Aug 19, 2021 10:30 AM AMBULATORY - MEDICINE [facility] Aug 19, 2021 12:15 PM AMBULATORY - NONE [facility] Aug 19, 2021 12:30 PM AMBULATORY - NONE [facility] Aug 25, 2021 11:00 AM AMBULATORY - SURGERY [facility] S Aug 30, 2021 03:00 PM AMBULATORY - MEDICINE [facility] CS Sep 14, 2021 03:00 PM AMBULATORY - NONE [facility] Sep 21, 2021 03:00 PM AMBULATORY - MEDICINE [facility] Oct 11, 2021 04:00 PM AMBULATORY - [facility]ICINE [facility] Oct 14, 2021 09:00 AM AMBULATORY - MEDICINE [facility] Oct 14, 2021 11:00 AM AMBULATORY - MEDICINE [facility] Oct 24, 2021 09:30 AM AMBULATORY - MEDICINE [facility] Oct 24, 2021 10:45 AM AMBULATORY - NONE [facility] Oct 27, 2021 08:20 AM AMBULATORY - NONE [facility] Oct 28, 2021 06:00 PM AMBULATORY - REHAB MEDICINE [facility] Oct 31, 2021 09:00 AM AMBULATORY - MEDICINE [facility] Nov 09, 2021 03:30 PM AMBULATORY - NONE [facility] November 21, 2021 10:30 AM AMBULATORY - MEDICINE [facility] November 28, 2021 10:00 AM AMBULATORY - MEDICINE [facility] Social History: Smoking Status (Most current) [...] [facility] Tobacco Use History This section includes a history of the smoking, or tobacco- related health factors, that were collected on or before the date of the Encounter. The data comes from the [place] facility where the Encounter took place. Date/Time Smoking Status/Tobacco Use Comment Mona richardson Aug 06, 2020 09:00 AM VA-TOBACCO FORMER USER [facility] Aug 06, 2020 09:00 AM VA-TOBACCO QUIT 15 YRS OR MORE [facility] Encounter Notes: All associated encounter notes This section contains the clinical notes associated to the Encounter. Date/Time Encounter Note(s) Provider Source Jul 11, 2021 03:57 PHARMACY NOTE: TESSA TALBERT [facility] PM LOCAL TITLE: PHARMACOTHERAPY-CLINICAL PHARMACY NOTE STANDARD TITLE: PHARMACY NOTE DATE OF NOTE: JUL 11, 2021@15:57 ENTRY DATE: JUL 11, 2021@15:57:21 AUTHOR: TESSA TALBERT EXP COSIGNER: URGENCY: STATUS: COMPLETED visit Type: Phone SARA IRWIN is a 46 year-old [place] se en today for pharmacy case management regarding depression. 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 Has non-[place] neurology care. Increased buspirone to 20mg BID at last visit; unfortunately Wr iter missed initially placing the order so there was a delay getting the updated dose. DSM-5 Diagnostic Assessment: (per [facility] notes) - Adjustment Disorder with mixed Anxiety and de pressed mood Current Medications for Depression: - Buspirone 20mg BID - Escitalopram 15mg Qday Previous Medication Trials: - Sertraline (took for a brief period and stopp ed) SUBJECTIVE: Sara states she is feeling alright this after noon. Was able to start the higher dose of buspirone abo ut a week ago and hasn't really noticed any change; self-identifies it is likely too early to see a response. Teeth clenching/grinding symptoms are about the same a nd has an upcoming dental appointment (non-VA) and valentin ns to discuss this with her dental team as well. Has been noticing for grinding symptoms while sleepi ng and recently purchased a mouth guard over the counter, but doesn't work f or her mouth (encouraged to discuss with dental). 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 Continues to feel escitalopram is helpful for mo od symptoms and would like to continue. Teeth clenching/grinding may b e related, though also potentially due to other factors. Too early to assess response from increased dose of buspirone (off-label evidence for SSRI-induced bruxism). W ill plan to continue current agents as prescribed and enc ouraged follow-up with her non-VA dental clinic. No safety concerns noted today and anticipate risk of self-harm/suicide is low based on risk/protective factors. PLAN: ----- - Continue escitalopram 15mg Qday - Continue buspirone 20mg BID for anxiety [...] vet's satisfaction. Time Spent: 15 minutes RTC: 6 weeks in phone clinic /kaylene/ TESSA TALBERT, Ami, BCPP Clinical Radiographer Mammographer Signed: 07/12/2021 13:43
--- OUTSIDE RECORDS SUMMARY | 2022-03-27 17:37 | XMS_ITS | Encounter Summary ---
:1975 Author Organization Department [facility] Address [address] [place] [address] Support Name Relationship Address Phone JERRI IRWIN Unavailable FABRIZIO VANCE [phone] [place] [address] JERRI IRWIN Unavailable FABRIZIO goCatch [phone] [place], [place] Selected Encounter This section includes the information on record at [place] for the Encounter. Date/Time Encounter Type Encounter Reason Provider Source Description Apr 18, 2021 HC PRO PHONE TELEPHONE PRIMARY ICD-10-CM F33.9 AKIKO JIMENEZ 04:00 PM CALL 21-30 MIN CARE Major depressive IN R disorder, recurrent, unspecified with Provider Comments: Depression ([facility] [id number]) IHE Encounter Template Text not used by [place] Assessments - Encounter Diagnoses This section includes the primary and secondary diagnoses documented for the Encounter. Date/Time Primary/Secondary Diagnosis Name Provider Source Diagnosis Apr 18, 2021 PRIMARY Major depressive AKIKO TALBERT [place] 04:00 PM disorder, IN R HCS recurrent, unspecified Plan of Treatment: Future Appointments (+ 6 months) and Future Tests (+/- 45 days) The Plan of Treatment section includes future care activities for the patient from all [place] treatmentfacilities. This section includes future appointments and future orders which are active, pending orscheduled.Future Appointments This section includes appointments that were scheduled to occur 6 months from the date of the Encounter, up to a maximum of 20 appointments. The data comes from all [place] treatment facilities. Appointment Date/Time Appointment Type Appointment Facili ty Name Apr 28, 2021 03:00 PM AMBULATORY - MEDICINE [facility] May 25, 2021 03:00 PM AMBULATORY - MEDICINE [facility] Jun 13, 2021 04:00 PM AMBULATORY - NONE [facility] Jun 24, 2021 01:00 PM AMBULATORY - MEDICINE [facility] Jul 11, 2021 04:00 PM AMBULATORY - NONE [facility] Aug 02, 2021 03:00 PM AMBULATORY - MEDICINE [facility] Aug 15, 2021 04:00 PM AMBULATORY - NONE [facility] Aug 19, 2021 10:30 AM AMBULATORY - MEDICINE [facility] Aug 19, 2021 12:15 PM AMBULATORY - NONE [facility] Aug 19, 2021 12:30 PM AMBULATORY - NONE [facility] Aug 25, 2021 11:00 AM AMBULATORY - SURGERY [facility] S Aug 30, 2021 03:00 PM AMBULATORY - MEDICINE [facility] Sep 14, 2021 03:00 PM AMBULATORY - NONE [facility] Sep 21, 2021 03:00 PM AMBULATORY - MEDICINE [facility] Oct 11, 2021 04:00 PM AMBULATORY - MEDICINE [facility] Oct 14, 2021 09:00 AM AMBULATORY - MEDICINE [facility] Oct 14, 2021 11:00 AM AMBULATORY - MEDICINE [facility] Active, Pending, and Scheduled [...] data comes from all [place] treatment facilities. Test Date/Time Test Type Test Details Facility Name Apr 17, 2021 12:00 AM Laboratory - Chemistry TSH W/[facility] TO [facility] Order T4 PLASMA SP ONCE Social [...] 2021 01:00 PM LIFETIME NON-SMOKER [facility] Tobacco Use History This section includes a history of the smoking, or tobacco- related health factors, that were collected on or before the date of the Encounter. The data comes from the [place] facility where the Encounter took place. Date/Time Smoking Status/Tobacco Use Comment Mona richardson Aug 06, 2020 09:00 AM VA-TOBACCO FORMER USER [facility] Aug 06, 2020 09:00 AM VA-TOBACCO QUIT [address] [facility] Radiology Reports: +/- 30 [...] 12:55 PM ESOPHAGRAM VIDEO SWALLOW: DILIP MATA [facility] SARA IRWIN [id number] -[birth year] F Exm Date: APR 01, 2021@12:55 Req Phys: NIKOLAS FLORES Loc: [facility] PAC T FERN PHONE (Req'g Loc Img Loc: MAIN X-RAY Service: Unknown Screen: Patient answered no (Case [id number] COMPLETE) ESOPHAGRAM VIDEO SWALLOW (R AD Detailed) CPT:75726 Contrast Media : Barium Reason for Study: [...] 01, 2021 Date Verified: APR 01, 2021 Jailkeeper E-Sig:/ES/DILIP MATA MD Report: EXAMINATION: ESOPHAGRAM VIDEO [...] Primary Interpreting Staff: DILIP MATA MD, RADIOLOGIST (Jailkeeper) Primary Interpreting Resident: Michael RAMIREZ, DENTAL SERVICE CHIEF /[facility] Encounter Notes: All associated encounter notes This section contains the clinical notes associated to the Encounter. Date/Time Encounter Note(s) Provider Source Apr 18, 2021 03:16 PHARMACY NOTE: TESSA TALBERT [facility] LOCAL TITLE: PHARMACOTHERAPY-CLINICAL PHARMACY NOTE STANDARD TITLE: PHARMACY NOTE DATE OF NOTE: APR 18, 2021@15:16 ENTRY DATE: APR 18, 2021@15:17:01 AUTHOR: TESSA TALBERT EXP COSIGNER: URGENCY: STATUS: COMPLETED visit Type: Phone SARA IRWIN is a 46 year-old [place] se en today for pharmacy case management regarding depression. 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 Has non-VA neurology care. Had increased escitalopram to 15mg Qday at last visit and continued buspirone as pr escribed. DSM-5 Diagnostic Assessment: (per [facility] notes) - Adjustment Disorder with mixed Anxiety and de pressed mood Current Medications for Depression: - Buspirone 10mg BID - Escitalopram 15mg Qday Previous Medication Trials: - Sertraline (took for a brief period and stopp ed) SUBJECTIVE: Sara states she is feeling very well this after noon and states she has seen fairly significant improveme nts with current dose of escitalopram and buspirone. Specifically, reports feeling much more relaxed, doesn't get as bothered by things, and overall feels he r outlook has been better. Repeated a PHQ-9 today as below which suggests minimal symptoms. Denies any adverse effects from SSRI thus far, specifically no GI upse t, diarrhea, sexual changes. 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 PHQ-9 Scoring: 1. Interest: 0 2. Feeling Down: 0 3. Sleepin (trouble staying asleep) 4. Energy: 0 5. Appetite: 1 (low appetite) 6. Self Image: 0 7. Concentration: 1 8. Psychomotor: 1 9. 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) - Housing: [place] OBJECTIVE: ALLERGIES/ADR: Patient has answered NKA MEDICATION RECONCILIATION: Active and Recently Outpatient Medicatio ns (excluding Supplies): Active Outpatient Medications Status 1) BUSPIRONE HCL 10MG TAB TAKE ONE TABLET BY SHAW TH TWICE ACTIVE (S) A DAY FOR ANXIETY [...] or suspected; provides interim updates - Mood: really good - Insight/Judgement: good/good; intact for safe ty ASSESSMENT: #Mood/Anxiety Symptoms: Significant improvements in mood/anxiety symptom s since starting/adjusting escitalopram and adding buspirone. Jaw clenching symptoms have resolved since last visit -- unsure if rela lamberto to SSRI (not consistent with bruxism which would be a more typical SSRI side effect). Rep eat PHQ-9 today is suggestive of large response to SSRI and no adve rse effects reported. Discussed potentially trying a higher dose given benefit thus far, but [place] would like to continue with current dosing. No safety concerns identified to day and anticipate risk of suicide/self harm is low. PLAN: ----- - Continue escitalopram 15mg Qday - Continue 10mg BID for anxiety #Disease-Specific Med Rec: Completed today #Labs: None needed at this time; PHQ-9 completed today - Educated vet on indication/risks/benefits of n ew/changed medication. - Education provided on therapeutic nonpharmacol ogic management to achieve goals. - Vet advised of recent labs. - [place] verbalized underst anding to all plans discussed today. Questions were answered to vet's satisfaction. Time Spent: 25 minutes RTC: 8 weeks in phone clinic /kaylene/ TESSA TALBERT PharmD, [facility] Clinical [place] [facility] Signed: 04/19/2021 16:49
--- OUTSIDE RECORDS SUMMARY | 2022-03-27 17:37 | XMS_ITS | Encounter Summary ---
:1975 Author Organization Department of [facility] rs Address [address] [place] [address] Support Name Relationship Address Phone JERRI IRWIN Unavailable FABRIZIO VANCE [phone] [place] [address] JERRI IRWIN Unavailable FABRIZIO VANCE [phone] [place] [address] Selected Encounter This section includes the information on record at [place] for the Encounter. Date/Time Encounter Type Encounter Description Reason Provider Source May 31, 2021 12:00 Outpatient Encounter EVENT (HISTORICAL) AM IHE Encounter Template Text not used by [place] Plan of Treatment: Future Appointments (+ 6 months) and Future Tests (+/- 45 days) The Plan of Treatment section includes future care activities for the patient from all [place] treatmentfacilities. This section includes future appointments and future orders which are active, pending orscheduled.Future Appointments This section includes appointments that were scheduled to occur 6 months from the date of the Encounter, up to a maximum of 20 appointments. The data comes from all [place] treatment facilities. Appointment Date/Time Appointment Type Appointment Facili ty Name Jun 13, 2021 04:00 PM AMBULATORY - NONE [facility] Jun 24, 2021 01:00 PM AMBULATORY - MEDICINE [facility] CS Jul 11, 2021 04:00 PM AMBULATORY - NONE [facility] Aug 02, 2021 03:00 PM AMBULATORY - MEDICINE [facility] Aug 15, 2021 04:00 PM AMBULATORY - NONE [facility] Aug 19, 2021 10:30 AM AMBULATORY - MEDICINE [facility] CS Aug 19, 2021 12:15 PM AMBULATORY - NONE [facility] Aug 19, 2021 12:30 PM AMBULATORY - NONE [facility] Aug 25, 2021 11:00 AM AMBULATORY - SURGERY [facility] Aug 30, 2021 03:00 PM AMBULATORY - MEDICINE [facility] Sep 14, 2021 03:00 PM AMBULATORY - NONE [facility] Sep 21, 2021 03:00 PM AMBULATORY - MEDICINE [facility] Oct 11, 2021 04:00 PM AMBULATORY - MEDICINE [facility] Oct 14, 2021 09:00 AM AMBULATORY - MEDICINE [facility] Oct 14, 2021 11:00 AM AMBULATORY - MEDICINE [facility] Oct 24, 2021 09:30 AM AMBULATORY - MEDICINE [facility] Oct 24, 2021 10:45 AM AMBULATORY - NONE [facility] Oct 27, 2021 08:20 AM AMBULATORY - NONE [facility] Oct 28, 2021 06:00 PM AMBULATORY - REHAB [facility] Oct 31, 2021 09:00 AM AMBULATORY - MEDICINE [facility] Active, Pending, and Scheduled Orders This section includes a listing of several types of active, pending, and scheduled orders, including clinic medications orders, diagnostic test orders, procedure orders and consult orders; where the start date of the order is 45 days before the date of the Encounter or 45 days after the date of the Encounter. The data comes from all [place] treatment facilities. Test Date/Time Test Type Test Details Facility Name Apr 17, 2021 12:00 AM Laboratory - Chemistry TSH W/[facility]LEX TO [facility] Order T4 PLASMA SP ONCE Immunizations: All administered on the encounter date This section contains immunizations associated to the Encounter. Immunization Series Date Issued Reaction Comments COVID-19 (PFIZER), MRNA, LNP-S, PF, 30 MCG/0.3 3 May 31, 2021 ML DOSE Social History: Smoking Status (Most current) and Tobacco Use (All prior to encounter date) This section includes the most current, and the historical, smoking and tobacco-related health factors from the [place] facility where the Encounter took place.Current Smoking Status This section includes the most current smoking, or tobacco-related health factor, from the [place] facility where the Encounter took place. Date/Time Current Smoking Status Comment Facility Apr 15, 2021 01:00 PM LIFETIME NON-SMOKER [facility] Tobacco Use History This section includes a history of the smoking, or tobacco- related health factors, that were collected on or before the date of the Encounter. The data comes from the [place] facility where the Encounter took place. Date/Time Smoking Status/Tobacco Use Comment Mona richardson Aug 06, 2020 09:00 AM VA-TOBACCO FORMER USER MIN [facility] Aug 06, 2020 09:00 AM [place]-TOBACCO QUIT 15 YRS OR MORE [facility]
--- OUTSIDE RECORDS SUMMARY | 2022-03-27 17:38 | XMS_ITS | Encounter Summary ---
:1975 Author Organization [facility] rs Address [address] [place] [address] Support Name Relationship Address Phone JERRI IRWIN Unavailable FABRIZIO VANCE [place] [address] JERRI IRWIN Unavailable FABRIZIO VANCE [place], [place] Selected Encounter This section includes the information on record at [place] for the Encounter. Date/Time Encounter Type Encounter Reason Provider Source Description Mar 30, 2021 PSYTX W PT 45 PM&RS PHYSICIAN ICD-10-CM F33.9 ALVA POWER SE 03:00 PM MINUTES Major depressive disorder, recurrent, unspecified with Provider Comments: Depression ([facility] [id number]) IHE Encounter Template Text not used by [place] Assessments - Encounter Diagnoses This section includes the primary and secondary diagnoses documented for the Encounter. Date/Time Primary/Secondary Diagnosis Name Provider Source Diagnosis Apr 01, 2021 PRIMARY Major depressive JEREMY POWER [facility] 10:11 PM disorder, HCS recurrent, unspecified Apr 01, 2021 SECONDARY Cerebral JEREMY POWER [facility] 10:11 PM infarction, HCS unspecified Plan of Treatment: Future Appointments (+ 6 months) and Future Tests (+/- 45 days) The Plan of Treatment section includes future care activities for the patient from all [place] treatmentfacilities. This section includes future appointments and future orders which are active, pending orscheduled.Future Appointments This section includes appointments that were scheduled to occur 6 months from the date of the Encounter, up to a maximum of 20 appointments. The data comes from all [place] treatment facilities. Appointment Date/Time Appointment Type Appointment Facili ty Name Apr 01, 2021 01:00 PM AMBULATORY - NONE [facility] Apr 01, 2021 01:30 PM AMBULATORY - REHAB MEDICINE [facility] Apr 15, 2021 01:00 PM AMBULATORY - MEDICINE [facility] Apr 18, 2021 04:00 PM AMBULATORY - NONE [facility] Apr 28, 2021 03:00 PM AMBULATORY - MEDICINE [facility] May 25, 2021 03:00 PM AMBULATORY - MEDICINE [facility] Jun 13, 2021 04:00 PM AMBULATORY - NONE [facility] Jun 24, 2021 01:00 PM AMBULATORY - MEDICINE [facility] Jul 11, 2021 04:00 PM AMBULATORY - NONE [facility] Aug 02, 2021 03:00 PM AMBULATORY - MEDICINE [facility] Aug 15, 2021 04:00 PM AMBULATORY - NONE [facility] Aug 19, 2021 10:30 AM AMBULATORY - MEDICINE [facility] Aug 19, 2021 12:15 PM AMBULATORY - NONE [facility] Aug 19, 2021 12:30 PM AMBULATORY - NONE [facility] Aug 25, 2021 11:00 AM AMBULATORY - SURGERY [facility] Aug 30, 2021 03:00 PM AMBULATORY - MEDICINE [facility] Sep 14, 2021 03:00 PM AMBULATORY - NONE [facility] Sep 21, 2021 03:00 PM AMBULATORY - MEDICINE [facility] Active, Pending, and Scheduled Orders This section includes a listing of several types of active, pending, and scheduled orders, including clinic medications orders, diagnostic test orders, procedure orders and consult orders; where the start date of the order is 45 days before the date of the Encounter or 45 days after the date of the Encounter. The data comes from all [place] treatment facilities. Test Date/Time Test Type Test Details Facility Name Apr 17, 2021 12:00 AM Laboratory - Chemistry TSH W/REFLEX TO [facility] Order T4 PLASMA SP ONCE Social History: Smoking Status (Most current) and Tobacco Use (All prior to encounter date) This section includes the most current, and the historical, smoking and tobacco-related health factors from the [place] facility where the Encounter took place.Current Smoking Status This section includes the most current smoking, or tobacco-related health factor, from the [place] facility where the Encounter took place. Date/Time Current Smoking Status [facility] Facility Aug 06, 2020 09:00 AM VA-TOBACCO FORMER USER MIN [facility] Tobacco Use History This section includes a history of the smoking, or tobacco- related health factors, that were collected on or before the date of the Encounter. The data comes from the [place] facility where the Encounter took place. Date/Time Smoking Status/Tobacco Use Comment Mona gaxiolay Aug 06, 2020 09:00 AM VA-TOBACCO QUIT [...] the Encounter. The data comes from all [place] treatment facilities. Date/Time Radiology Report Provider Source Apr 01, 2021 12:55 PM ESOPHAGRAM VIDEO SWALLOW: DILIP MATA [facility] SARA IRWIN [phone] -[birth year] F Exm Date: APR 01, 2021@12:55 Req Phys: NIKOLAS FLORES Loc: [facility] PAC T FERN PHONE (Req'g Loc Img Loc: MAIN X-RAY Service: Unknown Screen: Patient answered no (Case [id number] COMPLETE) ESOPHAGRAM VIDEO SWALLOW (R AD Detailed) CPT:65430 Contrast Media : Barium Reason for Study: difficulty swallowing solids upper throat Clinical History: [place] IS NOT under investigation for COVID-19 or is COVID-19 negative difficulty swallowing solids upper throat Respo nsible provider name and phone number to notify for critical fi ndings if other than user placing the order and pager listed be low: User placing orders pager: LAST [employer]ATININE [phone] (08/06/20) Report Status: Verified Date Reported: APR 01, 2021 Date Verified: APR 01, 2021 Core Java Engineer E-Sig:/ES/DILIP MATA MD Report: EXAMINATION: ESOPHAGRAM VIDEO [...] Primary Interpreting Staff: DILIP MATA MD, RADIOLOGIST (Core Java Engineer) Primary Interpreting Resident: Michael RAMIREZ, SYSTEM TRAINER /[facility] Encounter Notes: All associated encounter notes This section contains the clinical notes associated to the Encounter. Date/Time Encounter Note(s) Provider Source Mar 30, 2021 03:00 PM PHYSICAL MEDICINE REHAB NOTE: JEREMY POWER [facility] LOCAL TITLE: REHAB PSYCHOLOGY PROGRESS NOTE STANDARD TITLE: PHYSICAL MEDICINE REHAB NOTE DATE OF NOTE: MAR 30, 2021@15:00 ENTRY DATE: APR 01, 2021@21:35:58 AUTHOR: JEREMY POWER EXP COSIGNER: URGENCY: STATUS: COMPLETED seen 55 min indiv psychotherapy via [facility]. C: has provided informed consent for video A: [id number], [place] [address] P: [phone] S: at home in private room; no one else [facility] Sara reports that her mood continues to be impr jenny and positive. Her twin girls started 9th grade last week. One is home t [place] with respiratory sx and awaiting COVID test results. Briefly reviewed her understanding of an d reactions to neuropsych results. She agreed with the results and felt the fit her exp erience. Despite positive mood she states that things are ok, not great and explains this is related to issues in her marital relationship and this was the focus of the session. She states that doesn't com municate directly about his feelings but tends to express his care/commitmen t through home projects (remodeling the bathroom for her etc). They rece ntly had discussion about changes since her stroke as they relate to exerc ise, weight gain etc. He is encouraging her to return to the gym and since the stroke she has been hesitant to work out with same amada richardson. She has started working with someone at the gym regarding nutrition and has started to adjust her food intake. Discussed benefit of returning to exercise at gradual rate since it has been awhile and to build comfort/confidence since she was some worry that exercise could trigger medical event since hx of provoked right vertebral disse ction. She notes that if she were to meet 's weight loss goals for her he would still not be satisfied. Discussed making changes for herself- -her own health and wellness goals vs 's goals for her, while also utilizing the support that she does experience from him. Objective: ready for video c all. Good eye contact. Engaged and talkative. Speech wnl. Mood has been improved and stable. Affect i s broad, congruent. Thought process is linear, organized . Content is appropriate to therapy context. Denies SI. Future oriented. Educ: appeared open to learning and expressed un derstanding. A: MDD unspecified; cva P: rtc 4 weeks /es/ Jeremy Power, PhD, LP Psychologist Signed: 04/01/2021 22:11
--- NOTE | 2022-03-27 17:39 | ED.NURSE ---
Wound culture of left calf obtained and sent to lab. Prednisone and Keflex administered. Prescriptions for Keflex and Prednisone provided. patient had no further questions and left ambulatory.
--- OUTSIDE RECORDS SUMMARY | 2022-03-27 17:40 | XMS_ITS | Encounter Summary ---
:1975 Author Organization Department of [facility] rs Address [address] [place] [id number] Support Name Relationship Address Phone JERRI IRWIN Unavailable F[employer]RI[employer]IO [employer] [place] [id number] JERRI IRWIN [place] [address] Selected Encounter This section includes the information on record at [place] for the Encounter. Date/Time Encounter Type Encounter Description Reason Provider Source Nov 07, 2021 02:05 Outpatient Encounter PM&RS PHYSICIAN PM IHE Encounter Template Text not used by [place] Plan of Treatment: Future Appointments (+ 6 [...] Date/Time Appointment Type Appointment Facili ty Name Nov 09, 2021 03:30 PM AMBULATORY - NONE [facility] November 21, 2021 10:30 AM AMBULATORY - MEDICINE [facility] November 28, 2021 10:00 AM AMBULATORY - MEDICINE [facility] December 13, 2021 03:30 PM AMBULATORY - NONE [facility] December 13, 2021 05:00 PM AMBULATORY - REHAB [facility]ICINE [facility] Dec 23, 2021 09:30 AM AMBULATORY - NONE [facility] Dec 29, 2021 03:00 PM AMBULATORY - MEDICINE [facility] Feb 03, 2022 09:00 AM AMBULATORY - MEDICINE [facility] Feb 07, 2022 12:30 PM AMBULATORY - NONE [facility] Feb 07, 2022 03:30 PM AMBULATORY - NONE [facility] Mar 07, 2022 03:00 PM AMBULATORY - MEDICINE [facility] Mar 22, 2022 05:00 PM AMBULATORY - REHAB MEDICINE [facility] Apr 12, 2022 03:00 PM AMBULATORY - MEDICINE [facility] Apr 18, 2022 12:30 PM AMBULATORY - MEDICINE [facility] May 09, 2022 03:30 PM AMBULATORY - NONE [facility] Lab Results: +/- 30 days of the encounter This section includes the Chemistry and Hematology Lab Results on record with [place] for the patient. Radiology Reports and Pathology Reports are provided separately, in subsequent sections.Lab Results This section contains the Chemistry/Hematology Results that were resulted 30 days before or 30 daysafter the date of the Encounter. Date/Time Source Result Type Result - Unit Interpretation Reference Range Comment Oct 24, 2021 10:[address] [facility] CBC Specim en Type: BLOOD No comment enter ed. Ordering Provid er: SWATHI MCFARLANE Report Released Date/Time: Oct 24, 2021 10:10 AM Reporting Lab: [facility] [address] [facility] [id number] Performing Lab: [facility] [address] [facility] [address] WBC 7.66 4.0-11.0 RBC 4.45 4.0-5.4 HGB 13.5 11.5-16 HCT 40.9 34.5-48 MCV 91.9 80-100 MCH 30.3 27-33 MCHC 33.0 32.0-37.5 PLT 280 150-400 MPV 9.8 7.4-10.4 RDW 14.6 H 11.5-14.5 Oct 24, 2021 10:35 [facility] TSH W/REFLEX TO FREE Spec imen Type: PLASMA AM T4 No comment enter ed. Ordering Provid er: SWATHI MCFARLANE Report Released Date/Time: Oct 24, 2021 10:10 AM Reporting Lab: [facility] [address] [facility] [address] Performing Lab: [facility] [address] TSH 4.12 0.35-4.94 Oct 24, 2021 10:35 [facility] BASIC METABOLIC Specimen Type: PLASMA AM PANEL+MG No comment enter ed. Ordering Provid er: SWATHI MCFARLANE Report Released Date/Time: Oct 24, 2021 10:10 AM Reporting Lab: [facility] [address] [facility] [address] Performing Lab: [facility] [address] [facility] [address] CREATININE 0.8 0.5-1.0 UREA NITROGEN 14 7-20 GLUCOSE 97 74-100 SODIUM 136 136-145 POTASSIUM 4.3 3.5-5.1 CHLORIDE 105 98-107 CO2 25 22-29 CALCIUM 8.9 8.4-10.2 MAGNESIUM 2.0 1.6-2.6 ANION GAP 6 5-15 CREAT EGFR(CKD-EPI) >90 >60 Oct 24, 2021 10:[address] [facility] MAGNESIUM Specim en Type: PLASMA No comment enter ed. Ordering Provid er: SWATHI MCFARLANE Report Released Date/Time: Oct 24, 2021 10:10 AM Reporting Lab: [facility] [address] [facility] [address] Performing Lab: [facility] [address] MAGNESIUM 2.0 1.6-2.6 Social History: Smoking Status (Most current) and Tobacco Use (All prior to encounter date) This section includes the most current, and the historical, smoking and tobacco-related health factors from the [facility] where the Encounter took place.Current Smoking Status This section includes the most current smoking, or tobacco-related health factor, from the [facility] where the Encounter took place. Date/Time Current Smoking Status Comment Facility Aug 19, 2021 10:30 AM [place]-TOBACCO [facility]MER USER [facility] Tobacco Use History This section includes a history of the smoking, or tobacco- related health factors, that were collected on or before the date of the Encounter. The data comes from the [place] facility where the Encounter took place. Date/Time Smoking Status/Tobacco Use Comment [facility] khalida Aug 19, 2021 10:30 AM [place]-TOBACCO QUIT 1 TO < [address] [facility] Apr 15, 2021 01:00 PM LIFETIME NON-SMOKER [facility] Aug 06, 2020 09:00 AM [place]BAC[place] [facility] Aug 06, 2020 09:00 AM [place]-TOBACCO QUIT [address] [facility] [...] VIEWS PA AND LAT: TONY KERNS [facility] KRISSY IRWIN [id number] -[birth year] 7 F Exm Date: OCT 24, 2021@10:49 Req Phys: SWATHI MCFARLANE Pat Loc: MSP PACT MELISSA N 4F (Req'g Loc) Img Loc: MAIN X-RAY Service: Unknown Screen: Patient answered no (Case [id number] COMPLETE) CHEST 2 VIEWS PA AND LAT (RA D Detailed) CPT:51084 Reason for Study: shortness of breath Clinical History: Aspers IS NOT under investigation for COVID-19 or is COVID-19 negative shortness of breath Responsible provider name a nd phone number to notify for critical findings if other than u ser placing the order and pager listed below: User placing orde rs pager: [phone] LAST CREATININE____ Report Status: Verified Date Reported: OCT 24, 2021 Date Verified: OCT 24, 2021 Die Stamping Press Operator E-Sig:/ES/TONY KERNS MD Report: EXAMINATION: CHEST 2 VIEWS PA AND LAT 10/24/2021 10:49 AM INDICATION: shortness of breath Impression: Negative chest. No pulmonary infiltrate or pleu ral effusion. Heart size and pulmonary vascularity within nor mal limits. No comparison chest x-ray. Primary Interpreting Staff: TONY KERNS MD, RADIOLOGIST (Die Stamping Press Operator) /RTS Encounter Notes: All associated encounter notes This section contains the clinical notes associated to the Encounter. Date/Time Encounter Note(s) Provider Source Nov 07, 2021 02:05 PM REPORT OF CONTACT: TAYLOR HUNT [facility] LOCAL TITLE: PATIENT CONTACT NOTE C STANDARD TITLE: REPORT OF CONTACT DATE OF NOTE: NOV 07, 2021@14:05 ENTRY DATE: NOV 07, 2021@14:05:49 AUTHOR: TAYLOR HUNT EXP COSIGNER: URGENCY: STATUS: COMPLETED PATIENT CONTACT NOTE Has ADDENDA Patient contact Name of Aspers: KRISSY IRWIN Name/Relationship of Contact if other than Veter an: Date & Time of Contact: Oct@14:06 Type of Contact: Telephone Reason for Contact: patient called requesting an appointment with: vidhya NINO [facility]. Please enter an order to f/uTanvir /kaylene/ TAYLOR Arcos Trend Investigator Signed: 11/07/2021 14:16 Receipt Acknowledged By: 11/07/2021 21:06 /kaylene/ Ángela Licona, PhD, LP Psychologist 11/07/2021 ADDENDUM STATUS: COMPLETED RTC orders entered. /kaylene/ Ángela Licona, PhD, LP Psychologist Signed: 11/07/2021 21:09
--- OUTSIDE RECORDS SUMMARY | 2022-03-27 17:40 | XMS_ITS | Encounter Summary ---
:1975 Author Organization Department [facility] Address [address] [place] [address] Support Name Relationship Address Phone JERRI IRWIN Unavailable [employer] [place] [address] JERRI IRWIN Unavailable FABRIZIO [place], [place] Selected Encounter This section includes the information on record at [place] for the Encounter. Date/Time Encounter Type Encounter Reason Provider Source Description Oct 31, 2021 REMOTE 30 DAY AMB ECG ICD-10-CM Z13.6 SIMÓN CASTILLO 09:00 AM ECG REV/REPORT MONITORING Encounter for screening for cardiovascular disorders with Provider Comments: Encounter for Screening for Cardiovascular Disorders IHE Encounter Template Text not used by [facility] Assessments - Encounter Diagnoses This section includes the primary and secondary diagnoses documented for the Encounter. Date/Time Primary/Secondary Diagnosis Name Provider Source Diagnosis Oct 31, 2021 PRIMARY Encounter for ERNALUIS AFAISAL Arcos 09:05 AM screening for [facility] cardiovascular disorders Plan of Treatment: Future Appointments (+ 6 months) and Future Tests (+/- 45 days) The Plan of Treatment section includes future care activities for the patient from all [place] treatmentfacilities. This section includes future appointments and future orders which are active, pending orscheduled.Future Appointments This section includes appointments that were scheduled to occur 6 months from the date of the Encounter, up to a maximum of 20 appointments. The data comes from all [place] treatment facilities. Appointment Date/Time Appointment Type Appointment Facili ty Name Nov 09, 2021 03:30 PM AMBULATORY - NONE [facility] November 21, 2021 10:30 AM AMBULATORY - MEDICINE [facility] November 28, 2021 10:00 AM AMBULATORY - MEDICINE [facility] December 13, 2021 03:30 PM AMBULATORY - NONE [facility] December 13, 2021 05:00 PM AMBULATORY - [facility] Dec 23, 2021 09:30 AM AMBULATORY - NONE [facility] Dec 29, 2021 03:00 PM AMBULATORY - MEDICINE [facility] CS Feb 03, 2022 09:00 AM AMBULATORY - MEDICINE [facility] CS Feb 07, 2022 12:30 PM AMBULATORY - NONE [facility] Feb 07, 2022 03:30 PM AMBULATORY - NONE [facility] Mar 07, 2022 03:00 PM AMBULATORY - MEDICINE [facility] Mar 22, 2022 05:00 PM AM[facility] - [facility] Apr 12, 2022 03:00 PM AMBULATORY - MEDICINE [facility] Apr 18, 2022 12:30 PM AMBULATORY - MEDICINE [facility] CS Lab Results: +/- 30 days of the encounter This section includes the Chemistry and Hematology Lab Results on record with [place] for the patient. Radiology Reports and Pathology Reports are provided separately, in subsequent sections.Lab Results This section contains the Chemistry/Hematology Results that were resulted 30 days before or 30 daysafter the date of the Encounter. Date/Time Source Result Type Result - Unit Interpretation Reference Range Comment Oct 24, 2021 10:35 AM [facility] CBC Specim en Type: BLOOD No comment enter ed. Ordering Provid er: XIOMARA MCFARLANE Report Released Date/Time: Oct 24, 2021 10:10 AM Reporting Lab: [facility] [address] [facility] [address] Performing Lab: [facility] [address] WBC 7.66 4.0-11.0 RBC 4.45 4.0-5.4 HGB 13.5 11.5-16 HCT 40.9 34.5-48 MCV 91.9 80-100 MCH 30.3 27-33 MCHC 33.0 32.0-37.5 PLT 280 150-400 MPV 9.8 7.4-10.4 RDW 14.6 H 11.5-14.5 Oct 24, 2021 10:35 [facility] BASIC METABOLIC Specimen Type: PLASMA AM PANEL+MG No comment enter ed. Ordering Provid er: XIOMARA MCFARLANE Report Released Date/Time: Oct 24, 2021 10:10 AM Reporting Lab: [facility] [address] [facility] [address] Performing Lab: [facility] [address] CREATININE 0.8 0.5-1.0 UREA NITROGEN 14 7-20 GLUCOSE 97 74-100 SODIUM 136 136-145 POTASSIUM 4.3 3.5-5.1 CHLORIDE 105 98-107 CO2 25 22-29 CALCIUM 8.9 8.4-10.2 MAGNESIUM 2.0 1.6-2.6 ANION GAP 6 5-15 CREAT EGFR(CKD-EPI) >90 >60 Oct 24, 2021 10:35 [facility] TSH W/REFLEX TO FREE Spec imen Type: PLASMA AM T4 No comment enter ed. Ordering Provid er: XIOMARA MCFARLANE Report Released Date/Time: Oct 24, 2021 10:10 AM Reporting Lab: [facility] [address] [facility] [address] Performing Lab: [facility] [address] TSH 4.12 0.35-4.94 Oct 24, 2021 10:35 AM [facility] MAGNESIUM Specim en Type: PLASMA No comment enter ed. Ordering Provid er: XIOMARA MCFARLANE Report Released Date/Time: Oct 24, 2021 10:10 AM Reporting Lab: [facility] [address] [facility] [address] Performing Lab: [facility] [address] MAGNESIUM 2.0 1.6-2.6 Social History: Smoking Status (Most current) and Tobacco Use (All prior to encounter date) This section includes the most current, and the historical, smoking and tobacco-related health factors from the [place] facility where the Encounter took place.Current Smoking Status This section includes the most current smoking, or tobacco-related health factor, from the [place] facility where the Encounter took place. Date/Time Current Smoking Status Comment Facility Aug 19, 2021 10:30 AM [place]-TOBACCO FORMER USER [facility] Tobacco Use History This section includes a history of the smoking, or tobacco- related health factors, that were collected on or before the date of the Encounter. The data comes from the [place] facility where the Encounter took place. Date/Time Smoking Status/Tobacco Use Comment Mona richardson Aug 19, 2021 10:30 AM [place]-TOBACCO QUIT 1 TO < 5 YRS [facility] Apr 15, 2021 01:00 PM LIFETIME NON-SMOKER [facility] Aug 06, 2020 09:00 AM [place]-TOBACCO FORMER USER [facility] Aug 06, 2020 09:00 AM [place]-TOBACCO QUIT 15 YRS OR MORE [facility] Radiology Reports: +/- 30 days [...] the Encounter. The data comes from all [place] treatment facilities. Date/Time Radiology Report Provider Source Oct 24, 2021 10:49 AM CHEST 2 VIEWS PA AND LAT: TONY KERNS [facility] KRISSY IRWIN [id number] -[birth year]B [birth year] F Exm Date: OCT 24, 2021@10:49 Req Phys: XIOMARA MCFARLANE Loc: [facility] PACT MELISSA N 4F (Req'g Loc) Img Loc: MAIN X-RAY Service: Unknown Screen: Patient answered no (Case [id number] COMPLETE) CHEST 2 VIEWS PA AND LAT (RA D Detailed) CPT:91794 Reason for Study: shortness of breath Clinical History: IS NOT under investigation for COVID-19 or is COVID-19 negative shortness of breath Responsible provider name a nd phone number to notify for critical findings if other than u ser placing the order and pager listed below: User placing orde rs pager: [phone] LAST CREATININE____ Report Status: Verified Date Reported: OCT 24, 2021 Date Verified: OCT 24, 2021 Professor Of Forestry E-Sig:/ES/TONY KERNS MD Report: EXAMINATION: CHEST 2 VIEWS PA AND LAT 10/24/2021 10:49 AM INDICATION: shortness of breath Impression: Negative chest. No pulmonary infiltrate or pleu ral effusion. Heart size and pulmonary vascularity within nor mal limits. No comparison chest x-ray. Primary Interpreting Staff: TONY KERNS MD, RADIOLOGIST (Professor Of Forestry) /RTS Encounter Notes: All associated encounter notes This section contains the clinical notes associated to the Encounter. Date/Time Encounter Note(s) Provider Source Nov 09, 2021 03:34 PM LETTERS: XIOMARA MCFARLANE [facility] LOCAL TITLE: FOLLOW UP RESULTS LETTER STANDARD TITLE: LETTERS DATE OF NOTE: NOV 09, 2021@15:34 ENTRY DATE: NOV 09, 2021@15:34:56 AUTHOR: XIOMARA MCFARLANE EXP COSIGNER: URGENCY: STATUS: COMPLETED [facility] [address] [place] [address] Oct KRISSY IRWIN [address] [place] [address] Dear [place]: I am writing to inform you of the results of sergio ting that you had done recently at the [facility]. Your heart monitor results are normal. If you have any further ques tions or problems, please contact our nursing staff or provider at the following number: . Sincerely, Xiomara Mcfarlane MD Physician Nov 09, 2021 12:57 PM CARDIOLOGY DIAGNOSTIC STUDY CONSULT: SIMÓN DOUGHERTY [facility] LOCAL TITLE: EKG CONSULT STANDARD TITLE: CARDIOLOGY DIAGNOSTIC STUDY CONS ULT DATE OF NOTE: NOV 09, 2021@12:57 ENTRY DATE: NOV 09, 2021@12:58:03 AUTHOR: SIMÓN CASTILLO EXP COSIGNER: URGENCY: STATUS: COMPLETED SUBJECT: ZIO MONITOR REPORT ZIO MONITOR REPORT INDICATION: heart fluttering, SOB Monitoring Duration: 2 days, 10 hours. INTERPRETATION: 1. Underlying rhythm was Sin us Rhythm ranging from 38 bpm to 147 bpm, average of 69 bpm. 2. Occasional (3.2%) isolated premature supraven tricular complexes and rare supraventricular couplets. 3. Rare isolated premature ventricular complexes . 4. A total of 14 triggered a nd 1 diary event for skipped/irregular beat(s) were recorded. These corresponded to Normal Sinus Rhy thm / Sinus Tachycardia, premature supraventricular complexes. /kaylene/ SIMÓN CASTILLO MD STAFF UPHOLSTERY RESTORER Signed: 11/09/2021 13:13 Oct 31, 2021 09:05 AM CARDIOLOGY OUTPATIENT NOTE: FAISAL AIKEN [facility] LOCAL TITLE: CARDIOLOGY CLINIC TECHNOLOGIST NOT E STANDARD TITLE: CARDIOLOGY OUTPATIENT NOTE DATE OF NOTE: OCT 31, 2021@09:05 ENTRY DATE: OCT 31, 2021@09:05:18 AUTHOR: FAISAL AIKEN EXP COSIGNER: URGENCY: STATUS: COMPLETED Event Monitor ZIO Monitor Clinical indication for ZIO: palp. Enrolled patient. Assessed monitor placement. Prepped skin. - SHAVE area if hair is present - ABRADE skin, applying pressure for 40 broad s trokes -10 times diagonally left, diagonally right, across and down (40 ruperto es total). - CLEAN skin thoroughly with both alcohol pads. Let dry for 1 minute. Applied monitor. Activate ZIO Monitor. Education given to patient along with ZIO Patie nt Instructions Pamphlet and Button Press Log. Date to remove patch: Oct Instructed to return the monitor by mail along with the log book in the pre- addressed return box and drop into [employer] mailbox. Registered device with [employer]; serial number: Visit Not Selected Pt may wear longer if no syptoms in 24 hours. /kaylene/ FAISAL AIKEN PAPER SHEETER Signed: 10/31/2021 09:06
--- OUTSIDE RECORDS SUMMARY | 2022-03-27 17:41 | XMS_ITS | Encounter Summary ---
:[address] [facility] Address [address] [place] [id number] Support Name Relationship Address Phone JERRI IRWIN Unavailable FABRIZIO VANCE [phone] [place] [address] JERRI IRWIN Unavailable FABRIZIO VANCE [phone] [place] [address] Selected Encounter This section includes the information on record at [place] for the Encounter. Date/Time Encounter Type Encounter Description Reason Provider Source Nov 16, 2021 03:11 Outpatient Encounter COMMUNITY CARE PM CONSULT IHE Encounter Template Text not used by MT Plan of Treatment: Future Appointments (+ 6 months) and Future Tests (+/- 45 days) The Plan of Treatment section includes future care activities for the patient from all MT treatmentfacilities. This section includes future appointments and future orders which are active, pending orscheduled.Future Appointments This section includes appointments that were scheduled to occur 6 months from the date of the Encounter, up to a maximum of 20 appointments. The data comes from all MT treatment facilities. Appointment Date/Time Appointment Type Appointment Facili ty Name November 21, 2021 10:30 AM AMBULATORY - MEDICINE [facility] November 28, 2021 10:00 AM AMBULATORY - MEDICINE [facility] December 13, 2021 03:30 PM AMBULATORY - NONE [facility] December 13, 2021 05:00 PM AMBULATORY - REHAB [facility]IC[facility] Dec 23, 2021 09:30 AM AMBULATORY - NONE [facility] Dec 29, 2021 03:00 PM AMBULATORY - MEDICINE [facility] Feb 03, 2022 09:00 AM AMBULATORY - MEDICINE [facility] Feb 07, 2022 12:30 PM AMBULATORY - NONE [facility] Feb 07, 2022 03:30 PM AMBULATORY - NONE [facility] Mar 07, 2022 03:00 PM AMBULATORY - MEDICINE [facility] Mar 22, 2022 05:00 PM AMBULATORY - REHAB MEDICINE [facility] Apr 12, 2022 03:00 PM AMBULATORY - MEDICINE [facility] Apr 18, 2022 12:30 PM AMBULATORY - MEDICINE [facility] May 09, 2022 03:30 PM AMBULATORY - NONE [facility] Lab Results: +/- 30 days of the encounter This section includes the Chemistry and Hematology Lab Results on record with MT for the patient. Radiology Reports and Pathology Reports are provided separately, in subsequent sections.Lab Results This section contains the Chemistry/Hematology Results that were resulted 30 days before or 30 daysafter the date of the Encounter. Date/Time Source Result Type Result - Unit Interpretation Reference Range Comment Oct 24, 2021 10:35 [facility] BASIC METABOLIC Specimen Type: PLASMA AM PANEL+MG No comment enter ed. Ordering Provid er: SWATHI MCFARLANE Report Released Date/Time: Oct 24, 2021 10:10 AM Reporting Lab: [facility] [id number] Performing Lab: [facility] [address] CREATININE 0.8 0.5-1.0 UREA NITROGEN 14 7-20 GLUCOSE 97 74-100 SODIUM 136 136-145 POTASSIUM 4.3 3.5-5.1 CHLORIDE 105 98-107 CO2 25 22-29 CALCIUM 8.9 8.4-10.2 MAGNESIUM 2.0 1.6-2.6 ANION GAP 6 5-15 CREAT EGFR(CKD-EPI) >90 >60 Oct 24, 2021 10:35 AM [facility] CBC Specim en Type: BLOOD No comment enter ed. Ordering Provid er: SWATHI MCFARLANE Report Released Date/Time: Oct 24, 2021 10:10 AM Reporting Lab: [facility] [id number] Performing Lab: [facility] [address] WBC 7.66 4.0-11.0 RBC 4.45 4.0-5.4 HGB [...] [facility] [address] [facility] [address] Performing Lab: [facility] [address] [facility] [address] TSH 4.12 0.35-4.94 Oct 24, 2021 10:35 AM [facility] MAGNESIUM Specim en Type: PLASMA No comment enter ed. Ordering Provid er: SWATHI MCFARLANE Report Released Date/Time: Oct 24, 2021 10:10 AM Reporting Lab: [facility] [address] [facility] [address] Performing Lab: [facility] [address] [facility] [address] MAGNESIUM 2.0 1.6-2.6 Social History: Smoking Status (Most current) and Tobacco Use (All prior to encounter date) This section includes the most current, and the historical, smoking and tobacco-related health factors from the [facility] where the Encounter took place.Current Smoking Status This section includes the most current smoking, or tobacco-related health factor, from the [place] facility where the Encounter took place. Date/Time Current Smoking Status Comment Facility Aug 19, 2021 10:30 AM MT-TOBACCO FORMER USER [facility] Tobacco Use History This section includes a history of the smoking, or tobacco- related health factors, that were collected on or before the date of the Encounter. The data comes from the [place] facility where the Encounter took place. Date/Time Smoking Status/Tobacco Use Comment Mona gaxiola Aug 19, 2021 10:30 AM MT-TOBACCO QUIT 1 TO < 5 YRS [facility] Apr 15, 2021 01:00 PM LIFETIME NON-SMOKER [facility] Aug 06, 2020 09:00 AM MT-TOBACCO FORMER USER [facility] Aug 06, 2020 09:00 AM MT-TOBACCO QUIT 15 YRS OR MORE [facility] [...] the Encounter. The data comes from all [place] treatment facilities. Date/Time Radiology Report Provider Source Oct 24, 2021 10:49 AM CHEST 2 VIEWS PA AND LAT: TONY KERNS [facility] SARA IRWIN [id number] -[birth year] 7 F Exm Date: OCT 24, 2021@10:49 Req Phys: SWATHI MCFARLANE Pat Loc: [facility] PACT MELISSA N 4F (Req'g Loc) Img Loc: MAIN X-RAY Service: Unknown Screen: Patient answered no (Case [id number] COMPLETE) CHEST 2 VIEWS PA AND LAT (RA D Detailed) CPT:73880 Reason for Study: shortness of breath Clinical History: IS NOT under investigation for COVID-19 or is COVID-19 negative shortness of breath Responsible provider name a nd phone number to notify for critical findings if other than u ser placing the order and pager listed below: User placing orde rs pager: [phone] LAST CREATININE____ Report Status: Verified Date Reported: OCT 24, 2021 Date Verified: OCT 24, 2021 [employer] Supervisor E-Sig:/ES/TONY KERNS MD Report: EXAMINATION: CHEST 2 VIEWS PA AND LAT 10/24/2021 10:49 AM INDICATION: shortness of breath Impression: Negative chest. No pulmonary infiltrate or pleu ral effusion. Heart size and pulmonary vascularity within nor mal limits. No comparison chest x-ray. Primary Interpreting Staff: TONY KERNS MD, RADIOLOGIST ([employer] Supervisor) /RTS Encounter Notes: All associated encounter notes This section contains the clinical notes associated to the Encounter. Date/Time Encounter Note(s) Provider Source Nov 16, 2021 03:11 PM NONVA NOTE: ELIZABETH ELENA [facility] LOCAL TITLE: COMMUNITY CARE-CARE COORDINATION P REINIER ARIZMENDI STANDARD TITLE: NONVA NOTE DATE OF NOTE: NOV 16, 2021@15:11 ENTRY DATE: NOV 16, 2021@15:11:29 AUTHOR: ELIZABETH ELENA EXP COSIGNER: URGENCY: STATUS: COMPLETED COMMUNITY CARE-CARE COORDINATION PLAN NOTE Has ADDENDA PROVIDER CONTACT Sara from [facility] contacted on Oct to discuss //// Vendor called the [facility] to inquire if the mass age therapy authorization# [id number] could be extend ed to at least 90 days instead of 45 days. They will have the patient coming in weekly and there's no way they can squeeze in 12 visits in 45 days. Action Needed? Yes Sara said that she could be reached at . /es/ ELIZABETH ELENA Quality Control Assistant Signed: 11/16/2021 15:16 Receipt Acknowledged By: 11/17/2021 08:56 /es/ ALEX PRICE RN Registered Nurse, [facility] 11/17/2021 ADDENDUM STATUS: COMPLETED Called Sara back at [facility] . We discussed we could not extend the authorization period of her current CC M assage referral. She is authorized for 12 visits over 45 days. They could however, at t he end of the authorization period send RFAS for additional visits which wou ld be for 12 visits over 365 days. Her first visit is scheduled for 02/02/22. Authorization#: [id number] Valid from through 2022-03-19 She will call back if she has any additional que stions. /es/ ALEX PRICE RN Registered Nurse, [facility] Signed: 11/17/2021 09:06
--- OUTSIDE RECORDS SUMMARY | 2022-03-27 17:41 | XMS_ITS | Encounter Summary ---
:1975 Author Organization Department [facility] Address [address] [place] [address] Support Name Relationship Address Phone JERRI IRWIN Unavailable FABRIZIO VANCE [phone] [place] [address] JERRI IRWIN Unavailable FABRIZIO VANCE [place], [place] Selected Encounter This section includes the information on record at [place] for the Encounter. Date/Time Encounter Type Encounter Description Reason Provider Source Oct 27, 2021 12:00 Outpatient Encounter COMMUNITY CARE AM CONSULT IHE Encounter Template Text not used by [place] Plan of Treatment: Future Appointments (+ 6 months) and Future Tests (+/- 45 days) The Plan of Treatment section includes future care activities for the patient from all [place] treatmentfacilities. This section includes future appointments and future orders which are active, pending orscheduled.Future Appointments This section includes appointments that were scheduled to occur 6 months from the date of the Encounter, up to a maximum of 20 appointments. The data comes from all [place] treatment facilities. Appointment Date/Time Appointment Type Appointment Facili ty Name Oct 28, 2021 06:00 PM AMBULATORY - REHAB MEDICINE [facility] Oct 31, 2021 09:00 AM [facility] Nov 09, 2021 03:30 PM AMBULATORY - NONE [facility] November 21, 2021 10:30 AM [facility]BULATORY - [facility]IC[facility] November 28, 2021 10:00 AM AMBULATORY - [facility]IC[facility] December 13, 2021 03:30 PM AMBULATORY - NONE [facility] December 13, 2021 05:00 PM AMBULATORY - REHAB MEDICINE [facility] Dec 23, 2021 09:30 AM AMBULATORY - NONE [facility] Dec 29, 2021 03:00 PM AMBULATORY - MEDICINE [facility] Feb 03, 2022 09:00 AM AMBULATORY - [facility]IC[facility] Feb 07, 2022 12:30 PM AMBULATORY - NONE [facility] Feb 07, 2022 03:30 PM AMBULATORY - NONE [facility] Mar 07, 2022 03:00 PM AMBULATORY - MEDICINE [facility] Mar 22, 2022 05:00 PM [facility] Apr 12, 2022 03:00 PM AMBULATORY - MEDIC[facility] Apr 18, 2022 12:30 PM AMBULATORY - MEDICINE [facility] Lab Results: +/- 30 days of the encounter This section includes the Chemistry and Hematology Lab Results on record with [place] for the patient. Radiology Reports and Pathology Reports are provided separately, in subsequent sections.Lab Results This section contains the Chemistry/Hematology Results that were resulted 30 days before or 30 daysafter the date of the Encounter. Date/Time Source Result Type Result - Unit Interpretation Reference Range Comment Oct 24, 2021 10:35 AM [facility] CBC Specim en Type: BLOOD No comment enter ed. Ordering Provid er: SWATHI MCFARLANE Report Released Date/Time: Oct 24, 2021 10:10 AM Reporting Lab: [facility] [address] [facility] [address] Performing Lab: [facility] [address] WBC 7.66 4.0-11.0 RBC 4.45 4.0-5.4 HGB 13.5 11.5-16 HCT 40.9 34.5-48 MCV 91.9 80-100 MCH 30.3 27-33 MCHC 33.0 32.0-37.5 PLT 280 150-400 MPV 9.8 7.4-10.4 RDW 14.6 H 11.5-14.5 Oct 24, 2021 10:35 [facility] BASIC METABOLIC Specimen Type: PLASMA AM PANEL+MG No comment enter ed. Ordering Provid er: SWATHI MCFARLANE Report Released Date/Time: Oct 24, 2021 10:10 AM Reporting Lab: [facility] [address] [facility] [address] Performing Lab: [facility] [address] CREATININE 0.8 0.5-1.0 UREA NITROGEN 14 7-20 GLUCOSE 97 74-100 SODIUM 136 136-145 POTASSIUM 4.3 3.5-5.1 CHLORIDE 105 98-107 CO2 25 22-29 CALCIUM 8.9 8.4-10.2 MAGNESIUM 2.0 1.6-2.6 ANION GAP 6 5-15 CREAT EGFR(CKD-EPI) >90 >60 Oct 24, 2021 10:35 [facility] TSH W/REFLEX TO FREE Spec imen Type: PLASMA AM T4 No comment enter ed. Ordering Provid er: SWATHI MCFARLANE Report Released Date/Time: Oct 24, 2021 10:10 AM Reporting Lab: [facility] [address] Performing Lab: [facility] [address] TSH 4.12 0.35-4.94 Oct 24, 2021 10:35 AM [facility] MAGNESIUM Specim en Type: PLASMA No comment enter ed. Ordering Provid er: SWATHI MCFARLANE Report Released Date/Time: Oct 24, 2021 10:10 AM Reporting Lab: [facility] [address] Performing Lab: [facility] [address] MAGNESIUM 2.0 1.6-2.6 Social History: Smoking Status (Most current) and Tobacco Use (All prior to encounter date) This section includes the most current, and the historical, smoking and tobacco-related health factors from the [place] facility where the Encounter took place.Current Smoking Status This section includes the most current smoking, or tobacco-related health factor, from the [facility] where the Encounter took place. Date/Time Current Smoking Status Comment Facility Aug 19, 2021 10:30 AM MI-TOBACCO FORMER USER [facility] Tobacco Use History This section includes a history of the smoking, or tobacco- related health factors, that were collected on or before the date of the Encounter. The data comes from the [place] facility where the Encounter took place. Date/Time Smoking Status/Tobacco Use Comment Mona richardson Aug 19, 2021 10:30 AM MI-TOBACCO QUIT 1 TO < 5 YRS [facility] Apr 15, 2021 01:00 PM LIFETIME NON-SMOKER NAV[facility] Aug 06, 2020 09:00 AM [facility]-TOBACCO FORMER USER [facility] Aug 06, 2020 09:00 AM MI-TOBACCO QUIT 15 YRS OR MORE [facility] Radiology Reports: +/- 30 days [...] the Encounter. The data comes from all [place] treatment facilities. Date/Time Radiology Report Provider Source Oct 24, 2021 10:49 AM CHEST 2 VIEWS PA AND LAT: TONY KERNS [facility] KRISSY IRWIN [id number] -[birth year]B [birth year] 7 F Exm Date: OCT 24, 2021@10:49 Req Phys: SWATHI MCFARLANE Pat Loc: [facility] PACT MELISSA N 4F (Req'g Loc) Img Loc: MAIN X-RAY Service: Unknown Screen: Patient answered no (Case [id number] COMPLETE) CHEST 2 VIEWS PA AND LAT (RA D Detailed) CPT:72097 Reason for Study: shortness of breath Clinical History: IS NOT under investigation for COVID-19 or is COVID-19 negative shortness of breath Responsible provider name a nd phone number to notify for critical findings if other than u ser placing the order and pager listed below: User placing orde rs pager: [phone] LAST CREATININE____ Report Status: Verified Date Reported: OCT 24, 2021 Date Verified: OCT 24, 2021 Infusion Pharmacist E-Sig:/ES/TONY KERNS MD Report: EXAMINATION: CHEST 2 VIEWS PA AND LAT 10/24/2021 10:49 AM INDICATION: shortness of breath Impression: Negative chest. No pulmonary infiltrate or pleu ral effusion. Heart size and pulmonary vascularity within nor mal limits. No comparison chest x-ray. Primary Interpreting Staff: TONY KERNS MD, RADIOLOGIST (Infusion Pharmacist) /RTS Encounter Notes: All associated encounter notes This section contains the clinical notes associated to the Encounter. Date/Time Encounter Note(s) Provider Source Oct 27, 2021 12:00 AM NONVA CONSULT: CARMELINA DOLL [facility] LOCAL TITLE: COMMUNITY CARE CONSULT RESULT OPTO METRY ROUTINE EYE STANDARD TITLE: NONVA CONSULT DATE OF NOTE: OCT 27, 2021 ENTRY DATE: NOV 17 022@09:43:15 AUTHOR: PROCESS,RPA EXP COSIGNER: URGENCY: STATUS: COMPLETED [employer] - Scanned Document [facility] APPOINTMENT INFORMATION Documentation received from non-VA provider and scanned into [employer]. /kaylene/ CARMELINA PROCESS Signed: 11/17/2021 09:43
--- OUTSIDE RECORDS SUMMARY | 2022-03-27 17:41 | XMS_ITS | Encounter Summary ---
:1975 Author Organization Department of [facility] rs Address [address] [place] [id number] Support Name Relationship Address Phone JERRI IRWIN Unavailable FABRIZIO VANCE [phone] [place] [address] JERRI IRWIN Unavailable FABRIZIO VANCE [place], [place] Selected Encounter This section includes the information on record at [place] for the Encounter. Date/Time Encounter Type Encounter Reason Provider Source Description November 28, 2021 PSYTX W PT 45 PM&RS PHYSICIAN ICD-10-CM F33.9 ALVA POWER SE 10:00 AM MINUTES Major depressive disorder, recurrent, unspecified with Provider Comments: Depression ([facility] [id number]) IHE Encounter Template Text not used by [place] Assessments - Encounter Diagnoses This section includes the primary and secondary diagnoses documented for the Encounter. Date/Time Primary/Secondary Diagnosis Name Provider Source Diagnosis December 01, 2021 PRIMARY Major depressive JEREMY POWERELPIDIO [facility] 10:06 PM disorder, HCS recurrent, unspecified December 01, 2021 SECONDARY Cerebral JEREMY POWER [facility] 10:06 PM infarction, HCS unspecified Plan of Treatment: Future Appointments (+ 6 months) and Future Tests (+/- 45 days) The Plan of Treatment section includes future care activities for the patient from all [place] treatmentfacilities. This section includes future appointments and future orders which are active, pending orscheduled.Future Appointments This section includes appointments that were scheduled to occur 6 months from the date of the Encounter, up to a maximum of 20 appointments. The data comes from all [place] treatment facilities. Appointment Date/Time Appointment Type Appointment Facili ty Name December 13, 2021 03:30 PM AMBULATORY - NONE [facility] December 13, 2021 05:00 PM AMBULATORY - [facility]AB [facility] Dec 23, 2021 09:30 AM AMBULATORY - NONE [facility] Dec 29, 2021 03:00 PM AMBULATORY - MEDICINE [facility] Feb 03, 2022 09:00 AM AMBULATORY - MEDICINE [facility] Feb 07, 2022 12:30 PM AMBULATORY - NONE [facility] Feb 07, 2022 03:30 PM AMBULATORY - NONE [facility] Mar 07, 2022 03:00 PM AMBULATORY - MEDICINE [facility] Mar 22, 2022 05:00 PM [facility] Apr 12, 2022 03:00 PM AMBULATORY - MEDICINE [facility] Apr 18, 2022 12:30 PM AMBULATORY - MEDICINE [facility] May 09, 2022 03:30 PM AMBULATORY - NONE [facility] Social History: Smoking Status (Most current) and Tobacco Use (All prior to encounter date) This section includes the most current, and the historical, smoking and tobacco-related health factors from the [place] facility where the Encounter took place.Current Smoking Status This section includes the most current smoking, or tobacco-related health factor, from the [place] facility where the Encounter took place. Date/Time Current Smoking Status Comment Facility Aug 19, 2021 10:30 AM [place]-TOBACCO FORMER USER [facility] Tobacco Use History This section includes a history of the smoking, or tobacco- related health factors, that were collected on or before the date of the Encounter. The data comes from the [place] facility where the Encounter took place. Date/Time Smoking Status/Tobacco Use Comment [facility] Aug 19, 2021 10:30 AM MO-TOBACCO QUIT 1 TO < [address] [facility] Apr 15, 2021 01:00 PM LIFETIME NON-SMOKER [facility] Aug 06, 2020 09:00 AM VA-TOBACCO FORMER USER [facility] Aug 06, 2020 09:00 AM VA-TOBACCO QUIT [address] [facility] [...] the Encounter. The data comes from all [place] treatment facilities. Date/Time Radiology Report Provider Source Dec 23, 2021 09:36 AM ESOPHAGRAM DOUBLE CONTRAST: DILIP MATA [facility] KRISSY IRWIN [id number] -[birth year] F Exm Date: DEC 23, 2021@09:36 Req Phys: DENYSSWATHI Mandel Bev Loc: MSP PACT MELISSA N 4F (Req'g Loc) Img Loc: MAIN X-RAY Service: Unknown Screen: Patient answered no (Case [id number] COMPLETE) ESOPHAGRAM DOUBLE CONTRAST (RAD Detailed) CPT:67109 Contrast Media : Barium Reason for Study: regurgitation with fluids and solids Clinical History: regurgitation with fluids and solids I am reque sting/ordering esophagram without upper GI Report Status: Verified Date Reported: DEC 23, 2021 Date Verified: DEC 23, 2021 Proposal Manager Writer E-Sig:/ES/DILIP MATA MD Report: Examination: ESOPHAGRAM DOUBLE CONTRAST 9:36 AM Comparison: Modified barium swallow 04/01/2021 History: Regurgitation with fluids and solids Fluoroscopy time: 3.0 minutes. TECHNIQUE: Patient was given effervescent granu les + thick barium and thin barium. Patient was evaluated with flu oroscopy in the LPO, HERNANDEZ, supine and upright positions and mult iple spot films were obtained. Findings: Examination of the esophagus reveals adequate p rimary and secondary peristalsis. No focal strictures, web s, masses or mucosal abnormalities. The gastroesophageal junction is patent. Small sliding esophageal hiatal hernia noted on real time imaging. No ga stroesophageal reflux visualized. A 12.7 mm barium tablet was administered and briefly paused at the mid thoracic esophagus al though subsequently passed without event after being g iven additional sips of water. Impression: Small sliding esophageal hiatal hernia. Otherwi se, normal double contrast esophagram. I, Dilip Mata, have reviewed the images and r eport. Primary Interpreting Staff: DILIP MAAT MD, RADIOLOGIST (Proposal Manager Writer) Primary Interpreting Resident: STEF CORNELIUS DO, FAST BRIM POUNCER /PJM Encounter Notes: All associated encounter notes This section contains the clinical notes associated to the Encounter. Date/Time Encounter Note(s) Provider Source November 28, 2021 10:00 AM PHYSICAL MEDICINE REHAB NOTE: JEREMY POWER [facility] LOCAL TITLE: REHAB PSYCHOLOGY PROGRESS NOTE STANDARD TITLE: PHYSICAL MEDICINE REHAB NOTE DATE OF NOTE: NOVEMBER 28, 2021@10:00 ENTRY DATE: DECEMBER 01, 2021@21:34:34 AUTHOR: JEREMY POWER EXP COSIGNER: URGENCY: STATUS: COMPLETED seen 55 min indiv psychotherapy via VV. C: has provided informed consent for video A: [id number], [place] [address] P: [phone] S: at home in private room; no one else in [facility] reports that PCP ordered a number of sergio ts to address her concerns. States results so far have been negative but she is glad that the assessments are being completed. She has also been switched to Zoloft, just completed 2nd week on full dose. May be he lping mood. Has noticed some teeth grinding but not as bad as when on Lexapro. She had a good spring break trip with he r family together with another family. Positive mood, enjoyed laughing and soci alizing, caught up on sleep. Meally good physically. She looks less stressed today. She r eports she worked less during the past 2 weeks and got better sleep. She also notes that she has made some behavioral changes. 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 She states this has significantly reduced her stress and she has not felt guilty about saying no or n ot offering to take shifts. Instead of feeling guilty for not taking on shif ts she is attributing the problem to poor management and hospital policies that prioritize profits vs worker needs. She has made a commitment to herself to put herself and her health first. She notes that she is having some issues in her marital relationship but she is focusing on the things she can control diaz ch as food, hydration and exercise. She also did a 10-day program with [facility] for weight loss which she found helpful but she doesn' t feel she can put the money toward monthly plan at this time because of other home priorities. Objective: ready for video call. Mood has been l ess down. Affect is calmer today. Thought process is or ganized, no evidence of hallucinations or delusions. Future oriented Risk Assessment Risk Factors: status, depression, anxiet y, decreased self-efficacy Potential Protective Factors: denies current SI, plan and intent, positive [...] MDD unspecified; hx cva P: rtc 4 weeks /es/ Jeremy Power, PhD, LP Psychologist Signed: 12/01/2021 22:06
--- OUTSIDE RECORDS SUMMARY | 2022-03-27 17:41 | XMS_ITS | Encounter Summary ---
:[address] [facility] Address [address] [place] [id number] Support Name Relationship Address Phone JERRI IRWIN Unavailable FABRIZIO VANCE [place] [address] JERRI IRWIN Unavailable FABRIZIO [employer] [place], [place] Selected Encounter This section includes the information on record at [place] for the Encounter. Date/Time Encounter Type Encounter Reason Provider Source Description December 13, 2021 PRO PHONE TELEPHONE PRIMARY ICD-10-CM F33.9 AKIKO JIMENEZ 03:30 PM CALL 11-20 MIN CARE Major depressive IN R disorder, recurrent, unspecified with Provider Comments: Depression ([facility] [id number]) IHE Encounter Template Text not used by [place] Assessments - Encounter Diagnoses This section includes the primary and secondary diagnoses documented for the Encounter. Date/Time Primary/Secondary Diagnosis Name Provider Source Diagnosis December 13, 2021 PRIMARY Major depressive AKIKO [facility]AL[facility]ERT [place] [place] [facility] 03:30 PM disorder, IN R HCS recurrent, unspecified Plan of Treatment: Future Appointments (+ 6 months) and Future Tests (+/- 45 days) The Plan of Treatment section includes future care activities for the patient from all [place] treatmentfacilities. This section includes future appointments and future orders which are active, pending orscheduled.Future Appointments This section includes appointments that were scheduled to occur 6 months from the date of the Encounter, up to a maximum of 20 appointments. The data comes from all [place] treatment facilities. Appointment Date/Time Appointment Type Appointment Facili ty Name Dec 23, 2021 09:30 AM AMBULATORY - NONE [facility] Dec 29, 2021 03:00 PM AMBULATORY - MEDICINE [facility] Feb 03, 2022 09:00 AM AMBULATORY - MEDICINE [facility] Feb 07, 2022 12:30 PM AMBULATORY - NONE [facility] Feb 07, 2022 03:30 PM AMBULATORY - NONE [facility] Mar 07, 2022 03:00 PM AMBULATORY - MEDICINE [facility] Mar 22, 2022 05:00 PM AMBULATORY - REHAB MEDICINE [facility] Apr 12, 2022 03:00 PM AMBULATORY - MEDICINE [facility] Apr 18, 2022 12:30 PM AMBULATORY - MEDICINE [facility] May 09, 2022 03:30 PM AMBULATORY - NONE [facility] Social History: Smoking Status (Most current) and Tobacco Use (All prior to encounter date) This section includes the most current, and the historical, smoking and tobacco-related health factors from the [place] facility where the Encounter took place.Current Smoking Status This section includes the most current smoking, or tobacco-related health factor, from the [place] facility where the Encounter took place. Date/Time Current Smoking Status Comment Facility Aug 19, 2021 10:30 AM MA-TOBACCO QUIT 1 TO < 5 YRS [facility] Tobacco Use History This section includes a history of the smoking, or tobacco- related health factors, that were collected on or before the date of the Encounter. The data comes from the [place] facility where the Encounter took place. Date/Time Smoking Status/Tobacco Use Comment Mona richardson Aug 19, 2021 10:30 AM MA-TOBACCO QUIT 1 TO < 5 YRS [facility] Apr 15, 2021 01:00 PM LIFETIME NON-SMOKER [facility] Aug 06, 2020 09:00 AM VA-TOBACCO FORMER USER [facility] Aug 06, 2020 09:00 AM VA-TOBACCO QUIT 15 YRS OR MORE [facility] [...] the Encounter. The data comes from all [place] treatment facilities. Date/Time Radiology Report Provider Source Dec 23, 2021 09:36 AM ESOPHAGRAM DOUBLE CONTRAST: DILIP MATA [facility] KRISSY IRWIN [id number] -SILVINA [birth year], [birth year] 7 F Exm Date: DEC 23, 2021@09:36 Req Phys: SWATHI MCFARLANE Pat Loc: [facility] PACT MELISSA N 4F (Req'g Loc) Img Loc: MAIN X-RAY Service: Unknown Screen: Patient answered no (Case [id number] COMPLETE) ESOPHAGRAM DOUBLE CONTRAST (RAD Detailed) CPT:02905 Contrast Media : Barium Reason for Study: regurgitation with fluids and solids Clinical History: regurgitation with fluids and solids I am reque sting/ordering esophagram without upper GI Report Status: Verified Date Reported: DEC 23, 2021 Date Verified: DEC 23, 2021 Motor Vehicle Compliance Analyst E-Sig:/ES/DILIP MATA MD Report: Examination: ESOPHAGRAM DOUBLE [...] Primary Interpreting Staff: DILIP MATA MD, RADIOLOGIST (Motor Vehicle Compliance Analyst) Primary Interpreting Resident: STEF CORNELIUS DO, 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 Date/Time Encounter Note(s) Provider Source December 13, 2021 03:24 PHARMACY NOTE: TESSA TALBERT [facility] LOCAL TITLE: PHARMACOTHERAPY-CLINICAL PHARMACY NOTE STANDARD TITLE: PHARMACY NOTE DATE OF NOTE: DECEMBER 13, 2021@15:24 ENTRY DATE: DECEMBER 13, 2021@15:24:54 AUTHOR: TESSA TALBERT EXP COSIGNER: URGENCY: STATUS: COMPLETED PHARMACOTHERAPY-CLINICAL PHARMACY NOTE Has ADDENDA visit Type: Phone KRISSY IRWIN is a 46 year-old [place] se en today for pharmacy case management regarding depression. 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 Has non-VA neurology care. Had started low dose sertraline at last visit. DSM-5 Diagnostic Assessment: (per [facility] notes) - Adjustment Disorder with mixed Anxiety and de pressed mood - MDD, unspecified Current Medications for Mood Symptoms: - Sertraline 25mg Qday (has been taking for ~3 weeks now). Previous Medication Trials: - Bupropion XL (felt off while taking) - Buspirone (didn't seem to help) - Escitalopram (bruxism) - Sertraline (took for a brief period and stopp ed) SUBJECTIVE: Krissy states she is feeling well this afternoon and elaborates that things seem to be going better after st arting low dose sertraline. Shares she feels she has more energy, mood is better, feeling less irri tated. States while she is feeling improvements, doesn 't necessarily feel happy. Has seen an increase in teeth grinding symptoms since starting s ertraline (had resolved after stopping escitalopram), though not as severe compared to prior medication trials. Her kids are wrapping up the school year, states str ess during school months vs summer months is about the s ming (lots of after school and summer activities, so still running around). Would like to continue current sertraline dosing at this time and reassess with longer duration of use. 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 4) VALACYCLOVIR HCL 1GM TAB TAKE TWO TABLETS BY MOUTH ACTIVE TWICE A DAY FOR COLD SORES Active Non-VA Medications Status 1) Non-VA ASPIRIN 81MG EC TAB 81MG MOUTH EVERY D AY ACTIVE *Disease-specific medication reconciliation comp leted today Vitals: Temperature: 97.9 F [36.6 C] (11/21/2021 11:22) Blood Pressure: 125/84 (11/21/2021 11:22) Pulse: 63 (11/21/2021 11:22) Respiration: 16 (11/21/2021 11:22) Pain: 0 (11/21/2021 11:22) Height: 65 in [165.1 cm] (11/21/2021 11:22) Weight: 200 lb [90.72 kg] (11/21/2021 11:22) BMI: 33.4 LABS: Basic Metabolic Panel SODIUM 136 (10/24/21) POTASSIUM 4.3 (10/24/21) CREATININE 0.8 (10/24/21) UREA NITROGEN 14 (10/24/21) GLUCOSE 97 (10/24/21) CO2 25 (10/24/21) CHLORIDE 105 (10/24/21) EGFR (02/23) 08/06/20 @ 1100 78 CREATININE EGFR (CKD-EPI) 10/24/21 @ 1035 >90 MAGNESIUM 2.0 (10/24/21) Collection DT Specimen Test Name Result Units Re f Range 10/24/2021 10:35 PLASMA CREATININE 0.8 mg/dL 0.5 - 1.0 08/06/2020 11:00 PLASMA CREATININE 0.8 mg/dL 0.5 - 1.0 10/24/2021 10:35 PLASMA CREAT EGFR(CKD-EP >90 Re f: >=60 08/06/2020 11:00 PLASMA ESTIMATED GFR(eGF >60 Re f: >=60 CHOLESTEROL____ MEASURED LDL____ LDL CALCULATION____ HDL____ TRIGLYCERIDE____ Collection DT Spec HGBA1C 08/06/2020 11:00 BLOOD 5.5 Mental Status Exam: (adapted for phone) - Attitude toward interviewer: Cooperative, fri endly - Speech: Normal rate, rhythm, and tone; conver ses spontaneously - Thought process: Linear, logical - Thought content: No SI/HI or psychotic conten t verbalized or suspected; provides interim updates - Mood: Better, less irritated, not necessaril y happy - Insight/Judgement: good/good; intact for safe ty ASSESSMENT: #Mood/Anxiety Symptoms: Notes improvements in mood s ymptoms with addition of sertraline. Is experiencing a return of bruxism symptoms, though as severe a s with prior trial of escitalopram + buspirone. Currently prescribed l ow dose w/ preference to continue current strength and reassess with cont inued use. No safety concerns noted today and anticipate risk of self-harm/mic cide is low based on risk/protective factors. Den ies any thoughts of suicide or self-harm. Is working with [facility] psychology. #/Teratogenicity Risk: Risk of pregnanc y is minimal given tubal ligation history. PLAN: ----- - Continue sertraline 25mg Qday #Disease-Specific Med Rec: Completed today #Labs: None needed at this time - Educated vet on indication/risks/benefits of n ew/changed medication. - Education provided on therapeutic nonpharmacol ogic management to achieve goals. - Vet advised of recent labs. - verbalized underst anding to all plans discussed today. Questions were answered to vet's satisfaction. Time Spent: 30 minutes RTC: 6-8 weeks in phone clinic /kaylene/ TESSA TALBERT PharmD, TERRELLP Clinical Wire Weaving Loom Setter Signed: 12/14/2021 11:12 01/06/2022 ADDENDUM STATUS: COMPLETED Received alert that [place] had increased dosing to 50mg and is requesting a refill. Prescription updated and will continue d iscussion at upcoming visit. /simran TALBERT PharmD, TERRELLP Clinical Wire Weaving Loom Setter Signed: 01/06/2022 15:18
--- OUTSIDE RECORDS SUMMARY | 2022-03-27 17:41 | XMS_ITS | Encounter Summary ---
:1975 Author Organization Department [facility] Address [address] [place] [id number] Support Name Relationship Address Phone JERRI IRWIN Unavailable FABRIZIO VANCE [place] [address] JERRI IRWIN Unavailable FABRIZIO VANCE [place], [place] Selected Encounter This section includes the information on record at NE for the Encounter. Date/Time Encounter Type Encounter Reason Provider Source Description November 21, 2021 10:46 Outpatient PRIMARY SWATHI MCFARLANE AM Encounter CARE/MEDICINE IHE Encounter Template Text not used by NE Plan of Treatment: Future Appointments (+ 6 months) and Future Tests (+/- 45 days) The Plan of Treatment section includes future care activities for the patient from all NE treatmentfacilities. This section includes future appointments and future orders which are active, pending orscheduled.Future Appointments This section includes appointments that were scheduled to occur 6 months from the date of the Encounter, up to a maximum of 20 appointments. The data comes from all NE treatment facilities. Appointment Date/Time Appointment Type Appointment Facili ty Name November 28, 2021 10:00 AM AMBULATORY - MEDICINE [facility] December 13, 2021 03:30 PM AMBULATORY - NONE [facility] December 13, 2021 05:00 PM AMBULATORY - REHAB MEDICINE [facility] Dec 23, 2021 09:30 AM AMBULATORY - NONE [facility] Dec 29, 2021 03:00 PM AMBULATORY - MEDICINE [facility] Feb 03, 2022 09:00 AM AMBULATORY - MEDICINE [facility] Feb 07, 2022 12:30 PM AMBULATORY - NONE [facility] Feb 07, 2022 03:30 PM AMBULATORY - NONE [facility] Mar 07, 2022 03:00 PM AMBULATORY - MEDICINE [facility] Mar 22, 2022 05:00 PM AMBULATORY - REHAB MEDICINE [facility] Apr 12, 2022 03:00 PM AMBULATORY - MEDICINE [facility] Apr 18, 2022 12:30 PM AMBULATORY - MEDICINE [facility] May 09, 2022 03:30 PM AMBULATORY - NONE [facility] Lab Results: +/- 30 days of the encounter This section includes the Chemistry and Hematology Lab Results on record with NE for the patient. Radiology Reports and Pathology Reports are provided separately, in subsequent sections.Lab Results This section contains the Chemistry/Hematology Results that were resulted 30 days before or 30 daysafter the date of the Encounter. Date/Time Source Result Type Result - Unit Interpretation Reference Range Comment Oct 24, 2021 10:35 AM [facility] CBC Specim en Type: BLOOD No comment enter ed. Ordering Provid er: SWATHI MCFARLANE Report Released Date/Time: Oct 24, 2021 10:10 AM Reporting Lab: [facility] [address] [facility] [id number] Performing Lab: [facility] [address] [facility] [address] WBC 7.66 4.0-11.0 RBC 4.45 4.0-5.4 HGB 13.5 11.5-16 HCT 40.9 34.5-48 MCV 91.9 80-100 MCH 30.3 27-33 MCHC 33.0 32.0-37.5 PLT 280 150-400 MPV 9.8 7.4-10.4 RDW 14.6 H 11.5-14.5 Oct 24, 2021 10:35 [facility] BASIC METABOLIC Specimen Type: PLASMA AM PANEL+MG No comment enter ed. Ordering Provid er: SWATHI MCFARLANE Report Released Date/Time: Oct 24, 2021 10:10 AM Reporting Lab: [facility] [address] [facility] [address] Performing Lab: [facility] [address] CREATININE 0.8 0.5-1.0 UREA NITROGEN 14 7-20 GLUCOSE 97 74-100 SODIUM 136 136-145 POTASSIUM 4.3 3.5-5.1 CHLORIDE 105 98-107 CO2 25 22-29 CALCIUM 8.9 8.4-10.2 MAGNESIUM 2.0 1.6-2.6 ANION GAP 6 5-15 CREAT EGFR(CKD-EPI) >90 >60 Oct 24, 2021 10:35 [facility] TSH W/REFLEX TO FREE Spec imen Type: PLASMA AM T4 No comment enter ed. Ordering Provid er: SWATHI MCFARLANE Report Released Date/Time: Oct 24, 2021 10:10 AM Reporting Lab: [facility] [address] [facility] [address] Performing Lab: [facility] [address] [facility] [address] TSH 4.12 0.35-4.94 Oct 24, 2021 10:35 AM [facility] MAGNESIUM Specim en Type: PLASMA No comment enter ed. Ordering Provid er: SWATHI MCFARLANE Report Released Date/Time: Oct 24, 2021 10:10 AM Reporting Lab: [facility] [address] [facility] [address] Performing Lab: [facility] [address] [facility] [address] MAGNESIUM 2.0 1.6-2.6 Vital Signs: All taken on the encounter date This section contains inpatient and outpatient Vital Signs collected on the date of the Encounter. Date/Time Temperature Pulse Blood Respiratory SP02 Pain Height Weight Blayne dy Source Pressure Rate Mass Index November 21, 97.9 F 63 125/84 16 /min 99 % 0 65 in 200 lb 33 [place] 2021 11:22 /min mm[Hg] IS [facility] Social History: Smoking Status (Most current) and Tobacco Use (All prior to encounter date) This section includes the most current, and the historical, smoking and tobacco-related health factors from the NE facility where the Encounter took place.Current Smoking Status This section includes the most current smoking, or tobacco-related health factor, from the NE facility where the Encounter took place. Date/Time Current Smoking Status Comment Facility Aug 19, 2021 10:30 AM NE-TOBACCO FORMER USER [facility] Tobacco Use History This section includes a history of the smoking, or tobacco- related health factors, that were collected on or before the date of the Encounter. The data comes from the NE facility where the Encounter took place. Date/Time Smoking Status/Tobacco Use Comment [facility] Aug 19, 2021 10:30 AM NE-TOBACCO QUIT 1 TO < 5 YRS [facility] Apr 15, 2021 01:00 PM LIFET[facility] Aug 06, 2020 09:00 AM NE-TOBACCO FORMER USER [facility] Aug 06, 2020 09:00 AM VA-TOBACCO QUIT 15 YRS OR MORE [facility] Radiology Reports: +/- 30 days of [...] the Encounter. The data comes from all NE treatment facilities. Date/Time Radiology Report Provider Source Oct 24, 2021 10:49 AM CHEST 2 VIEWS PA AND LAT: TONY KERNS [facility] KRISSY IRWIN [id number] -[birth year]B [birth year] F Exm Date: OCT 24, 2021@10:49 Req Phys: SWATHI MCFARLANE Pat Loc: [facility] PACT MELISSA N 4F (Req'g Loc) Img Loc: MAIN X-RAY Service: Unknown Screen: Patient answered no (Case [id number] COMPLETE) CHEST 2 VIEWS PA AND LAT (RA D Detailed) CPT:80710 Reason for Study: shortness of breath Clinical History: IS NOT under investigation for COVID-19 or is COVID-19 negative shortness of breath Responsible provider name a nd phone number to notify for critical findings if other than u ser placing the order and pager listed below: User placing orde rs pager: [phone] LAST CREATININE____ Report Status: Verified Date Reported: OCT 24, 2021 Date Verified: OCT 24, 2021 Tipple Boss E-Sig:/ES/TONY KERNS MD Report: EXAMINATION: CHEST 2 VIEWS PA AND LAT 10/24/2021 10:49 AM INDICATION: shortness of breath Impression: Negative chest. No pulmonary infiltrate or pleu ral effusion. Heart size and pulmonary vascularity within nor mal limits. No comparison chest x-ray. Primary Interpreting Staff: TONY KERNS MD, RADIOLOGIST (Tipple Boss) /RTS Encounter Notes: All associated encounter notes This section contains the clinical notes associated to the Encounter. Date/Time Encounter Note(s) Provider Source November 21, 2021 10:46 AM ADVANCE DIRECTIVE: JAVAD AMANDA [facility] LOCAL TITLE: AD NOTIFICATION AND SCREENING STANDARD TITLE: ADVANCE DIRECTIVE DATE OF NOTE: NOVEMBER 21, 2021@10:46 ENTRY DATE: NOVEMBER 21, 2021@10:46:03 AUTHOR: JAVAD AMANDA EXP COSIGNER: URGENCY: STATUS: COMPLETED ADVANCE DIRECTIVE NOTIFICATION: Patient was given written notification of the f ollowing rights: 1. Accept or refuse any medical treatment. 2. Complete a durable power of contract attorney for [facility] care. 3. Complete a living will. ADVANCE DIRECTIVE SCREENING: Does patient have an Advance Directive? The patient does not have an Advance Directive. The patient does not wish to create an Advance Directive for health care. Comment: REFUSED /es/ JAVAD AMANDA Advance Facing Grinder Signed: 11/21/2021 10:46
--- OUTSIDE RECORDS SUMMARY | 2022-03-27 17:41 | XMS_ITS | Encounter Summary ---
:1975 Author Organization Department [facility] Address [address] [place] [id number] Support Name Relationship Address Phone JERRI IRWIN Unavailable FABRIZIO VANCE [phone] [place] [id number] JERRI IRWIN [place] [address] Selected Encounter This section includes the information on record at [place] for the Encounter. Date/Time Encounter Type Encounter Description Reason Provider Source Nov 07, 2021 02:16 Outpatient Encounter COMMUNITY CARE PM CONSULT IHE Encounter Template Text not used by MS Plan of Treatment: Future Appointments (+ 6 months) and Future Tests (+/- 45 days) The Plan of Treatment section includes future care activities for the patient from all [place] treatmentfacilities. This section includes future appointments and future orders which are active, pending orscheduled.Future Appointments This section includes appointments that were scheduled to occur 6 months from the date of the Encounter, up to a maximum of 20 appointments. The data comes from all [place] treatment facilities. Appointment Date/Time Appointment Type Appointment Facili ty Name Nov 09, 2021 03:30 PM AMBULATORY - NONE [facility] November 21, 2021 10:30 AM AMBULATORY - MEDICINE [facility] November 28, 2021 10:00 AM AMBULATORY - MEDICINE [facility] December 13, 2021 03:30 PM AMBULATORY - NONE [facility] December 13, 2021 05:00 PM AMBULATORY - REHAB MEDICINE [facility] Dec 23, 2021 09:30 AM AMBULATORY - NONE [facility] Dec 29, 2021 03:00 PM AMBULATORY - MEDICINE [facility] Feb 03, 2022 09:00 AM AMBULATORY - MEDICINE [facility] Feb 07, 2022 12:30 PM AMBULATORY - NONE [facility] Feb 07, 2022 03:30 PM AMBULATORY - NONE [facility] Mar 07, 2022 03:00 PM AMBULATORY - MEDICINE [facility] Mar 22, 2022 05:00 PM AMBULAT[facility] Apr 12, 2022 03:00 PM AMBULATORY - MEDICINE [facility] Apr 18, 2022 12:30 PM AMBULATORY - MEDICINE [facility] May 09, 2022 03:30 PM AMBULATORY - NONE [facility] Lab Results: +/- 30 days of the encounter This section includes the Chemistry and Hematology Lab Results on record with [place] for the patient. Radiology Reports and Pathology Reports are provided separately, in subsequent sections.Lab Results This section contains the Chemistry/Hematology Results that were resulted 30 days before or 30 daysafter the date of the Encounter. Date/Time Source Result Type Result - Unit Interpretation Reference Range Comment Oct 24, 2021 10:35 AM [facility] CBC Specim en Type: BLOOD No comment enter ed. Ordering Provid er: SWATHI MCFARLANE Report Released Date/Time: Oct 24, 2021 10:10 AM Reporting Lab: [facility] [address] [facility] [address] Performing Lab: [facility] [address] WBC 7.66 4.0-11.0 RBC 4.45 4.0-5.4 HGB 13.5 11.5-16 HCT 40.9 34.5-48 MCV 91.9 80-100 MCH 30.3 27-33 MCHC 33.0 32.0-37.5 PLT 280 150-400 MPV 9.8 7.4-10.4 RDW 14.6 H 11.5-14.5 Oct 24, 2021 10:35 [facility] BASIC METABOLIC Specimen Type: PLASMA AM PANEL+MG No comment enter ed. Ordering Provid er: SWATHI MCFARLANE Report Released Date/Time: Oct 24, 2021 10:10 AM Reporting Lab: [facility] [address] [facility] [address] Performing Lab: [facility] [address] CREATININE 0.8 0.5-1.0 UREA NITROGEN 14 7-20 GLUCOSE 97 74-100 SODIUM 136 136-145 POTASSIUM 4.3 3.5-5.1 CHLORIDE 105 98-107 CO2 25 22-29 CALCIUM 8.9 8.4-10.2 MAGNESIUM 2.0 1.6-2.6 ANION GAP 6 5-15 CREAT EGFR(CKD-EPI) >90 >60 Oct 24, 2021 10:35 [facility] TSH W/REFLEX TO FREE Spec imen Type: PLASMA AM T4 No comment enter ed. Ordering Provid er: SWATHI MCFARLANE Report Released Date/Time: Oct 24, 2021 10:10 AM Reporting Lab: [facility] [address] [facility] [address] Performing Lab: [facility] [address] [facility] [address] TSH 4.12 0.35-4.94 Oct 24, 2021 10:35 AM [facility] MAGNESIUM Specim en Type: PLASMA No comment enter ed. Ordering Provid er: SWATHI MCFARLANE Report Released Date/Time: Oct 24, 2021 10:10 AM Reporting Lab: [facility] [address] [facility] [address] Performing Lab: [facility] [address] MAGNESIUM 2.0 1.6-2.6 Social History: Smoking Status (Most current) and Tobacco Use (All prior to encounter date) This section includes the most current, and the historical, smoking and tobacco-related health factors from the [facility] where the Encounter took place.Current Smoking Status This section includes the most current smoking, or tobacco-related health factor, from the [place] facility where the Encounter took place. Date/Time Current Smoking Status Comment Facility Aug 19, 2021 10:30 AM MS-TOBACCO QUIT 1 TO < 5 YRS [facility] Tobacco Use History This section includes a history of the smoking, or tobacco- related health factors, that were collected on or before the date of the Encounter. The data comes from the [place] facility where the Encounter took place. Date/Time Smoking Status/Tobacco Use Comment Mona gaxiola Aug 19, 2021 10:30 AM MS-TOBACCO QUIT 1 TO < 5 YRS [facility] Apr 15, 2021 01:00 PM LIFETIME NON-SMOKER [facility] Aug 06, 2020 09:00 AM VA-TOBACCO FORMER USER PAULINA SILVERIO [facility] Aug 06, 2020 09:00 AM MS-TOBACCO QUIT 15 YRS OR MORE [facility] Radiology Reports: +/- 30 days of [...] the Encounter. The data comes from all [place] treatment facilities. Date/Time Radiology Report Provider Source Oct 24, 2021 10:49 AM CHEST 2 VIEWS PA AND LAT: TONY KERNS [facility] KRISSY IRWIN [id number] -[birth year]B [birth year] 7 F Exm Date: OCT 24, 2021@10:49 Req Phys: SWATHI MCFARLANE Pat Loc: [facility] PACT MELISSA N 4F (Req'g Loc) Img Loc: MAIN X-RAY Service: Unknown Screen: Patient answered no (Case [id number] COMPLETE) CHEST 2 VIEWS PA AND LAT (RA D Detailed) CPT:63780 Reason for Study: shortness of breath Clinical History: [place] IS NOT under investigation for COVID-19 or is COVID-19 negative shortness of breath Responsible provider name a nd phone number to notify for critical findings if other than u ser placing the order and pager listed below: User placing orde rs pager: [phone] LAST CREATININE____ Report Status: Verified Date Reported: OCT 24, 2021 Date Verified: OCT 24, 2021 Pull Out Operator E-Sig:/ES/TONY KERNS MD Report: EXAMINATION: CHEST 2 VIEWS PA AND LAT 10/24/2021 10:49 AM INDICATION: shortness of breath Impression: Negative chest. No pulmonary infiltrate or pleu ral effusion. Heart size and pulmonary vascularity within nor mal limits. No comparison chest x-ray. Primary Interpreting Staff: TONY KERNS MD, RADIOLOGIST (Pull Out Operator) /RTS Encounter Notes: All associated encounter notes This section contains the clinical notes associated to the Encounter. Date/Time Encounter Note(s) Provider Source Nov 07, 2021 02:16 PM NONVA NOTE: GHANSHYAM GARCIA [facility] LOCAL TITLE: COMMUNITY CARE-CARE COORDINATION P REINIER NOTE STANDARD TITLE: NONVA NOTE DATE OF NOTE: NOV 07, 2021@14:16 ENTRY DATE: NOV 07, 2021@14:16:16 AUTHOR: GHANSHYAM GARCIA EXP COSIGNER: URGENCY: STATUS: COMPLETED COMMUNITY CARE-CARE COORDINATION PLAN NOTE Has ADDENDA Moffett called the Community Care Call Line requesting a Community Care consult for COMMUNITY CARE-MASSAGE THERAPY. was informed that there is no existing authorization in place for this care. R espectfully alerting the 's PACT for review of this request and el igibility determination. /es/ GHANSHYAM YOUNG Signed: 11/07/2021 14:19 Receipt Acknowledged By: * AWAITING SIGNATURE * SWATHI MCFARLANE 11/07/2021 16:03 /es/ SMITA MURPHY RN REGISTERED NURSE 11/07/2021 ADDENDUM STATUS: COMPLETED [facility] Massage Therapy consult placed for PCP martha louis & signature /kaylene/ SMITA MURPHY RN REGISTERED NURSE Signed: 11/07/2021 16:04
--- OUTSIDE RECORDS SUMMARY | 2022-03-27 17:41 | XMS_ITS | Encounter Summary ---
:1975 Author Organization Department [facility] Address [address] [place] [id number] Support Name Relationship Address Phone JERRI IRWIN Unavailable FABRIZIO VANCE [phone] [place] [address] JERRI IRWIN Unavailable FABRIZIO [employer] [phone] [place], [place] Selected Encounter This section includes the information on record at [place] for the Encounter. Date/Time Encounter Type Encounter Reason Provider Source Description Nov 09, 2021 HC PRO PHONE TELEPHONE PRIMARY ICD-10-CM F33.9 AKIKO JIMENEZ 03:30 PM CALL 21-30 MIN CARE Major depressive IN R disorder, recurrent, unspecified with Provider Comments: Depression ([facility] [id number]) IHE Encounter Template Text not used by [facility] Assessments - Encounter Diagnoses This section includes the primary and secondary diagnoses documented for the Encounter. Date/Time Primary/Secondary Diagnosis Name Provider Source Diagnosis Nov 09, 2021 PRIMARY Major depressive AKIKO [facility]ALBERT [place] [facility] 03:30 PM disorder, IN R HCS recurrent, unspecified Plan of Treatment: Future Appointments (+ 6 months) and Future Tests (+/- 45 days) The Plan of Treatment section includes future care activities for the patient from all [place] treatmentfacilities. This section includes future appointments and future orders which are active, pending orscheduled.Future Appointments This section includes appointments that were scheduled to occur 6 months from the date of the Encounter, up to a maximum of 20 appointments. The data comes from all [place] treatment facilities. Appointment Date/Time Appointment Type Appointment Facili ty Name November 21, 2021 10:30 AM AMBULATORY - MEDICINE [facility] November 28, 2021 10:00 AM AMBULATORY - MEDICINE [facility] December 13, 2021 03:30 PM AMBULATORY - NONE [facility] December 13, 2021 05:00 PM AMBULATORY - REHAB [facility] Dec 23, 2021 09:30 AM AMBULATORY - NONE [facility] Dec 29, 2021 03:00 PM AMBULATORY - MEDICINE [facility] Feb 03, 2022 09:00 AM AMBULATORY - MEDICINE [facility] Feb 07, 2022 12:30 PM AMBULATORY - NONE [facility] Feb 07, 2022 03:30 PM AMBULATORY - NONE [facility] Mar 07, 2022 03:00 PM AMBULATORY - MEDICINE [facility] Mar 22, 2022 05:00 PM AMBULATORY - REHAB MEDICINE [facility] Apr 12, 2022 03:00 PM AMBULATORY - MEDICINE [facility] Apr 18, 2022 12:30 PM AMBULATORY - MEDICINE [facility] May 09, 2022 03:30 PM AMBULATORY - NONE [facility] Lab Results: +/- 30 days of [...] Reference Range Comment Oct 24, 2021 10:35 [facility] BASIC METABOLIC Specimen Type: PLASMA AM PANEL+MG No comment enter ed. Ordering Provid er: SWATHI MCFARLANE Report Released Date/Time: Oct 24, 2021 10:10 AM Reporting Lab: [facility] DRArlin [place] [facility] [id number] Performing Lab: [facility] DRI VE [facility] [id number] CREATININE 0.8 0.5-1.0 UREA NITROGEN 14 7-20 GLUCOSE 97 74-100 SODIUM 136 136-145 POTASSIUM 4.3 3.5-5.1 CHLORIDE 105 98-107 CO2 25 22-29 CALCIUM 8.9 8.4-10.2 MAGNESIUM 2.0 1.6-2.6 ANION GAP 6 5-15 CREAT EGFR(CKD-EPI) >90 >60 Oct 24, 2021 10:35 AM [facility] CBC Specim en Type: BLOOD No comment enter ed. Ordering Provid er: SWATHI MCFARLANE Report Released Date/Time: Oct 24, 2021 10:10 AM Reporting Lab: [facility] DRI [place] [facility] [id number] Performing Lab: [facility] I [place] [facility] [id number] WBC 7.66 4.0-11.0 RBC 4.45 4.0-5.4 HGB 13.5 11.5-16 HCT 40.9 34.5-48 MCV 91.9 80-100 MCH 30.3 27-33 MCHC 33.0 32.0-37.5 PLT 280 150-400 MPV 9.8 7.4-10.4 RDW 14.6 H 11.5-14.5 Oct 24, 2021 10:35 [facility] TSH W/REFLEX TO FREE Spec imen Type: PLASMA AM T4 No comment enter ed. Ordering Provid er: SWATHI MCFARLANE Report Released Date/Time: Oct 24, 2021 10:10 AM Reporting Lab: [facility] [id number] Performing Lab: [facility] [id number] TSH 4.12 0.35-4.94 Oct 24, 2021 10:35 AM [facility] MAGNESIUM Specim en Type: PLASMA No comment enter ed. Ordering Provid er: SWATHI MCFARLANE Report Released Date/Time: Oct 24, 2021 10:10 AM Reporting Lab: [facility] [phone] Performing Lab: [facility] [id number] MAGNESIUM 2.0 1.6-2.6 Social History: Smoking Status (Most current) and Tobacco Use (All prior to encounter date) This section includes the most current, and the historical, smoking and tobacco-related health factors from the [place] facility where the Encounter took place.Current Smoking Status This section includes the most current smoking, or tobacco-related health factor, from the [place] facility where the Encounter took place. Date/Time Current Smoking Status Comment Facility Aug 19, 2021 10:30 AM [place]-TOBACCO FORMER USER [facility] Tobacco Use History This section includes a history of the smoking, or tobacco- related health factors, that were collected on or before the date of the Encounter. The data comes from the [place] facility where the Encounter took place. Date/Time Smoking Status/Tobacco Use Comment Mona gaxiola Aug 19, 2021 10:30 AM ND-TOBACCO QUIT 1 TO < 5 YRS [facility] Apr 15, 2021 01:00 PM LIFETIME NON-SMOKER [facility] Aug 06, 2020 09:00 AM [place]-TOBACCO FORMER USER PAULINA SILVERIO [facility] Aug 06, 2020 09:00 AM VA-TOBACCO QUIT 15 YRS OR MORE [facility] Radiology Reports: +/- 30 days of [...] the Encounter. The data comes from all [place] treatment facilities. Date/Time Radiology Report Provider Source Oct 24, 2021 10:49 AM CHEST 2 VIEWS PA AND LAT: TONY KERNS [facility] KRISSY IRWIN [id number] -[birth year] F Exm Date: OCT 24, 2021@10:49 Req Phys: SWATHI MCFARLANE Loc: [facility] PACT MELISSA N 4F (Req'g Loc) Img Loc: MAIN X-RAY Service: Unknown Screen: Patient answered no (Case [id number] COMPLETE) CHEST 2 VIEWS PA AND LAT (RA D Detailed) CPT:04034 Reason for Study: shortness of breath Clinical History: IS NOT under investigation for COVID-19 or is COVID-19 negative shortness of breath Responsible provider name a nd phone number to notify for critical findings if other than u ser placing the order and pager listed below: User placing orde rs pager: [phone] LAST CREATININE____ Report Status: Verified Date Reported: OCT 24, 2021 Date Verified: OCT 24, 2021 Offset Printer E-Sig:/ES/TONY KERNS MD Report: EXAMINATION: CHEST 2 VIEWS PA AND LAT 10/24/2021 10:49 AM INDICATION: shortness of breath Impression: Negative chest. No pulmonary infiltrate or pleu ral effusion. Heart size and pulmonary vascularity within nor mal limits. No comparison chest x-ray. Primary Interpreting Staff: TONY KERNS MD, RADIOLOGIST (Offset Printer) /RTS Encounter Notes: All associated encounter notes This section contains the clinical notes associated to the Encounter. Date/Time Encounter Note(s) Provider Source Nov 09, 2021 03:30 PHARMACY NOTE: TESSA TALBERT [facility] PM LOCAL TITLE: PHARMACOTHERAPY-CLINICAL PHARMACY NOTE STANDARD TITLE: PHARMACY NOTE DATE OF NOTE: NOV 09, 2021@15:30 ENTRY DATE: NOV 09, 2021@15:30:20 AUTHOR: TESSA TALBERT EXP COSIGNER: URGENCY: STATUS: COMPLETED visit Type: Phone KRISSY IRWIN is a 46 year-old se en [...] and de pressed mood - MDD, unspecified Previous Medication Trials: - Bupropion XL (felt off while taking) - Buspirone (didn't seem to help) - Escitalopram (bruxism) - Sertraline (took for a brief period and stopp ed) SUBJECTIVE: Krissy states she is feeling alright this afterno on. Notes she has definitely seen a decline in mood sympt oms after tapering off antidepressants; I feel like I'm right back where I start ed. Specifically, notes she feels like she doesn't have anything to look forward to, is feeling mor e irritably -- small things bother her more. Friends, family, and coworkers can tell that I'm not taking anything anymore since I'm just overall less ple asant to be around. Bruxism symptoms have completely resolved after stopping antidepressants. Expressed concerns about sporadic changes in weight and fl uid retention. Specifically, seeing an increase in visceral fat and will see more swelling in her legs and fingers periodically. Shares sometimes her socks leave a ace and her ring doesn't fit. Doesn't identify any correlation of symptoms to menstrual cycle (neither mood or edema/weight symptoms). Social History: - Tobacco: None - Alcohol: [...] ACTIVE TWICE A DAY FOR ANXIETY 2) LEVOTHYROXINE NA (SYNTHROID) 75MCG TAB TAKE O NE ACTIVE TABLET BY MOUTH EVERY DAY 3) VALACYCLOVIR HCL 1GM TAB TAKE TWO TABLETS BY MOUTH ACTIVE TWICE A DAY FOR COLD SORES Inactive Outpatient Medications Status 1) BUPROPION HCL 150MG 24HR SA TAB TAKE ONE TABL ET BY MOUTH EVERY MORNING FOR 7 DAYS THEN STOP TO TAP ER OFF THIS MEDICATION. CAN EXTEND TAPER TO 14 DAY S IF NEEDED. Active Non-VA Medications Status 1) Non-VA ASPIRIN 81MG EC TAB 81MG MOUTH EVERY D AY ACTIVE 5 Total Medications Vitals: Temperature: 98 F [36.7 C] (10/24/2021 09:25) Blood Pressure: 117/79 (10/24/2021 09:25) Pulse: 82 (10/24/2021 09:25) Respiration: 18 (10/24/2021 09:25) Pain: 7 (10/24/2021 09:25) Height: 65 in [165.1 cm] (10/24/2021 09:25) Weight: 204.2 lb [92.62 kg] (10/24/2021 09:25) BMI: 34.1 LABS: Basic Metabolic Panel SODIUM 136 (10/24/21) [...] DT Spec HGBA1C 08/06/2020 11:00 BLOOD 5.5 TSH 4.12 (10/24/21) Mental Status Exam: (adapted for phone) - Attitude toward interviewer: Cooperative, fri endly - Speech: Normal rate, rhythm, and tone; conver ses spontaneously - Thought process: Linear, logical - Thought content: No SI/HI or psychotic conten t verbalized or suspected; provides interim updates - Mood: I feel like I'm right back where I sta rted - Insight/Judgement: good/good; intact for safe ty ASSESSMENT: #Mood/Anxiety Symptoms: Lynn responded very well to escitalopram thou gh experienced side effects including bruxism and potentially weight gain. L ow mood and anxiety symptoms present again after tapering therapy. Is interes lamberto in trial of a different antidepressant and will tria l low dose sertraline with slow titration (different pharmacokinetic/metabolism p pate). Would like to trial lower dose initially to ensure favorable tolerability. Has PCP v isit in ~10 days and plans to continue discussion of edema/fluid retention. Is connecte d with [facility] to discuss weight gain. No safety concerns noted today and antic ipate risk of self-harm/suicide is low based on risk/protective factors. Denies any thoughts of suicide or self-harm. Is working with [facility] psychology. #/Teratogenicity Risk: Risk of pregnanc y is minimal given tubal ligation history. intentions clinical reminder completed today as below: /Intentions/Contraception: The patient is medically unable to conceive. Medical Reason: Permanent female sterilization Update Status: The patient is not currently lactating. PLAN: ----- - Initiate sertraline 25mg Qday - Discontinue buspirone (not taking) #Disease-Specific Med Rec: Completed today #Labs: None needed at this time - Educated vet on indication/risks/benefits of n ew/changed medication. - Education provided on therapeutic nonpharmacol ogic management to achieve goals. - Vet advised of recent labs. - Lynn verbalized underst anding to all plans discussed today. Questions were answered to vet's satisfaction. Time Spent: 30 minutes RTC: 4 weeks in phone clinic /kaylene/ TESSA TALBERT, Ami, BCPP Clinical Gaming Department Head Signed: 11/09/2021 16:21
--- OUTSIDE RECORDS SUMMARY | 2022-03-27 17:41 | XMS_ITS | Encounter Summary ---
:1975 Author Organization Department of [facility] rs Address [address] [place] [address] Support Name Relationship Address Phone JERRI IRWIN Unavailable FABRIZIO VANCE [place] [address] JERRI IRWIN Unavailable FABRIZIO VANCE [phone] [place] [address] Selected Encounter This section includes the information on record at [place] for the Encounter. Date/Time Encounter Type Encounter Reason Provider Source Description November 21, 2021 OFFICE O/P EST PRIMARY ICD-10-CM XIOMARA MCFARLANE 10:30 AM HI 40-54 MIN CARE/MEDICINE R06.02 H Shortness of breath with Provider Comments: Shortness of Breath IHE Encounter Template Text not used by HI Assessments - Encounter Diagnoses This section includes the primary and secondary diagnoses documented for the Encounter. Date/Time Primary/Secondary Diagnosis Name Provider Source Diagnosis November 21, 2021 PRIMARY Shortness of XIOMARA MCFARLANE V A 11:35 AM breath [facility] November 21, 2021 SECONDARY Anxiety disorder, XIOMARA MCFARLANE HI 11:35 AM unspecified H H[facility] November 21, 2021 SECONDARY Family hx of XIOMARA MCFARLANE V A 11:35 AM ischem heart dis H [facility] and oth dis of the circ sys November 21, 2021 SECONDARY Gastro-esophageal XIOMARA MCFARLANE [facility] 11:35 AM reflux disease H [facility] without esophagitis November 21, 2021 SECONDARY Obesity, XIOMARA MCFARLANE V A 11:35 AM unspecified H HCS Plan of Treatment: Future Appointments (+ 6 months) and Future Tests (+/- 45 days) The Plan of Treatment section includes future care activities for the patient from all [facility] treatment[facility]ilities. This section includes future appointments and future orders which are active, pending orscheduled.Future Appointments This section includes appointments that were scheduled to occur 6 months from the date of the Encounter, up to a maximum of 20 appointments. The data comes from all [place] treatment facilities. Appointment Date/Time Appointment Type Appointment Facili ty Name November 28, 2021 10:00 AM AMBULATORY - MEDICINE [facility] December 13, 2021 03:30 PM AMBULATORY - NONE [facility] December 13, 2021 05:00 PM AMBULATORY - REHAB MEDICINE [facility] Dec 23, 2021 09:30 AM AMBULATORY - NONE [facility] Dec 29, 2021 03:00 PM AMBULATORY - MEDICINE [facility] Feb 03, 2022 09:00 AM AMBULATORY - MEDICINE [facility] Feb 07, 2022 12:30 PM AMBULATORY - NONE [facility] Feb 07, 2022 03:30 PM AMBULATORY - NONE [facility] Mar 07, 2022 03:00 PM AMBULATORY - MEDICINE [facility] Mar 22, 2022 05:00 PM AMBULATORY - REHAB MEDICINE [facility] Apr 12, 2022 03:00 PM AMBULATORY - MEDICINE [facility] Apr 18, 2022 12:30 PM AMBULATORY - MEDICINE [facility] May 09, 2022 03:30 PM AMBULATORY - NONE [facility] Lab Results: +/- 30 days of the encounter This section includes the Chemistry and Hematology Lab Results on record with [place] for the patient. Radiology Reports and Pathology [...] 2021 10:10 AM Reporting Lab: [facility] [address] Performing Lab: [facility] [id number] WBC 7.66 4.0-11.0 RBC 4.45 4.0-5.4 HGB [...] AM Reporting Lab: [facility] [address] Performing Lab: [facility] [address] CREATININE 0.8 0.5-1.0 UREA NITROGEN 14 7-20 [...] Reporting Lab: [facility] [address] Performing Lab: [facility] [address] TSH 4.12 0.35-4.94 Oct 24, 2021 10:35 AM [facility] MAGNESIUM Specim en Type: PLASMA No comment enter ed. Ordering Provid er: XIOMARA MCFARLANE Report Released Date/Time: Oct 24, 2021 10:10 AM Reporting Lab: [facility] [address] [facility] [id number] Performing Lab: [facility] [address] MAGNESIUM 2.0 1.6-2.6 Vital Signs: All taken on the encounter date This section contains inpatient and outpatient Vital Signs collected on the date of the Encounter. Date/Time Temperature Pulse Blood Respiratory SP02 Pain Height Weight Blayne dy Source Pressure Rate Mass Index November 21, 97.9 F 63 125/84 16 /min 99 % 0 65 in 200 lb 33 [place] 2021 11:22 /min mm[Hg] [facility] Social History: Smoking Status (Most current) and Tobacco Use (All prior to encounter date) This section includes the most current, and the historical, smoking and tobacco-related health factors from the [place] facility where the Encounter took place.Current Smoking Status This section includes the most current smoking, or tobacco-related health factor, from the [facility] where the Encounter took place. Date/Time Current Smoking Status Comment Facility Aug 19, 2021 10:30 AM [place]-TOBACCO FORMER USER [facility] Tobacco Use History This section includes a history of the smoking, or tobacco- related health factors, that were collected on or before the date of the Encounter. The data comes from the [facility] where the Encounter took place. Date/Time Smoking Status/Tobacco Use Comment [facility] it Aug 19, 2021 10:30 AM HI-TOBACCO QUIT 1 TO < 5 YRS [facility] Apr 15, 2021 01:00 PM LIFETIME NON-SMOKER [facility] Aug 06, 2020 09:00 AM [facility]-TOBACCO FORMER USER [facility] Aug 06, 2020 09:00 AM VA-TOBACCO [...] the Encounter. The data comes from all [place] treatment facilities. Date/Time Radiology Report Provider Source Oct 24, 2021 10:49 AM CHEST 2 VIEWS PA AND LAT: TONY KERNS [facility] KRISSY IRWIN [id number] -[birth year] F Exm Date: OCT 24, 2021@10:49 Req Phys: XIOMARA MCFARLANE Loc: [facility] PACT MELISSA N 4F (Req'g Loc) Img Loc: MAIN X-RAY Service: Unknown Screen: Patient answered no (Case [id number] COMPLETE) CHEST 2 VIEWS PA AND LAT (RA D Detailed) CPT:45248 Reason for Study: shortness of breath Clinical History: IS NOT under investigation for COVID-19 or is COVID-19 negative shortness of breath Responsible provider name a nd phone number to notify for critical findings if other than u ser placing the order and pager listed below: User placing marshalle tacos pager: [phone] LAST CREATININE____ Report Status: Verified Date Reported: OCT 24, 2021 Date Verified: OCT 24, 2021 Lamp Mechanic E-Sig:/ES/TONY KERNS MD Report: EXAMINATION: CHEST 2 VIEWS PA AND LAT 10/24/2021 10:49 AM INDICATION: shortness of breath Impression: Negative chest. No pulmonary infiltrate or pleu ral effusion. Heart size and pulmonary vascularity within nor mal limits. No comparison chest x-ray. Primary Interpreting Staff: TONY KERNS MD, RADIOLOGIST (Lamp Mechanic) /RTS Encounter Notes: All associated encounter notes This section contains the clinical notes associated to the Encounter. Date/Time Encounter Note(s) Provider Source November 21, 2021 11:25 INTERNAL MEDICINE OUTPATIENT NOTE: YRN STRICKLAND [facility]CS AM LOCAL TITLE: MEDICINE CLINIC NURSING NOTE STANDARD TITLE: INTERNAL MEDICINE OUTPATIENT NOT E DATE OF NOTE: NOVEMBER 21, 2021@11:25 ENTRY DATE: NOVEMBER 21, 2021@11:25:07 AUTHOR: AGUS STRICKLAND EXP COSIGNER: URGENCY: STATUS: COMPLETED TYPE OF VISIT: Appointment Check In Type of appointment: In-person appointment REASON FOR VISIT: follow up ALLERGIES: Patient has answered NKA VITAL SIGNS: Blood Pressure: 125/84 (11/21/2021 11:22) Pulse: 63 (11/21/2021 11:22) Respiration: 16 (11/21/2021 11:22) Temperature: 97.9 F [36.6 C] (11/21/2021 11:22) Weight: 200 lb [90.72 kg] (11/21/2021 11:22) Height: 65 in [165.1 cm] (11/21/2021 11:22) BMI: 33.4 O2 Sat: 99% (11/21/2021 11:22) Pain: 0 (11/21/2021 11:22) PAIN SCREEN: Patient is not having significant pain that the y wish to discuss with their provider today. MEDICATION Over the Counter/Herbal Medications: The patient states that they take some outside medications and/or herbals. PTSD Screening: PC-PTSD-5 A PTSD screening test (PC-PTSD-5) was negative (score=3). Have you ever had any experience that [...] that reminded you of the ev ent(s)? NO 3. Been constantly on guard, watchful, or easil y startled? YES 4. [place] numb or detached from people, activitie s, or your surroundings? YES 5. [place] guilty or unable to stop blaming yourse lf or others for the event(s) or any problems the event(s) may have caused? NO Licensed Independent Provider notified of posit lilliana screen and need for follow-up. Name of provider notified: currently being zay lamberto by Pneumococcal PPSV23 (Pneumovax): The patient declines to receive the recommended dose of pneumococcal polysaccharide vaccine PPSV23 (Pneumovax). /kaylene/ AGUS STRICKLAND LPN LICENSED PRACTICAL NURSE Signed: 11/21/2021 11:27 November 21, 2021 08:46 INTERNAL MEDICINE NOTE: XIOMARA MCFARLANE 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 Today, Krissy continues to re port intermittent symptoms as outlined below. She is concerned about exertional SOB, heart fluttering and father's history of premature heart disease/NH. Also concerned about having a hiatal hernia. Drinking liquids and eating solids if they are not chewed thoro ugh can result in choking sensation after eating and near regurgitation. Of note her eating schedule is erratic. She has seen a card table attendant at [employer], and receive informa tion through our MOVE program as well. Doesn't feel like she can follow through on their advice due to her work/life schedule. Current eating pattern: If not working overnight shift: has breakfast in the morning, snack at noon, dinner between 4 and 5, then snack and does not eat after 7. When working overnight, and having slept all day, she has a meal around 11 pm, then a snack, then doesn't have anything to eat after 3 a.m. When working overnight, and having slept less during the day, she will eat less at dinner time, a meal at 11 :00 pm, some snacks after that, and nothing after 3 a.m. She recently has started [employer]. in hopes of k eeping track of her meals and calories more reasonably. Regarding potential reflux, she has been following all of the recommended reflux precautions except for drinking one bubble water w/caffeine daily. She is overweight as well. BMI is 34. At our last visit on 10/24/21, we adressed fluctua tions in blood pressure, heat aching, heart fluttering w/w alking, SOB with walking short distances and bending over e.g. to tie her shoes, escalating over prev ious approx. 3 weeks. Heart fluttering duration was seco nds, intermittent. Was also c/o whole body swelling including face/hands/feet x months, originally t hought to be related to SSRI, swiched to bupropion which was discontin ued after she felt a wooshing sound if she turned her head. She also c/o positi onal dizziness, and her hands and feet were going numb when she moved. She was worried about having an esophageal hernia because if she was dromlomg coffe e, she would cough and spew her coffee all over. Had gained about 9 pounds since december/2020 per our records. Wt same as Jul of this year. ROS was otherwise negative. EKG on 10/24/21 showed SR w/sinus arrhythmia CXR (done, was negative) Labs (were unremarkable) Ziopatch w/o worrisome findings For future consider: stress testing, echo RTC one month Today's nurse's notes were reviewed. Active problems [...] goiter Father: HLD, HTN, at 48 from [place]. 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 3) VALACYCLOVIR HCL 1GM TAB TAKE TWO TABLETS BY MOUTH ACTIVE TWICE A DAY FOR COLD SORES Active Non-VA Medications Status 1) Non-VA ASPIRIN 81MG EC TAB 81MG MOUTH EVERY D AY ACTIVE MEDICATION RECONCILIATION: completed ALLERGIES: Patient has answered NKA EXAM: Previous VS: BP: 117/79 (10/24/2021 09:25) Weight: WEIGHTS IN LAST 6 MONTHS: 204.2 (OCT 24, 2021@09:25:27) 200 (OCT 14, 2021@11:00:05) GEN: Alert, no acute distress Psych: actively engaged in conversation, full ra nge of affect, no psychomotor slowing, slightly anxious appearing, no signs of agitation TEST RESULTS: Collection time: Oct 24, 2021@10:35 Test Name [...] - 2.6 CREAT EGFR(CKD-EPI) >90 Ref: >=60 CHEST 2 VIEWS PA AND LAT Exm Date: OCT 24, 2021@10:49 Impression: Negative chest. No pulmonary infiltrate or pleu ral effusion. Heart size and pulmonary vascularity within nor mal limits. No comparison chest x-ray. LOCAL TITLE: EKG CONSULT STANDARD TITLE: CARDIOLOGY DIAGNOSTIC STUDY CONS ULT DATE OF NOTE: NOV 09, 2021@12:57 ENTRY DATE: NOV 09, 2021@12:58:03 ZIO MONITOR REPORT INTERPRETATION: 1. Underlying rhythm was Sin us [...] thm / Sinus Tachycardia, premature supraventricular complexes. Patient was informed of available lab, imaging, and other study results associated with today's visit. ASSESSMENT AND PLAN: Shortness of Breath (ICD-10-CM R06.02) (Primary) Gastro-Esophageal Reflux Disease without Esophag itis (ICD-10-CM K21.9) Family History of Ischemic Heart Disease and other Diseases of the Circulatory System (ICD-10-CM Z82.49) Anxiety Disorder, unspecified (ICD-10-CM F41.9) Obesity, unspecified (ICD-10-CM E66.9) Plan: Stress echo Esophagram/UGI after stress test Omeprazole x 8 weeks for now RTC 8 weeks. Patient/Surrogate indicates readiness to learn, verbalizes understanding,agreement [...] to patient/surrogate and care coordination: Total Time: 40 minutes Xiomara Mcfarlane MD General Internal Medicine [facility] PACT KIRA Ramirez /kaylene/ Xiomara Mcfarlane MD Physician Signed: 11/21/2021 11:37
--- OUTSIDE RECORDS SUMMARY | 2022-03-27 17:41 | XMS_ITS | Encounter Summary ---
:1975 Author Organization Department of [facility] rs Address [address] [place] [address] Support Name Relationship Address Phone JERRI IRWIN Unavailable FABRIZIO VANCE [place] [address] JERRI IRWIN [place] [address] Selected Encounter This section includes the information on record at [place] for the Encounter. Date/Time Encounter Type Encounter Description Reason Provider Source November 29, 2021 09:30 Outpatient Encounter PM&RS PHYSICIAN AM IHE Encounter Template Text not used by [place] Plan of Treatment: Future Appointments (+ 6 [...] 13, 2021 03:30 PM AMBULATORY - NONE [facility] December 13, 2021 05:00 PM AMBULATORY - REHAB MEDICINE [facility] Dec 23, 2021 09:30 AM AMBULATORY - NONE [facility] Dec 29, 2021 03:00 PM AMBULATORY - MEDICINE [facility] Feb 03, 2022 09:00 AM AMBULATORY - MEDICINE [facility] Feb 07, 2022 12:30 PM AMBULATORY - NONE [facility] Feb 07, 2022 03:30 PM AMBULATORY - NONE [facility] Mar 07, 2022 03:00 PM AMBULATORY - MEDICINE [facility] Mar 22, 2022 05:00 PM AMBULATORY - REHAB MEDICINE [facility] Apr 12, 2022 03:00 PM AMBULATORY - MEDICINE [facility] Apr 18, 2022 12:30 PM AMBULATORY - MEDICINE [facility] May 09, 2022 03:30 PM AMBULATORY - NONE [facility] Social History: Smoking Status (Most current) and Tobacco Use (All prior to encounter date) This section includes the most current, and the historical, smoking and tobacco-related health factors from the [facility] where the Encounter took place.Current Smoking Status This section includes the most current smoking, or tobacco-related health factor, from the [facility] where the Encounter took place. Date/Time Current Smoking Status Comment Facility Aug 19, 2021 10:30 AM VA-TOBACCO FORMER USER [facility] Tobacco Use History This section includes a history of the smoking, or tobacco- related health factors, that were collected on or before the date of the Encounter. The data comes from the [facility] where the Encounter took place. Date/Time Smoking Status/Tobacco Use Comment [facility] Aug 19, 2021 10:30 AM RI-TOBACCO QUIT 1 TO < 5 YRS [facility] Apr 15, 2021 01:00 PM LIFETIME NON-SMOKER [facility] Aug 06, 2020 09:00 AM VA-TOBACCO FORMER USER [facility] Aug 06, 2020 09:00 AM VA-TOBACCO QUIT 15 YRS OR MORE [facility] Radiology Reports: +/- 30 days of [...] the Encounter. The data comes from all [place] treatment facilities. Date/Time Radiology Report Provider Source Dec 23, 2021 09:36 AM ESOPHAGRAM DOUBLE CONTRAST: DILIP MATA [facility] KRISSY IRWIN [id number] -[birth year] F Exm Date: DEC 23, 2021@09:36 Req Phys: SWATHI MCFARLANE Loc: [facility] PACT MELISSA N 4F (Req'g Loc) Img Loc: MAIN X-RAY Service: Unknown Screen: Patient answered no (Case [id number] COMPLETE) ESOPHAGRAM DOUBLE CONTRAST (RAD Detailed) CPT:92918 Contrast Media : Barium Reason for Study: regurgitation with fluids and solids Clinical History: regurgitation with fluids and solids I am reque sting/ordering esophagram without upper GI Report Status: Verified Date Reported: DEC 23, 2021 Date Verified: DEC 23, 2021 Sand Cutter E-Sig:/ES/DILIP MATA MD Report: Examination: ESOPHAGRAM DOUBLE [...] Primary Interpreting Staff: DILIP MATA MD, RADIOLOGIST (Sand Cutter) Primary Interpreting Resident: STEF CORNELIUS DO, CD MIXER /PJM Encounter Notes: All associated encounter notes This section contains the clinical notes associated to the Encounter. Date/Time Encounter Note(s) Provider Source November 29, 2021 09:30 AM REPORT OF CONTACT: TAYLOR HUNT [facility] LOCAL TITLE: APPOINTMENT SCHEDULING NOTE C STANDARD TITLE: REPORT OF CONTACT DATE OF NOTE: NOVEMBER 29, 2021@09:30 ENTRY DATE: NOVEMBER 29, 2021@09:30:26 AUTHOR: TAYLOR HUNT EXP COSIGNER: URGENCY: STATUS: COMPLETED Attempt to schedule return to clinic 1st Contact: Called at: M ay Left message Phone number left for to call back: 2nd Contact: Sent letter by regular [place] mail [place] [address] [address] [address] [place], [place] [address] Additional information/contact attempts: Appointment added to [facility] for schedzoey ng reminder If [facility] calls back, schedule appointment for : Return to [facility] POWER on or keylau nd ( Dec 26, 2021 ) for a total of 1 appointment(s) Prerequisites: Notify ordering provider if minim um scheduling efforts fail 60 min Is the RTC marked as no later than? No /kaylene/ TAYLOR Arcos Grievance Coordinator Signed: 11/29/2021 09:31
--- OUTSIDE RECORDS SUMMARY | 2022-03-27 17:42 | XMS_ITS | Encounter Summary ---
:1975 Author Organization Department [facility] Address [address] [place] [id number] Support Name Relationship Address Phone JERRI IRWIN Unavailable FABRIZIO [employer] [place] [address] JERRI IRWIN Unavailable FABRIZIO [employer] [phone] [address] [place], [place] Selected Encounter This section includes the information on record at [place] for the Encounter. Date/Time Encounter Type Encounter Reason Provider Source Description Feb 07, 2022 HC PRO PHONE TELEPHONE PRIMARY ICD-10-CM F33.9 AKIKO JIMENEZ 03:30 PM CALL 11-20 MIN CARE Major depressive IN R disorder, recurrent, unspecified with Provider Comments: Depression ([facility] [id number]) IHE Encounter Template Text not used by [place] Assessments - Encounter Diagnoses This section includes the primary and secondary diagnoses documented for the Encounter. Date/Time Primary/Secondary Diagnosis Name Provider Source Diagnosis Feb 07, 2022 PRIMARY Major depressive AKIKO TALBERT IS [place] 03:30 PM disorder, IN R HCS recurrent, [...] Date/Time Appointment Type Appointment Facili ty Name Mar 07, 2022 03:00 PM AMBULATORY - MEDICINE [facility] Mar 22, 2022 05:00 PM AMBULATORY - REHAB MEDICINE [facility] Apr 12, 2022 03:00 PM AMBULATORY - MEDICINE [facility] Apr 18, 2022 12:30 PM AMBULATORY - MEDICINE [facility] CS May 09, 2022 03:30 PM AMBULATORY - NONE [facility] Active, Pending, and Scheduled Orders This [...] data comes from all [place] treatment facilities. Test Date/Time Test Type Test Details Facility Name Feb 07, 2022 08:59 AM Procedure Order CP ECHO (TTE) OUTPT CP [facility] CARDIAC ECHO OP Proc Microfilm Equipment Inspector's Choice Mar 23, 2022 03:14 PM Consult Order [facility] THERAPY Cons Microfilm Equipment Inspector's Choice Social History: Smoking Status (Most current) and Tobacco Use (All prior to encounter date) This section includes the most current, and the historical, smoking and tobacco-related health factors from the [place] facility where the Encounter took place.Current Smoking Status This section includes the most current smoking, or tobacco-related health factor, from the [place] facility where the Encounter took place. Date/Time Current Smoking Status Comment Facility Aug 19, 2021 10:30 AM [place]-TOBACCO FORMER USER [facility] Tobacco Use History This section includes a history of the smoking, or tobacco- related health factors, that were collected on or before the date of the Encounter. The data comes from the [place] facility where the Encounter took place. Date/Time Smoking Status/Tobacco Use Comment Mona richardson Aug 19, 2021 10:30 AM [place]-TOBACCO QUIT 1 TO < 5 YRS [facility] Apr 15, 2021 01:00 PM LIFETIME NON-SMOKER [facility] Aug 06, 2020 09:00 AM [place]-TOBACCO FORMER USER [facility] Aug 06, 2020 09:00 AM [place]-TOBACCO QUIT 15 YRS OR MORE [facility] Encounter Notes: All associated encounter notes This section contains the clinical notes associated to the Encounter. Date/Time Encounter Note(s) Provider Source Feb 07, 2022 03:32 PHARMACY NOTE: TESSA TALBERT [facility] PM LOCAL TITLE: PHARMACOTHERAPY-CLINICAL PHARMACY NOTE STANDARD TITLE: PHARMACY NOTE DATE OF NOTE: FEB 07, 2022@15:32 ENTRY DATE: FEB 07, 2022@15:32:29 AUTHOR: TESSA TALBERT COSIGNER: URGENCY: STATUS: COMPLETED visit Type: Phone ALIDA,SARA MCCORMICK is a 46 year-old se en today for pharmacy case management regarding depression. 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 Has non-VA neurology care. Had discussed increasing sertraline to 50mg Qday between scheduled visits. DSM-5 Diagnostic Assessment: (per [facility] notes) - Adjustment Disorder with mixed Anxiety and de pressed mood - MDD, unspecified Current Medications for Mood Symptoms: - Sertraline 50mg Qday Previous Medication Trials: - Bupropion XL (felt off while taking) - Buspirone (didn't seem to help) - Escitalopram (bruxism) SUBJECTIVE: Sara states she is feeling well this afternoon, pretty good, and feels pleased with current antidepressant dosing. Butch es her mood has been better compared to prior trials of escitalopram or bupr opion. Does still note teeth grinding/clenching symptoms, though less bothers ome compared to escitalopram trial. Overall feels mood sy mptoms are drastically improved relative to when she had stopped antidepressants, specifically noting improvements in motivation and irritability. Life has been fairly stressful as her kids are home from school for the summer and they are currently working on a very large home addition. [place] would like to continue current sertralin e dosing as prescribed for another few months and reassess. 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 4) [...] suspected; provides interim updates - Mood: Pretty good - Insight/Judgement: good/good; intact for safe ty ASSESSMENT: #Mood/Anxiety Symptoms: Unspecified anxiety and depressive disorder resp onding well to low dose sertraline. Has noticed an improvement i n mood symptoms with dose increase and fewer ADRs compared to trials of bupropion and e scitalopram. Is experiencing bruxism symptoms, though not quite as severe com pared to other antidepressant trials and feels benefits outweigh side effect. Reasonable to continue current therapy as prescribed. Denies any thoughts of diaz icide or self-harm and anticipate risk either is low based on protectiv e factors and risk factors. is also connected with [facility] for individ ual therapy. #/Teratogenicity Risk: Risk of pregnanc y is minimal given tubal ligation history. PLAN: ----- - Continue sertraline 50mg Qday #Disease-Specific Med Rec: Completed today #Labs: None needed at this time - Educated vet on indication/risks/benefits of n ew/changed medication. - Education provided on therapeutic nonpharmacol ogic management to achieve goals. - Vet advised of recent labs. - [place] verbalized underst anding to all plans discussed today. Questions were answered to vet's satisfaction. Time Spent: 15 minutes RTC: 3 months in pharm phone clinic /kaylene/ TESSA TALBERT PharmD, [facility] Clinical Water Treatment Technician Signed: 02/07/2022 15:48
--- OUTSIDE RECORDS SUMMARY | 2022-03-27 17:42 | XMS_ITS | Encounter Summary ---
:1975 Author Organization Department [facility] Address [address] [place] [address] Support Name Relationship Address Phone JERRI IRWIN Unavailable FABRIZIO VANCE [place] [id number] JERRI IRWIN Unavailable FABRIZIO VANCE [phone] [place], [place] Selected Encounter This section includes the information on record at [place] for the Encounter. Date/Time Encounter Type Encounter Description Reason Provider Source Feb 14, 2022 12:00 Outpatient Encounter [facility]ITY [facility] AM CONSULT IHE Encounter Template Text not used by CT Plan of Treatment: Future Appointments (+ 6 months) and Future Tests (+/- 45 days) The Plan of Treatment section includes future care activities for the patient from all [facility]. This section includes future appointments and future orders which are active, pending orscheduled.Future Appointments This section includes appointments that were scheduled to occur 6 months from the date of the Encounter, up to a maximum of 20 appointments. The data comes from all CT treatment [facility]. Appointment Date/Time Appointment Type Appointment Facili ty Name Mar 07, 2022 03:00 PM AMBULATORY - MEDICINE [facility] Mar 22, 2022 05:00 PM AMBULATORY - REHAB MEDICINE [facility] Apr 12, 2022 03:00 PM AMBULATORY - MEDICINE [facility] Apr 18, 2022 12:30 PM AMBULATORY - MEDICINE [facility] May 09, 2022 03:30 PM AMBULATORY - NONE [facility] Active, Pending, and Scheduled Orders [...] data comes from all [place] treatment facilities. Test Date/Time Test Type Test Details Facility Name Feb 07, 2022 08:59 AM Procedure Order CP ECHO (TTE) OUTPT CP MIN [facility] CARDIAC ECHO OP Proc Assembler Clip On Sunglasses's Choice Mar 23, 2022 03:14 PM Consult Order [facility] THERAPY Cons Assembler Clip On Sunglasses's Choice Social History: Smoking Status (Most current) [...] 2021 10:[address]-TOBACCO FORMER USER MIN [facility] Tobacco Use History This section includes a history of the smoking, or tobacco- related health factors, that were collected on or before the date of the Encounter. The data comes from the [facility] where the Encounter took place. Date/Time Smoking Status/Tobacco Use Comment [facility] khalida Aug 19, 2021 10:30 AM [place]-TOBACCO QUIT 1 TO < 5 YRS [facility] Apr 15, 2021 01:00 PM LIFETIME NON-SMOKER [facility] Aug 06, 2020 09:00 AM [place]-TOBACCO FORMER USER [facility] Aug 06, 2020 09:00 AM VA-TOBACCO QUIT 15 YRS OR MORE [facility] Encounter Notes: All associated encounter notes This section contains the clinical notes associated to the Encounter. Date/Time Encounter Note(s) Provider Source Feb 14, 2022 12:00 AM NONVA [facility]SULT[facility] LOCAL TITLE: COMMUNITY CARE CONSULT RESULT NOTE STANDARD TITLE: NONVA CONSULT DATE OF NOTE: FEB 14, 2022 ENTRY DATE: MAR 02 022@14:41:08 AUTHOR: CARMELINA DOLL EXP COSIGNER: URGENCY: STATUS: COMPLETED [employer] - Scanned Document [facility] MASSAGE THERAPY [facility] APPOINTMENT INFORMATION Documentation received from non-CT provider and scanned into [employer]. /kaylene/ CARMELINA PROCESS Signed: 03/02/2022 14:41
--- OUTSIDE RECORDS SUMMARY | 2022-03-27 17:42 | XMS_ITS | Encounter Summary ---
:1975 Author Organization [facility] rs Address [address] [place] [address] Support Name Relationship Address Phone JERRI IRWIN Unavailable FABRIZIO [employer] [place] [address] JERRI IRWIN Unavailable FABRIZIO [employer] [place], [place] Selected Encounter This section includes the information on record at [place] for the Encounter. Date/Time Encounter Type Encounter Reason Provider Source Description Feb 03, 2022 PSYTX W PT 45 PM&RS PHYSICIAN ICD-10-CM F33.9 ALVA POWER SE 09:00 AM MINUTES Major depressive disorder, recurrent, unspecified with Provider Comments: Depression ([facility] [id number]) IHE Encounter Template Text not used by [place] Assessments - Encounter Diagnoses This section includes the primary and secondary diagnoses documented for the Encounter. Date/Time Primary/Secondary Diagnosis Name Provider Source Diagnosis Feb 06, 2022 PRIMARY Major depressive JEREMY POWER [facility] [place] 09:59 AM disorder, HCS recurrent, unspecified Feb 06, 2022 SECONDARY Cerebral JEREMY POWER V A 09:59 AM infarction, HCS unspecified Plan of Treatment: Future [...] Date/Time Appointment Type Appointment Facili ty Name Feb 07, 2022 12:30 PM AMBULATORY - NONE [facility] Feb 07, 2022 03:30 PM AMBULATORY - NONE [facility] Mar 07, 2022 03:00 PM AMBULATORY - MEDICINE [facility] Mar 22, 2022 05:00 PM AMBULATORY - REHAB MEDICINE GOGO Boucher [facility] Apr 12, 2022 03:00 PM AMBULATORY - MEDICINE [facility] Apr 18, 2022 12:30 PM AMBULATORY - MEDICINE [facility] May 09, 2022 03:30 PM AMBULATORY - NONE [facility] Active, Pending, and Scheduled Orders This section includes a listing of several types of active, pending, and scheduled orders, including clinic medications orders, diagnostic test orders, procedure orders and consult orders; where the start date of the order is 45 days before the date of the Encounter or 45 days after the date of the Encounter. The data comes from all [place] treatment facilities. Test Date/Time Test Type Test Details Facility Name Feb 07, 2022 08:59 AM Procedure Order CP ECHO (TTE) OUTPT CP MIN [facility] CARDIAC ECHO OP Proc Mold Technician's Choice Social History: Smoking Status (Most current) [...] Comment Facility Aug 19, 2021 10:30 AM [place]-TOBACCO QUIT 1 TO < 5 YRS [facility] Tobacco Use History This section includes a history of the smoking, or tobacco- related health factors, that were collected on or before the date of the Encounter. The data comes from the [place] facility where the Encounter took place. Date/Time Smoking Status/Tobacco Use Comment Mona gaxiola Aug 19, 2021 10:30 AM [place]-TOBACCO QUIT 1 TO < 5 YRS [facility] Apr 15, 2021 01:00 PM LIFETIME NON-SMOKER NAVIN [facility] Aug 06, 2020 09:00 AM [place]-TOBACCO FORMER USER [facility] Aug 06, 2020 09:00 AM [place]-TOBACCO QUIT 15 YRS OR MORE [facility] Encounter Notes: All associated encounter notes This section contains the clinical notes associated to the Encounter. Date/Time Encounter Note(s) Provider Source Feb 03, 2022 09:00 AM PHYSICAL MEDICINE REHAB NOTE: JEREMY POWER [facility] LOCAL TITLE: REHAB PSYCHOLOGY PROGRESS NOTE STANDARD TITLE: PHYSICAL MEDICINE REHAB NOTE DATE OF NOTE: FEB 03, 2022@09:00 ENTRY DATE: FEB 06, 2022@09:41:33 AUTHOR: JEREMY POWER EXP COSIGNER: URGENCY: STATUS: COMPLETED [place] seen 55 min indiv psychotherapy via VVC. Visit conducted by synchronous telehealth. Veter an verbal consent obtained. Location/emergency number confirmed. Environment surveyed and all participants identified. Virtual conference room locked. [place] reports she is doing a little better. Sh e's feels physically better and has more energy. She states that the good we ather also helps both physically and mentally because she is more acti ve and there are more activities. She's been so busy that she doesn't feel like she has time to be depressed. She recently returned from a family r oad trip to [place] for daughter's lacrosse tournament. 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 They have decided to do the home construction and she is pleased about t his. She states that she is letting her deal with all the details an d this is working well. She states that she thrives on goals and we discusse d breaking down the goals of the large building project so she can feel accom plishment along the way. Work has been very busy and stressful. Her curre nt schedule, which is laid out for years ahead, allows her to plan and to h ave blocks of time away from work and she states this has been very helpful. She noted that when she returned to work recently more staff have quit. She has taken a different attitude toward the work problems and no longer tries to solve all the problems herself, but instead to identify the is sues and present them to leadership for more collaborative and systems pr oblem-solving. She continues to provide support to her immediate staff as bes t she can, while also realizing she cannot solve everything. Discussed how her experience has helped her in managing the stress and work f low. 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 Objective: ready for the video call. Some techno logy difficulties initially but we were able to problem solve. Mood has been ok, better. Affect is broad, engaged and congruent. Thought process is linear and content appropriate to situation. Future oriented. Educ: appeared open to learning and expressed un derstanding through appropriate questions/comments. Risk Assessment Risk Factors: status, depression, anxiet y, decreased self-efficacy Potential Protective Factors: denies current SI, plan and intent, positive social support, , responsibility to child mustapha/family, engaged in mental health care, help seeking, intact reality testin g, presence of positive coping skills, expressed desire to live, no weap ons at home (her weapons are at her grandfather's house), future oriented, st able housing, stable employment Acute risk: low Chronic risk: low A: MDD unspecified; hx cva P: rtc 4 weeks /es/ Jeremy Power, PhD, Psychologist Signed: 02/06/2022 09:59
--- OUTSIDE RECORDS SUMMARY | 2022-03-27 17:42 | XMS_ITS | Encounter Summary ---
:1975 Author Organization [facility] rs Address [address] [place] [address] Support Name Relationship Address Phone JERRI IRWIN Unavailable FABRIZIO VANCE [place] [address] JERRI IRWIN Unavailable FABRIZIO [employer] [phone] [place], [place] Selected Encounter This section includes the information on record at [place] for the Encounter. Date/Time Encounter Type Encounter Reason Provider Source Description Dec 29, 2021 PSYTX W PT 45 PM&RS PHYSICIAN ICD-10-CM F33.9 ALVA POWER SE 03:00 PM MINUTES Major depressive disorder, recurrent, unspecified with Provider Comments: Depression ([facility] [id number]) IHE Encounter Template Text not used by [place] Assessments - Encounter Diagnoses This section includes the primary and secondary diagnoses documented for the Encounter. Date/Time Primary/Secondary Diagnosis Name Provider Source Diagnosis Jan 01, 2022 PRIMARY Major depressive [facility] [place] 05:30 PM disorder, HCS recurrent, unspecified Plan of [...] Appointment Type Appointment Facili ty Name Feb 03, 2022 09:00 AM AMBULATORY - MEDICINE [facility] Feb 07, 2022 12:30 PM AMBULATORY - NONE [facility] Feb 07, 2022 03:30 PM AMBULATORY - NONE [facility] Mar 07, 2022 03:00 PM AMBULATORY - MEDICINE [facility] Mar 22, 2022 05:00 PM AMBULATORY - REHAB MEDICINE GOGO Boucher [facility] Apr 12, 2022 03:00 PM AMBULATORY - MEDICINE [facility] Apr 18, 2022 12:30 PM AMBULATORY - MEDICINE [facility] May 09, 2022 03:30 PM AMBULATORY - NONE [facility] Active, Pending, and Scheduled Orders [...] data comes from all [place] treatment facilities. Test Date/Time Test Type Test Details Facility Name Feb 07, 2022 08:59 AM Procedure Order CP ECHO (TTE) OUTPT CP MIN [facility] CARDIAC ECHO OP Proc Photograph Finisher's Choice Social History: Smoking Status (Most current) and Tobacco Use (All prior to encounter date) This section includes the most current, and the historical, smoking and tobacco-related health factors from the [place] facility where the Encounter took place.Current Smoking Status This section includes the most current smoking, or tobacco-related health factor, from the [place] facility where the Encounter took place. Date/Time Current Smoking Status Comment Facility Aug 19, 2021 10:30 AM [place]-TOBACCO FORMER USER MIN [facility] Tobacco Use History This section includes a history of the smoking, or tobacco- related health factors, that were collected on or before the date of the Encounter. The data comes from the [place] facility where the Encounter took place. Date/Time Smoking Status/Tobacco Use Comment [facility] khalida Aug 19, 2021 10:30 AM [place]-TOBACCO QUIT 1 TO < 5 YRS [facility] Apr 15, 2021 01:00 PM LIFETIME [facility]MOKER [facility] Aug 06, 2020 09:00 AM [place]-TOBACCO FORMER USER MIN [facility] Aug 06, 2020 09:00 AM [place]-TOBACCO QUIT 15 YRS OR MORE [facility] Radiology Reports: +/- 30 days [...] 09:36 AM ESOPHAGRAM DOUBLE CONTRAST: DILIP MATA [facility] KRISSY IRWIN [id number] -[birth year]B [birth year] F Exm Date: DEC 23, 2021@09:36 Req Phys: SWATHI MCFARLANE Loc: [facility]SP PACT MELISSA N 4F (Req'g Loc) Img Loc: MAIN X-RAY Service: Unknown Screen: Patient answered no (Case [id number] COMPLETE) ESOPHAGRAM DOUBLE CONTRAST (RAD Detailed) CPT:78223 Contrast Media : Barium Reason for Study: regurgitation with fluids and solids Clinical History: regurgitation with fluids and solids I am reque sting/ordering esophagram without upper GI Report Status: Verified Date Reported: DEC 23, 2021 Date Verified: DEC 23, 2021 Field Artillery Operations Specialist E-Sig:/ES/DILIP MATA MD Report: Examination: ESOPHAGRAM DOUBLE [...] Primary Interpreting Staff: DILIP MATA MD, RADIOLOGIST (Field Artillery Operations Specialist) Primary Interpreting Resident: STEF CORNELIUS DO, AGENT SPA DESK /PJM Encounter Notes: All associated encounter notes This section contains the clinical notes associated to the Encounter. Date/Time Encounter Note(s) Provider Source Dec 29, 2021 03:00 PM PHYSICAL MEDICINE REHAB NOTE: JEREMY POWER [facility] LOCAL TITLE: REHAB PSYCHOLOGY PROGRESS NOTE STANDARD TITLE: PHYSICAL MEDICINE REHAB NOTE DATE OF NOTE: DEC 29, 2021@15:00 ENTRY DATE: JAN 01, 2022@16:47:16 AUTHOR: JEREMY POWER EXP COSIGNER: URGENCY: STATUS: COMPLETED seen 55 min indiv psychotherapy via VVC. C: has provided informed consent for video A: [id number], [place] [address] P: [phone] S: at home in private room w door closed; no one else in surrounding area; states she has privacy [place] provided update on health evaluations. S tates that esophagram showed small hiatal hernia. She is aware of behavioral recs though notes that avoiding coffee and carbonated beverages is difficult for her. She drinks a lot of carbonated water. She is jl ling to try some of the other recs (don't eat right before bed, etc). She doesn't feel that all of h er symptoms have explanations but is grateful that nothing serious was found. Majority of session focused on marital issues an d their decision to do some major home construction. She notes how she and have different styles and this creates conflict at times. Discussed strate gies to improve communication (I feel x when you say/do y, identifying/expre ssing own emotions, etc). Objective: attentive, good eye contact, mood ok , better than it had been, affect broad. Thought process linear; co ntent appropriate to situation. Future oriented Risk Assessment Risk Factors: status, [...] /es/ Jeremy Power, PhD, LP Psychologist Signed: 01/01/2022 17:30
--- OUTSIDE RECORDS SUMMARY | 2022-03-27 17:43 | XMS_ITS | Encounter Summary ---
:1975 Author Organization Department of [facility] rs Address [address] [place] [address] Support Name Relationship Address Phone JERRI IRWIN Unavailable FABRIZIO VANCE [place] [phone] JERRI IRWIN Unavailable FABRIZIO VANCE [phone] [place], [place] Selected Encounter This section includes the information on record at [place] for the Encounter. Date/Time Encounter Type Encounter Description Reason Provider Source Mar 08, 2022 12:43 Outpatient Encounter PM&RS PHYSICIAN PM IHE Encounter Template Text not used by [place] Plan of Treatment: Future Appointments (+ 6 months) and Future Tests (+/- 45 days) The Plan of Treatment section includes future care activities for the patient from all [place] [facility]. This section includes future appointments and future orders which are active, pending orscheduled.Future Appointments This section includes appointments that were scheduled to occur 6 months from the date of the Encounter, up to a maximum of 20 appointments. The data comes from all [facility]. Appointment Date/Time Appointment Type Appointment Facili ty Name Mar 22, 2022 05:00 PM AMBULATORY - REHAB MEDICINE [facility] Apr 12, 2022 03:00 PM AMBULATORY - MEDICINE [facility] Apr 18, 2022 12:30 PM AMBULATORY - MEDICINE [facility] May 09, 2022 03:30 PM AMBULATORY - NONE [facility] Active, Pending, and Scheduled Orders This section includes a listing of several types of active, pending, and scheduled orders, including clinic medications orders, diagnostic test orders, procedure orders and consult orders; where the start date of the order is 45 days before the date of the Encounter or 45 days after the date of the Encounter. The data comes from all [place] treatment [facility]. 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 Date/Time Current Smoking Status Comment Facility Aug 19, 2021 10:30 AM [place]-TOBACCO FORMER USER [facility] Tobacco Use History This section includes a history of the smoking, or tobacco- related health factors, that were collected on or before the date of the Encounter. The data comes from the [facility] where the Encounter took place. Date/Time Smoking Status/Tobacco Use Comment [facility] it Aug 19, 2021 10:30 AM VA-TOBACCO QUIT 1 TO < 5 YRS [facility] Apr 15, 2021 01:00 PM LIFETIME NON-SMOKER [facility] Aug 06, 2020 09:00 AM VA-TOBACCO FORMER USER [facility] Aug 06, 2020 09:00 AM VA-TOBACCO QUIT 15 YRS OR MORE [facility] Encounter Notes: All associated encounter notes This section contains the clinical notes associated to the Encounter. Date/Time Encounter Note(s) Provider Source Mar 08, 2022 12:43 PM REPORT OF CONTACT: DOC CHO [facility] LOCAL TITLE: APPOINTMENT SCHEDULING NOTE STANDARD TITLE: REPORT OF CONTACT DATE OF NOTE: MAR 08, 2022@12:43 ENTRY DATE: MAR 08, 2022@12:43:50 AUTHOR: DOC CHO EXP COSIGNER: URGENCY: STATUS: COMPLETED Attempt to schedule return to clinic 1st Contact: Called [facility] at: A Left message on [employer] Phone number left for to call back: [phone] 2nd Contact: Sent letter by regular [place] mail [place] [address] [address] [place] [address] Additional information/contact attempts: Appointment added to [facility] for scheduli ng reminder If [facility] calls back, schedule appointment for : Return to [facility] REHAB PSYCH POWER on or keylau nd ( Apr 11, 2022 ) for a total of 1 appointment(s) Prerequisites: Notify ordering provider if minim um scheduling efforts fail 60 min Is the RTC marked as no later than? No /kaylene/ DOC YOUNG Signed: 03/08/2022 12:45
--- OUTSIDE RECORDS SUMMARY | 2022-03-27 17:43 | XMS_ITS | Encounter Summary ---
:1975 Author Organization Department [facility] Address [address] [place] [address] Support Name Relationship Address Phone JERRI IRWIN Unavailable FABRIZIO VANCE [phone] [place] [phone] JERRI IRWIN Unavailable FABRIZIO VANCE [phone] [place], [place] Selected Encounter This section includes the information on record at [place] for the Encounter. Date/Time Encounter Type Encounter Description Reason Provider Source Mar 06, 2022 12:00 Outpatient Encounter COMMUNITY CARE AM CONSULT IHE Encounter Template Text not used by [place] Plan of Treatment: Future Appointments (+ 6 months) and Future Tests (+/- 45 days) The Plan of Treatment section includes future care activities for the patient from all [place] [facility]. This section includes future appointments and future orders which are active, pending orscheduled.Future Appointments This section includes appointments that were scheduled to occur 6 months from the date of the Encounter, up to a maximum of 20 appointments. The data comes from all [place] treatment [facility]. Appointment Date/Time Appointment Type Appointment Facili ty Name Mar 07, 2022 03:00 PM AMBULATORY - MEDICINE [facility] Mar 22, 2022 05:00 PM AMBULATORY - REHAB MEDICINE [facility] Apr 12, 2022 03:00 PM AMBULATORY - MEDICINE [facility] Apr 18, 2022 12:30 PM AMBULATORY - MEDICINE [facility] May 09, 2022 03:30 PM AMBULATORY - NONE [facility] Active, Pending, and Scheduled Orders This [...] data comes from all [place] treatment facilities. Test Date/Time Test Type Test Details Facility Name Feb 07, 2022 08:59 AM Procedure Order CP ECHO (TTE) OUTPT CP [facility] CARDIAC ECHO OP Proc Scientific Technical Writer's Choice Mar 23, 2022 03:14 PM Consult Order [facility] THERAPY Cons Scientific Technical Writer's Choice Social History: Smoking Status (Most current) and Tobacco Use (All prior to encounter date) This section includes the most current, and the historical, smoking and tobacco-related health factors from the [facility] where the Encounter took place.Current Smoking Status This section includes the most current smoking, or tobacco-related health factor, from the [place] facility where the Encounter took place. Date/Time Current Smoking Status Comment Facility Aug 19, 2021 10:30 AM [place]-TOBACCO FORMER USER [facility] Tobacco Use History This section includes a history of the smoking, or tobacco- related health factors, that were collected on or before the date of the Encounter. The data comes from the [facility] where the Encounter took place. Date/Time Smoking Status/Tobacco Use Comment [facility] khalida Aug 19, 2021 10:30 AM VA-TOBACCO QUIT 1 TO < 5 YRS [facility] Apr 15, 2021 01:00 PM LIFETIME NON-SMOKER [facility]Josselyn [facility] Aug 06, 2020 09:00 AM VA-TOBACCO FORMER USER [facility] Aug 06, 2020 09:00 AM VA-TOBACCO QUIT 15 YRS OR MORE [facility] Encounter Notes: All associated encounter notes This section contains the clinical notes associated to the Encounter. Date/Time Encounter Note(s) Provider Source Mar 06, 2022 12:00 AM NONVA [facility] TITLE: COMMUNITY CARE CONSULT RESULT NOTE STANDARD TITLE: NONVA CONSULT DATE OF NOTE: MAR 06, 2022 ENTRY DATE: MAR 24 022@13:21:50 AUTHOR: CARMELINA DOLL EXP COSIGNER: URGENCY: STATUS: COMPLETED [employer] - Scanned Document [facility] MASSAGE THERAPY [facility] APPOINTMENT INFORMATION Documentation received from non-[place] provider and scanned into [employer]. /kaylene/ CARMELINA DOLL Signed: 03/24/2022 13:21
--- OUTSIDE RECORDS SUMMARY | 2022-03-27 17:43 | XMS_ITS | Encounter Summary ---
:1975 Author Organization Department of [facility] rs Address [address] [place] [address] Support Name Relationship Address Phone JERRI IRWIN Unavailable FABRIZIO VANCE [place] [address] JERRI IRWIN Unavailable FABRIZIO VANCE [phone] [place], [place] Selected Encounter This section includes the information on record at [place] for the Encounter. Date/Time Encounter Type Encounter Reason Provider Source Description Mar 07, 2022 PSYTX W PT 45 PM&RS PHYSICIAN ICD-10-CM F33.9 [facility] 03:00 PM MINUTES Major depressive disorder, recurrent, unspecified with Provider Comments: Depression ([facility] [id number]) IHE Encounter Template Text not used by [facility] Assessments - Encounter Diagnoses This section includes the primary and secondary diagnoses documented for the Encounter. Date/Time Primary/Secondary Diagnosis Name Provider Source Diagnosis Mar 10, 2022 PRIMARY Major depressive [facility]EMY POWER [facility] [place] 09:43 PM disorder, HCS recurrent, unspecified Plan of [...] 2022 05:00 PM AMBULATORY - REHAB MEDICINE [facility] Apr 12, 2022 03:00 PM AMBULATORY - MEDICINE [facility] Apr 18, 2022 12:30 PM AMBULATORY - MEDICINE [facility] May 09, 2022 03:30 PM AMBULATORY - NONE [facility] Active, Pending, and Scheduled Orders This [...] data comes from all [place] treatment facilities. Test Date/Time Test Type Test Details Facility Name Feb 07, 2022 08:59 AM Procedure Order CP ECHO (TTE) OUTPT CP [facility] CARDIAC ECHO OP Proc Waterproofing Supervisor's Choice Mar 23, 2022 03:14 PM Consult Order [facility] MASSAGE [facility] THERAPY Cons Waterproofing Supervisor's Choice Social History: Smoking Status (Most current) and Tobacco Use (All prior to encounter date) This section includes the most current, and the historical, smoking and tobacco-related health factors from the [place] facility where the Encounter took place.Current Smoking Status This section includes the most current smoking, or tobacco-related health factor, from the [place] facility where the Encounter took place. Date/Time Current Smoking Status Comment Facility Aug 19, 2021 10:30 AM VA-TOBACCO FORMER USER [facility] Tobacco Use History This section includes a history of the smoking, or tobacco- related health factors, that were collected on or before the date of the Encounter. The data comes from the [place] facility where the Encounter took place. Date/Time Smoking Status/Tobacco Use Comment Mona gaxiola Aug 19, 2021 10:30 AM VA-TOBACCO QUIT 1 TO < 5 YRS [facility] Apr 15, 2021 01:00 PM LIFETIME NON-SMOKER [facility] Aug 06, 2020 09:00 AM VA-TOBACCO FORMER USER [facility] Aug 06, 2020 09:00 AM VA-TOBACCO QUIT 15 YRS OR MORE [facility] Encounter Notes: All associated encounter notes This section contains the clinical notes associated to the Encounter. Date/Time Encounter Note(s) Provider Source Mar 07, 2022 03:00 PM PHYSICAL MEDICINE REHAB NOTE: JEREMY POWER [facility] LOCAL TITLE: REHAB PSYCHOLOGY PROGRESS NOTE STANDARD TITLE: PHYSICAL MEDICINE REHAB NOTE DATE OF NOTE: MAR 07, 2022@15:00 ENTRY DATE: MAR 10, 2022@21:32:09 AUTHOR: JEREMY POWER EXP COSIGNER: URGENCY: STATUS: COMPLETED [place] seen 55 min indiv psychotherapy via VV. Visit conducted by synchronous telehealth. Veter an verbal consent obtained. Location/emergency number confirmed. Environment surveyed and all participants identified. Virtual conference room locked. reports things are busy. She hopes work will settle down a bit, but much of the seasoned staff have left. 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 Trying t o take things day by day. Much of session focused on marital relationship. There is tension. She used to doubt herself, but has been coping by trying to believe in her own perspective and not perceiving things only from 's point of view. She notes that it can be exhausting. Daughters have been supportive of her point of view. Also addressed self-care. Objective: ready for video call. Mood has been o k. Affect is congruent. Thought process logical; content appropriate. Fu ture oriented. Educ: appeared open to learning and [...] /es/ Jeremy Power, PhD, LP Psychologist Signed: 03/10/2022 21:43
--- OUTSIDE RECORDS SUMMARY | 2022-03-27 17:43 | XMS_ITS | Encounter Summary ---
:1975 [address] [facility] Address [address] [place] [address] Support Name Relationship Address Phone JERRI IRWIN Unavailable FABRIZIO VANCE [place] [phone] JERRI IRWIN Unavailable FABRIZIO VANCE [phone] [place], [place] Selected Encounter This section includes the information on record at [place] for the Encounter. Date/Time Encounter Type Encounter Description Reason Provider Source Mar 23, 2022 01:31 Outpatient Encounter COMMUNITY CARE PM CONSULT IHE Encounter Template Text not used by [place] Plan of Treatment: Future Appointments (+ 6 months) and Future Tests (+/- 45 days) The Plan of Treatment section includes future care activities for the patient from all [place] [facility] This section includes future appointments and future orders which are active, pending orscheduled.Future Appointments This section includes appointments that were scheduled to occur 6 months from the date of the Encounter, up to a maximum of 20 appointments. The data comes from all [place] treatment [facility]. Appointment Date/Time Appointment Type Appointment Facili ty Name Apr 12, 2022 03:00 PM AMBULATORY - MEDICINE [facility] Apr 18, 2022 12:30 PM AMBULATORY - MEDICINE [facility] May 09, 2022 03:30 PM AMBULATORY - NONE [facility] Active, Pending, and Scheduled Orders This section includes a listing of several types of active, pending, and scheduled orders, including clinic medications orders, diagnostic test orders, procedure orders and consult orders; where the start date of the order is 45 days before the date of the Encounter or 45 days after the date of the Encounter. The data comes from all [place] treatment [facility]. Test Date/Time Test Type Test Details Facility Name Feb 07, 2022 08:59 AM Procedure Order CP ECHO (TTE) OUTPT CP [facility] CARDIAC ECHO OP Proc Wind Energy Technician's Choice Mar 23, 2022 03:14 PM Consult Order [facility]UNITY [facility] MASSAGE [facility] THERAPY Cons Wind Energy Technician's Choice Social History: Smoking Status (Most current) and Tobacco Use (All prior to encounter date) This section includes the most current, and the historical, smoking and tobacco-related health factors from the [facility] where the Encounter took place.Current Smoking Status This section includes the most current smoking, or tobacco-related health factor, from the [place] facility where the Encounter took place. Date/Time Current Smoking Status Comment Facility Aug 19, 2021 10:30 AM VA-TOBACCO FORMER USER [facility] Tobacco Use History This section includes a history of the smoking, or tobacco- related health factors, that were collected on or before the date of the Encounter. The data comes from the [facility] where the Encounter took place. Date/Time Smoking Status/Tobacco Use Comment [facility] Aug 19, 2021 10:30 AM VA-TOBACCO QUIT 1 TO < 5 YRS [facility] Apr 15, 2021 01:00 PM LIFETIME NON-SMOKER [facility] Aug 06, 2020 09:00 AM VA-TOBACCO FORMER USER [facility] Aug 06, 2020 09:00 AM VA-TOBACCO QUIT 15 YRS OR MORE [facility] Encounter Notes: All associated encounter notes This section contains the clinical notes associated to the Encounter. Date/Time Encounter Note(s) Provider Source Mar 23, 2022 01:31 PM NONVA NOTE: JOAN LAW IS [facility] LOCAL TITLE: COMMUNITY CARE-CARE COORDINATION P REINIER NOTE STANDARD TITLE: NONVA NOTE DATE OF NOTE: MAR 23, 2022@13:31 ENTRY DATE: MAR 23, 2022@13:31:47 AUTHOR: JOAN LAW EXP COSIGNER: URGENCY: STATUS: COMPLETED PROVIDER CONTACT CARLI zafar on Mar to discuss requesting a new consult be placed for Massage therapy. Current o ne expires 03/24/2022. Vendor is sending over RFAS form Action Needed? Yes please place massage consult if appropriate /kaylene/ JOAN LAW [employer]ED ONLINE MERCHANT Signed: 03/23/2022 13:34 Receipt Acknowledged By: * AWAITING SIGNATURE * SWATHI MCFARLANE * AWAITING SIGNATURE * SMITA MURPHY
== END 2022-03-27 17:40 | disposition home or self-care (01) ==
PROVIDERS: Emergency Provider Family Medicine
DX: R21 Rash and other nonspecific skin eruption (principal)
CPT/HCPCS: 87070; 99282; 99283; A9270